=== PATIENT | female | born 1945 | race Caucasian/White ===

== ENCOUNTER → 2017-11-30 09:26 | Outpatient (CLI) | payer MEDICARE, SELFPAY ==
[2017-11-30 11:40] LABS: Absolute Neutrophil Count 4.3 X10^3/uL (2.0-7.7); Basophil# 0.07 X10^3/uL; Basophil% 1.1 % (0-1); Hematocrit 44.9 % (37-47); Hemoglobin 14.6 g/dl (12.0-15.0); Lymphocyte % 25.5 % (19-41); Mean Corp Hgb Conc 32.5 g/gl (32-36); Mean Corpuscular Hgb 30.4 pg (27.0-32.0); Mean Corpuscular Volume 93.5 fL (81-99); Mean Platelet Vol. 10.7 fl (6.2-12.0); Monocyte# 0.39 X10^3/uL; Monocyte% 5.9 % (0-10); Neutrophil # 4.29 X10^3/uL (2.7-7.7); Neutrophil % 64.3 % (47-70); Platelet Count 250 K/mm3 (150-450); RBC Distribution Width CV 12.8 % (11.6-14.6); RBC Distribution Width SD 43.7 fl (35.1-43.9); White Blood Count 6.7 K/mm3 (4.4-11.0)
[2017-11-30 11:44] LABS: POSITIVE COUNT NO; POSITIVE DIFFERENTIAL NO; POSITIVE MORPHOLOGY NO
[2017-11-30 12:00] LABS: Vitamin D,25 Hydroxy 34.7 ng/mL (19.95-100.01)
[2017-11-30 12:09] LABS: AST(SGOT) 20 U/L (15-37); Alanine Aminotransfer ALT/SGPT 30 U/L (13-56); Albumin, Serum 3.7 g/dL (3.2-5.0); Alkaline Phosphatase 78 U/L (45-117); Anion Gap 9 (5-15); BUN 22 mg/dL (7-18); BUN/Creat Ratio 27.2 RATIO (10-20); Calcium,Total 8.4 mg/dL (8.5-10.1); Chloride 105 mmol/L (98-107); Creatinine, Serum 0.81 mg/dL (0.55-1.02); EST Glomerular Filtration Rate 74 mL/min (>60); Est Glom Filt Rate - Afr Amer 90 mL/min (>60); Globulin 3.6 g/dL (2.2-4.2); Glucose 92 mg/dL (70-110); Potassium 3.7 mmol/L (3.5-5.1); Protein, Total 7.3 g/dL (6.4-8.2); Sodium Level 139 mmol/L (136-145); Thyroid Stim Hormone (TSH) 1.11 uIU/mL (0.358-3.74)
== END ==
PROVIDERS: Family Provider Family Medicine Geriatric Medicine; PCP Family Medicine Geriatric Medicine; Visit Provider Family Medicine Geriatric Medicine
DX: I10 Essential (primary) hypertension (principal); E55.9 Vitamin D deficiency, unspecified
CPT/HCPCS: 36415; 80053; 82306; 84443; 85025

== ENCOUNTER 2017-12-19 09:28 | Day surgery (SDC) | payer MEDICARE, SELFPAY ==
[2017-12-19 09:44] VITALS: BP 138/73; PULSE 87; RESP 16; TEMP 36.6; O2SAT 97; BMI 40.9
[2017-12-19] MEDS: MethylPREDNISolone Acetate 80 MG/ML Vial (10:28)
--- NOTE | 2017-12-19 10:38 | RAD_ITS ---
PROCEDURE: Caudal block. DATE OF EXAMINATION: December 19, 2017. INDICATION: Female, 72 years old. Chronic back pain. FLUOROSCOPY TIME (if supplied): (0:05) minutes/seconds Intraoperative fluoroscopic imaging provided for caudal block. RAD/Fluor Guidance for Spine Inj IMPRESSION: Fluoroscopic services provided for caudal block. Electronically Signed: Oscar Bellamy MD at 12:41 EST Tel [phone], Service support ,
[2017-12-19] MEDS: Bupivacaine 0.25% 30 ML Vial (10:48)
[2017-12-19 10:57] VITALS: BP 118/59; BP 138/73; PULSE 89; RESP 16; TEMP 36.4; O2SAT 95
[2017-12-19 11:01] VITALS: BP 114/75; BP 138/73; PULSE 92; RESP 16; O2SAT 98
[2017-12-19 11:05] VITALS: BP 126/65; BP 138/73; PULSE 81; RESP 16; O2SAT 94
[2017-12-19 11:10] VITALS: BP 121/71; BP 138/73; PULSE 76; RESP 16; TEMP 36.2; O2SAT 100
[2017-12-19 11:31] VITALS: BP 138/73
--- NOTE | 2017-12-19 15:52 | OP.PCM_ITS ---
Problem List (1) Degeneration of lumbar or lumbosacral intervertebral disc Status: Chronic (2) Radiculopathy of lumbosacral region Status: Chronic Report of Operation Date of Procedure: 12/19/17 Pre-Operative Diagnosis: Lumbosacral radiculopathy, lumbosacral degenerative disc disease, lumbosacral spinal stenosis Post-Operative Diagnosis: Lumbosacral radiculopathy, lumbosacral degenerative disc disease, lumbosacral spinal stenosis Surgery/Procedure Performed:: Caudal epidural steroid injection Description of Surgical Findings:: PROCEDURE: Caudal epidural steroid injection PREOPERATIVE DIAGNOSIS: Lumbosacral radiculopathy, lumbosacral degenerative disc disease, lumbosacral spinal stenosis POSTOPERATIVE DIAGNOSIS: Lumbosacral radiculopathy, lumbosacral degenerative disc disease, lumbosacral spinal stenosis ANESTHESIA: MAC COMPLICATIONS: None BLOOD LOSS: Minimal PROCEDURE IN DETAIL: History and physical today was reviewed. Risks and benefits of the procedure were explained. The patient understood, agreed to our procedure, and informed consent was obtained. IV inserted per routine protocol. The patient was taken to the operating room, placed in a prone position with a pillow positioned underneath the abdomen. Under direct physician fluoroscopy on the lateral view the caudal space was identified the skin and subcutaneous tissue were anesthetized approximately 3 cc of 1% lidocaine using a 25-gauge regular needle under direct visualization with fluoroscopy on the lateral view using a 22- gauge 3-1/2 inch spinal needle the needle was advanced via the skin through the sacral hiatus tip of the needle passed through the sacrococcygeal ligament advanced approximately S4 area after negative aspiration for blood or CSF a total of 3 cc of contrast were injected to confirm correct placement of the needle as well as cephalad spread the spread was followed to approximately L5 area after confirmation AP as well as lateral view and repeated negative aspiration a total of 15 cc of preservative-free 0.125% Marcaine with 80 mg of Depo-Medrol were injected easily. The needles were then removed intact.The patient experienced no signs or symptoms intrathecal, intravascular injection. The patient experienced no paraesthesia. The procedure was completed without any apparent difficult, any complication. The patient appeared to tolerate well. ASSESSMENT AND PLAN: This is a 72-year-old female with lumbosacral radiculopathy, lumbosacral degenerative disc disease, lumbosacral spinal stenosis status post caudal epidural steroid injection. The patient will continue his current medications. The patient will follow in approximately 2 weeks for possible repeat of the procedure if indicated.
== END 2017-12-19 11:32 | disposition home or self-care (01) ==
LOC: SDC 09:29 → AC 09:31
PROVIDERS: Family Provider Family Medicine Geriatric Medicine; PCP Family Medicine Geriatric Medicine; Visit Provider Anesthesiology Pain Medicine
PROC: 3E0S3BZ Introduction of Anesthetic Agent into Epidural Space, Percutaneous Approach (ICD-10-PCS; CPT 62282; principal; 2017-12-19 10:45)
DX: M51.16 Intervertebral disc disorders with radiculopathy, lumbar region (principal); M51.17 Intervertebral disc disorders with radiculopathy, lumbosacral region; M47.26 Other spondylosis with radiculopathy, lumbar region; M51.36 Other intervertebral disc degeneration, lumbar region; M48.07 Spinal stenosis, lumbosacral region; M79.7 Fibromyalgia; M16.9 Osteoarthritis of hip, unspecified; I10 Essential (primary) hypertension; Z79.82 Long term (current) use of aspirin; Z79.891 Long term (current) use of opiate analgesic; Z79.899 Other long term (current) drug therapy; Z85.3 Personal history of malignant neoplasm of breast; Z85.42 Personal history of malignant neoplasm of other parts of uterus; Z87.19 Personal history of other diseases of the digestive system; Z90.10 Acquired absence of unspecified breast and nipple; Z90.710 Acquired absence of both cervix and uterus
CPT/HCPCS: 62323; 64483; 77003; J7120; J3490

== ENCOUNTER → 2018-02-14 11:47 | Outpatient (CLI) | payer MEDICARE, SELFPAY ==
--- NOTE | 2018-02-14 11:50 | RAD_ITS ---
STUDY: X-RAY - UNILATERAL RIBS ( LEFT ) WITH CHEST REASON FOR EXAM: Female, 73 years old. Left mid rib pain TECHNIQUE - RIBS: 4 view(s) of the ribs. TECHNIQUE - CHEST: Single frontal view of the chest. COMPARISON: None. FINDINGS - RIBS: Normal visualized ribs without a demonstrated fracture. FINDINGS - CHEST: The lungs are clear and expanded. There is no demonstrated pleural abnormality. There is borderline cardiomegaly. Normal mediastinum and elva. Normal visualized pulmonary arteries. Normal visualized aortic arch and descending thoracic aorta. Normal visualized thoracic spine. Normal visualized ribs, clavicles, and shoulders. There is no demonstrated abnormality of the visualized soft tissue structures of the upper abdomen. RAD/Ribs Uni Min 3V w/PA Chest IMPRESSION: RIBS: Normal x-ray examination of the ribs. CHEST: Normal x-ray examination of the chest. Electronically Signed: Jorge Shah DO at 9:02 EDT Tel , Service support ,
== END ==
PROVIDERS: Family Provider Family Medicine Geriatric Medicine; PCP Family Medicine Geriatric Medicine; Visit Provider Family Medicine Geriatric Medicine
DX: M94.0 Chondrocostal junction syndrome [Tietze] (principal)
CPT/HCPCS: 71101

== ENCOUNTER → 2018-02-16 15:34 | Outpatient (CLI) | payer MEDICARE, SELFPAY ==
--- NOTE | 2018-02-16 15:36 | CT_ITS ---
STUDY: CT CHEST WITHOUT CONTRAST REASON FOR EXAM: Female, 73 years old. Pain under the left breast RADIATION DOSAGE (If Supplied By Facility): CTDIvol = ( 17.95 ) mGy, DLP = ( 677.25 ) mGycm TECHNIQUE: Transaxial imaging was performed without the administration of intravenous contrast material. Multiplanar coronal and sagittal images were reformatted. Individualized dose optimization techniques were used for this CT. COMPARISON: Left rib series 02/14/2018 FINDINGS: There has been a left mastectomy. The lungs are normal. There is no demonstrated pleural abnormality. Normal heart and pericardium. Faint coronary artery calcifications are present. There are multiple small lymph nodes within the mediastinum, which are normal in size and morphology most compatible with reactive lymph hyperplasia. Normal hilar regions. Normal unenhanced pulmonary arteries. Normal aorta arch and descending thoracic aorta. There is no rib fracture. No discrete rib lesion is seen. Degenerative changes are seen within the thoracic spine. There is a 5.2 x 4.2 cm left renal cyst. CT/Chest without Contrast IMPRESSION: Postoperative changes of left mastectomy. No discrete abnormality seen within the ribs. The lungs are clear. Atherosclerotic vascular changes. Electronically Signed: Rubio Gallegos DO at 10:14 EDT Tel , Service support ,
== END ==
PROVIDERS: Family Provider Family Medicine Geriatric Medicine; PCP Family Medicine Geriatric Medicine; Visit Provider Family Medicine Geriatric Medicine
DX: R07.89 Other chest pain (principal)
CPT/HCPCS: 71250

== ENCOUNTER → 2018-03-17 10:35 | Outpatient (CLI) | payer MEDICARE, SELFPAY ==
--- NOTE | 2018-03-17 11:00 | RAD_ITS ---
STUDY: X-RAY - THORACIC SPINE REASON FOR EXAM: Female, 73 years old. Pain. TECHNIQUE: 3 view(s) of the thoracic spine were obtained. COMPARISON: None. FINDINGS: Normal kyphosis of the thoracic spine. There is no substantial scoliosis. There is multilevel endplate spondylosis of the thoracic vertebrae. There is multilevel disc space narrowing of the thoracic spine. The soft tissue structures are unremarkable. RAD/Thoracic Spine 3 Views IMPRESSION: Degenerative changes with no acute abnormality. Electronically Signed: Guero Mcdonald MD at 8:22 EDT , Service support ,
--- NOTE | 2018-03-17 11:00 | RAD_ITS ---
STUDY: X-RAY - LUMBAR SPINE REASON FOR EXAM: Female, 73 years old. Pain. TECHNIQUE: 5 view(s) of the lumbar spine were obtained. COMPARISON: MRI 03/19/2015 FINDINGS: Diffuse demineralization. 1.4 cm anterolisthesis of L4 on L5 which is significantly worse than prior MRI. Otherwise normal alignment. Grossly normal lordosis. Moderate to severe multilevel degenerative disc disease most pronounced at L2-L3 and L4-L5. Multilevel spondylosis. No compression fractures. RAD/L/S Spine Min 4 Views IMPRESSION: Increasing anterolisthesis of L4 on L5. Multilevel degenerative disc disease. Electronically Signed: Guero Mcdonald MD at 8:25 EDT , Service support ,
== END ==
PROVIDERS: Family Provider Family Medicine Geriatric Medicine; PCP Family Medicine Geriatric Medicine; Visit Provider Family Medicine Geriatric Medicine
DX: M54.6 Pain in thoracic spine (principal)
CPT/HCPCS: 72072; 72110

== ENCOUNTER → 2018-03-24 16:03 | Outpatient (CLI) | payer MEDICARE, SELFPAY ==
--- NOTE | 2018-03-24 16:45 | MRI_ITS ---
STUDY: MRI LUMBAR SPINE WITHOUT CONTRAST REASON FOR EXAM: Female, 73 years old. Low back pain TECHNIQUE: Standardized fat and water weighted pulse sequences were obtained in the sagittal and axial planes. COMPARISON: None FINDINGS: T12-L1: Normal endplates. Normal disc height, desiccation and tiny central disc protrusion. Normal bilateral facet joints. Normal central canal and bilateral lateral recesses. Normal bilateral intervertebral neural foramina. Normal lumbar lordosis. There is no substantial scoliosis. Normal conus medullaris that terminates at L1 L1-2: Normal endplates. Normal disc height, desiccation and normal morphology. Normal bilateral facet joints. Normal central canal and bilateral lateral recesses. Normal bilateral intervertebral neural foramina. L2-3: Grade 1 retrolisthesis. Degenerative endplate changes. Narrowed disc space with desiccation of the disc and bulging disc osteophyte complex.. Normal bilateral facet joints. Normal central canal. Moderate to severe bilateral recess and neuroforaminal encroachment exaggerated by shortened pedicles L3-4: Normal endplates. Normal disc height, desiccation and normal morphology. Mild facet arthropathy slightly greater on the left. Normal central canal. Mild left lateral recess encroachment. Normal bilateral intervertebral neural foramina. L4-5: Grade 1/2 spondylolisthesis and spondylolysis. Narrowed disc space with desiccation of the disc and moderate bulging disc osteophyte complex.. Bilateral facet arthropathy.. Normal central canal. Severe bilateral recess and neural foraminal stenosis exaggerated by shortened pedicles L5-S1: Normal endplates. Normal disc height, desiccation and minor bulging of the disc.. Bilateral facet arthropathy.. Normal central canal . Mild bilateral recess stenosis.. Normal bilateral intervertebral neural foramina. Normal visualized sacral ala. Large left renal cyst is noted Normal visualized paraspinous soft tissue structures. MRI/Spine Lumbar (Routine) IMPRESSION: Advanced spondylosis and multilevel spinal stenosis secondary to disc disease and bony hypertrophy most severe at L4-5 exaggerated by shortened pedicles due to spondylolisthesis deformity. Other findings as above Electronically Signed: Gee Forte MD at 18:35 EDT , Service support ,
--- NOTE | 2018-03-24 17:30 | MRI_ITS ---
STUDY: MRI THORACIC SPINE WITHOUT CONTRAST REASON FOR EXAM: Female, 73 years old. tHORACIC PAIN, low back pain, left rib pain x 2 months, NKI -- History of breast and uterine CA. TECHNIQUE: Standardized fat and water weighted pulse sequences were obtained in the sagittal and axial planes. COMPARISON: None. FINDINGS: Normal kyphosis of the thoracic spine. There is no substantial scoliosis. T1-2, T2-3, T3-4, T4-5, T5-6, T6-7, T7-8, T8-9, T9-10, T10-11, T11-12: There is mild diffuse disc space narrowing and endplate spondylosis without significant central canal or foraminal stenosis. There are vertebral hemangiomas at T6 and T10 Normal visualized thoracic cord. The soft tissue structures are unremarkable. MRI/Spine Thoracic (Routine) IMPRESSION: Mild degenerative changes Electronically Signed: Sam Hawk MD at 15:41 EDT Tel , Service support ,
== END ==
PROVIDERS: Family Provider Family Medicine Geriatric Medicine; PCP Family Medicine Geriatric Medicine; Visit Provider Family Medicine Geriatric Medicine
DX: M54.6 Pain in thoracic spine (principal)
CPT/HCPCS: 72146; 72148

== ENCOUNTER 2018-07-31 09:29 | Day surgery (SDC) | payer MEDICARE, SELFPAY ==
[2018-07-31] VITALS (7 sets, daily range): BP systolic 141–165; BP diastolic 75–98; PULSE 78–90; RESP 16–18; TEMP 36.3–37; O2SAT 94–97; BMI 40.5
--- NOTE | 2018-07-31 10:00 | RAD_ITS ---
STUDY: X-RAY - LUMBAR SPINE REASON FOR EXAM: Female, 73 years old. Lumbar facet block. TECHNIQUE: Single coned-down view(s) of the lumbar spine were obtained. 19.1 seconds of fluoroscopy. COMPARISON: None FINDINGS: Intraoperative imaging provided for left L3-S1 facet joint block. RAD/L/S Spine Min 4 Views IMPRESSION: Intraoperative imaging provided for left L3 S1 facet joint block. Electronically Signed: Oscar Bellamy MD at 13:07 EDT Tel [phone], Service support ,
[2018-07-31] MEDS: MethylPREDNISolone Acetate 80 MG/ML Vial (10:44)
[2018-07-31] MEDS: Bupivacaine Mpf 0.5% 30 ML VIAL (10:45)
--- NOTE | 2018-07-31 12:16 | OP.PCM_ITS ---
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: Chronic (2) Degeneration of lumbar or lumbosacral intervertebral disc Status: Chronic Report of Operation Date of Procedure: 07/31/18 Pre-Operative Diagnosis: Lumbosacral spondylosis, lumbosacral degenerative disc disease, lumbar facet arthropathy Post-Operative Diagnosis: Lumbosacral spondylosis, lumbosacral degenerative disc disease, lumbar facet arthropathy Surgery/Procedure Performed:: Left-sided lumbar facet steroid injection L3, L4, L5, S1 Description of Surgical Findings:: PROCEDURE: Left-sided lumbar facet steroid injection L3, L4, L5, S1 PREOPERATIVE DIAGNOSIS: Lumbosacral spondylosis, lumbosacral degenerative disc disease, and lumbar facet arthropathy POSTOPERATIVE DIAGNOSIS: Lumbosacral spondylosis, lumbosacral degenerative disc disease, and lumbar facet arthropathy ANESTHESIA: MAC COMPLICATIONS: None BLOOD LOSS: Minimal PROCEDURE IN DETAIL: History and physical today was reviewed. Risks and benefits of the procedure were explained. The patient understood, agreed to our procedure, and informed consent was obtained. IV inserted per routine protocol. The patient was taken to the operating room, placed in a prone position with a pillow positioned underneath the abdomen. The left side of his lower back was prepped and draped in a sterile fashion using iodine x3. Under fluoroscopy guidance, on AP view, L3 through S1 vertebral bodies were visualized. Skin and subcutaneous tissues were anesthetized with approximately 5 mL of 1% lidocaine using a 25-gauge regular needle. Under direct visualization with fluoroscopy at approximately 25-degree angle, starting on the left L3, ending on the left S1, passing through the L4-L5 using a 22-gauge 3 1/2-inch spinal needle, the needle was advanced via the skin. The tip of the needle was maneuvered and directed towards the superior and medial gutter of the transverse process at the vicinity of the medial branch. Once the tip of the needle was in contact with the bone, the needle pulled approximately 2 mm off the bone. After negative aspiration of blood with CSF and confirmation of AP as well as oblique view, a total of 8 mL of preservative-free 0.25% Marcaine with 80 mg of Depo- Medrol was injection in divided doses between those 4 levels. The needles were then removed intact. The patient experienced no signs or symptoms intrathecal, intravascular injection. The patient experienced no paraesthesia. The procedure was completed without any apparent difficult, any complication. The patient appeared to tolerate well. ASSESSMENT AND PLAN: This is a 73-year-old female with lumbosacral spondylosis, lumbosacral degenerative disc disease, and lumbar facet arthropathy, status post left-sided lumbar facet steroid injection L3 through S1. The patient will continue her current medications. The patient will follow in approximately 2 weeks for possible repeat of the procedure if indicated.
== END 2018-07-31 11:38 | disposition home or self-care (01) ==
LOC: SDC 09:30 → AC 09:39
PROVIDERS: Family Provider Family Medicine Geriatric Medicine; PCP Family Medicine Geriatric Medicine; Referring Provider Anesthesiology Pain Medicine; Visit Provider Anesthesiology Pain Medicine
PROC: 3E0T3BZ Introduction of Anesthetic Agent into Peripheral Nerves and Plexi, Percutaneous Approach (ICD-10-PCS; CPT 64493; principal; 2018-07-31 10:35)
DX: M47.817 Spondylosis without myelopathy or radiculopathy, lumbosacral region (principal); M47.814 Spondylosis without myelopathy or radiculopathy, thoracic region; M43.10 Spondylolisthesis, site unspecified; M51.34 Other intervertebral disc degeneration, thoracic region; M54.17 Radiculopathy, lumbosacral region; M48.061 Spinal stenosis, lumbar region without neurogenic claudication; I10 Essential (primary) hypertension; K44.9 Diaphragmatic hernia without obstruction or gangrene; M19.90 Unspecified osteoarthritis, unspecified site; Z78.0 Asymptomatic menopausal state; Z85.3 Personal history of malignant neoplasm of breast; Z85.42 Personal history of malignant neoplasm of other parts of uterus; Z87.19 Personal history of other diseases of the digestive system; Z79.891 Long term (current) use of opiate analgesic; Z79.82 Long term (current) use of aspirin; Z79.899 Other long term (current) drug therapy
CPT/HCPCS: 64493; 64494; 64495; 64483; 72110; J7120; J3490

== ENCOUNTER → 2018-08-07 15:31 | Outpatient (CLI) | payer MEDICARE, SELFPAY ==
[2018-08-07 16:30] LABS: Absolute Lymphocyte Count 1.89 X10^3/ul (0.83-4.51); Absolute Neutrophil Count 7.1 X10^3/uL (2.0-7.7); Basophil# 0.09 X10^3/uL; Basophil% 0.9 % (0-1); Eosinophil# 0.11 X10^3/uL; Eosinophils% 1.1 % (0-5); Hematocrit 47.3 % (37-47); Hemoglobin 15.5 g/dl (12.0-15.0); Lymphocyte # 1.89 X10^3/ul (4.0); Lymphocyte % 19.2 % (19-41); Mean Corp Hgb Conc 32.8 g/gl (32-36); Mean Corpuscular Hgb 30.6 pg (27.0-32.0); Mean Corpuscular Volume 93.5 fL (81-99); Monocyte# 0.66 X10^3/uL; Monocyte% 6.7 % (0-10); Neutrophil # 7.07 X10^3/uL (2.7-7.7); Neutrophil % 71.7 % (47-70); Platelet Count 246 K/mm3 (150-450); RBC Distribution Width CV 13.4 % (11.6-14.6); RBC Distribution Width SD 45.2 fl (35.1-43.9); Red Blood Count 5.06 M/mm3 (4.2-5.4); White Blood Count 9.9 K/mm3 (4.4-11.0)
[2018-08-07 16:31] LABS: POSITIVE COUNT NO; POSITIVE DIFFERENTIAL NO; POSITIVE MORPHOLOGY NO
[2018-08-07 17:16] LABS: ALB/GLOB Ratio 1.1 RATIO (0.9-2.4); AST(SGOT) 23 U/L (15-37); Alanine Aminotransfer ALT/SGPT 31 U/L (13-56); Albumin, Serum 3.6 g/dL (3.2-5.0); Alkaline Phosphatase 100 U/L (45-117); Anion Gap 10 (5-15); BUN 17 mg/dL (7-18); Calcium,Total 9.1 mg/dL (8.5-10.1); Chloride 106 mmol/L (98-107); Creatinine, Serum 0.71 mg/dL (0.55-1.02); EST Glomerular Filtration Rate 86 mL/min (>60); Est Glom Filt Rate - Afr Amer 104 mL/min (>60); Globulin 3.4 g/dL (2.2-4.2); Glucose 79 mg/dL (74-106); Potassium 4.2 mmol/L (3.5-5.1); Sodium Level 141 mmol/L (136-145); Thyroid Stim Hormone (TSH) 0.75 uIU/mL (0.358-3.74); Vitamin D,25 Hydroxy 41.1 ng/mL (29.95-100.01)
[2018-08-09 07:37] LABS: Hep C Antibodies <0.1 s/co ratio (0.0-0.9)
== END ==
PROVIDERS: Family Provider Family Medicine Geriatric Medicine; PCP Family Medicine Geriatric Medicine; Visit Provider Family Medicine Geriatric Medicine
DX: I10 Essential (primary) hypertension (principal); E55.9 Vitamin D deficiency, unspecified; Z13.89 Encounter for screening for other disorder
CPT/HCPCS: 36415; 80053; 82306; 84443; 85025; 86803

== ENCOUNTER → 2018-09-08 10:09 | Outpatient (CLI) | payer MEDICARE, SELFPAY ==
--- NOTE | 2018-09-08 10:12 | BI_ITS ---
MAMMOGRAPHY - UNILATERAL DIAGNOSTIC: RIGHT BREAST REASON FOR EXAM: Female, 73 years old. Prior left mastectomy. PERTINENT HISTORY: Personal history of breast cancer. Sister with breast cancer. Mother with breast cancer. TECHNIQUE: Digital unilateral breast emiliano (3D mammographic acquisition) in the CC and MLO projections. 2-D mediolateral oblique (MLO) and craniocaudad (CC) views of both breasts were obtained. CAD: Full Field Digital Mammography with Computer Added Detection was performed. COMPARISON: Comparison is made with prior examination dated August 15, 2017. FINDINGS: Breast Composition: There are scattered areas of fibroglandular density. There are no dominant masses or suspicious calcifications. No other significant abnormalities are identified. There has been no significant change since the prior study. BI/UNILAT RT SCRN W/CAD IMPRESSION: Stable unilateral diagnostic mammogram. One year follow-up mammogram recommended. (A) ASSESSMENT CATEGORY: BIRADS Category 1: Negative. A letter regarding these results will be sent to the patient by the facility within 30 days. Approximately 10% of breast cancers are not detected by mammography. A normal mammogram should not delay biopsy of a clinically suspicious abnormality. Electronically Signed: Oscar Bellamy MD at 13:47 EST Tel [phone], Service support ,
== END ==
PROVIDERS: Family Provider Family Medicine Geriatric Medicine; PCP Family Medicine Geriatric Medicine; Referring Provider Family Medicine Geriatric Medicine; Visit Provider Family Medicine Geriatric Medicine
DX: Z12.31 Encounter for screening mammogram for malignant neoplasm of breast (principal)
CPT/HCPCS: 77061; 77063; 77067; G0279

== ENCOUNTER 2019-01-29 09:30 | Day surgery (SDC) | payer MEDICARE, SELFPAY ==
[2019-01-29 09:45] VITALS: BP 153/87; PULSE 87; RESP 16; TEMP 37; O2SAT 98; BMI 40.3
[2019-01-29] MEDS: MethylPREDNISolone Acetate 80 MG/ML Vial (10:33)
[2019-01-29] MEDS: Bupivacaine 0.25% 30 ML Vial (10:34)
--- NOTE | 2019-01-29 10:34 | PCM.OPRPT ---
Problem List (1) Degeneration of lumbar or lumbosacral intervertebral disc Status: Chronic (2) Radiculopathy of lumbosacral region Status: Chronic Report of Operation Date of Procedure: 01/29/19 Pre-Operative Diagnosis: Lumbosacral radiculopathy, lumbosacral degenerative disc disease, lumbosacral spinal stenosis Post-Operative Diagnosis: Lumbosacral radiculopathy, lumbosacral degenerative disc disease, lumbosacral spinal stenosis Surgery/Procedure Performed:: Diagnostic/therapeutic caudal epidural steroid injection Description of Surgical Findings:: PROCEDURE: Diagnostic/therapeutic caudal epidural steroid injection PREOPERATIVE DIAGNOSIS: Lumbosacral radiculopathy, lumbosacral degenerative disc disease, lumbosacral spinal stenosis POSTOPERATIVE DIAGNOSIS: Lumbosacral radiculopathy, lumbosacral degenerative disc disease, lumbosacral spinal stenosis ANESTHESIA: MAC COMPLICATIONS: None BLOOD LOSS: Minimal PROCEDURE IN DETAIL: History and physical today was reviewed. Risks and benefits of the procedure were explained. The patient understood, agreed to our procedure, and informed consent was obtained. IV inserted per routine protocol. The patient was taken to the operating room, placed in a prone position with a pillow positioned underneath the abdomen. The lower back area was prepped and draped in a sterile fashion using iodine x3 under fluoroscopy guidance on the lateral view the caudal space was identified the skin and subcutaneous tissue and size approximately 3 cc of 1% lidocaine using a 25-gauge regular needle under direct visualization fluoroscopy using a 22-gauge 3-1/2 inch spinal needle the needle was advanced via the skin through the sacral hiatus tip of the needle passed through the sacrococcygeal ligament advanced approximately S4 area after negative aspiration for blood or CSF a total of 3 cc of contrast were injected to confirm correct placement of the needle as well as cephalad spread the spread was followed to approximately L5 area after negative aspiration for blood or CSF and confirmation AP as well as lateral view a total of 15 cc of preservative-free 0.125% Marcaine with 80 mg of Depo-Medrol were injected easily. The needles were then removed intact. The patient experienced no signs or symptoms intrathecal, intravascular injection. The patient experienced no paraesthesia. The procedure was completed without any apparent difficult, any complication. The patient appeared to tolerate well. ASSESSMENT AND PLAN: This is a 74-year-old female with lumbosacral radiculopathy, lumbosacral degenerative disc disease, lumbosacral spinal stenosis status post diagnostic/therapeutic caudal epidural steroid injection. The patient will continue her current medications. The patient will follow in approximately 2 weeks for possible repeat of the procedure if indicated.
[2019-01-29 10:36] VITALS: BP 138/83; BP 153/87; PULSE 82; RESP 16; TEMP 36.5; O2SAT 93
[2019-01-29 10:40] VITALS: BP 143/80; BP 153/87; PULSE 88; RESP 16; O2SAT 96
--- NOTE | 2019-01-29 10:40 | RAD_ITS ---
PROCEDURE: Caudal block. DATE OF EXAMINATION: January 29, 2019. INDICATION: Female, 74 years old. Chronic low back pain. FLUOROSCOPY TIME (if supplied): (0:11) minutes/seconds. 2 intraoperative views were obtained. Fluoroscopic services provided for caudal block. The spinal needle is seen overlying the midportion of the sacrum. RAD/Fluor Guidance for Spine Inj IMPRESSION: Intraoperative imaging provided for caudal block. Electronically Signed: Oscar Bellamy, at 8:51 EDT , Service support ,
[2019-01-29 10:45] VITALS: BP 149/75; BP 153/87; PULSE 78; RESP 16; O2SAT 96
[2019-01-29 10:47] VITALS: BP 149/85; BP 153/87; PULSE 78; RESP 16; TEMP 36.3; O2SAT 97
[2019-01-29 11:12] VITALS: BP 153/87
== END 2019-01-29 11:12 | disposition home or self-care (01) ==
LOC: SDC 09:32 → AC 09:34
PROVIDERS: Family Provider Family Medicine Geriatric Medicine; PCP Family Medicine Geriatric Medicine; Referring Provider Anesthesiology Pain Medicine; Visit Provider Anesthesiology Pain Medicine
PROC: 3E0S3BZ Introduction of Anesthetic Agent into Epidural Space, Percutaneous Approach (ICD-10-PCS; CPT 62282; principal; 2019-01-29 10:35)
DX: M51.17 Intervertebral disc disorders with radiculopathy, lumbosacral region (principal); M48.07 Spinal stenosis, lumbosacral region; M47.27 Other spondylosis with radiculopathy, lumbosacral region; M43.17 Spondylolisthesis, lumbosacral region; M47.814 Spondylosis without myelopathy or radiculopathy, thoracic region; M51.34 Other intervertebral disc degeneration, thoracic region; I10 Essential (primary) hypertension; E78.00 Pure hypercholesterolemia, unspecified; M19.90 Unspecified osteoarthritis, unspecified site; M16.9 Osteoarthritis of hip, unspecified; M79.7 Fibromyalgia; Z78.0 Asymptomatic menopausal state; Z79.891 Long term (current) use of opiate analgesic; Z79.82 Long term (current) use of aspirin; Z79.899 Other long term (current) drug therapy; Z85.3 Personal history of malignant neoplasm of breast; Z85.42 Personal history of malignant neoplasm of other parts of uterus; Z87.19 Personal history of other diseases of the digestive system
CPT/HCPCS: 64483; 77003; J7120; J3490

== ENCOUNTER → 2019-02-07 11:25 | Outpatient (CLI) | payer MEDICARE, SELFPAY ==
[2019-01-29 09:45] VITALS: BMI 40.3
[2019-02-07 12:53] LABS: Absolute Lymphocyte Count 2.15 X10^3/ul (0.83-4.51); Absolute Neutrophil Count 6.6 X10^3/uL (2.0-7.7); Basophil# 0.08 X10^3/uL; Basophil% 0.8 % (0-1); Eosinophil# 0.15 X10^3/uL; Eosinophils% 1.5 % (0-5); Hematocrit 46.6 % (37-47); Hemoglobin 15.4 g/dl (12.0-15.0); Lymphocyte # 2.15 X10^3/ul (4.0); Lymphocyte % 21.8 % (19-41); Mean Corpuscular Hgb 30.2 pg (27.0-32.0); Mean Corpuscular Volume 91.4 fL (81-99); Mean Platelet Vol. 10.6 fl (6.2-12.0); Monocyte# 0.78 X10^3/uL; Monocyte% 7.9 % (0-10); Neutrophil # 6.64 X10^3/uL (2.7-7.7); Neutrophil % 67.5 % (47-70); Platelet Count 250 K/mm3 (150-450); RBC Distribution Width CV 13.3 % (11.6-14.6); RBC Distribution Width SD 44.2 fl (35.1-43.9); White Blood Count 9.9 K/mm3 (4.4-11.0)
[2019-02-07 12:58] LABS: POSITIVE COUNT NO; POSITIVE DIFFERENTIAL NO; POSITIVE MORPHOLOGY NO
[2019-02-07 13:13] LABS: BUN 21 mg/dL (7-18); Creatinine, Serum 0.83 mg/dL (0.55-1.02); Glucose 75 mg/dL (74-106)
[2019-02-07 13:14] LABS: ALB/GLOB Ratio 1.1 RATIO (0.9-2.4); AST(SGOT) 25 U/L (15-37); Alanine Aminotransfer ALT/SGPT 25 U/L (13-56); Albumin, Serum 3.6 g/dL (3.2-5.0); Alkaline Phosphatase 98 U/L (45-117); Anion Gap 7 (5-15); BUN/Creat Ratio 25.3 RATIO (10-20); Calcium,Total 8.8 mg/dL (8.5-10.1); Chloride 107 mmol/L (98-107); EST Glomerular Filtration Rate 72 mL/min (>60); Est Glom Filt Rate - Afr Amer 87 mL/min (>60); Globulin 3.4 g/dL (2.2-4.2); Potassium 3.8 mmol/L (3.5-5.1); Sodium Level 138 mmol/L (136-145); Thyroid Stim Hormone (TSH) 1.19 uIU/mL (0.358-3.74)
== END ==
PROVIDERS: Family Provider Family Medicine Geriatric Medicine; PCP Family Medicine Geriatric Medicine; Visit Provider Family Medicine Geriatric Medicine
DX: I10 Essential (primary) hypertension (principal); E55.9 Vitamin D deficiency, unspecified
CPT/HCPCS: 36415; 80053; 82306; 84443; 85025

== ENCOUNTER 2019-04-30 07:25 | Day surgery (SDC) | payer MEDICARE, SELFPAY ==
[2019-04-30 07:54] VITALS: BP 171/96; PULSE 77; RESP 16; TEMP 36.9; O2SAT 98; BMI 41.8
--- NOTE | 2019-04-30 08:40 | RAD_ITS ---
PROCEDURE: Left lumbar facet block. DATE OF EXAMINATION: April 30, 2019. INDICATION: Female, 74 years old. Chronic low back pain. FLUOROSCOPY TIME (if supplied): (0:23) minutes/seconds. 4 images were obtained. RAD/L/S Spine Min 4 Views IMPRESSION: Intraoperative imaging provided for left L3 S1 facet joint block. Electronically Signed: Oscar Bellamy, at 15:19 EDT , Service support ,
[2019-04-30] MEDS: MethylPREDNISolone Acetate 80 MG/ML Vial (08:42)
[2019-04-30] MEDS: Bupivacaine 0.25% 30 ML Vial (08:42)
--- NOTE | 2019-04-30 08:51 | OP.PCM_ITS ---
Problem List (1) Degeneration of lumbar or lumbosacral intervertebral disc Status: Chronic (2) Spondylosis of lumbosacral region without myelopathy or radiculopathy Status: Chronic Report of Operation Date of Procedure: 04/30/19 Pre-Operative Diagnosis: Lumbosacral spondylosis, lumbar psychogenic disc disease, lumbar facet arthropathy Post-Operative Diagnosis: Lumbosacral spondylosis, lumbosacral degenerative disc disease, lumbar facet arthropathy Surgery/Procedure Performed:: Left-sided lumbar facet steroid injection L3, L4, L5, S1 Description of Surgical Findings:: PROCEDURE: Left-sided lumbar facet steroid injection L3, L4, L5, S1 PREOPERATIVE DIAGNOSIS: Lumbosacral spondylosis, lumbar degenerative disease, and lumbar facet arthropat hy POSTOPERATIVE DIAGNOSIS: Lumbosacral spondylosis, lumbar sacral degenerative disc disease, and lumbar facet arthropathy ANESTHESIA: MAC COMPLICATIONS: None BLOOD LOSS: Minimal PROCEDURE IN DETAIL: History and physical today was reviewed. Risks and benefits of the procedure were explained. The patient understood, agreed to our procedure, and informed consent was obtained. IV inserted per routine protocol. The patient was taken to the operating room, placed in a prone position with a pillow positioned underneath the abdomen. The left side of the lower back was prepped and draped in a sterile fashion using iodine x3. Under fluoroscopy guidance, on AP view, L3 through S1 vertebral bodies were visualized. Skin and subcutaneous tissues were anesthetized with approximately 5 mL of 1% l idocaine using a 25-gauge regular needle. Under direct visualization with fluoroscopy at approximately 25-degree angle, starting on the left L3, ending on the left S1, passing through the L4-L5 using a 22-gauge 3 1/2-inch spinal needle, the needle was advanced via the skin. The tip of the needle was maneuvered and directed towards the superior and medial gutter of the transverse process at the vicinity of the medial branch. Once the tip of the needle was in contact with the bone, the needle pulled approximately 2 mm off the bone. After negative aspiration of blood with CSF and confirmation of AP as well as oblique view, a total of 8 mL of preservative-free 0.25% Marcaine with 80 mg of Depo- Medrol was injection in divided doses between those 4 levels. The needles were then removed intact. The patient experienced no signs or symptoms intrathecal, intravascular injection. The patient experienced no paraesthesia. The procedure was completed without any apparent difficult, any complication. The patient appeared to tolerate well. ASSESSMENT AND PLAN: This is a 74-year-old female with lumbosacral spondylosis, normocytic degenerative disc disease, and lumbar facet arthropathy, status post left-sided lumbar facet steroid injection L3 through S1. The patient will continue her current medications. The patient will follow in approximately 2 weeks for reevaluation.
[2019-04-30 08:55] VITALS: BP 155/85; BP 171/96; PULSE 78; RESP 16; TEMP 36.1; O2SAT 94
[2019-04-30 09:00] VITALS: BP 144/91; BP 171/96; PULSE 72; RESP 16; O2SAT 98
[2019-04-30 09:05] VITALS: BP 154/84; BP 171/96; PULSE 74; RESP 16; O2SAT 100
[2019-04-30 09:10] VITALS: BP 159/90; BP 171/96; PULSE 73; RESP 16; TEMP 36; O2SAT 95
[2019-04-30 09:45] VITALS: BP 171/96
== END 2019-04-30 09:52 | disposition home or self-care (01) ==
LOC: SDC 07:28 → AC 07:29
PROVIDERS: Family Provider Family Medicine Geriatric Medicine; PCP Family Medicine Geriatric Medicine; Referring Provider Anesthesiology Pain Medicine; Visit Provider Anesthesiology Pain Medicine
PROC: 3E0T3BZ Introduction of Anesthetic Agent into Peripheral Nerves and Plexi, Percutaneous Approach (ICD-10-PCS; CPT 64493; principal; 2019-04-30 08:45)
DX: M51.16 Intervertebral disc disorders with radiculopathy, lumbar region (principal); M48.061 Spinal stenosis, lumbar region without neurogenic claudication; M47.27 Other spondylosis with radiculopathy, lumbosacral region; G89.29 Other chronic pain; M51.14 Intervertebral disc disorders with radiculopathy, thoracic region; M51.34 Other intervertebral disc degeneration, thoracic region; M43.10 Spondylolisthesis, site unspecified; M79.7 Fibromyalgia; M47.24 Other spondylosis with radiculopathy, thoracic region; I10 Essential (primary) hypertension; E78.00 Pure hypercholesterolemia, unspecified; M19.90 Unspecified osteoarthritis, unspecified site; Z78.0 Asymptomatic menopausal state; Z79.891 Long term (current) use of opiate analgesic; Z79.82 Long term (current) use of aspirin; Z79.899 Other long term (current) drug therapy; Z85.3 Personal history of malignant neoplasm of breast; Z85.41 Personal history of malignant neoplasm of cervix uteri
CPT/HCPCS: 01992; 64493; 64494; 64495; 64483; 72110; J7120

== ENCOUNTER 2019-07-16 07:16 | Day surgery (SDC) | payer MEDICARE, SELFPAY ==
[2019-07-16 07:38] VITALS: BP 122/66; PULSE 72; RESP 16; TEMP 36.8; O2SAT 96; BMI 41.1
[2019-07-16] MEDS: Lactated Ringers 1,000 ML 100 ML IV (07:47)
--- NOTE | 2019-07-16 08:00 | RAD_ITS ---
PROCEDURE: Left L3 S1 radiofrequency ablation. DATE OF EXAMINATION: July 16, 2019. INDICATION: Female, 74 years old. Chronic low back pain. FLUOROSCOPY TIME (if supplied): (0:36) minutes/seconds. 9 images were obtained. Intraoperative fluoroscopy provided for left L3-S1 radiofrequency ablation. RAD/L/S Spine Min 4 Views IMPRESSION: Fluoroscopic services provided for left L3 S1 radiofrequency ablation. Electronically Signed: Oscar Bellamy, at 15:08 EDT , Service support ,
[2019-07-16] MEDS: Bupivacaine 0.25% 30 ML Vial (08:42)
[2019-07-16] MEDS: MethylPREDNISolone Acetate 80 MG/ML Vial (08:42)
[2019-07-16 09:00] VITALS: BP 112/83; BP 122/66; PULSE 67; RESP 16; TEMP 36.2; O2SAT 97
[2019-07-16 09:05] VITALS: BP 122/66; BP 134/94; PULSE 71; RESP 16; O2SAT 95
[2019-07-16 09:10] VITALS: BP 122/66; BP 141/76; PULSE 69; RESP 16; O2SAT 99
[2019-07-16 09:14] VITALS: BP 122/66; BP 138/86; PULSE 73; RESP 16; O2SAT 99
[2019-07-16 09:30] VITALS: BP 122/66
--- NOTE | 2019-07-16 12:21 | PCM.OPRPT ---
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 Risks and benefits of procedure explained. The patient understood, agreed to the procedure and informed consent was obtained. IV inserted per routine protocol. The patient was taken to the operating room, placed in the prone position with a pillow positioned underneath the abdomen. The left side of the lower back was prepped and draped in a sterile fashion using iodine x 3. Under fluoroscopy guidance, on an oblique view, the L3 through S1 vertebral bodies were visualized. The skin and subcutaneous tissue was anesthetized with approximately 10 mL of 1% lidocaine using a 25-gauge regular needle. Under direct visualization with fluoroscopy at approximately 25-degree angle, starting on the left L3, ending on the left S1 passing through the L4-L5 using a 20-gauge 15 cm with a 10 mm curved active tip radiofrequency ablation needle the needle passed through the skin. The tip of the needle was maneuvered and directed towards the superior and medial gutter of the transverse process at the vicinity of the medial branch. Once the tip of the needle was in contact with the bone, the needle pulled approximately 2 mm up the bone. The stylet of each needle was then removed. After negative aspiration of blood with CSF and confirmation of AP as well as oblique view, radiofrequency ablation probe was then inserted at each level. Impedance was then recorded at L3 to be 220, at L4 231, at L5 289, at S1 304 ohm. Motor-evoked potential was then initiated to 1.5 volt without any motor response at each corresponding level. The probe was then removed intact and a total of 6 mL preservative-free 1% lidocaine was injected in divided doses between those 4 levels after negative aspiration of blood with CSF. The radiofrequency ablation probe was then reinserted after confirmation of AP, oblique as well as lateral view. Radiofrequency ablation was then initiated to 80 degrees Celsius for 90 seconds at each level. Once concluded, the probe was then removed intact and a total of 6 mL of preservative-free 0.25% Marcaine with 40 mg Depo-Medrol was injected in divided doses between those 4 levels. The needles were then removed intact. The patient experienced no signs or symptoms of intrathecal, intravascular injection. The patient experienced no paraesthesia. The procedure was completed without any apparent difficulty, any complication. The patient appeared to tolerate well. Sensory as well as motor exam was unchanged from prior to procedure. ASSESSMENT AND PLAN: This is a 74-year-old female with lumbosacral spondylosis, lumbosacral degenerative disc disease, lumbar facet arthropathy, status post left-sided radiofrequency ablation of the medial branch L3 through S1. The patient will continue her current medications. The patient will follow up in approximately 2 weeks for reevaluation.
== END 2019-07-16 09:37 | disposition home or self-care (01) ==
LOC: SDC 07:16 → AC 07:17
PROVIDERS: Family Provider Family Medicine Geriatric Medicine; PCP Family Medicine Geriatric Medicine; Referring Provider Anesthesiology Pain Medicine; Visit Provider Anesthesiology Pain Medicine
PROC: (CPT 64635; principal; 2019-07-16 08:45)
DX: M51.36 Other intervertebral disc degeneration, lumbar region (principal); M51.34 Other intervertebral disc degeneration, thoracic region; M51.37 Other intervertebral disc degeneration, lumbosacral region; M47.817 Spondylosis without myelopathy or radiculopathy, lumbosacral region; M47.814 Spondylosis without myelopathy or radiculopathy, thoracic region; M48.061 Spinal stenosis, lumbar region without neurogenic claudication; M43.10 Spondylolisthesis, site unspecified; M16.9 Osteoarthritis of hip, unspecified; G89.29 Other chronic pain; M79.7 Fibromyalgia; I10 Essential (primary) hypertension; E78.00 Pure hypercholesterolemia, unspecified; Z78.0 Asymptomatic menopausal state; Z79.82 Long term (current) use of aspirin; Z79.891 Long term (current) use of opiate analgesic; Z79.899 Other long term (current) drug therapy; Z85.3 Personal history of malignant neoplasm of breast; Z85.42 Personal history of malignant neoplasm of other parts of uterus
CPT/HCPCS: 64635; 64636 ×2; 72110; 76000; J7120

== ENCOUNTER → 2019-08-22 12:02 | Outpatient (CLI) | payer MEDICARE, SELFPAY ==
[2019-08-22 12:49] LABS: Absolute Lymphocyte Count 1.45 X10^3/uL (0.83-4.51); Absolute Neutrophil Count 3.8 X10^3/uL (2.0-7.7); Basophil# 0.08 X10^3/uL; Basophil% 1.4 % (0-1); Eosinophil# 0.17 X10^3/uL; Eosinophils% 2.9 % (0-5); Hematocrit 46.1 % (37-47); Hemoglobin 15.1 g/dL (12.0-15.0); Lymphocyte # 1.45 X10^3/ul (4.0); Lymphocyte % 24.6 % (19-41); Mean Corp Hgb Conc 32.8 g/dL (32-36); Mean Corpuscular Hgb 30.3 pg (27.0-32.0); Mean Corpuscular Volume 92.6 fL (81-99); Mean Platelet Vol. 10.7 fl (6.2-12.0); Monocyte# 0.41 X10^3/uL; Monocyte% 6.9 % (0-10); NRBC Flagged by Analyzer 0 % (0-5); Neutrophil # 3.77 X10^3/uL (2.7-7.7); Neutrophil % 63.9 % (47-70); Platelet Count 250 K/mm3 (150-450); RBC Distribution Width CV 12.8 % (11.6-14.6); RBC Distribution Width SD 43.4 fl (35.1-43.9); Red Blood Count 4.98 M/mm3 (4.2-5.4); White Blood Count 5.9 K/mm3 (4.4-11.0)
[2019-08-22 13:09] LABS: ALB/GLOB Ratio 0.9 RATIO (0.9-2.4); AST(SGOT) 35 U/L (15-37); Alanine Aminotransfer ALT/SGPT 43 U/L (13-56); Albumin, Serum 3.7 g/dL (3.2-5.0); Alkaline Phosphatase 98 U/L (45-117); Anion Gap 9 (5-15); BUN 17 mg/dL (7-18); BUN/Creat Ratio 18.7 RATIO (10-20); Calcium,Total 8.8 mg/dL (8.5-10.1); Chloride 106 mmol/L (98-107); Creatinine, Serum 0.91 mg/dL (0.55-1.02); EST Glomerular Filtration Rate 65 mL/min (>60); Est Glom Filt Rate - Afr Amer 78 mL/min (>60); Globulin 3.9 g/dL (2.2-4.2); Glucose 85 mg/dL (74-106); Potassium 3.9 mmol/L (3.5-5.1); Protein, Total 7.6 g/dL (6.4-8.2); Sodium Level 139 mmol/L (136-145); Thyroid Stim Hormone (TSH) 0.89 uIU/mL (0.358-3.74)
== END ==
PROVIDERS: Family Provider Family Medicine Geriatric Medicine; PCP Family Medicine Geriatric Medicine; Visit Provider Family Medicine Geriatric Medicine
DX: I10 Essential (primary) hypertension (principal); E55.9 Vitamin D deficiency, unspecified
CPT/HCPCS: 36415; 80053; 82306; 84443; 85025

== ENCOUNTER → 2019-09-10 07:47 | Outpatient (CLI) | payer MEDICARE, SELFPAY ==
--- NOTE | 2019-09-10 07:49 | BI_ITS ---
MAMMOGRAPHY - UNILATERAL SCREENING: RIGHT BREAST REASON FOR EXAM: Female, 74 years old. Routine annual screening examination (unilateral). PERTINENT HISTORY: Personal history of breast cancer. Prior left mastectomy. Sister with breast cancer. Mother with breast cancer. TECHNIQUE: Digital unilateral breast marshall (3D mammographic acquisition) in the CC and MLO projections. 2-D mediolateral oblique (MLO) and craniocaudad (CC) views of both breasts were obtained. CAD: Full Field Digital Mammography with Computer Added Detection was performed. COMPARISON: Comparison is made with prior study dated September 08, 2018 and August 15, 2017. FINDINGS: Breast Composition: There are scattered areas of fibroglandular density. There are no dominant masses or suspicious calcifications. No other significant abnormalities are identified. There has been no significant change since the prior study. BI/SCREEN MAMM (CAD) W/MARSHALL UNI R IMPRESSION: Stable unilateral screening mammogram. Yearly follow-up mammogram recommended. (A) ASSESSMENT CATEGORY: BIRADS Category 1: Negative. A letter regarding these results will be sent to the patient by the facility within 30 days. Approximately 10% of breast cancers are not detected by mammography. A normal mammogram should not delay biopsy of a clinically suspicious abnormality. [id number] Electronically Signed: Oscar Bellamy, at 9:58 EST , Service support ,
== END ==
PROVIDERS: Family Provider Family Medicine Geriatric Medicine; PCP Family Medicine Geriatric Medicine; Referring Provider Family Medicine Geriatric Medicine; Visit Provider Family Medicine Geriatric Medicine
DX: Z12.31 Encounter for screening mammogram for malignant neoplasm of breast (principal); Z85.3 Personal history of malignant neoplasm of breast; Z90.12 Acquired absence of left breast and nipple; Z80.3 Family history of malignant neoplasm of breast
CPT/HCPCS: 77063; 77067

== ENCOUNTER → 2020-02-20 10:38 | Outpatient (CLI) | payer MEDICARE, SELFPAY ==
[2020-02-20 11:10] LABS: Absolute Lymphocyte Count 1.85 X10^3/uL (0.83-4.51); Absolute Neutrophil Count 5.4 X10^3/uL (2.0-7.7); Basophil% 1.2 % (0-1); Eosinophil# 0.21 X10^3/uL; Eosinophils% 2.6 % (0-5); Hemoglobin 15.9 g/dL (12.0-15.0); Lymphocyte # 1.85 X10^3/ul (4.0); Lymphocyte % 22.8 % (19-41); Mean Corp Hgb Conc 32.4 g/dL (32-36); Mean Corpuscular Hgb 29.9 pg (27.0-32.0); Mean Corpuscular Volume 92.1 fL (81-99); Mean Platelet Vol. 10.3 fl (6.2-12.0); Monocyte# 0.56 X10^3/uL; Monocyte% 6.9 % (0-10); NRBC Flagged by Analyzer 0 % (0-5); Neutrophil # 5.35 X10^3/uL (2.7-7.7); Neutrophil % 66.1 % (47-70); Platelet Count 249 K/mm3 (150-450); RBC Distribution Width CV 12.7 % (11.6-14.6); RBC Distribution Width SD 42.9 fl (35.1-43.9); Red Blood Count 5.32 M/mm3 (4.2-5.4); White Blood Count 8.1 K/mm3 (4.4-11.0)
[2020-02-20 11:45] LABS: Vitamin D,25 Hydroxy 60.8 ng/mL
[2020-02-20 11:46] LABS: AST(SGOT) 38 U/L (15-37); Alanine Aminotransfer ALT/SGPT 40 U/L (13-56); Albumin, Serum 3.8 g/dL (3.2-5.0); Alkaline Phosphatase 113 U/L (45-117); Anion Gap 6 (5-15); BUN 15 mg/dL (7-18); BUN/Creat Ratio 18.8 RATIO (10-20); Calcium,Total 9.1 mg/dL (8.5-10.1); Chloride 109 mmol/L (98-107); EST Glomerular Filtration Rate 75 mL/min (>60); Est Glom Filt Rate - Afr Amer 91 mL/min (>60); Globulin 3.9 g/dL (2.2-4.2); Glucose 93 mg/dL (74-106); Protein, Total 7.7 g/dL (6.4-8.2); Sodium Level 140 mmol/L (136-145); Thyroid Stim Hormone (TSH) 0.95 uIU/mL (0.358-3.74)
== END ==
PROVIDERS: PCP Family Medicine Geriatric Medicine; Referring Provider Family Medicine Geriatric Medicine; Visit Provider Family Medicine Geriatric Medicine
DX: E55.9 Vitamin D deficiency, unspecified (principal); I10 Essential (primary) hypertension
CPT/HCPCS: 36415; 80053; 82306; 84443; 85025

== ENCOUNTER 2020-04-07 05:42 | Inpatient (IN) | payer MEDICARE, SELFPAY ==
--- NOTE | 2020-03-26 13:30 | EKG12_ITS ---
Test Reason : PREOP Blood Pressure : / mmHG Vent. Rate : 066 BPM Atrial Rate : 066 BPM P-R Int : 152 ms QRS Dur : 086 ms QT Int : 420 ms P-R-T Axes : -11 013 044 degrees QTc Int : 440 ms Sinus rhythm with Premature atrial complexes Otherwise normal ECG Confirmed by MIGUEL ANGEL ADAN ([id number]), city editor LISA RIVERA ([id number]) on 03/31/2020 10:57:27 AM Referred By: MC RIVERA Confirmed By:MIGUEL ANGEL ADAN
[2020-03-26 13:39] LABS: Hematocrit 48.3 % (37-47); Mean Corp Hgb Conc 31.1 g/dL (32-36); Mean Corpuscular Hgb 29.5 pg (27.0-32.0); Mean Corpuscular Volume 95.1 fL (81-99); Mean Platelet Vol. 10.3 fl (6.2-12.0); Platelet Count 266 K/mm3 (150-450); RBC Distribution Width CV 12.7 % (11.6-14.6); RBC Distribution Width SD 44.8 fl (35.1-43.9); Red Blood Count 5.08 M/mm3 (4.2-5.4); White Blood Count 6.8 K/mm3 (4.4-11.0)
[2020-03-26 13:50] LABS: Prothrombin Time (Protime)PT. 13.1 SECONDS (11.7-14.9)
[2020-03-26 13:51] LABS: Partial Thromboplast Time 28.4 Seconds (24.1-36.2)
--- NOTE | 2020-03-26 13:53 | RAD_ITS ---
STUDY: X-RAY CHEST REASON FOR EXAM: Female, 75 years old. PRE OP -- HX LEFT MASTECTOMY 2008 TECHNIQUE: PA and lateral views of the chest. COMPARISON: Comparison is made with prior study dated February 14, 2018. FINDINGS: Minimal increased markings in the lingular segment of the left upper lobe suggestive of a mild scarring. This is unchanged. There is no demonstrated pleural abnormality. Normal size heart. Normal mediastinum and elva. Normal visualized pulmonary arteries. Normal visualized aortic arch and descending thoracic aorta. There are diffuse degenerative changes of the visualized thoracic spine. Normal visualized ribs, clavicles, and shoulders. There is no demonstrated abnormality of the visualized soft tissue structures of the upper abdomen. RAD/Chest PA and Lateral IMPRESSION: Stable mild increased markings at the left lung base suggestive of scarring. Electronically Signed: Oscar Bellamy, at 14:32 EDT , Service support ,
[2020-03-26 14:08] LABS: Anion Gap 6 (5-15); BUN 15 mg/dL (7-18); BUN/Creat Ratio 20.1 RATIO (10-20); Chloride 107 mmol/L (98-107); Creatinine, Serum 0.75 mg/dL (0.55-1.02); EST Glomerular Filtration Rate 81 mL/min (>60); Est Glom Filt Rate - Afr Amer 98 mL/min (>60); Glucose 83 mg/dL (74-106); Potassium 3.9 mmol/L (3.5-5.1); Sodium Level 140 mmol/L (136-145)
[2020-04-06 11:59] LABS: Probe Check PASS; Specimen Processing Control PASS
[2020-04-07] VITALS (12 sets, daily range): BP systolic 139–183; BP diastolic 68–96; PULSE 79–93; RESP 16–18; TEMP 36.2–37; O2SAT 95–100; BMI 41.1
[2020-04-07] MEDS: Lactated Ringers 1,000 ML 100 ML IV ×2 (06:25→15:53)
[2020-04-07] MEDS: Scopolamine 1mg/72hr Patch 1 PATCH TRANSDERM. (06:41)
[2020-04-07] MEDS: Gabapentin 600 MG Tablet PO (06:41)
[2020-04-07] MEDS: Celecoxib 200 MG Capsule 400 MG PO (06:41)
[2020-04-07] MEDS: Acetaminophen 500 MG Tablet 1000 MG PO ×3 (06:42→21:44)
[2020-04-07 07:05] LABS: Bedside Glucose 96 mg/dL (70-110)
--- NOTE | 2020-04-07 07:30 | KNEE_PTH ---
PATIENT: KATHARINE MEDRANO LOC: [facility]3 U#:[id number] AGE/SX: 75/F ROOM: MS310 RE04/07/[address]: Dr. Luigi Soriano MD : 1945 BED: 1 DIS: 04/08/2020 SPEC #: [id number] RECD: 04/07/20 10:27 STATUS: NEETU REJae #: [id number] JOAQUIN: 04/07/20 07:[address]: Luigi Soriano DEPT: SURGICAL PATHOLOGY RECD BY: Cesar Schaefer ENTERED: 04/07/20 10:53 SP TYPE: TOTAL KNEE OTHR DR: Dr. Chaz Reynoso MD Tissues: Knee, NOS Procedures: Decalcification bone/plaque Surgery Specimen Level IV HEADER OPERATION: Total knee replacement PRE-OP DIAGNOSIS: Osteoarthritis left knee TISSUE SUBMITTED: Debrided bone and tissue left knee MICROSCOPIC DIAGNOSIS Debrided bone and soft tissue left knee, total knee replacement: Pieces of bone with degenerative osteoarthritic changes. Fibroadipose tissue, fibroconnective tissue and reactive synovial tissue. SJ:roxanna 04/10/20 MICROSCOPIC DESCRIPTION Slides are reviewed. GROSS DESCRIPTION Received is one container designated bone and soft tissue left knee. The specimen consists of multiple fragments of rinaldi-yellow bone measuring in aggregate 15 x 11 x 2 cm. Also in the specimen container are multiple fragments of yellow-white soft tissue measuring in aggregate 8.5 x 7 x 1 cm. A number of bony fragments contain articular surfaces consistent with tibial plateau and femoral condyle and displaying prominent osteophyte formation, eburnation, and bone erosion. Station Chief sections are submitted in two cassettes as follows: 1 - soft tissue, 2 - bone after decalcification. / AM:roxanna 04/07/20 TC:5 [facility]: [id number], [id number]
[2020-04-07] MEDS: dexAMETHasone 10 MG/ML Vial IV (08:05)
--- NOTE | 2020-04-07 09:21 | PCM.OP.PRO ---
Procedure Report Date of Procedure: 04/07/20 Preoperative diagnosis: Left knee severe primary osteoarthritis Postoperative diagnosis: Same Title of procedure : Left total knee replacement Surgeon: Luigi Soriano MD Front End Drupal Developer: Pham Michaud PA-C Anesthesia: Spinal with abductor canal nerve block Anesthesiologist: Dr. Tilley Special medications: Vancomycin, tranexamic acid Indications for surgery: Patient is a [75]-year-old [female] with a history of knee arthritis appropriately treated and failed conservative measures and wished to proceed with total knee replacement. Patient was cleared for surgery by the medical doctor and has been evaluated by the anesthesia staff. Patient understands increased risk associated with COVID-19. Findings: Intraoperative findings showed severe arthritis of the knee. Patient underwent knee replacement using [employer] triathlon total knee components. Size [4] femur, size [4] tibia, [29 x 9] asymmetric X3 patella, size [4-11 CS] tibial polyethylene insert, knee was nicely balanced. Patella tracked well. Patient underwent standard wound closure in layers. Vicryl and strata fix sutures utilized. learning and development assistant, physician engineering assistant, was utilized throughout the entire procedure. They were vital in helping with patient positioning, holding of retractors, exposing the tissues adequately for safe completion of the procedure including cutting of the bone, helping field technical specialist appropriate alignment and sizing of the components, implantation of the components, as well as wound closure, bandage application, and safe patient transfer. Without nursing surgical services director, physician engineering assistant, surgical time would have been significantly increased, and surgical outcome could have been less optimal. Description of procedure: The patient was taken to the OR, transferred to the OR table. They were given a spinal anesthetic. Ancef was given IV preoperatively. Tranexamic acid was given IV preoperatively. Well-padded tourniquet was applied to the upper thigh of the operative leg. Nonoperative leg had a MASSIMO hose and SCD on throughout. Operative limb was prepped padded and draped in usual orthopedic sterile fashion for the procedure. We began by injecting the pain relieving solution in the anterior superior aspect of the knee region. The limb was exsanguinated, and the tourniquet was applied to 300 mmHg. Made a midline incision through skin, subcutaneous tissue, bringing down us on the extensor mechanism. Medial parapatellar arthrotomy was carried out. Straw-colored joint fluid was evacuated. We raised a sleeve of tissue off the upper medial tibia. Resected some of the infrapatellar fat pad. We remove degenerative medial and lateral meniscus. Removed bone spurs from about the joint. We removed tissue off the anterior aspect of the distal femur. Patella was translated laterally and/or everted as needed throughout the procedure. ACL was resected. PCL was preserved. Collateral ligaments were preserved. Physician placed the retractors and engineering assistant held retractors protecting above ligaments throughout the procedure. Drill was placed up the distal femur. Flex guide zachary was placed up the femoral canal. We resected 8 mm off of the distal femur. 6? valgus cut. Next cutting block was applied to the front of the femur. 3? of external rotation . We sized off that block and decided on the appropriate size femur. 4-in-1 cutting block was applied to the distal femur and held in place with 2 pins. Front End Drupal Developer again held retractors to protect the soft tissues while surgeon performed anterior, posterior, and chamfer cuts. Bony fragments were removed. PCL retractor was placed and collateral ligament protectors placed by the surgeon, held by the assistance. Tibial external alignment guide was utilized under standard technique going down the shaft of the tibia, to the base of the second metatarsal. Appropriate posterior slope was built in. Front End Drupal Developer help field technical specialist alignment. We went 2 mm off the deficient side of the tibia. Cutting block was held in place with 3 pins. Again checked the external alignment. Tibial cut carried out with a saw while the engineering assistant held retractors protecting the soft tissues about the anterior, medial, lateral, and posterior knee. Bone fragment removed. We then sized off the upper tibia with the help of the engineering assistant. We then checked flexion extension gaps finding them to be adequate and equal. Next the distal femoral trial was applied. Tibial tray was allowed to freefloat with a 9 mm insert. Knee was flexed and extended an external alignment guide is utilized. Tibial trial was pinned in place. Drill holes were placed into the distal femoral trial and it was removed. Punch was used on the upper tibial component and that was removed. The sclerotic bone was softened with a sharp pin. Bone spurs removed from the posterior medial and posterior lateral aspect of the femur while the engineering assistant lifted up on the distal femur and exposed each compartment. Patella was everted and measured and appropriate resection was carried out while the engineering assistant held the guide and patella in good position. Patellar remnant measured to be at or just greater than 14 mm. Patella was sized. Clamp was utilized. 3 drill holes were placed through the clamp held by the engineering assistant. Trial patella was placed and removed. Bleeding was controlled at the back of the knee with the bovey. Posterior knee soft tissues were carefully injected with pain relieving solution. Components were checked and open. Two full batches of bone cement were mixed. Knee was thoroughly irrigated by the engineering assistant while surgeon fashioned a bone plug that was placed in the femoral canal hole. The bony surfaces cleaned and dried. When the cement was of the appropriate texture the tibia, femur, and then patella was cemented in place. Front End Drupal Developer held retractors exposing the bony surfaces of the tibia and femur which were hammered in position. Patella clamped into position. The excess bone cement removed. A trial insert applied to the tibia. Knee was held in full extension while the cement hardened. While the cement was hardening pain relieving solution was injected throughout the knee. When cement was fully hardened tourniquet was deflated. We re-trialed with the help of the engineering assistant and then placed the appropriate sized polyethylene component. We thoroughly irrigated and debrided the knee. Bleeding controlled with the Bovie. Knee was again thoroughly irrigated. Patella noted to track nicely. We repaired the arthrotomy with a combination of #1 Vicryl and #2 strata fix. We did a mid layer of 1 Vicryl and #1 strata fix running. We then did inverted 2-0 vicryl . We then applied Steri-Strips over skin prep. Mepilex dressing applied. MASSIMO hose and SCDs applied. Patient was awoken from their anesthetic, transferred back to their own bed and recovery room in satisfactory condition. Second dose of IV Tranexamic acid was given while closing wound. Patient was admitted, appropriate IV antibiotic to be utilized as well as medication for DVT prevention. Hopeful discharge in 1 days. Physical therapy will be consulted. This note was generated with Ripl dictation software. It may contain incorrect words, spelling, and punctuation that were not noted in checking the note before signing.
--- NOTE | 2020-04-07 10:20 | RAD_ITS ---
STUDY: X-RAY - LEFT KNEE REASON FOR EXAM: Female, 75 years old. POST OP TECHNIQUE: AP and lateral view(s) of the knee. COMPARISON: None. FINDINGS: Normal visualized distal femur. Normal visualized proximal tibia and fibula. Normal proximal tibiofibular articulation. The patient is status post left total knee replacement. There is good alignment. Postoperative soft tissue changes. RAD/Knee 1 or 2 Views IMPRESSION: Status post total knee replacement. There is good alignment. Postoperative soft tissue changes. Electronically Signed: Oscar Bellamy, at 11:36 EDT , Service support ,
[2020-04-07] MEDS: oxyCODONE 5 MG Tablet PO (19:51)
[2020-04-07] MEDS: Pravastatin 40 MG Tablet PO (21:44)
[2020-04-07] MEDS: Senna/Docusate Sodium 1 Tablet 2 TABLET PO (21:44)
[2020-04-07] MEDS: Fluticasone 0.05% 1 SPRAY NASAL.SRY NASAL (21:48)
[2020-04-08 01:45] VITALS: BP 152/92; PULSE 76; RESP 16; TEMP 36.4; O2SAT 94
[2020-04-08] MEDS: oxyCODONE 5 MG Tablet PO ×3 (01:59→13:49)
[2020-04-08] MEDS: Rivaroxaban 10 MG Tablet PO (06:06)
[2020-04-08] MEDS: Acetaminophen 500 MG Tablet 1000 MG PO ×2 (06:06→13:52)
[2020-04-08 06:18] VITALS: BP 151/89; PULSE 76; RESP 16; TEMP 36.8; O2SAT 98
--- NOTE | 2020-04-08 06:46 | PN.ORTHO_ITS ---
Subjective: Patient is doing well this morning. Left knee pain has been well controlled. She got up and ambulated in the hallways yesterday. She has been urinating on her own. Denies chest pain shortness of breath dizziness or calf pain. She did have her dressing changed this morning as it was bloodsoaked. She is anticipating a discharge to home later today. Objective: Patient is alert and oriented x3. No acute distress at rest. Breathing easily without respiratory distress. Inspection of left lower extremity over the left knee is with a clean dry dressing without active drainage erythema warmth or signs of infection. Negative Veronica bilaterally without signs of DVT. Sensation intact to light touch. Capillary refill less than 3 seconds. Patient is able to actively plantar and dorsiflex bilateral feet against gravity. Legs are neurovascularly intact. - Physical Exam Vitals/I&O's: Vital Signs Temp Pulse Resp BP Pulse Ox 98.2 F 76 16 151/89 H 98 04/08/20 06:18 04/08/20 06:18 04/08/20 06:18 04/08/20 06:18 04/08/20 06:18 Oxygen Flow Rate (L/min) 6 Oxygen Delivery Method Room Air Weight: 101.9 kg Body Mass Index (BMI) 41.1 Intake and Output for Last 24 Hours 04/06/20 04/07/20 04/08/20 23:59 23:59 23:59 Intake Total 3151.66 / 3151.66 806.67 / 806.67 Output Total 700 / 700 Balance 3151.66 / 3151.66 106.67 / 106.67 Laboratory Results 04/07/20 06:58: POC Glucose 96 Current Medications Acetaminophen (Tylenol) 1,000 mg PO Q8 [facility] Last Admin: 04/08/20 06:06 Dose: 1,000 mg Documented by: Fluticasone Propionate (Flonase Nasal [place]) 1 spray NASAL QHS [facility] Last Admin: 04/07/20 21:48 Dose: 1 spray Documented by: Insulin Human Lispro (Humalog Alejandra (Bkc)) 1 - 6 unit SC Q4H PRN PRN; Protocol PRN Reason: BG>/= 180, SEE PROTOCOL Morphine Sulfate () 2 - 4 mg IV Q2H PRN PRN PRN Reason: Pain Score 6-10/10 Morphine Sulfate () 2 - 4 mg IV Q2H PRN PRN PRN Reason: Pain Score 6-10/10 Ondansetron HCl (Zofran) 4 mg IV Q8H PRN PRN PRN Reason: NAUSEA Oxycodone HCl (Oxyir) 5 - 10 mg PO Q4H PRN PRN PRN Reason: Pain Score 4-10/10 Last Admin: 04/08/20 01:59 Dose: 5 mg Documented by: Pravastatin Sodium (Pravachol) 40 mg PO QHS [facility] Last Admin: 04/07/20 21:44 Dose: 40 mg Documented by: Rivaroxaban (Xarelto) 10 mg PO DAILY@0600 [facility] Last Admin: 04/08/20 06:06 Dose: 10 mg Documented by: Senna/Docusate Sodium (Senokot-S, Stacy-Colace) 2 tablet PO BID [facility] Last Admin: 04/07/20 21:44 Dose: 2 tablet Documented by: Sodium Chloride () 5 - 15 ml IV UD PRN PRN Reason: SALINE FLUSH Sodium Chloride () 10 - 40 ml IV UD PRN PRN Reason: SALINE FLUSH Medical Necessity - Tobacco Use Smoking Status: Never smoker Assessment/Plan 1. Status post left total knee replacement postoperative day #1 2. Continue OxyIR and Tylenol as needed for pain control 3. DVT prophylaxis bilateral teds SCDs and Xarelto 10 mg daily for 1 week transitioning to aspirin 81 mg 1 p.o. twice daily for an additional 3 weeks 4. Begin PT/OT. Weightbearing as tolerated left lower extremity with a walker 5. I contacted inpatient laboratory they have not yet received her blood this morning to run the CBC and basic metabolic profile. I will will review results upon posting 6. Encourage incentive spirometry 7. Patient is orthopedically stable and okay for discharge to home today if laboratory results are acceptable, having adequate pain control and doing well with physical therapy she will follow-up in the office in 1 week for reassessment. Contact us sooner if having any problems.
--- NOTE | 2020-04-08 06:54 | DCINST_ITS ---
Discharge Diet: No Restrictions Discharge Activity: May Not Drive May shower in (days): 1 - Okay to shower over Mepilex dressing Ice area for (Minutes): 20 - every hour while awake. Weight Bearing Status: Weight bearing as tolerated Elevate: Operative Extremity Additional Activity Instructions:: Wear elastic stockings for 2 weeks after your surgery. See postoperative pink sheet Call your doctor if your incision/area has: Continuous Slow Oozing, Sudden Increased Bleeding, Increased Pain/ Swelling, Increased Redness, Foul Smelling Discharge Call your doctor if you observe: Fever of 101 or Higher, Coldness, Increased Pain, Numbness or Tingling, Change in Color, Shortness of breath, Chest pain, Calf discomfort, Uncontrolled pain Cleanse incision/area with: Soap & Water Additional Dressing/Incision Instructions:: See postoperative pink sheet Allergies/Adverse Reactions: Allergies amoxicillin Allergy (Verified 04/07/20 05:56) Anaphylaxis anastrozole [From Arimidex] Allergy (Verified 04/07/20 05:56) Swelling Penicillins Allergy (Verified 04/07/20 05:56) Hives tamoxifen Adverse Reaction (Verified 04/07/20 05:56) PT UNSURE OF REACTION severe leg cramps Medications to take at Discharge Multivit-Min/FA/Lycopene/Lut [Centrum Silver Tablet] 1 each PO DAILY 04/28/15 Biotin 5,000 mcg PO DAILY 08/30/16 Pravastatin Sodium 40 mg PO QHS 01/24/19 Fluticasone Propionate [Flonase Allergy Relief] 1 spray NS QHS 03/21/20 Glucosam/Wisam-Msm1/C/Angel/Bosw [Osteo Bi-Flex Caplet] 1 ea PO BID 03/21/20 Acetaminophen [Tylenol] 1,000 mg PO Q8 #60 tab 04/08/20 Oxycodone [Oxyir] 5 - 10 mg PO Q4H PRN PRN 7 Days #56 tab 04/08/20 Rivaroxaban [Xarelto] 10 mg PO DAILY@0600 #6 tab 04/08/20 Senna/Docusate Sodium [Senokot-S] 2 tab PO BID #30 tab 04/08/20 The following prescriptions were given: Oxycodone [Oxyir] 5 - 10 mg PO Q4H PRN PRN 7 Days #56 tab PRN Reason: Pain Score 4-10/10 Prescription Printed Senna/Docusate Sodium [Senokot-S] 2 tab PO BID #30 tab Transmission Status: Pending to [facility] Acetaminophen [Tylenol] 1,000 mg PO Q8 #60 tab Transmission Status: Pending to [facility] Rivaroxaban [Xarelto] 10 mg PO DAILY@0600 #6 tab Transmission Status: Pending to [facility] Primary Care Physician: Chaz Reynoso Chi, MD [Primary Care Provider] - Test Results: Test results from this visit will be discussed in further detail at your follow- up appointment, if applicable. Proposed Discharge Date: 04/08/20
[2020-04-08 07:38] LABS: Hematocrit 40.5 % (37-47); Mean Corp Hgb Conc 32.1 g/dL (32-36); Mean Corpuscular Hgb 30.4 pg (27.0-32.0); Mean Corpuscular Volume 94.6 fL (81-99); Mean Platelet Vol. 10.3 fl (6.2-12.0); Platelet Count 212 K/mm3 (150-450); RBC Distribution Width SD 44.4 fl (35.1-43.9); Red Blood Count 4.28 M/mm3 (4.2-5.4); White Blood Count 14.9 K/mm3 (4.4-11.0)
[2020-04-08 08:21] VITALS: BP 143/75; PULSE 74; RESP 18; TEMP 36.7; O2SAT 99
[2020-04-08 08:31] LABS: Anion Gap 8 (5-15); BUN 13 mg/dL (7-18); BUN/Creat Ratio 18.1 RATIO (10-20); Calcium,Total 8.4 mg/dL (8.5-10.1); Chloride 110 mmol/L (98-107); Creatinine, Serum 0.72 mg/dL (0.55-1.02); EST Glomerular Filtration Rate 85 mL/min (>60); Est Glom Filt Rate - Afr Amer 102 mL/min (>60); Estimated Creatinine Clearance 39.63 ml/min; Glucose 130 mg/dL (74-106); Sodium Level 138 mmol/L (136-145)
[2020-04-08 13:41] VITALS: BP 157/97; PULSE 88; RESP 18; TEMP 36.7; O2SAT 96
== END 2020-04-08 14:05 | disposition home or self-care (01) | DRG 470 ==
LOC: ACINP 05:46 → MS3 09:52
PROVIDERS: Anesthesiology; Admitting Provider Orthopaedic Surgery; PCP Family Medicine Geriatric Medicine; Visit Provider Orthopaedic Surgery
PROC: 0SRD069 Replacement of Left Knee Joint with Oxidized Zirconium on Polyethylene Synthetic Substitute, Cemented, Open Approach (ICD-10-PCS; CPT 27447; principal; 2020-04-07 07:05)
DX: M17.12 Unilateral primary osteoarthritis, left knee (principal); I10 Essential (primary) hypertension; Z79.899 Other long term (current) drug therapy; Z96.651 Presence of right artificial knee joint
CPT/HCPCS: 36415; 71046; 73560; 80048; 82962; 85027; 85610; 85730; 87081; 87635; 88305; 88311; 93005; 97110; 97161; 97166; 97530; 97535; 99251; C1776; G2023; J7040; J7050; J7120; G0463; U0003

== ENCOUNTER → 2020-04-22 15:31 | Outpatient (CLI) | payer MEDICARE, SELFPAY ==
[2020-04-07 11:40] VITALS: BMI 41.1
--- NOTE | 2020-04-22 15:34 | VDLE_ITS ---
Reason For Study: LLE pain RIGHT LEFT CFV is compressible, spontaneous, phasic, GSV is normal. competent and demonstrates normal CFV is compressible, spontaneous, phasic, augmentation. competent, and demonstrates normal Procedure augmentation. Exam performed in department. FV is compressible, spontaneous, phasic, A preliminary report was called and/or faxed competent and demonstrates normal to Dr. Luigi Soriano @ [phone] @ 4 pm. augmentation. POP V is compressible, spontaneous, phasic, competent and demonstrates normal augmentation. T/P Trunk is compressible. PTV is compressible. LT PerV is compressible. Interpretation Summary Deep veins of the left lower extremity are patent and compressible segmentally. There is no evidence of left lower extremity deep vein thrombosis. Valvular competence appears intact within the proximal deep venous system on the left . The left great saphenous vein appears patent and compressible segmentally. Ordering Physician: Luigi Soriano Referring Physician: Trixie Reynoso Chi Performed By: Gloria Duval, PHYLLISCS, RVT
== END ==
PROVIDERS: PCP Family Medicine Geriatric Medicine; Referring Provider Orthopaedic Surgery; Visit Provider Orthopaedic Surgery
DX: M79.605 Pain in left leg (principal)
CPT/HCPCS: 93971

== ENCOUNTER → 2020-05-26 | Outpatient (CLI) | payer MEDICARE, SELFPAY ==
[2020-05-25 11:07] VITALS: BMI 41.1
[2020-05-26 09:56] LABS: Mucous, Urine 0 SEEN /hpf (<or=2+)
[2020-05-26 10:06] LABS: Color, Urine Amber (Yellow); Glucose, Dipstick Normal (Normal); Ketone-Dipstick 5 mg/dl (Negative); Leukocyte Esterase-Dipstick 500 /ul (Negative); Nitrite-Dipstick Negative (Negative); Occult Blood-Urine 250 /ul (Negative); Protein-Dipstick 100 mg/dl (Negative); Specific Gravity, Urine 1.015 (1.002-1.030); Urine Bilirubin Dipstick Negative (Negative); Urine Clarity Sl. Cloudy (Clear); Urine Urobilinogen Normal (Normal)
[2020-05-26 10:16] LABS: Bacteria 1+ /hpf (None Seen); Calcium Oxalate Crystals Ur 1+ /hpf (<or=2+); Red Blood Cells-Urine 25-50 SEEN /hpf (0-5); Squamous Epithelial Cells - UA 0-5 SEEN /hpf (5-10); White Blood Cells 50-100 SEEN /hpf (0-5)
== END | disposition home or self-care (01) ==
LOC: LABSPEC 09:43
PROVIDERS: PCP Family Medicine Geriatric Medicine; Referring Provider Physician Assistant Medical; Visit Provider Physician Assistant Medical
DX: N39.0 Urinary tract infection, site not specified (principal)
CPT/HCPCS: 81001; 87086; 87088

== ENCOUNTER → 2020-06-03 16:13 | Outpatient (CLI) | payer MEDICARE, SELFPAY ==
[2020-05-25 11:07] VITALS: BMI 41.1
--- NOTE | 2020-06-03 16:15 | US_ITS ---
STUDY: RENAL ULTRASOUND - COMPLETE REASON FOR EXAM: Female, 75 years old. HEMATURIA RT FLANK PAIN TECHNIQUE: Ultrasound evaluation of the kidneys was performed with real-time and static kellogg-scale imaging. COMPARISON: CT scan 03/07/2015. FINDINGS: RIGHT KIDNEY: Normal location of the right kidney, which is normal in size. The right kidney measures 11.2 x 4.6 x 5.2 cm. There is a normal cortex of the right kidney. The renal cortex measures 1.4 cm. There is a 1.6 cm cyst. There is a 1.1 cm nonobstructing renal stone. There is no right hydronephrosis. DISTAL RIGHT URETER: There is non-visualization of the distal right ureter. There is no demonstrated right ureterovesical junction calculus. There is no demonstrated right ureteral jet. LEFT KIDNEY: Normal location of the left kidney, which is normal in size. The left kidney measures 10.5 x 5.0 x 5.2 cm. There is a normal cortex of the left kidney. The renal cortex measures 1.5 cm. 2 renal cysts are seen measuring as much as 5.5 cm several small nonobstructing renal stones are suggested as much as 6 mm. There is no left hydronephrosis. DISTAL LEFT URETER: There is non-visualization of the distal left ureter. There is no demonstrated left ureterovesical junction calculus. There is no demonstrated left ureteral jet. BLADDER: There is a normal wall thickness of the distended urinary bladder. There is no demonstrated mass within the urinary bladder. There are no demonstrated bladder calculi. US/Kidney and Bladder IMPRESSION: No acute abnormalities. Bilateral nonobstructing renal stones. Electronically Signed: Guero Mcdonald MD at 23:38 EDT , Service support ,
== END ==
PROVIDERS: PCP Family Medicine Geriatric Medicine; Referring Provider Family Medicine Geriatric Medicine; Visit Provider Family Medicine Geriatric Medicine
DX: R31.9 Hematuria, unspecified (principal)
CPT/HCPCS: 76770

== ENCOUNTER → 2020-07-14 13:18 | Outpatient (CLI) | payer MEDICARE, SELFPAY ==
[2020-05-25 11:07] VITALS: BMI 41.1
--- NOTE | 2020-07-14 13:22 | CT_ITS ---
STUDY: CT ABDOMEN AND PELVIS WITHOUT CONTRAST REASON FOR EXAM: Female, 75 years old. RT FLANK PAIN X 1 1/2 MONTHS RADIATION DOSAGE (If Supplied By Facility): CTDIvol = ( 14.33 ) mGy, DLP = ( 616.96 ) mGycm TECHNIQUE: Transaxial images were obtained from the dome of the diaphragm to the symphysis pubis without oral contrast, and without intravenous contrast. Sagittal and coronal images were reconstructed. Individualized dose optimization techniques were used for this CT. COMPARISON: Comparison is made with prior study dated 03/07/2015. FINDINGS: Stable minimal linear scarring at the left lung base. Coronary artery calcification. Normal liver. Normal gallbladder and extrahepatic biliary system. Normal spleen. Normal pancreas. Left adrenal enlargement with possible 1.1 cm adenoma in the left adrenal gland. Stable 1.2 cm cyst in the upper pole of the right kidney. Mild degree of right hydronephrosis and right hydroureter. Questionable 3 mm calculus at the right ureterovesical junction. There is a artifact that limitation due to the right total hip replacement. Stable 3.8 cm cyst in the anterior aspect of the left kidney. There is a 7.9 mm nonobstructive calculus in the lower pole calyx of the left kidney. There is a small hiatal hernia. Normal small intestine. There are multiple colonic diverticula consistent with diverticulosis. The appendix is visualized and appears normal. Normal abdominal aorta. Normal inferior vena cava. There is borderline retroperitoneal lymphadenopathy with enlarged nodes no greater than 10mm in the short axis diameter. Normal urinary bladder. Normal abdominal wall. There are diffuse degenerative changes of the visualized lumbar spine. CT/Abdomen/Pelvis without Cont IMPRESSION: Findings suggestive of a 3 mm calculus at the right ureterovesical junction causing mild right hydronephrosis and right hydroureter. 3.7 cyst in the anterior aspect of the left kidney. 7.9 mm nonobstructive catheter is in the lower pole calyx of the left kidney. Electronically Signed: Oscar Bellamy, at 14:33 EDT , Service support ,
== END ==
PROVIDERS: PCP Family Medicine Geriatric Medicine; Referring Provider Urology; Visit Provider Urology
DX: N20.0 Calculus of kidney (principal)
CPT/HCPCS: 74176

== ENCOUNTER 2020-08-08 06:55 | Day surgery (SDC) | payer MEDICARE, SELFPAY ==
[2020-05-25 11:07] VITALS: BMI 41.1
[2020-08-08] VITALS (7 sets, daily range): BP systolic 158–177; BP diastolic 76–99; PULSE 72–79; RESP 16; TEMP 36.3–36.9; O2SAT 96–100; BMI 38.9
--- NOTE | 2020-08-08 07:39 | HP.PCM_ITS ---
Problem List (1) Kidney stones Status: Acute History of Present Illness Date of Admission: 08/08/20 Chief Complaint: Kidney stones The patient is a 75 year old female who has a distal right ureteral calculus, also has a left renal stone. Today we plan to take her to surgery for ureteroscopy and intervention and laser of both of the stones she will probably require stents on both sides. 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) Medical History: Medical History (Last Updated 05/25/20 @ 10:52 by Jorge Krishnan) Back pain M54.9 Difficulty balancing R29.818 History of arthritis Z87.39 History of breast cancer Z85.3 History of cancer Z85.9 History of endometrial cancer Z85.42 History of hemorrhoids Z87.19 Knee pain M25.569 Hypertension I10 Allergies amoxicillin Allergy (Verified 07/29/20 13:13) Anaphylaxis anastrozole [From Arimidex] Allergy (Verified 07/29/20 13:13) Swelling Penicillins Allergy (Verified 07/29/20 13:13) Hives tamoxifen Adverse Reaction (Verified 07/29/20 13:13) PT UNSURE OF REACTION severe leg cramps Home Medications: Ambulatory Orders Medication Instructions Recorded Multivit-Min/FA/Lycopene/Lut 1 ea PO DAILY 04/28/15 [Centrum Silver Tablet] Biotin 5,000 mcg PO DAILY 08/30/16 Pravastatin Sodium 40 mg PO QHS 01/24/19 Glucosam/Wisam-Msm1/C/Angel/Bosw 1 ea PO BID 03/21/20 [Osteo Bi-Flex Caplet] Acetaminophen [Tylenol] 1,000 mg PO Q8 PRN 07/29/20 Fluticasone Propionate [Allergy 1 spray NS QHS 07/29/20 Relief] Surgical History: Surgical History (Last Updated 05/25/20 @ 10:52 by Jorge Krishnan) History of hip replacement Z96.649 History of knee replacement Z96.659 Surgical History: no surgical history Smoking Status: Never smoker Review of Systems Constitutional: Denies: Chills, Fever, Weight Change HEENT: Denies: Head Aches, Sinus Congestion, Sinus Drainage Cardiovascular: Denies: Chest Pain, Palpitations Respiratory: Denies: Cough, Shortness of breath at rest, Sputum production Gastrointestinal: Denies: Abdominal Pain, Nausea, Vomiting Genitourinary: Denies: Dysuria Musculoskeletal: Denies: Joint Pain, Joint Tenderness Skin: Denies: Rash, Wounds Neurological: Denies: Numbness, Tingling, Focal weakness Psychiatric: Denies: Anxiety, Depression, Homicidal Ideations, Suicidal Id eations Hematologic/ Lymphatic: Denies: Easy Bruising, Easy Bleeding VTE Information - Inpt Only VTE Present on Admission: No Patient Problems: Active and Suspected Problems (Last Updated 05/25/20 @ 10:52 by Jorge Krishnan) Kidney stones (Acute) - Physical Exam Vitals/I&O's: Body Mass Index (BMI) 41.1 General: Alert, Oriented x3, Cooperative HEENT: Atraumatic, PERRLA, EOMI, Normocephalic Neck: Supple, No JVD, Negative Carotid Bruits Lungs: Clear to auscultation, Normal air movement Cardiovascular: Regular rate, No murmurs Abdomen: Bowel Sounds Present, Soft, Non Tender Extremities: No edema, Capillary Refill Less than 3 Seconds Skin: No rashes, No breakdown Musculoskeletal: No Tenderness to Palpation of Joints or Extremities Neurological: Cranial nerves II-XII grossly intact Psych/Mental Status: Normal Affect, Appropriate Current Medications Ciprofloxacin (Cipro) 400 mg in 200 mls @ 200 mls/hr IV PREOP ONE Stop: 08/08/20 09:24 Assessment/Plan All Active Problems (Last Updated 05/25/20 @ 10:52 by Jorge Krishnan) Kidney stones (Acute) 75-year-old female with bilateral calculi she has a stone in the left kidney and the stone of the distal right ureter plan for intervention ureteroscopy and laser of both the stones prior require stents on both sides or we could only do stent on one side depending on the finding of surgery show a hip be given pain medicine antibiotics for the procedure.
--- NOTE | 2020-08-08 07:41 | DCINST_ITS ---
Discharge Diet: Light diet - advance as tolerated Discharge Activity: Return to Normal Activity Instructions: Treating Kidney Stones: Ureteroscopic Stone Removal Allergies/Adverse Reactions: Allergies amoxicillin Allergy (Verified 07/29/20 13:13) Anaphylaxis anastrozole [From Arimidex] Allergy (Verified 07/29/20 13:13) Swelling Penicillins Allergy (Verified 07/29/20 13:13) Hives tamoxifen Adverse Reaction (Verified 07/29/20 13:13) PT UNSURE OF REACTION severe leg cramps Medications to take at Discharge Multivit-Min/FA/Lycopene/Lut [Centrum Silver Tablet] 1 ea PO DAILY 04/28/15 Biotin 5,000 mcg PO DAILY 08/30/16 Pravastatin Sodium 40 mg PO QHS 01/24/19 Glucosam/Wisam-Msm1/C/Angel/Bosw [Osteo Bi-Flex Caplet] 1 ea PO BID 03/21/20 Acetaminophen [Tylenol] 1,000 mg PO Q8 PRN 07/29/20 Fluticasone Propionate [Allergy Relief] 1 spray NS QHS 07/29/20 Primary Care Physician: Chaz Reynoso Chi, MD [Primary Care Provider] - Test Results: Test results from this visit will be discussed in further detail at your follow- up appointment, if applicable. Please Follow Up With: Dk Hyman MD When: please call to make an appointment.
[2020-08-08] MEDS: Lubricating Jelly 60 GM Tube 30 GM TOPICAL (08:00)
[2020-08-08] MEDS: Lactated Ringers 1,000 ML 75 ML IV (08:20)
[2020-08-08] MEDS: Ciprofloxacin 400 MG/200 ML BAG 200 MG IV (08:21)
--- NOTE | 2020-08-08 09:10 | PCM.OPRPT ---
Problem List (1) Kidney stones Status: Acute Report of Operation Date of Procedure: 08/08/20 Pre-Operative Diagnosis: Distal right ureteral calculus, left renal calculus Post-Operative Diagnosis: The same no stones found Surgery/Procedure Performed:: Right ureteroscopy no stent. Cystoscopy left ureteroscopy, balloon dilation of the ureter left stent Description of Surgical Findings:: 75-year-old female with severe renal colic on the right side should she had the passing the stone she not sure if she is passed it CAT scan was done very difficult to see the stone because of her artificial hip but because of the pain we can proceed with surgery at the same time or also can see if we can reach a stone in the left kidney that is seen on CAT scan. Patient was taken back to the operating room after smooth induction of general anesthesia we went into the bladder with the cystoscope once inside again the bladder I cannulated the right ureteral orifice put a wire up on the right side over the wire I went in with a Campbell 7 Anguillan semirigid ureteroscope and was able to get into the ureter a lot of inflammation in the distal right ureter but once I got passes there was no stone fragment looks like the stone had passed my way all the way up to the UPJ with the ureteroscope and no visible stone was seen so work my way down the ureter and came out the ureter pulled the wire we did have the balloon dilator and no obstructing stones and no stent was placed on the right side. I then went to the left side and put a wire up on the left side and attempt to go up with the ureteroscope but did not get past the ureterovesical junction so then we advanced a 12 Anguillan balloon dilator and balloon dilated the distal left ureter once this was balloon dilated then I went over the wire with a ureteroscope got up into the kidney this ureteroscope was foggy could not get focused so switched over to new ureteroscope put a wire into the old ureteroscope and switched out to a new flexible ureteroscope and I could see clearly I inspected the upper pole midpole and then spent a long time trying to find a stone in the lower pole the pelvis on CAT scan see calcification but a must be a vascular calcification because there was no free-floating stone that appeared to be on CAT scan the calcification on CAT scan was not a stone. So I worked my way down the ureter because of the balloon dilation of some bleeding from the left ureteral orifice cytology safe to place a stent to advance a wire up to the left kidney over the wire place a stent 6 Anguillan by 26 cm stent left the string on it for easy extraction and patient can follow-up next week with to have the stent removed. Type of Anesthesia:: General Drains: stent left side - Admit VTE Documentation VTE Present on Admission: No
[2020-08-08] MEDS: Ketorolac 15 MG/ML Vial IV (09:32)
[2020-08-08] MEDS: oxyCODONE 5 MG Tablet PO (10:39)
== END 2020-08-08 11:11 | disposition home or self-care (01) ==
LOC: SDC 06:55 → AC 06:56
PROVIDERS: Anesthesiology; PCP Family Medicine Geriatric Medicine; Referring Provider Urology; Visit Provider Urology
PROC: 0TJ98ZZ Inspection of Ureter, Via Natural or Artificial Opening Endoscopic (ICD-10-PCS; CPT 52352; principal; 2020-08-08 08:25)
DX: N20.2 Calculus of kidney with calculus of ureter (principal); E78.00 Pure hypercholesterolemia, unspecified; G47.30 Sleep apnea, unspecified; Z87.442 Personal history of urinary calculi; Z96.641 Presence of right artificial hip joint; Z88.0 Allergy status to penicillin; Z11.59 Encounter for screening for other viral diseases
CPT/HCPCS: 00910; 52332; 52351; 76000; 87635; C9803; J7120; C2617; J0744; J2405; U0003

== ENCOUNTER 2020-08-18 06:07 | Day surgery (SDC) | payer MEDICARE, SELFPAY ==
[2020-05-25 11:07] VITALS: BMI 41.1
[2020-08-08 07:30] VITALS: BMI 38.9
[2020-08-18] VITALS (7 sets, daily range): BP systolic 118–173; BP diastolic 63–95; PULSE 73–76; RESP 16–18; TEMP 36.3–36.8; O2SAT 95–100; BMI 38.8
[2020-08-18] MEDS: Lactated Ringers 1,000 ML 100 ML IV (06:59)
--- NOTE | 2020-08-18 07:30 | RAD_ITS ---
PROCEDURE: Left L3-S1 radiofrequency ablation. DATE OF EXAMINATION: 08/18/2020. INDICATION: Female, 75 years old. Chronic back pain. FLUOROSCOPY TIME (if supplied): (24 seconds) minutes/seconds Intraoperative imaging provided for left L3-S1 radiofrequency ablation. RAD/L/S Spine Min 4 Views IMPRESSION: Intraoperative imaging provided for left L3-S1 radiofrequency ablation. Electronically Signed: Oscar Bellamy, at 10:43 EDT , Service support ,
[2020-08-18] MEDS: MethylPREDNISolone Acetate 80 MG/ML Vial (07:42)
[2020-08-18] MEDS: Bupivacaine 0.25% 30 ML Vial (07:42)
--- NOTE | 2020-08-18 16:12 | PCM.OPRPT ---
Report of Operation Date of Procedure: 08/18/20 Description of Surgical Findings:: PREOPERATIVE DIAGNOSIS: Lumbosacral spondylosis, lumbosacral degenerative disc disease, lumbar facet arthropathy POSTOPERATIVE DIAGNOSIS: Lumbosacral spondylosis, lumbosacral degenerative disc disease, lumbar facet arthropathy PROCEDURE PERFORMED: Left-sided lumbar radiofrequency ablation of the medial branch at L3, L4, L5, and S1. ANESTHESIA: MAC. BLOOD LOSS: Minimal. COMPLICATIONS: None. DESCRIPTION OF PROCEDURE: History and physical of today was reviewed. Risks and benefits of the procedure were explained. The patient understood and agreed to proceed. Informed consent was obtained. IV inserted per routine protocol. The patient was taken to the operating room and placed in the prone position with a pillow positioned underneath the abdomen. The left side of her lower back was prepped and draped in a sterile fashion using iodine x3. Under fluoroscopy guidance in an oblique view, the L3 through S1 vertebral bodies were visualized. The skin and subcutaneous tissue was anesthetized with approximately 10 mL of 1% lidocaine using a 25-gauge regular needle. Under direct visualization on fluoroscopy at approximately 25-degree angle, starting on the left L3, ending on the left S1, passing through the L4 and L5, using a 20-gauge 15-cm with a 10-mm curved active-tip radiofrequency ablation needle, the needle was passed through the skin. The tip of the needle was maneuvered and directed towards the superior medial gutter of the transverse process at the vicinity of the medial branch. Once the tip of the needle was in contact with the bone, the needle was pulled approximately 2 mm off the bone. The stylette of each needle was then removed. After negative aspiration of blood or CSF and confirmation on AP, oblique as well as lateral view, the radiofrequency ablation probe was then inserted at each level. Impedance was then recorded at L3 to be 270 ohm, at L4 to be 234 ohm, at L5 to be 332 ohm, and at S1 to be 275 ohm. Motor evoked potential was then initiated to 1.5 volt without any motor response at each corresponding level. The probe was then removed intact and a total of 6 mL of preservative-free 1% lidocaine was injected in divided doses between those four levels after negative aspiration of blood or CSF. The radiofrequency ablation probe was then reinserted. After confirmation on AP, oblique as well as lateral view, radiofrequency ablation was then initiated to 80 degree Celsius for 90 second at each level. Once concluded, the probe was then removed intact. A total of 6 mL of preservative-free 0.25% Marcaine with 40 mg of Depo-Medrol was injected in divided doses between those four levels. The needles were then removed intact. The patient experienced no sign or symptoms of intrathecal or intravascular injection. The patient experienced no paresthesia. The procedure was completed without any apparent difficulty or any complications. The patient appeared to tolerate it well. Sensory as well as motor exam was unchanged from prior to the procedure. ASSESSMENT AND PLAN: This is a 75-year-old female with lumbosacral spondylosis, lumbar secondary of disc disease, lumbar facet arthropathy status post left-sided lumbar radiofrequency ablation of the medial branch L3-S1, patient will continue her current medications, patient will phone approximately 2 weeks for reevaluation.
== END 2020-08-18 08:40 | disposition home or self-care (01) ==
LOC: SDC 06:08 → AC 06:09
PROVIDERS: PCP Family Medicine Geriatric Medicine; Referring Provider Anesthesiology Pain Medicine; Visit Provider Anesthesiology Pain Medicine
PROC: (CPT 64635; principal; 2020-08-18 07:15)
DX: M47.27 Other spondylosis with radiculopathy, lumbosacral region (principal); M51.37 Other intervertebral disc degeneration, lumbosacral region; M46.96 Unspecified inflammatory spondylopathy, lumbar region; Z79.891 Long term (current) use of opiate analgesic
CPT/HCPCS: 01991; 64635; 64636 ×2; 72110; 76000; J7120

== ENCOUNTER → 2020-08-27 09:16 | Outpatient (CLI) | payer MEDICARE, SELFPAY ==
[2020-08-18 06:41] VITALS: BMI 38.8
[2020-08-27 12:33] LABS: Absolute Lymphocyte Count 1.61 X10^3/uL (0.83-4.51); Absolute Neutrophil Count 4.5 X10^3/uL (2.0-7.7); Basophil# 0.09 X10^3/uL; Basophil% 1.3 % (0-1); Eosinophil# 0.16 X10^3/uL; Eosinophils% 2.3 % (0-5); Hematocrit 46.3 % (37-47); Hemoglobin 14.7 g/dL (12.0-15.0); Lymphocyte # 1.61 X10^3/ul (4.0); Lymphocyte % 23.4 % (19-41); Mean Corp Hgb Conc 31.7 g/dL (32-36); Mean Corpuscular Hgb 29.4 pg (27.0-32.0); Mean Corpuscular Volume 92.6 fL (81-99); Mean Platelet Vol. 10.7 fl (6.2-12.0); Monocyte% 7.3 % (0-10); NRBC Flagged by Analyzer 0 % (0-5); Neutrophil % 65.3 % (47-70); Platelet Count 291 K/mm3 (150-450); RBC Distribution Width CV 13.3 % (11.6-14.6); RBC Distribution Width SD 45.4 fl (35.1-43.9); White Blood Count 6.9 K/mm3 (4.4-11.0)
[2020-08-27 12:47] LABS: Vitamin D,25 Hydroxy 55.6 ng/mL
[2020-08-27 13:06] LABS: ALB/GLOB Ratio 1.1 RATIO (0.9-2.4); AST(SGOT) 29 U/L (15-37); Alanine Aminotransfer ALT/SGPT 29 U/L (13-56); Albumin, Serum 3.7 g/dL (3.2-5.0); Alkaline Phosphatase 93 U/L (45-117); Anion Gap 6 (5-15); BUN 18 mg/dL (7-18); BUN/Creat Ratio 24.4 RATIO (10-20); Calcium,Total 8.6 mg/dL (8.5-10.1); Chloride 109 mmol/L (98-107); Creatinine, Serum 0.74 mg/dL (0.55-1.02); EST Glomerular Filtration Rate 82 mL/min (>60); Est Glom Filt Rate - Afr Amer 99 mL/min (>60); Globulin 3.5 g/dL (2.2-4.2); Glucose 79 mg/dL (74-106); Potassium 3.6 mmol/L (3.5-5.1); Protein, Total 7.2 g/dL (6.4-8.2); Sodium Level 142 mmol/L (136-145)
== END ==
PROVIDERS: PCP Family Medicine Geriatric Medicine; Visit Provider Family Medicine Geriatric Medicine
DX: E55.9 Vitamin D deficiency, unspecified (principal); I10 Essential (primary) hypertension
CPT/HCPCS: 36415; 80053; 82306; 84443; 85025

== ENCOUNTER → 2020-10-02 13:10 | Outpatient (CLI) | payer MEDICARE, SELFPAY ==
[2020-08-18 06:41] VITALS: BMI 38.8
--- NOTE | 2020-10-02 13:12 | BI_ITS ---
MAMMOGRAPHY - UNILATERAL SCREENING: RIGHT BREAST REASON FOR EXAM: Female, 75 years old. Routine annual screening examination (unilateral). PERTINENT HISTORY: Personal history of breast cancer. Prior left mastectomy. Sister with breast cancer. Mother with breast cancer. TECHNIQUE: Digital unilateral breast marshall (3D mammographic acquisition) in the CC and MLO projections. 2-D mediolateral oblique (MLO) and craniocaudad (CC) views of both breasts were obtained. CAD: Full Field Digital Mammography with Computer Added Detection was performed. COMPARISON: Comparison is made with prior study dated 09/10/2019 and 09/08/2018. FINDINGS: Breast Composition: There are scattered areas of fibroglandular density. There are no dominant masses or suspicious calcifications. No other significant abnormalities are identified. There has been no significant change since the prior study. BI/SCREEN MAMM (CAD) W/MARSHALL UNI R IMPRESSION: Stable unilateral screening mammogram. Yearly follow-up mammogram recommended. (A) ASSESSMENT CATEGORY: BIRADS Category 1: Negative. A letter regarding these results will be sent to the patient by the facility within 30 days. Approximately 10% of breast cancers are not detected by mammography. A normal mammogram should not delay biopsy of a clinically suspicious abnormality. [id number] Electronically Signed: Oscar Bellamy, at 14:38 EST , Service support ,
--- NOTE | 2020-10-02 13:21 | BD_ITS ---
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 COMPARISON: Comparison is made with prior study dated 01/05/2017. FINDINGS: Lumbar Spine (L1-L4): g/cm2 (1.163) / T-score (0.0) / Z-score (1.7) Findings are suggestive of normal bone density with a low fracture risk. Left Femur Total: g/cm2 (0.988) / T-score (-0.2) / Z-score (1.5) Left Femoral Neck: g/cm2 (0.915) / T-score (-0.9) / Z-score (1.0) The T-Scores on the most recent prior examination were: Lumbar Spine (L1-L4): There has been improvement of bone density since the previous examination. Left Femur Total: which represents a worsening of 7%. BD/Dexa Bone Density Study IMPRESSION: The patient is considered normal as outlined below according to World Vaibhav Organization (WHO) criteria with a low fracture risk. There has been worsening of bone density since the previous examination. Reference Information: The T-score is the number of standard deviations above or below the standard which is normal for young adults at their peak bone mineral density. The World Health Organization (WHO) interprets the T-scores as follows: Above -1 Normal bone density Between -1 and -2.5 Osteopenia Equal to / or below -2.5 Osteoporosis As a practical clinical guideline, osteopenia may be graded as follows: Mild -1 through -1.5 Moderate -1.6 through -2.0 Severe -2.1 through -2.4 The Z-score is the number of standard deviations above or below age-matched controls. A Z-score of less than -1.5 would be considered abnormal. References: 1. NIH Osteoporosis and Related Bone Diseases www osteo.org 2. International Society for Clinical Densitometry www iscd.org 3. National Osteoporosis Foundation www nof.org Electronically Signed: Oscar Bellamy, at 15:25 EST , Service support ,
== END ==
PROVIDERS: PCP Family Medicine Geriatric Medicine; Referring Provider Family Medicine Geriatric Medicine; Visit Provider Student in an Organized Health Care Education/Training Program
DX: Z78.0 Asymptomatic menopausal state (principal); Z12.31 Encounter for screening mammogram for malignant neoplasm of breast; Z90.12 Acquired absence of left breast and nipple; Z85.3 Personal history of malignant neoplasm of breast; Z80.3 Family history of malignant neoplasm of breast
CPT/HCPCS: 77063; 77067; 77080

== ENCOUNTER 2020-10-06 11:22 | Day surgery (SDC) | payer MEDICARE, SELFPAY ==
[2020-08-18 06:41] VITALS: BMI 38.8
[2020-10-06 12:00] VITALS: BP 159/92; PULSE 67; RESP 16; TEMP 37.1; O2SAT 99; BMI 39.6
[2020-10-06] MEDS: Lactated Ringers 1,000 ML 100 ML IV (13:02)
--- NOTE | 2020-10-06 13:56 | PCM.OPRPT ---
Report of Operation Date of Procedure: 10/06/20 Description of Surgical Findings:: PREOPERATIVE DIAGNOSIS: Lumbosacral radiculopathy, lumbosacral degenerative disc disease, lumbosacral spinal stenosis POSTOPERATIVE DIAGNOSIS: Lumbosacral radiculopathy, lumbosacral degenerative disc disease, lumbosacral spinal stenosis PROCEDURE PERFORMED: Caudal epidural steroid injection. ANESTHESIA: MAC. BLOOD LOSS: Minimal. COMPLICATIONS: None. DESCRIPTION OF PROCEDURE: History and physical of today was reviewed. Risks and benefits of the procedure were explained. The patient understood and agreed to proceed. Informed consent was obtained. IV inserted per routine protocol. The patient was taken to the operating room and placed in the prone position with a pillow positioned underneath the abdomen. The lower back and tailbone area was prepped and draped in a sterile fashion using iodine x3. Under fluoroscopy guidance on a lateral view, the caudal space was identified. The skin and subcutaneous tissue was anesthetized with approximately 3 mL of 1% lidocaine using a 25-gauge regular needle. Under direct visualization with fluoroscopy, using a 22-gauge 3-1/2-inch spinal needle, the needle was advanced via the skin through the sacral hiatus. The tip of the needle was passed through the sacrococcygeal ligament and advanced to approximately S4 area. After negative aspiration of blood or CSF, a total of 3 mL of contrast was injected to confirm correct placement of the needle as well as cephalad spread. The spread was followed to approximately L5 area. After confirmation on AP as well as lateral view and repeated negative aspiration, a total of 15 mL of preservative-free 0.125% Marcaine with 80 mg of Depo-Medrol was injected easily. The needle was then removed intact. The patient experienced no sign or symptoms of intrathecal or intravascular injection. The patient experienced no paresthesia. The procedure was completed without any apparent difficulty or any complications. The patient appeared to tolerate it well. ASSESSMENT AND PLAN: This is a 75-year-old female with lumbosacral radiculopathy, lumbosacral degenerative disc disease, lumbosacral spinal stenosis status post caudal epidural steroid injection patient will continue her current medications, patient will follow in approximately 2 weeks for reevaluation.
--- NOTE | 2020-10-06 13:58 | RAD_ITS ---
PROCEDURE: Caudal block. DATE OF EXAMINATION: 10/06/2020 INDICATION: Female, 75 years old. Chronic low back pain. FLUOROSCOPY TIME (if supplied): (13 seconds) minutes/seconds. One fluoroscopic image was submitted. Intraoperative imaging provided for sacral block. RAD/Fluor Guidance for Spine Inj IMPRESSION: Intraoperative imaging provided for sacral block. Electronically Signed: Oscar Bellamy, at 15:42 EST , Service support ,
[2020-10-06] MEDS: Lidocaine 1% (5 ml sdv) 5 ML Vial (14:04)
[2020-10-06] MEDS: Bupivacaine 0.25% 30 ML Vial (14:04)
[2020-10-06] MEDS: 0.9% Normal Saline (Pres. free 10 ML Vial (14:05)
[2020-10-06 14:11] VITALS: BP 154/87; BP 159/92; PULSE 69; RESP 16; TEMP 36.8; O2SAT 97
[2020-10-06 14:16] VITALS: BP 159/92; BP 167/86; PULSE 72; RESP 16; O2SAT 98
[2020-10-06 14:21] VITALS: BP 159/92; BP 173/100; PULSE 69; RESP 16; O2SAT 100
[2020-10-06 14:26] VITALS: BP 159/92; BP 171/89; PULSE 69; RESP 16; TEMP 36.8; O2SAT 99
[2020-10-06 14:47] VITALS: BP 159/92
== END 2020-10-06 14:55 | disposition home or self-care (01) ==
LOC: SDC 11:24 → AC 11:28
PROVIDERS: PCP Family Medicine Geriatric Medicine; Referring Provider Anesthesiology Pain Medicine; Visit Provider Anesthesiology Pain Medicine
PROC: 3E0S3BZ Introduction of Anesthetic Agent into Epidural Space, Percutaneous Approach (ICD-10-PCS; CPT 62282; principal; 2020-10-06 12:45)
DX: M51.17 Intervertebral disc disorders with radiculopathy, lumbosacral region (principal); M48.07 Spinal stenosis, lumbosacral region; M51.37 Other intervertebral disc degeneration, lumbosacral region; G89.29 Other chronic pain; G47.30 Sleep apnea, unspecified; Z79.891 Long term (current) use of opiate analgesic
CPT/HCPCS: 01992; 62323; 64483; 77003; J7120; J3490

== ENCOUNTER 2020-12-17 13:41 | Outpatient (RCR) | payer MEDICARE, SELFPAY | END 2020-12-17 23:59 | LOC: IMMUN 13:41 | PROVIDERS: PCP Family Medicine Geriatric Medicine; Referring Provider Family Medicine; Visit Provider Family Medicine | DX: Z23 Encounter for immunization (principal) | CPT/HCPCS: 0011A; 0012A; 91301 ==

== ENCOUNTER → 2021-02-24 10:58 | Outpatient (CLI) | payer MEDICARE, SELFPAY ==
[2021-02-24 12:30] LABS: Absolute Lymphocyte Count 1.63 X10^3/uL (0.83-4.51); Basophil# 0.07 X10^3/uL; Basophil% 0.9 % (0-1); Eosinophil# 0.21 X10^3/uL; Eosinophils% 2.8 % (0-5); Hemoglobin 14.1 g/dL (12.0-15.0); Lymphocyte # 1.63 X10^3/ul (0.83-4.51); Lymphocyte % 21.7 % (19-41); Mean Corpuscular Hgb 29.6 pg (27.0-32.0); Mean Corpuscular Volume 92.2 fL (81-99); Mean Platelet Vol. 11.1 fl (6.2-12.0); Monocyte# 0.58 X10^3/uL; Monocyte% 7.7 % (0-10); NRBC Flagged by Analyzer 0 % (0-5); Neutrophil # 5.01 X10^3/uL (2.7-7.7); Neutrophil % 66.6 % (47-70); Platelet Count 279 K/mm3 (150-450); RBC Distribution Width CV 12.6 % (11.6-14.6); RBC Distribution Width SD 42.6 fl (35.1-43.9); Red Blood Count 4.77 M/mm3 (4.2-5.4); White Blood Count 7.5 K/mm3 (4.4-11.0)
[2021-02-24 12:45] LABS: Vitamin D,25 Hydroxy 70.4 ng/mL
[2021-02-24 12:51] LABS: AST(SGOT) 31 U/L (15-37); Alanine Aminotransfer ALT/SGPT 36 U/L (13-56); Albumin, Serum 3.3 g/dL (3.2-5.0); Alkaline Phosphatase 88 U/L (45-117); Anion Gap 6 (5-15); BUN 19 mg/dL (7-18); BUN/Creat Ratio 30.4 RATIO (10-20); Calcium,Total 8.6 mg/dL (8.5-10.1); Chloride 108 mmol/L (98-107); Creatinine, Serum 0.62 mg/dL (0.55-1.02); EST Glomerular Filtration Rate 99 mL/min (>60); Est Glom Filt Rate - Afr Amer 120 mL/min (>60); Globulin 3.2 g/dL (2.2-4.2); Glucose 82 mg/dL (74-106); Potassium 3.8 mmol/L (3.5-5.1); Protein, Total 6.5 g/dL (6.4-8.2); Sodium Level 140 mmol/L (136-145); Thyroid Stim Hormone (TSH) 0.95 uIU/mL (0.358-3.74)
== END ==
PROVIDERS: PCP Family Medicine Geriatric Medicine; Visit Provider Family Medicine Geriatric Medicine
DX: I10 Essential (primary) hypertension (principal); E55.9 Vitamin D deficiency, unspecified
CPT/HCPCS: 36415; 80053; 82306; 84443; 85025

== ENCOUNTER 2021-06-01 05:55 | Day surgery (SDC) | payer MEDICARE, SELFPAY ==
[2021-06-01] VITALS (7 sets, daily range): BP systolic 126–149; BP diastolic 60–79; PULSE 62–69; RESP 16; TEMP 36.1–36.6; O2SAT 94–99; BMI 40.7
[2021-06-01] MEDS: Lactated Ringers 1,000 ML 100 ML IV (06:35)
--- NOTE | 2021-06-01 07:30 | RAD_ITS ---
PROCEDURE: Radiofrequency ablation L3-S1 on the left DATE OF EXAMINATION: 06/01/2021 INDICATION: Female, 76 years old. PHYSICIAN: Dr. Gee Alanis FLUOROSCOPY TIME (if supplied): (0.22) minutes , 9 images were obtained RADIATION DOSAGE (If Supplied By Facility): CONSENT: The risks, benefits and alternatives to the procedure were explained to the patient, and the patient agreed to the procedure and signed the consent. SEDATION: Performed per Dr. CASAS. STERILE BARRIER TECHNIQUE: The following sterile barrier precautions were used during the procedure: hand hygiene; use of 2% chlorhexidine aseptic; use of a cap, mask, sterile gown, sterile gloves, sterile full body drape, and a large sterile sheet. PROCEDURE/TECHNIQUE: (All elements of maximal sterile barrier technique followed, including US elements as applicable) The risks, benefits, and alternatives to the procedure were explained to patient, and the patient agreed to the procedure and signed a consent form for the procedure. A timeout was performed to confirm the patient''s identity, the type of procedure, to be performed and the site of entry. RAD/Lumbar Spine 2 or 3 Views IMPRESSION: Fluoroscopy in the fluoroscopic procedure and imaging was completed to Dr. Casas''s satisfaction. Electronically Signed: Aquilino Negron DO at 12:51 EDT Tel , Service support ,
[2021-06-01] MEDS: Lidocaine 1% (30 ml sdv) 30 ML Vial (07:39)
[2021-06-01] MEDS: MethylPREDNISolone Acetate 40 MG/ML Vial IM (07:39)
[2021-06-01] MEDS: Bupivacaine 0.25% 30 ML Vial (07:40)
--- NOTE | 2021-06-01 13:37 | PCM.OPRPT ---
Report of Operation Date of Procedure: 06/01/21 Pre-Operative Diagnosis: Lumbosacral spondylosis, lumbosacral degenerative disc disease, lumbar facet arthropathy Post-Operative Diagnosis: Lumbosacral spondylosis, lumbosacral degenerative disc disease, lumbar facet arthropathy Surgery/Procedure Performed:: Right-sided lumbar radiofrequency ablation of the medial branch L3, L4, L5, S1 Type of Anesthesia: MAC Estimated Blood Loss (mL): Minimal Description of Procedure: History and physical today was reviewed. Risks and benefits of procedure explained. The patient understood, agreed to the procedure and informed consent was obtained. IV inserted per routine protocol. The patient was taken to the operating room, placed in the prone position with a pillow positioned underneath the abdomen. The right side of the lower back was prepped and draped in a sterile fashion using iodine x 3. Under fluoroscopy guidance, on an oblique view, the L3 through S1 vertebral bodies were visualized. The skin and subcutaneous tissue was anesthetized with approximately 10 mL of 1% lidocaine using a 25-gauge regular needle. Under direct visualization with fluoroscopy at approximately 25-degree angle, starting on the right L3, ending on the right S1 passing through the L4-L5 using a 20-gauge 15 cm with a 10 mm curved active tip radiofrequency ablation needle the needle passed through the skin. The tip of the needle was maneuvered and directed towards the superior and medial gutter of the transverse process at the vicinity of the medial branch. Once the tip of the needle was in contact with the bone, the needle pulled approximately 2 mm up the bone. The stylet of each needle was then removed. After negative aspiration of blood with CSF and confirmation of AP as well as oblique view, radiofrequency ablation probe was then inserted at each level. Impedance was then recorded at L3 to be 287, at L4 205, at L5 243, at S1 301 ohm. Motor-evoked potential was then initiated to 1.5 volt without any motor response at each corresponding level. The probe was then removed intact and a total of 6 mL preservative-free 1% lidocaine was injected in divided doses between those 4 levels after negative aspiration of blood with CSF. The radiofrequency ablation probe was then reinserted after confirmation of AP, oblique as well as lateral view. Radiofrequency ablation was then initiated to 80 degrees Celsius for 90 seconds at each level. Once concluded, the probe was then removed intact and a total of 6 mL of preservative-free 0.25% Marcaine with 40 mg Depo-Medrol was injected in divided doses between those 4 levels. The needles were then removed intact. The patient experienced no signs or symptoms of intrathecal, intravascular injection. The patient experienced no paraesthesia. The procedure was completed without any apparent difficulty, any complication. The patient appeared to tolerate well. Sensory as well as motor exam was unchanged from prior to procedure. ASSESSMENT AND PLAN: This is a 76-year-old female with lumbosacral spondylosis, lumbosacral degenerative disc disease, lumbar facet arthropathy, status post right-sided radiofrequency ablation of the medial branch L3 through S1. The patient will continue her current medications. The patient will follow up in approximately 2 weeks for reevaluation. Complications None
== END 2021-06-01 08:35 | disposition home or self-care (01) ==
LOC: SDC 05:57 → AC 06:03
PROVIDERS: PCP Family Medicine Geriatric Medicine; Referring Provider Anesthesiology Pain Medicine; Visit Provider Anesthesiology Pain Medicine
PROC: (CPT 64635; principal; 2021-06-01 07:15)
DX: M47.817 Spondylosis without myelopathy or radiculopathy, lumbosacral region (principal); M51.37 Other intervertebral disc degeneration, lumbosacral region; M46.96 Unspecified inflammatory spondylopathy, lumbar region; I10 Essential (primary) hypertension; G47.30 Sleep apnea, unspecified; Z79.891 Long term (current) use of opiate analgesic; Z79.899 Other long term (current) drug therapy
CPT/HCPCS: 64635; 64636 ×3; 72100; 76000; J7120

== ENCOUNTER → 2021-09-01 11:22 | Outpatient (CLI) | payer MEDICARE, SELFPAY ==
[2021-09-01 12:18] LABS: Absolute Lymphocyte Count 1.46 X10^3/uL (0.83-4.51); Absolute Neutrophil Count 4.8 X10^3/uL (2.0-7.7); Basophil# 0.08 X10^3/uL; Basophil% 1.1 % (0-1); Eosinophil# 0.17 X10^3/uL; Eosinophils% 2.4 % (0-5); Hematocrit 45.2 % (37-47); Hemoglobin 14.5 g/dL (12.0-15.0); Lymphocyte # 1.46 X10^3/ul (0.83-4.51); Lymphocyte % 20.7 % (19-41); Mean Corp Hgb Conc 32.1 g/dL (32-36); Mean Corpuscular Volume 93.4 fL (81-99); Mean Platelet Vol. 10.9 fl (6.2-12.0); Monocyte# 0.52 X10^3/uL; Monocyte% 7.4 % (0-10); NRBC Flagged by Analyzer 0 % (0-5); Neutrophil # 4.81 X10^3/uL (2.7-7.7); Platelet Count 276 K/mm3 (150-450); RBC Distribution Width CV 12.7 % (11.6-14.6); RBC Distribution Width SD 43.7 fl (35.1-43.9); Red Blood Count 4.84 M/mm3 (4.2-5.4); White Blood Count 7.1 K/mm3 (4.4-11.0)
[2021-09-01 12:30] LABS: Vitamin D,25 Hydroxy 67.2 ng/mL
[2021-09-01 12:38] LABS: ALB/GLOB Ratio 0.8 RATIO (0.9-2.4); AST(SGOT) 30 U/L (15-37); Alanine Aminotransfer ALT/SGPT 33 U/L (13-56); Albumin, Serum 3.3 g/dL (3.2-5.0); Alkaline Phosphatase 89 U/L (45-117); Anion Gap 8 (5-15); BUN 19 mg/dL (7-18); BUN/Creat Ratio 24.7 RATIO (10-20); Calcium,Total 8.8 mg/dL (8.5-10.1); Chloride 107 mmol/L (98-107); Creatinine, Serum 0.77 mg/dL (0.55-1.02); EST Glomerular Filtration Rate 78 mL/min (>60); Est Glom Filt Rate - Afr Amer 94 mL/min (>60); Glucose 96 mg/dL (74-106); Potassium 3.9 mmol/L (3.5-5.1); Protein, Total 7.3 g/dL (6.4-8.2); Sodium Level 139 mmol/L (136-145); Thyroid Stim Hormone (TSH) 0.89 uIU/mL (0.358-3.74)
== END ==
PROVIDERS: PCP Family Medicine Geriatric Medicine; Visit Provider Family Medicine Geriatric Medicine
DX: I10 Essential (primary) hypertension (principal); E55.9 Vitamin D deficiency, unspecified
CPT/HCPCS: 36415; 80053; 82306; 84443; 85025

== ENCOUNTER 2021-10-05 09:29 | Day surgery (SDC) | payer MEDICARE, SELFPAY ==
--- NOTE | 2021-10-02 15:23 | HP.PCM_ITS ---
History and Physical Date of Admission: 10/05/21 Chief Complaint: follow up, low back pain. History of Present Illness: This is a 76 Y/O Female who was seen and evaluated at our office today as a follow up. Pain: lower back,left hip,bilateral legs down to bilateral feet (left is worse) Quality: constant,varies in intensity Region: Lower back pain radiates across the lower back into the left hip and down nacho legs to nacho feet (left is worse) Severity: dull-intense aching, tingling, occasional sharp Timing: Since January 2015 Aggravated by: sitting and laying down Relieved by: otc pain medication takes the edge off Pain score (out of 10): 06/09 Other info: Patient is here for a follow up.Reports pain in the left lower back that radiates into hip and down bilateral legs and feet ..Pain varies in intensity with activity, she continues to do ok with her medications without side effects, she denies any bowel or bladder problems, she stated she can not sit due to pain on her left buttock area, she continues to have pain down the left leg and down to the left calf. Review of Systems: Notes headache on occasion. Patient denies any fever, chills or change in weight without trying, vision or hearing problems. No cp, sob, blanco, pnd, orthopnea, or peripheral edema.They note no lumps or swollen glands, no new rashes, changing moles, or change in bowel or bladder function. Mood has been good overall. Past Medical History: h/o HTN h/o breast cancer h/o endometrial cancer h/o hiatal hernia h/o Arthritis h/o kidney stones s/p TKRx2 RT s/p laparoscopy s/p breast mastectomy s/p total hysterectomy s/p Right THR 01/2016 s/p left TKR 03/2020 Family History: Mother: Breast cancer Father: heart attack, diabetes Siblings: breast cancer ======== Structured Family History ======== Mother: Breast cancer Sister: Breast cancer Father: Myocardial infarction, Diabetes mellitus Social History: [Tobacco: Never smoker Pipe Smoker: No Cigar Smoker: No Chewing Tobacco User: No] Patient denies any tobacco use or recreational drug use. Occasional alcohol consumption. Living situation: Occupation: retired Tobacco: denies EtOH: denies Rec. drugs: denies Allergies: penicillin, tamoxifen, Arimidex, amoxicillin Medications: 1) biotin 5000 mcg oral tablet, disintegrating, One tablet daily 2) Centrum Silver oral tablet, One tablet daily 3) ibuprofen 200 mg oral tablet, PRN 4) Osteo Bi-Flex 250 mg-200 mg oral tablet, Take 1 tablet by mouth 2 times a Day 5) Tylenol Extra Strength 500 mg oral tablet, PRN Physical Examination: Wt: 228 lb Ht/Ln: 62 in BMI: 41.7 BP: 156/81 Pulse: 59 RR: 16 Temp: 97.1F Pain: 7 Well nourished and well developed in no acute distress. Affect is normal and appropriate. Mucosa pink and moist. Chest is unlabored breathing, pt is alert and oriented to place, person and time. Neck is supple without significant lymphadenopathy or thyromegaly. Abdomen soft & non-tender. No HSM or masses appreciated. Extremities show no cyanosis, clubbing, or edema. Gait is Antalgic. Upper and lower Lumbar paraspinal muscle tenderness. Bilateral lumbar facet loading is positive. Lumbar ROM is limited due to pain worse on the left. SLR is positive on the left. ROM of the left knee is limited due to pain but much improved. Motor and sensory exam is unchanged. 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 (Transmitted by Armida Alanis MD) Continue current medication regime. UDS was reviewed and was compliant. PEG was reviewed today. SOAPP score is 0 OARRS was reviewed today and compliant. Weight loss was recommended today through diet and exercise. MRI of the lumbar spine was reviewed with the pt today and they appear to understand. Life style modifications were also discussed today and the pt appears to understand. There are no signs of diversion or addiction with the pt, there is also no signs of abuse or misuse, continues to do well with their medications without any side effects, we will continue monitoring the pt closely. Risks and benefits of the above meds were discussed with the pt and they appear to understand. The common side effects of the medications were discussed and all of their questions and concerns were answered and they appear to understand Pt is to continue with her HEP. Pt has tried multiple modalities with no success, we will schedule the pt for a diagnostic/ therapeutic caudal epidural steroid injection under fluoro. We have discussed the risks, benefits as well as alternatives of the procedure and the patient appears to understand and would like to proceed with the above plan. The above plan was discussed today with the pt in details and they appear to understand and agrees to continue with the plan.
[2021-10-05] VITALS (8 sets, daily range): BP systolic 131–163; BP diastolic 73–85; PULSE 62–76; RESP 16; TEMP 36.3–36.9; O2SAT 94–98; BMI 41.1
[2021-10-05] MEDS: Lactated Ringers 1,000 ML 15 ML IV (10:00)
--- NOTE | 2021-10-05 10:40 | RAD_ITS ---
PROCEDURE: Caudal block. DATE OF EXAMINATION: 10/05/2021. INDICATION: Female, 76 years old. Chronic low back pain. FLUOROSCOPY TIME (if supplied): (5.7 seconds) minutes/seconds. 2 images were obtained. Intraoperative imaging provided for caudal block. RAD/Fluor Guidance for Spine Inj IMPRESSION: Intraoperative imaging provided for caudal block. Electronically Signed: Oscar Bellamy MD at 9:19 EST , Service support ,
--- NOTE | 2021-10-05 10:49 | OP.PCM_ITS ---
Report of Operation Date of Procedure: 10/05/21 Pre-Operative Diagnosis: Lumbosacral radiculopathy, lumbosacral degenerative di sc disease, lumbosacral spinal stenosis Post-Operative Diagnosis: Lumbosacral radiculopathy, lumbosacral degenerative disc disease, lumbosacral spinal stenosis Surgery/Procedure Performed:: Caudal epidural steroid injection under fluoroscopic guidance Type of Anesthesia: MAC Estimated Blood Loss (mL): Minimal Description of Procedure: DESCRIPTION OF PROCEDURE: History and physical of today was reviewed. Risks and benefits of the procedure were explained. The patient understood and agreed to proceed. Informed consent was obtained. IV inserted per routine protocol. The patient was taken to the operating room and placed in the prone position with a pillow positioned underneath the abdomen. The lower back and tailbone area was prepped and draped in a sterile fashion using iodine x3. Under fluoroscopy guidance on a lateral view, the caudal space was identified. The skin and subcutaneous tissue was anesthetized with approximately 3 mL of 1% lidocaine using a 25-gauge regular needle. Under direct visualization with fluoroscopy, using a 22-gauge 3-1/2-inch spinal needle, the needle was advanced via the skin through the sacral hiatus. The tip of the needle was passed through the sacrococcygeal ligament and advanced to approximately S4 area. After negative aspiration of blood or CSF, a total of 3 mL of contrast was injected to confirm correct placement of the needle as well as cephalad spread. The spread was followed to approximately L5 area. After confirmation on AP as well as lateral view and repeated negative aspiration, a total of 15 mL of preservative-free 0.125% Marcaine with 80 mg of Depo-Medrol was injected easily. The needle was then removed intact. The patient experienced no sign or symptoms of intrathecal or intravascular injection. The patient experienced no paresthesia. The procedure was completed without any apparent difficulty or any complications. The patient appeared to tolerate it well. ASSESSMENT AND PLAN: This is a 76-year-old female with lumbosacral radiculopathy, lumbosacral degenerative disc disease, lumbosacral spinal stenosis status post caudal epidural steroid injection, patient will continue her current medications, patient will follow in approximately 2 weeks for reevaluation. Complications None
== END 2021-10-05 11:41 | disposition home or self-care (01) ==
LOC: SDC 09:33 → AC 09:38
PROVIDERS: PCP Family Medicine Geriatric Medicine; Referring Provider Anesthesiology Pain Medicine; Visit Provider Anesthesiology Pain Medicine
PROC: 3E0S3BZ Introduction of Anesthetic Agent into Epidural Space, Percutaneous Approach (ICD-10-PCS; CPT 62282; principal; 2021-10-05 11:15)
DX: M47.27 Other spondylosis with radiculopathy, lumbosacral region (principal); M51.17 Intervertebral disc disorders with radiculopathy, lumbosacral region; M48.07 Spinal stenosis, lumbosacral region; M47.814 Spondylosis without myelopathy or radiculopathy, thoracic region; M47.816 Spondylosis without myelopathy or radiculopathy, lumbar region; M48.061 Spinal stenosis, lumbar region without neurogenic claudication; M51.34 Other intervertebral disc degeneration, thoracic region; M16.10 Unilateral primary osteoarthritis, unspecified hip; M79.7 Fibromyalgia; G89.29 Other chronic pain; Z85.3 Personal history of malignant neoplasm of breast; Z85.42 Personal history of malignant neoplasm of other parts of uterus; Z87.442 Personal history of urinary calculi; Z79.891 Long term (current) use of opiate analgesic
CPT/HCPCS: 62323; 64483; 77003; J7120; J3490

== ENCOUNTER → 2021-10-19 08:09 | Outpatient (CLI) | payer MEDICARE, SELFPAY ==
--- NOTE | 2021-10-19 08:12 | BI_ITS ---
MAMMOGRAPHY - UNILATERAL SCREENING: RIGHT BREAST REASON FOR EXAM: Female, 76 years old. Routine annual screening examination (unilateral). PERTINENT HISTORY: Personal history of breast cancer. Prior left mastectomy. Sister with breast cancer. Mother with breast cancer. TECHNIQUE: Digital unilateral breast marshall (3D mammographic acquisition) in the CC and MLO projections. 2-D mediolateral oblique (MLO) and craniocaudad (CC) views of both breasts were obtained. CAD: Full Field Digital Mammography with Computer Added Detection was performed. COMPARISON: Comparison is made with prior study dated 10/02/2020 and 09/10/2019. FINDINGS: Breast Composition: There are scattered areas of fibroglandular density. There are no dominant masses or suspicious calcifications. No other significant abnormalities are identified. There has been no significant change since the prior study. BI/SCREEN MAMM (CAD) W/MARSHALL UNI R IMPRESSION: Stable unilateral screening mammogram. Yearly follow-up mammogram recommended. (A) ASSESSMENT CATEGORY: BIRADS Category 1: Negative. A letter regarding these results will be sent to the patient by the facility within 30 days. Approximately 10% of breast cancers are not detected by mammography. A normal mammogram should not delay biopsy of a clinically suspicious abnormality. [id number] Electronically Signed: Oscar Bellamy MD at 10:08 EST , Service support ,
== END ==
PROVIDERS: PCP Family Medicine Geriatric Medicine; Visit Provider Family Medicine Geriatric Medicine
DX: Z12.31 Encounter for screening mammogram for malignant neoplasm of breast (principal); Z90.12 Acquired absence of left breast and nipple; Z85.3 Personal history of malignant neoplasm of breast; Z80.3 Family history of malignant neoplasm of breast
CPT/HCPCS: 77063; 77067

== ENCOUNTER → 2022-03-02 | Outpatient (CLI) | payer MEDICARE, SELFPAY ==
[2022-03-02 12:22] LABS: Absolute Lymphocyte Count 1.68 X10^3/uL (0.83-4.51); Absolute Neutrophil Count 4.9 X10^3/uL (2.0-7.7); Basophil# 0.11 X10^3/uL; Basophil% 1.5 % (0-1); Eosinophil# 0.15 X10^3/uL; Hematocrit 45.8 % (37-47); Hemoglobin 15.2 g/dL (12.0-15.0); Lymphocyte # 1.68 X10^3/ul (0.83-4.51); Lymphocyte % 22.6 % (19-41); Mean Corp Hgb Conc 33.2 g/dL (32-36); Mean Corpuscular Volume 90.3 fL (81-99); Mean Platelet Vol. 11.3 fl (6.2-12.0); Monocyte# 0.57 X10^3/uL; Monocyte% 7.7 % (0-10); NRBC Flagged by Analyzer 0 % (0-5); Neutrophil # 4.87 X10^3/uL (2.7-7.7); Neutrophil % 65.7 % (47-70); Platelet Count 288 K/mm3 (150-450); RBC Distribution Width CV 12.5 % (11.6-14.6); RBC Distribution Width SD 41.2 fl (35.1-43.9); Red Blood Count 5.07 M/mm3 (4.2-5.4); White Blood Count 7.4 K/mm3 (4.4-11.0)
[2022-03-02 12:46] LABS: Vitamin D,25 Hydroxy 67.2 ng/mL
[2022-03-02 13:02] LABS: ALB/GLOB Ratio 0.9 RATIO (0.9-2.4); AST(SGOT) 24 U/L (15-37); Alanine Aminotransfer ALT/SGPT 31 U/L (13-56); Albumin, Serum 3.4 g/dL (3.2-5.0); Alkaline Phosphatase 96 U/L (45-117); Anion Gap 8 (5-15); BUN 17 mg/dL (7-18); BUN/Creat Ratio 20.5 RATIO (10-20); Calcium,Total 8.8 mg/dL (8.5-10.1); Chloride 108 mmol/L (98-107); Creatinine, Serum 0.83 mg/dL (0.55-1.02); EST Glomerular Filtration Rate 71 mL/min (>60); Est Glom Filt Rate - Afr Amer 86 mL/min (>60); Globulin 3.9 g/dL (2.2-4.2); Glucose 97 mg/dL (74-106); Potassium 3.9 mmol/L (3.5-5.1); Protein, Total 7.3 g/dL (6.4-8.2); Sodium Level 139 mmol/L (136-145); Thyroid Stim Hormone (TSH) 0.94 uIU/mL (0.358-3.74)
== END | disposition home or self-care (01) ==
LOC: POLAB3 11:34
PROVIDERS: PCP Family Medicine Geriatric Medicine; Visit Provider Family Medicine Geriatric Medicine
DX: E55.9 Vitamin D deficiency, unspecified (principal); I10 Essential (primary) hypertension
CPT/HCPCS: 36415; 80053; 82306; 84443; 85025

== ENCOUNTER 2022-05-17 06:42 | Day surgery (SDC) | payer MEDICARE, SELFPAY ==
[2022-05-17 07:09] VITALS: BP 144/90; PULSE 60; RESP 16; TEMP 36.8; O2SAT 95; BMI 42.2
[2022-05-17] MEDS: Lactated Ringers 1,000 ML 15 ML IV (07:13)
--- NOTE | 2022-05-17 07:37 | RAD_ITS ---
PROCEDURE: Right L4-L5 and L5-S1 radiofrequency ablation. DATE OF EXAMINATION: 05/17/2022. INDICATION: Female, 77 years old. Chronic low back pain. FLUOROSCOPY TIME (if supplied): (20 seconds.) minutes/seconds. 11 images were obtained. RAD/L/S Spine Min 4 Views IMPRESSION: Intraoperative imaging provided for right L4-L5 and L5-S1 radiofrequency ablation. Electronically Signed: Oscar Bellamy MD at 12:16 EDT ,
[2022-05-17] MEDS: Lidocaine 1% (20 ml mdv) 20 ML Vial (07:50)
[2022-05-17] MEDS: MethylPREDNISolone Acetate 40 MG/ML Vial IM (07:50)
[2022-05-17] MEDS: Bupivacaine 0.25% 30 ML Vial (07:50)
[2022-05-17 08:06] VITALS: BP 143/67; BP 144/90; PULSE 67; RESP 16; TEMP 36.9; O2SAT 95
[2022-05-17 08:10] VITALS: BP 144/90; BP 154/77; PULSE 67; RESP 16; O2SAT 95
[2022-05-17 08:16] VITALS: BP 144/90; BP 169/83; PULSE 64; RESP 16; O2SAT 95
[2022-05-17 08:23] VITALS: BP 144/90; BP 172/92; PULSE 72; RESP 16; TEMP 36.8; O2SAT 97
[2022-05-17 08:36] VITALS: BP 144/90
--- NOTE | 2022-05-17 09:40 | PCM.OPRPT ---
Report of Operation Date of Procedure: 05/17/22 Pre-Operative Diagnosis: Lumbosacral spondylosis, lumbosacral degenerative disc disease, lumbar facet arthropathy Post-Operative Diagnosis: Lumbosacral spondylosis, lumbosacral degenerative disc disease, lumbar facet arthropathy Surgery/Procedure Performed:: Right-sided lumbar radiofrequency ablation of the medial branch L4, L5, S1 Type of Anesthesia: MAC Estimated Blood Loss (mL): Minimal Description of Procedure: History and physical today was reviewed. Risks and benefits of procedure explained. The patient understood, agreed to the procedure and informed consent was obtained. IV inserted per routine protocol. The patient was taken to the operating room, placed in the prone position with a pillow positioned underneath the abdomen. The right side of the lower back was prepped and draped in a sterile fashion using iodine x 3. Under fluoroscopy guidance, on an oblique view, the L3 through S1 vertebral bodies were visualized. The skin and subcutaneous tissue was anesthetized with approximately 10 mL of 1% lidocaine using a 25-gauge regular needle. Under direct visualization with fluoroscopy at approximately 25-degree angle, starting on the right L3, ending on the right S1 passing through the L4-L5 using a 20-gauge 15 cm with a 10 mm curved active tip radiofrequency ablation needle the needle passed through the skin. The tip of the needle was maneuvered and directed towards the superior and medial gutter of the transverse process at the vicinity of the medial branch. Once the tip of the needle was in contact with the bone, the needle pulled approximately 2 mm up the bone. The stylet of each needle was then removed. After negative aspiration of blood with CSF and confirmation of AP as well as oblique view, radiofrequency ablation probe was then inserted at each level. Impedance was then recorded at L3 to be 289, at L4 304, at L5 263, at S1 296 ohm. Motor-evoked potential was then initiated to 1.5 volt without any motor response at each corresponding level. The probe was then removed intact and a total of 6 mL preservative-free 1% lidocaine was injected in divided doses between those 4 levels after negative aspiration of blood with CSF. The radiofrequency ablation probe was then reinserted after confirmation of AP, oblique as well as lateral view. Radiofrequency ablation was then initiated to 80 degrees Celsius for 90 seconds at each level. Once concluded, the probe was then removed intact and a total of 6 mL of preservative-free 0.25% Marcaine with 40 mg Depo-Medrol was injected in divided doses between those 4 levels. The needles were then removed intact. The patient experienced no signs or symptoms of intrathecal, intravascular injection. The patient experienced no paraesthesia. The procedure was completed without any apparent difficulty, any complication. The patient appeared to tolerate well. Sensory as well as motor exam was unchanged from prior to procedure. ASSESSMENT AND PLAN: This is a 77-year-old female with lumbosacral spondylosis, lumbosacral degenerative disc disease, lumbar facet arthropathy, status post right-sided radiofrequency ablation of the medial branch L4 through S1. The patient will continue her current medications. The patient will follow up in approximately 2 weeks for reevaluation. Complications None
== END 2022-05-17 08:49 | disposition home or self-care (01) ==
LOC: SDC 06:47 → AC 06:49
PROVIDERS: PCP Family Medicine Geriatric Medicine; Referring Provider Anesthesiology Pain Medicine; Visit Provider Anesthesiology Pain Medicine
PROC: (CPT 64635; principal; 2022-05-17 08:05)
DX: M47.817 Spondylosis without myelopathy or radiculopathy, lumbosacral region (principal); M46.96 Unspecified inflammatory spondylopathy, lumbar region; M51.37 Other intervertebral disc degeneration, lumbosacral region
CPT/HCPCS: 64635; 64636; 01992; 72110; 76000; J7120

== ENCOUNTER → 2022-07-28 | Outpatient (CLI) | payer MEDICARE, SELFPAY ==
--- NOTE | 2022-07-28 13:50 | VDLE_ITS ---
Reason For Study: LLE edema Procedure LEFT This is a venous duplex using B-mode, color GSV is normal. flow and spectral Doppler. CFV is compressible, spontaneous, phasic, Exam performed in department. competent, and demonstrates normal A preliminary report was called and/or faxed augmentation. to [facility]. FV is compressible, spontaneous, phasic, competent and demonstrates normal augmentation. POP V is compressible, spontaneous, phasic, competent and demonstrates normal augmentation. T/P Trunk is compressible. PTV is compressible. LT PerV is compressible. VL/Venous Duplex US, Unilateral Interpretation Summary Deep veins of the left lower extremity are patent and compressible segmentally. There is no evidence of left lower extremity deep vein thrombosis. Valvular competence appears intac t within the proximal deep venous system on the left . The left great saphenous vein appears patent a nd compressible segmentally. Ordering Physician: Chaz Reynoso Chi Referring Physician: Chaz Reynoso Chi Performed By: Anuradha Rodriguez RVT
--- NOTE | 2022-07-28 15:57 | RAD_ITS ---
STUDY: X-RAY - LUMBAR SPINE REASON FOR EXAM: Female, 77 years old. LOW BACK PAIN TECHNIQUE: XR Spine Lumbar 2 or 3 Views COMPARISON: None FINDINGS: Normal lumbar lordosis. There is no substantial scoliosis. There is multilevel endplate spondylosis of the lumbar vertebrae. There is multi-level degenerative disc disease with multi-level disc space narrowing. There are atherosclerotic vascular calcifications. There is a Grade 1 anterolisthesis of L4 on L5. The soft tissue structures are unremarkable. RAD/Lumbar Spine 2 or 3 Views IMPRESSION: Degenerative changes of the spine, as detailed above. Electronically Signed: Bart Faust MD at 16:27 EDT ,
== END | disposition home or self-care (01) ==
PROVIDERS: PCP Family Medicine Geriatric Medicine; Referring Provider Family Medicine Geriatric Medicine; Visit Provider Family Medicine Geriatric Medicine
DX: R60.0 Localized edema (principal); M54.50 Low back pain, unspecified
CPT/HCPCS: 72100; 93971

== ENCOUNTER → 2022-09-06 | Outpatient (CLI) | payer MEDICARE, SELFPAY ==
[2022-09-06 12:28] LABS: Absolute Lymphocyte Count 1.79 X10^3/uL (0.83-4.51); Basophil# 0.12 X10^3/uL; Basophil% 1.2 % (0-1); Eosinophil# 0.13 X10^3/uL; Eosinophils% 1.3 % (0-5); Hematocrit 46.2 % (37-47); Hemoglobin 15.5 g/dL (12.0-15.0); Lymphocyte # 1.79 X10^3/ul (0.83-4.51); Lymphocyte % 18.1 % (19-41); Mean Corp Hgb Conc 33.5 g/dL (32-36); Mean Corpuscular Hgb 31.4 pg (27.0-32.0); Mean Corpuscular Volume 93.7 fL (81-99); Mean Platelet Vol. 10.8 fl (6.2-12.0); Monocyte# 0.75 X10^3/uL; Monocyte% 7.6 % (0-10); NRBC Flagged by Analyzer 0 % (0-5); Neutrophil # 7.02 X10^3/uL (2.7-7.7); Neutrophil % 71.1 % (47-70); Platelet Count 266 K/mm3 (150-450); RBC Distribution Width CV 12.9 % (11.6-14.6); RBC Distribution Width SD 44.1 fl (35.1-43.9); Red Blood Count 4.93 M/mm3 (4.2-5.4); White Blood Count 9.9 K/mm3 (4.4-11.0)
[2022-09-06 13:15] LABS: ALB/GLOB Ratio 0.8 RATIO (0.9-2.4); AST(SGOT) 35 U/L (15-37); Alanine Aminotransfer ALT/SGPT 40 U/L (13-56); Albumin, Serum 3.3 g/dL (3.2-5.0); Alkaline Phosphatase 91 U/L (45-117); Anion Gap 4 (5-15); BUN 15 mg/dL (7-18); Calcium,Total 9.1 mg/dL (8.5-10.1); Chloride 110 mmol/L (98-107); Creatinine, Serum 0.88 mg/dL (0.55-1.02); EST Glomerular Filtration Rate 66 mL/min (>60); Est Glom Filt Rate - Afr Amer 80 mL/min (>60); Globulin 4.2 g/dL (2.2-4.2); Glucose 99 mg/dL (74-106); Potassium 4.1 mmol/L (3.5-5.1); Protein, Total 7.5 g/dL (6.4-8.2); Sodium Level 137 mmol/L (136-145)
[2022-09-06 13:27] LABS: Vitamin D,25 Hydroxy 73.7 ng/mL
== END | disposition home or self-care (01) ==
LOC: POLAB3 10:11
PROVIDERS: PCP Family Medicine Geriatric Medicine; Visit Provider Family Medicine Geriatric Medicine
DX: I10 Essential (primary) hypertension (principal)
CPT/HCPCS: 36415; 80053; 82306; 84443; 85025

== ENCOUNTER 2022-09-20 07:13 | Day surgery (SDC) | payer MEDICARE, SELFPAY ==
[2022-09-20 07:49] VITALS: BP 182/94; PULSE 78; RESP 17; TEMP 36.6; O2SAT 96; BMI 41.3
[2022-09-20] MEDS: Lactated Ringers 1,000 ML 15 ML IV (08:00)
--- NOTE | 2022-09-20 08:48 | RAD_ITS ---
INDICATION: CAUDAL INJECTION EXAMINATION/TECHNIQUE: 4 spot intraoperative films were provided for interpretation. Total Fluoroscopic Time: 17 seconds AND number of Fluoroscopic Images: 4 COMPARISON: None. FINDINGS: Limited lateral intraoperative fluoroscopic images from caudal injection were obtained. RAD/Fluor Guidance for Spine Inj IMPRESSION: Limited intraoperative fluoroscopic images of caudal injection. Please see intraoperative report for detailed findings. Electronically Signed: Cheo Martinez, at 15:19 EST ,
[2022-09-20] MEDS: Bupivacaine 0.25% 30 ML Vial (08:56)
[2022-09-20] MEDS: MethylPREDNISolone Acetate 80 MG/ML Vial (08:56)
[2022-09-20] MEDS: 0.9% Normal Saline (Pres. free 10 ML Vial (08:57)
[2022-09-20] MEDS: Lidocaine 1% (5 ml sdv) 5 ML Vial (08:57)
[2022-09-20 09:07] VITALS: BP 124/106; BP 182/94; PULSE 93; RESP 16; TEMP 36.6; O2SAT 99
--- NOTE | 2022-09-20 09:07 | OP.PCM_ITS ---
Report of Operation Date of Procedure: 09/20/22 Pre-Operative Diagnosis: Lumbosacral radiculopathy, lumbosacral degenerative di sc disease, lumbosacral spinal stenosis Post-Operative Diagnosis: Lumbosacral radiculopathy, lumbosacral degenerative disc disease, lumbosacral spinal stenosis Surgery/Procedure Performed:: Caudal epidural steroid injection under fluoroscopic guidance Type of Anesthesia: MAC Estimated Blood Loss (mL): Minimal Description of Procedure: DESCRIPTION OF PROCEDURE: History and physical of today was reviewed. Risks and benefits of the procedure were explained. The patient understood and agreed to proceed. Informed consent was obtained. IV inserted per routine protocol. The patient was taken to the operating room and placed in the prone position with a pillow positioned underneath the abdomen. The lower back and tailbone area was prepped and draped in a sterile fashion using iodine x3. Under fluoroscopy guidance on a lateral view, the caudal space was identified. The skin and subcutaneous tissue was anesthetized with approximately 3 mL of 1% lidocaine using a 25-gauge regular needle. Under direct visualization with fluoroscopy, using a 22-gauge 3-1/2-inch spinal needle, the needle was advanced via the skin through the sacral hiatus. The tip of the needle was passed through the sacrococcygeal ligament and advanced to approximately S4 area. After negative aspiration of blood or CSF, a total of 3 mL of contrast was injected to confirm correct placement of the needle as well as cephalad spread. The spread was followed to approximately L5 area. After confirmation on AP as well as lateral view and repeated negative aspiration, a total of 15 mL of preservative-free 0.125% Marcaine with 80 mg of Depo-Medrol was injected easily. The needle was then removed intact. The patient experienced no sign or symptoms of intrathecal or intravascular injection. The patient experienced no paresthesia. The procedure was completed without any apparent difficulty or any complications. The patient appeared to tolerate it well. ASSESSMENT AND PLAN: This is a 77-year-old female with lumbosacral radiculopathy, lumbosacral degenerative disc disease, lumbosacral spinal stenosis status post caudal epidural steroid injection, patient will continue her current medications, patient will follow in approximately 2 weeks for reevaluation. Complications None
[2022-09-20 09:10] VITALS: BP 142/110; BP 182/94; PULSE 84; RESP 18; O2SAT 99
[2022-09-20 09:21] VITALS: BP 182/94; BP 187/99; PULSE 85; RESP 16; O2SAT 100
[2022-09-20 09:25] VITALS: BP 182/94; BP 187/91; PULSE 73; RESP 12; TEMP 36.2; O2SAT 98
[2022-09-20 09:44] VITALS: BP 182/94
== END 2022-09-20 09:53 | disposition home or self-care (01) ==
LOC: SDC 07:13 → AC 07:15
PROVIDERS: PCP Family Medicine Geriatric Medicine; Referring Provider Family Medicine Geriatric Medicine; Visit Provider Anesthesiology Pain Medicine
PROC: 3E0S3BZ Introduction of Anesthetic Agent into Epidural Space, Percutaneous Approach (ICD-10-PCS; CPT 62282; principal; 2022-09-20 08:45)
DX: M48.07 Spinal stenosis, lumbosacral region (principal); M51.17 Intervertebral disc disorders with radiculopathy, lumbosacral region; I10 Essential (primary) hypertension
CPT/HCPCS: 62323; 64483; 77003; J7120; J3490

== ENCOUNTER → 2022-11-26 | Outpatient (CLI) | payer MEDICARE, SELFPAY ==
--- NOTE | 2022-11-26 12:46 | BI_ITS ---
MAMMOGRAPHY - UNILATERAL SCREENING: RIGHT BREAST REASON FOR EXAM: Female, 77 years old. Routine annual screening examination (unilateral). PERTINENT HISTORY: Personal history of breast cancer. Prior left mastectomy. Sister with breast cancer. Mother with breast cancer. TECHNIQUE: Digital unilateral breast marshall (3D mammographic acquisition) in the CC and MLO projections. 2-D mediolateral oblique (MLO) and craniocaudad (CC) views of both breasts were obtained. CAD: Full Field Digital Mammography with Computer Added Detection was performed. COMPARISON: Comparison is made with prior study dated 10/19/2021 and 10/02/2020. FINDINGS: Breast Composition: There are scattered areas of fibroglandular density. There are no dominant masses or suspicious calcifications. No other significant abnormalities are identified. There has been no significant change since the prior study. BI/SCREEN MAMM (CAD) W/MARSHALL UNI R IMPRESSION: Stable unilateral screening mammogram. Yearly follow-up mammogram recommended. (A) ASSESSMENT CATEGORY: BIRADS Category 1: Negative. A letter regarding these results will be sent to the patient by the facility within 30 days. Approximately 10% of breast cancers are not detected by mammography. A normal mammogram should not delay biopsy of a clinically suspicious abnormality. [id number] Electronically Signed: Oscar Bellamy MD at 14:01 EST ,
== END | disposition home or self-care (01) ==
LOC: OPBI 12:44
PROVIDERS: PCP Family Medicine Geriatric Medicine; Visit Provider Student in an Organized Health Care Education/Training Program
DX: Z12.31 Encounter for screening mammogram for malignant neoplasm of breast (principal); Z90.12 Acquired absence of left breast and nipple; Z85.3 Personal history of malignant neoplasm of breast; Z80.3 Family history of malignant neoplasm of breast
CPT/HCPCS: 77063; 77067

== ENCOUNTER → 2022-12-27 | Outpatient (CLI) | payer MEDICARE, SELFPAY ==
--- NOTE | 2022-12-27 11:00 | VUL_PTH ---
PATIENT: KATHARINE MEDRANO LOC: [facility] U#:[id number] AGE/SX: 77/F ROOM: RE12/27/[address]: Dr. Mellisa Soriano DO : 1945 BED: DIS: 12/27/2022 SPEC #: [id number] RECD: 12/27/22 12:54 STATUS: NEETU REJae #: [id number] JOAQUIN: 12/27/22 11:[address]: Mellisa Soriano DEPT: SURGICAL PATHOLOGY RECD BY: Vickie Long ENTERED: 12/27/22 13:02 SP TYPE: VULVA BX OT DR: Dr. Chaz Reynoso MD Tissues: Vulva, NOS Procedures: Surgery Specimen Level IV HEADER OPERATION: Vulvar biopsy PRE-OP DIAGNOSIS: Vulvar lesion TISSUE SUBMITTED: Vulvar biopsy MICROSCOPIC DIAGNOSIS Vulvar lesion, biopsy: Consistent with lichen sclerosus. Focal hyperkeratosis. SJ:roxanna 12/28/2022 MICROSCOPIC DESCRIPTION Slides are reviewed. GROSS DESCRIPTION Received is one container labeled with the patient's name and not further designated. The specimen consists of one irregular fragment of rinaldi tissue measuring 0.2 x 0.1 x <0.1 cm. The specimen is totally submitted in one cassette. / AM:roxanna 12/27/2022 TC:5 CPT: 29629
== END | disposition home or self-care (01) ==
LOC: LABSPEC 12:06
PROVIDERS: PCP Family Medicine Geriatric Medicine; Visit Provider Student in an Organized Health Care Education/Training Program
DX: N90.89 Other specified noninflammatory disorders of vulva and perineum (principal)
CPT/HCPCS: 88305

== ENCOUNTER → 2023-02-18 | Outpatient (CLI) | payer MEDICARE, SELFPAY ==
[2023-02-18 13:25] LABS: Specimen Processing Control PASS
[2023-02-18 13:26] LABS: Probe Check PASS
== END | disposition home or self-care (01) ==
LOC: PSN 09:17
PROVIDERS: PCP Family Medicine Geriatric Medicine; Referring Provider Family Medicine Geriatric Medicine; Visit Provider Family Medicine Geriatric Medicine
DX: R68.83 Chills (without fever) (principal)
CPT/HCPCS: 87635; 87804; 87807; C9803; U0003; U0005

== ENCOUNTER 2023-02-28 05:52 | Day surgery (SDC) | payer MEDICARE, SELFPAY ==
[2023-02-28] VITALS (7 sets, daily range): BP systolic 138–181; BP diastolic 82–92; PULSE 71–82; RESP 18; TEMP 35.9–36.2; O2SAT 94–100; BMI 41.8
[2023-02-28] MEDS: Lactated Ringers 1,000 ML 15 ML IV (06:28)
--- NOTE | 2023-02-28 07:30 | RAD_ITS ---
STUDY: X-RAY - LUMBAR SPINE REASON FOR EXAM: Female, 78 years old. RADIO FREQ ABLATION L4-S1,LEFT TECHNIQUE: 8 intraoperative view(s) of the lumbar spine were obtained. COMPARISON: None FINDINGS: Intraoperative imaging provided for left L4-S1 radiofrequency ablation. RAD/Lumbar Spine 2 or 3 Views IMPRESSION: Intraoperative imaging provided for left L4-S1 radiofrequency ablation. Electronically Signed: Oscar Bellamy MD at 9:28 EDT ,
[2023-02-28] MEDS: MethylPREDNISolone Acetate 40 MG/ML Vial IM (07:41)
[2023-02-28] MEDS: Lidocaine 1% (30 ml sdv) 30 ML Vial (07:41)
--- NOTE | 2023-02-28 07:55 | PCM.OPRPT ---
Report of Operation Date of Procedure: 02/28/23 Pre-Operative Diagnosis: Lumbosacral spondylosis, lumbosacral degenerative disc disease, lumbar facet arthropathy Post-Operative Diagnosis: Lumbosacral spondylosis, lumbosacral degenerative disc disease, lumbar facet arthropathy Surgery/Procedure Performed:: Left-sided lumbar radiofrequency ablation of the medial branch L4, L5, S1 Type of Anesthesia: MAC Estimated Blood Loss (mL): Minimal Description of Procedure: History and physical today was reviewed. Risks and benefits of procedure explained. The patient understood, agreed to the procedure and informed consent was obtained. IV inserted per routine protocol. The patient was taken to the operating room, placed in the prone position with a pillow positioned underneath the abdomen. The left side of the lower back was prepped and draped in a sterile fashion using iodine x 3. Under fluoroscopy guidance, on an oblique view, the L3 through S1 vertebral bodies were visualized. The skin and subcutaneous tissue was anesthetized with approximately 10 mL of 1% lidocaine using a 25-gauge regular needle. Under direct visualization with fluoroscopy at approximately 25-degree angle, starting on the left L3, ending on the left S1 passing through the L4-L5 using a 20-gauge 15 cm with a 10 mm curved active tip radiofrequency ablation needle the needle passed through the skin. The tip of the needle was maneuvered and directed towards the superior and medial gutter of the transverse process at the vicinity of the medial branch. Once the tip of the needle was in contact with the bone, the needle pulled approximately 2 mm up the bone. The stylet of each needle was then removed. After negative aspiration of blood with CSF and confirmation of AP as well as oblique view, radiofrequency ablation probe was then inserted at each level. Impedance was then recorded at L3 to be 265, at L4 294, at L5 270, at S1 247 ohm. Motor-evoked potential was then initiated to 1.5 volt without any motor response at each corresponding level. The probe was then removed intact and a total of 6 mL preservative-free 1% lidocaine was injected in divided doses between those 4 levels after negative aspiration of blood with CSF. The radiofrequency ablation probe was then reinserted after confirmation of AP, oblique as well as lateral view. Radiofrequency ablation was then initiated to 80 degrees Celsius for 90 seconds at each level. Once concluded, the probe was then removed intact and a total of 6 mL of preservative-free 0.25% Marcaine with 40 mg Depo-Medrol was injected in divided doses between those 4 levels. The needles were then removed intact. The patient experienced no signs or symptoms of intrathecal, intravascular injection. The patient experienced no paraesthesia. The procedure was completed without any apparent difficulty, any complication. The patient appeared to tolerate well. Sensory as well as motor exam was unchanged from prior to procedure. ASSESSMENT AND PLAN: This is a 78-year-old female with lumbosacral spondylosis, lumbosacral degenerative disc disease, lumbar facet arthropathy, status post left-sided lumbar radiofrequency ablation of the medial branch L3 through S1. The patient will continue her current medications. The patient will follow up in approximately 2 weeks for reevaluation. Complications None
== END 2023-02-28 09:02 | disposition home or self-care (01) ==
LOC: SDC 05:53 → AC 05:57
PROVIDERS: PCP Family Medicine Geriatric Medicine; Referring Provider Anesthesiology Pain Medicine; Visit Provider Anesthesiology Pain Medicine
PROC: (CPT 64635; principal; 2023-02-28 07:25)
DX: M47.817 Spondylosis without myelopathy or radiculopathy, lumbosacral region (principal); M46.96 Unspecified inflammatory spondylopathy, lumbar region; M51.37 Other intervertebral disc degeneration, lumbosacral region; G47.30 Sleep apnea, unspecified; M43.10 Spondylolisthesis, site unspecified; M47.814 Spondylosis without myelopathy or radiculopathy, thoracic region; M51.34 Other intervertebral disc degeneration, thoracic region; M54.17 Radiculopathy, lumbosacral region; M79.7 Fibromyalgia; M19.011 Primary osteoarthritis, right shoulder; M50.30 Other cervical disc degeneration, unspecified cervical region; Z79.891 Long term (current) use of opiate analgesic
CPT/HCPCS: 64635; 64636; 01992; 72100; 76000; J7120

== ENCOUNTER → 2023-03-02 | Outpatient (CLI) | payer MEDICARE, SELFPAY ==
[2023-03-02 11:20] LABS: Absolute Lymphocyte Count 2.54 X10^3/uL (0.83-4.51); Absolute Neutrophil Count 9.1 X10^3/uL (2.0-7.7); Basophil# 0.11 X10^3/uL; Basophil% 0.9 % (0-1); Eosinophil# 0.12 X10^3/uL; Eosinophils% 0.9 % (0-5); Hematocrit 46.5 % (37-47); Hemoglobin 14.9 g/dL (12.0-15.0); Lymphocyte # 2.54 X10^3/ul (0.83-4.51); Lymphocyte % 19.8 % (19-41); Mean Corpuscular Hgb 29.6 pg (27.0-32.0); Mean Corpuscular Volume 92.3 fL (81-99); Mean Platelet Vol. 11.6 fl (6.2-12.0); Monocyte# 0.87 X10^3/uL; Monocyte% 6.8 % (0-10); NRBC Flagged by Analyzer 0 % (0-5); Neutrophil # 9.14 X10^3/uL (2.7-7.7); Platelet Count 268 K/mm3 (150-450); RBC Distribution Width CV 13.7 % (11.6-14.6); RBC Distribution Width SD 46.4 fl (35.1-43.9); Red Blood Count 5.04 M/mm3 (4.2-5.4); White Blood Count 12.9 K/mm3 (4.4-11.0)
[2023-03-02 11:54] LABS: Vitamin D,25 Hydroxy 85.7 ng/mL
[2023-03-02 12:18] LABS: AST(SGOT) 24 U/L (15-37); Alanine Aminotransfer ALT/SGPT 27 U/L (13-56); Albumin, Serum 3.4 g/dL (3.2-5.0); Alkaline Phosphatase 90 U/L (45-117); Anion Gap 9 (5-15); BUN 17 mg/dL (7-18); BUN/Creat Ratio 21.9 RATIO (10-20); Calcium,Total 8.7 mg/dL (8.5-10.1); Chloride 109 mmol/L (98-107); Creatinine, Serum 0.78 mg/dL (0.55-1.02); EST Glomerular Filtration Rate 77 mL/min (>60); Est Glom Filt Rate - Afr Amer 93 mL/min (>60); Globulin 3.4 g/dL (2.2-4.2); Glucose 83 mg/dL (74-106); Potassium 3.6 mmol/L (3.5-5.1); Protein, Total 6.8 g/dL (6.4-8.2); Sodium Level 143 mmol/L (136-145); Thyroid Stim Hormone (TSH) 0.96 uIU/mL (0.358-3.74)
== END | disposition home or self-care (01) ==
LOC: LAB 10:19
PROVIDERS: PCP Family Medicine Geriatric Medicine; Referring Provider Family Medicine Geriatric Medicine; Visit Provider Family Medicine Geriatric Medicine
DX: I10 Essential (primary) hypertension (principal); E55.9 Vitamin D deficiency, unspecified
CPT/HCPCS: 36415; 80053; 82306; 84443; 85025

== ENCOUNTER 2023-06-20 06:12 | Day surgery (SDC) | payer MEDICARE, SELFPAY ==
[2023-06-20] VITALS (8 sets, daily range): BP systolic 135–186; BP diastolic 65–90; PULSE 66–80; RESP 16; TEMP 36.2–36.6; O2SAT 94–97; BMI 43.1
[2023-06-20] MEDS: Lactated Ringers 1,000 ML 15 ML IV (07:00)
--- NOTE | 2023-06-20 07:55 | RAD_ITS ---
EXAMINATION: Fluoroscopic guided lumbar block. INDICATION: PAIN Total Fluoroscopic Time: 24 seconds AND number of Fluoroscopic Images: 8 OR Radiation dosage index: 17.24 mGy COMPARISON: Lumbar spine radiograph from 07/28/2022. FINDINGS: Limited intraoperative fluoroscopic images from lumbar spine submitted for review. There is intraoperative placement of needles at the L3-S1 levels. RAD/L/S Spine Min 4 Views IMPRESSION: Fluoroscopic guided lumbar block procedure. Please see intraoperative report for further details. Electronically Signed: Cheo Martinez DO at 11:04 EDT ,
[2023-06-20] MEDS: Lidocaine 1% (30 ml sdv) 30 ML Vial (08:13)
[2023-06-20] MEDS: MethylPREDNISolone Acetate 40 MG/ML Vial IM (08:13)
--- NOTE | 2023-06-20 08:25 | PCM.OPRPT ---
Report of Operation Date of Procedure: 06/20/23 Pre-Operative Diagnosis: Lumbosacral spondylosis, lumbosacral degenerative disc disease, lumbar facet arthropathy Post-Operative Diagnosis: Lumbosacral spondylosis, lumbosacral degenerative disc disease, lumbar facet arthropathy Surgery/Procedure Performed:: Right-sided lumbar radiofrequency ablation of the medial branch L4, L5, S1 Type of Anesthesia: MAC Estimated Blood Loss (mL): Minimal Description of Procedure: History and physical today was reviewed. Risks and benefits of procedure explained. The patient understood, agreed to the procedure and informed consent was obtained. IV inserted per routine protocol. The patient was taken to the operating room, placed in the prone position with a pillow positioned underneath the abdomen. The right side of the lower back was prepped and draped in a sterile fashion using iodine x 3. Under fluoroscopy guidance, on an oblique view, the L3 through S1 vertebral bodies were visualized. The skin and subcutaneous tissue was anesthetized with approximately 10 mL of 1% lidocaine using a 25-gauge regular needle. Under direct visualization with fluoroscopy at approximately 25-degree angle, starting on the right L3, ending on the right S1 passing through the L4-L5 using a 20-gauge 15 cm with a 10 mm curved active tip radiofrequency ablation needle the needle passed through the skin. The tip of the needle was maneuvered and directed towards the superior and medial gutter of the transverse process at the vicinity of the medial branch. Once the tip of the needle was in contact with the bone, the needle pulled approximately 2 mm up the bone. The stylet of each needle was then removed. After negative aspiration of blood with CSF and confirmation of AP as well as oblique view, radiofrequency ablation probe was then inserted at each level. Impedance was then recorded at L3 to be 289, at L4 299, at L5 238, at S1 243 ohm. Motor-evoked potential was then initiated to 1.5 volt without any motor response at each corresponding level. The probe was then removed intact and a total of 6 mL preservative-free 1% lidocaine was injected in divided doses between those 4 levels after negative aspiration of blood with CSF. The radiofrequency ablation probe was then reinserted after confirmation of AP, oblique as well as lateral view. Radiofrequency ablation was then initiated to 80 degrees Celsius for 90 seconds at each level. Once concluded, the probe was then removed intact and a total of 6 mL of preservative-free 0.25% Marcaine with 40 mg Depo-Medrol was injected in divided doses between those 4 levels. The needles were then removed intact. The patient experienced no signs or symptoms of intrathecal, intravascular injection. The patient experienced no paraesthesia. The procedure was completed without any apparent difficulty, any complication. The patient appeared to tolerate well. Sensory as well as motor exam was unchanged from prior to procedure. ASSESSMENT AND PLAN: This is a 78-year-old female with lumbosacral spondylosis, lumbosacral degenerative disc disease, lumbar facet arthropathy, status post right-sided radiofrequency ablation of the medial branch L4 through S1. The patient will continue her current medications. The patient will follow up in approximately 2 weeks for reevaluation. Complications None
== END 2023-06-20 09:09 | disposition home or self-care (01) ==
LOC: SDC 06:16 → AC 06:17
PROVIDERS: PCP Family Medicine Geriatric Medicine; Referring Provider Anesthesiology Pain Medicine; Visit Provider Anesthesiology Pain Medicine
PROC: (CPT 64635; principal; 2023-06-20 07:40)
DX: M47.816 Spondylosis without myelopathy or radiculopathy, lumbar region (principal); M46.96 Unspecified inflammatory spondylopathy, lumbar region; M47.817 Spondylosis without myelopathy or radiculopathy, lumbosacral region; M51.37 Other intervertebral disc degeneration, lumbosacral region
CPT/HCPCS: 64635; 64636; 01992; 72110; 76000; J7120

== ENCOUNTER → 2023-09-28 | Outpatient (CLI) | payer MEDICARE, SELFPAY ==
[2023-09-28 11:38] LABS: Absolute Lymphocyte Count 1.59 X10^3/uL (0.83-4.51); Absolute Neutrophil Count 4.8 X10^3/uL (2.0-7.7); Basophil# 0.11 X10^3/uL; Basophil% 1.5 % (0-1); Eosinophil# 0.19 X10^3/uL; Eosinophils% 2.6 % (0-5); Hemoglobin 14.9 g/dL (12.0-15.0); Lymphocyte # 1.59 X10^3/ul (0.83-4.51); Lymphocyte % 21.9 % (19-41); Mean Corp Hgb Conc 31.7 g/dL (32-36); Mean Corpuscular Hgb 29.5 pg (27.0-32.0); Mean Corpuscular Volume 93.1 fL (81-99); Mean Platelet Vol. 10.9 fl (6.2-12.0); Monocyte# 0.55 X10^3/uL; Monocyte% 7.6 % (0-10); NRBC Flagged by Analyzer 0 % (0-5); Neutrophil # 4.79 X10^3/uL (2.7-7.7); Neutrophil % 66.1 % (47-70); Platelet Count 237 K/mm3 (150-450); RBC Distribution Width CV 12.8 % (11.6-14.6); RBC Distribution Width SD 43.4 fl (35.1-43.9); Red Blood Count 5.05 M/mm3 (4.2-5.4); White Blood Count 7.3 K/mm3 (4.4-11.0)
[2023-09-28 13:08] LABS: Vitamin D,25 Hydroxy 78.7 ng/mL
[2023-09-28 13:25] LABS: ALB/GLOB Ratio 0.9 RATIO (0.9-2.4); AST(SGOT) 24 U/L (15-37); Alanine Aminotransfer ALT/SGPT 30 U/L (13-56); Albumin, Serum 3.6 g/dL (3.2-5.0); Alkaline Phosphatase 105 U/L (45-117); Anion Gap 8 (5-15); BUN 17 mg/dL (7-18); BUN/Creat Ratio 21.3 RATIO (10-20); Calcium,Total 8.6 mg/dL (8.5-10.1); Chloride 107 mmol/L (98-107); EST Glomerular Filtration Rate 74 mL/min (>60); Est Glom Filt Rate - Afr Amer 90 mL/min (>60); Globulin 3.9 g/dL (2.2-4.2); Glucose 91 mg/dL (74-106); Potassium 3.8 mmol/L (3.5-5.1); Protein, Total 7.5 g/dL (6.4-8.2); Sodium Level 142 mmol/L (136-145); Thyroid Stim Hormone (TSH) 1.63 uIU/mL (0.358-3.74)
== END | disposition home or self-care (01) ==
LOC: POLAB3 10:54
PROVIDERS: PCP Family Medicine Geriatric Medicine; Visit Provider Family Medicine Geriatric Medicine
DX: I10 Essential (primary) hypertension (principal); E55.9 Vitamin D deficiency, unspecified
CPT/HCPCS: 36415; 80053; 82306; 84443; 85025

== ENCOUNTER → 2023-11-29 | Outpatient (CLI) | payer MEDICARE, SELFPAY ==
--- NOTE | 2023-11-29 08:11 | BI_ITS ---
MAMMOGRAPHY - UNILATERAL SCREENING: RIGHT BREAST REASON FOR EXAM: Female, 78 years old. Routine annual screening examination (unilateral). PERTINENT HISTORY: Personal history of breast cancer. History of prior left mastectomy. Sister with breast cancer. Mother with breast cancer. TECHNIQUE: Digital unilateral breast marshall (3D mammographic acquisition) in the CC and MLO projections. 2-D mediolateral oblique (MLO) and craniocaudad (CC) views of both breasts were obtained. CAD: Full Field Digital Mammography with Computer Added Detection was performed. COMPARISON: Comparison is made with prior study dated 07/27/2023 and October 19, 2021. FINDINGS: Breast Composition: There are scattered areas of fibroglandular density. There are no dominant masses or suspicious calcifications. No other significant abnormalities are identified. There has been no significant change since the prior study. BI/SCREEN MAMM (CAD) W/MARSHALL UNI R IMPRESSION: Stable unilateral screening mammogram. Yearly follow-up mammogram recommended. (A) ASSESSMENT CATEGORY: BIRADS Category 1: Negative. A letter regarding these results will be sent to the patient by the facility within 30 days. Approximately 10% of breast cancers are not detected by mammography. A normal mammogram should not delay biopsy of a clinically suspicious abnormality. [id number] Electronically Signed: Oscar Bellamy MD at 9:28 EST ,
== END | disposition home or self-care (01) ==
LOC: OPBI 08:09
PROVIDERS: PCP Family Medicine Geriatric Medicine; Referring Provider Family Medicine Geriatric Medicine; Visit Provider Family Medicine Geriatric Medicine
DX: Z12.31 Encounter for screening mammogram for malignant neoplasm of breast (principal); Z90.12 Acquired absence of left breast and nipple; Z85.3 Personal history of malignant neoplasm of breast; Z80.3 Family history of malignant neoplasm of breast
CPT/HCPCS: 77063; 77067

== ENCOUNTER → 2024-03-28 | Outpatient (CLI) | payer MEDICARE, SELFPAY ==
[2024-03-28 13:30] LABS: Absolute Lymphocyte Count 1.78 X10^3/uL (0.83-4.51); Absolute Neutrophil Count 4.1 X10^3/uL (2.0-7.7); Basophil# 0.08 X10^3/uL; Basophil% 1.2 % (0-1); Eosinophil# 0.19 X10^3/uL; Eosinophils% 2.9 % (0-5); Hematocrit 47.1 % (37-47); Lymphocyte # 1.78 X10^3/ul (0.83-4.51); Lymphocyte % 26.8 % (19-41); Mean Corp Hgb Conc 31.8 g/dL (32-36); Mean Corpuscular Hgb 29.6 pg (27.0-32.0); Mean Corpuscular Volume 92.9 fL (81-99); Mean Platelet Vol. 10.7 fl (6.2-12.0); Monocyte# 0.45 X10^3/uL; Monocyte% 6.8 % (0-10); NRBC Flagged by Analyzer 0 % (0-5); Neutrophil # 4.13 X10^3/uL (2.7-7.7); Platelet Count 247 K/mm3 (150-450); RBC Distribution Width CV 13.1 % (11.6-14.6); Red Blood Count 5.07 M/mm3 (4.2-5.4); White Blood Count 6.7 K/mm3 (4.4-11.0)
[2024-03-28 14:03] LABS: AST(SGOT) 31 U/L (15-37); Alanine Aminotransfer ALT/SGPT 30 U/L (13-56); Albumin, Serum 3.6 g/dL (3.2-5.0); Alkaline Phosphatase 112 U/L (45-117); Anion Gap 8 (5-15); BUN 13 mg/dL (7-18); BUN/Creat Ratio 16.3 RATIO (10-20); Calcium,Total 9.1 mg/dL (8.5-10.1); Chloride 106 mmol/L (98-107); Cholesterol 197 mg/dL (200); EST Glomerular Filtration Rate 74 mL/min (>60); Est Glom Filt Rate - Afr Amer 90 mL/min (>60); Globulin 3.7 g/dL (2.2-4.2); Glucose 88 mg/dL (74-106); High Density Lipoprotein 56 mg/dL; Potassium 3.7 mmol/L (3.5-5.1); Protein, Total 7.3 g/dL (6.4-8.2); Sodium Level 139 mmol/L (136-145); Thyroid Stim Hormone (TSH) 0.96 uIU/mL (0.358-3.74); Triglycerides 152 mg/dL; Very Low Density Lipoprotein 30 mg/dL (5-40)
[2024-03-28 15:39] LABS: Vitamin D,25 Hydroxy 69.6 ng/mL
== END | disposition home or self-care (01) ==
LOC: LAB 12:33
PROVIDERS: PCP Family Medicine Geriatric Medicine; Referring Provider Family Medicine Geriatric Medicine; Visit Provider Family Medicine Geriatric Medicine
DX: I10 Essential (primary) hypertension (principal); E55.9 Vitamin D deficiency, unspecified; E78.5 Hyperlipidemia, unspecified
CPT/HCPCS: 36415; 80053; 80061; 82306; 84443; 85025

== ENCOUNTER 2024-05-14 07:37 | Day surgery (SDC) | payer MEDICARE, SELFPAY ==
[2024-05-14] VITALS (9 sets, daily range): BP systolic 113–150; BP diastolic 64–93; PULSE 68–84; RESP 16; TEMP 36.2–36.6; O2SAT 95–100; BMI 40.9
--- NOTE | 2024-05-14 07:50 | PCM.PRE.AN2 ---
ASA Classification* ASA Classification ASA Classification: 3 Assessment & Plan Anesthesia* Anesthesia Assessment Anesthesia Assessment: Discussed sedation and/or anesthesia options, risks, benefits, and alternatives with patient/parents/legal guardian/POA. Questions invited. The patient/parents/legal guardian/POA seems to understand and agrees to proceed with anesthesia plan. Reviewed the physical assessment, medical history, allergy history and patient home medications list prior to surgery/procedure/anesthetic and documented any changes. Performed airway and anesthesia risk assessments. Anesthesia Type Anesthesia Type: MAC (see written pre anesthesia record for full assessment) Anesthesia Focused Assessment* Airway Assessment Mouth opens: >3 cm Mallampati Score: II Focused Labs Anesthesia Preop lab: CBC WBC 6.7 K/mm3 (4.4-11.0) 03/28/24 12:38 RBC 5.07 M/mm3 (4.2-5.4) 03/28/24 12:38 Hgb 15.0 g/dL (12.0-15.0) 03/28/24 12:38 Hct 47.1 % (37-47) H 03/28/24 12:38 Plt Count 247 K/mm3 (150-450) 03/28/24 12:38 CHEMISTRY Potassium 3.7 mmol/L (3.5-5.1) 03/28/24 12:38 Sodium 139 mmol/L (136-145) 03/28/24 12:38 BUN 13 mg/dL (7-18) 03/28/24 12:38 Creatinine 0.80 mg/dL (0.55-1.02) 03/28/24 12:38 Glucose 88 mg/dL (74-106) 03/28/24 12:38 POC Glucose 96 mg/dL (70-110) 04/07/20 06:58 TSH 0.96 uIU/mL (0.358-3.74) 03/28/24 12:38 COAG PT 13.1 SECONDS (11.7-14.9) 03/26/20 13:15 Pre-Assessment Diagnosis/Proposed Procedure Planned Operative Procedure(s): CAUDAL EPIDURAL STEROID INJECTION UNDER FLOUROSCOPY Anesthesia History 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 When Was Last Pacemaker Check QUESTION #4 FULL TEXT: You/Your Family Experience fever (hyperthermia) with Anesthesia Last Oral Intake Last Oral intake: Last Oral Intake NPO since Meds taken in AM with sips of water? Meds patient instructed to take am of surgery PONV PONV - boilermaker assembly and erection: PONV - boilermaker assembly and erection Female Yes 05/08/24 09:02 HX of Motion Sickness No 05/08/24 09:02 HX of N/V After Surgery No 05/08/24 09:02 Non-Smoker Yes 05/08/24 09:02 Duration of Surgery greater No 05/08/24 09:02 than 60 minutes Number of Risk Factors 2 05/08/24 09:02 PONV Score Moderate Risk 05/08/24 09:02 Height & Weight Height & Weight: Anesthesia: Height & Weight Height 5 ft 2 in 06/20/23 06:39 Respiratory Assessment Respiratory Assessment - boilermaker assembly and erection: Respiratory Tract Infection Hx - boilermaker assembly and erection Hx Respiratory Tract Infection No 05/08/24 09:02 STOP Sleep Apnea STOP Sleep Apnea - boilermaker assembly and erection: STOP Sleep Apnea - boilermaker assembly and erection Hx Hypertension Yes 05/08/24 09:02 Hx Sleep Apnea Yes 05/08/24 09:02 CPAP Yes 05/08/24 09:02 BIPAP No 05/08/24 09:02 Do you snore loudly (louder than talking or can be heard Do you often feel tired/ fatigued/ sleepy during daytime? Has anyone observed you stop breathing during sleep? STOP Results Positive 05/08/24 09:02 QUESTION #5 FULL TEXT : Do you snore loudly (louder than talking or can be heard through closed doors)? 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 Specify any problems Hx of Preganancy in last 3 N/A 05/08/24 09:02 Months Nurse Filling Out Transfusion SFRANTZ 05/08/24 09:02 & Questions: Date: 05/08/24 05/08/24 09:02 Time: 09:05/08/24 09:02 Patient unable to answer at this time (ie. confused, unrespo /Reproduction History /Reproductive History - boilermaker assembly and erection: /Reproductive Hx- boilermaker assembly and erection Hx Now No 05/08/24 09:02 Gestational Age (in weeks): EDC: Hx Hx Para Hx Section SAB No 05/08/24 09:02 Active Medications Active Medications: Current Medications Generic Name Dose Route Start Last Admin Trade Name Freq PRN Reason Stop Dose Admin Lactated Ringer's 1,000 mls @ 15 mls/hr 05/14/24 07:45 IV .Q48H ALEXA PFSH Medical History Bladder disease History of diverticulitis History of pain when walking Non-smoker Wears glasses Post-menopausal Arthritis Easy bruising History of hiatal hernia Heartburn CPAP (continuous positive airway pressure) dependence Sleep apnea Shortness of breath on exertion Neuropathic arthritis History of edema History of echocardiogram History of stress test History of endometrial cancer History of breast cancer Back pain Difficulty balancing Knee pain History of hemorrhoids History of cancer Hypertension Home Medications ?Medication ?Instructions ?Recorded ?Last Taken ?Type biotin 1,000 mcg chewable tablet 5,000 mcg PO DAILY supplement 08/30/16 08/10/17 History acetaminophen 500 mg tablet 1,000 mg PO Q8 PRN Pain Or Fever 07/29/20 Unknown History glucosamine-chondroitin 250 mg-200 1 tab PO BID 06/09/23 Unknown History mg tablet (Osteo Bi-Flex) multivitamin 1 tab PO DAILY 06/09/23 Unknown History amlodipine 5 mg tablet 5 mg PO DAILY 05/08/24 Unknown History losartan 100 mg tablet (Cozaar) 100 mg PO QPM 05/08/24 Unknown History Allergy/AdvReac Type Severity Reaction Status Date / Time amoxicillin Allergy Anaphylaxis Verified 05/08/24 08:48 anastrozole (From Arimidex) Allergy Swelling Verified 05/08/24 08:48 Penicillins Allergy Hives Verified 05/08/24 08:48 tamoxifen AdvReac PT UNSURE Verified 05/08/24 08:48 OF REACTION Family History Other COPD (chronic obstructive pulmonary disease) Cancer Heart failure Myocardial infarction Surgical History History of cataract surgery Hx of surgical procedure History of lumbar surgery History of hip replacement History of knee replacement Social History Smoking Status: Never smoker Review of Systems (Anesthesia) ROS Narrative System reviewed and no additional complaints, except as documented.
[2024-05-14] MEDS: Lactated Ringers 1,000 ML 15 ML IV (08:15)
--- NOTE | 2024-05-14 09:11 | RAD_ITS ---
PROCEDURE: Caudal block. DATE OF EXAMINATION: May 14, 2024. INDICATION: Female, 79 years old. Low back pain. FLUOROSCOPY TIME (if supplied): (2 seconds) minutes/seconds. 2.4 mGy. 2 images were submitted. RAD/Fluor Guidance for Spine Inj IMPRESSION: Intraoperative imaging provided for caudal block. Electronically Signed: Oscar Bellamy MD at 15:25 EDT ,
[2024-05-14] MEDS: MethylPREDNISolone Acetate 80 MG/ML Vial (09:16)
[2024-05-14] MEDS: 0.9% Normal Saline (Pres. free 10 ML Vial (09:17)
[2024-05-14] MEDS: Lidocaine 1% (5 ml sdv) 5 ML Vial (09:17)
--- NOTE | 2024-05-14 09:17 | OP.PCM_ITS ---
Report of Operation Date of Procedure: 05/14/24 Pre-Operative Diagnosis: Lumbosacral radiculopathy, lumbosacral degenerative di sc disease, lumbosacral spinal stenosis Post-Operative Diagnosis: Lumbosacral radiculopathy, lumbosacral degenerative disc disease, lumbosacral spinal stenosis Surgery/Procedure Performed:: Diagnostic/therapeutic caudal epidural steroid injection under fluoroscopic guidance Type of Anesthesia: MAC Estimated Blood Loss (mL): Minimal Description of Procedure: DESCRIPTION OF PROCEDURE: History and physical of today was reviewed. Risks and benefits of the procedure were explained. The patient understood and agreed to proceed. Informed consent was obtained. IV inserted per routine protocol. The patient was taken to the operating room and placed in the prone position with a pillow positioned underneath the abdomen. The lower back and tailbone area was prepped and draped in a sterile fashion using iodine x3. Under fluoroscopy guidance on a lateral view, the caudal space was identified. The skin and subcutaneous tissue was anesthetized with approximately 3 mL of 1% lidocaine using a 25-gauge regular needle. Under direct visualization with fluoroscopy, using a 22-gauge 3-1/2-inch spinal needle, the needle was advanced via the skin through the sacral hiatus. The tip of the needle was passed through the sacrococcygeal ligament and advanced to approximately S4 area. After negative aspiration of blood or CSF, a total of 3 mL of contrast was injected to confirm correct placement of the needle as well as cephalad spread. The spread was followed to approximately L5 area. After confirmation on AP as well as lateral view and repeated negative aspiration, a total of 15 mL of preservative-free 0.125% Marcaine with 80 mg of Depo-Medrol was injected easily. The needle was then removed intact. The patient experienced no sign or symptoms of intrathecal or intravascular injection. The patient experienced no paresthesia. The procedure was completed without any apparent difficulty or any complications. The patient appeared to tolerate it well. ASSESSMENT AND PLAN: This is a 79-year-old female with lumbosacral radiculopathy, lumbosacral degenerative disc disease, lumbosacral spinal stenosis status post diagnostic/therapeutic caudal epidural steroid injection, patient will continue her current medications, patient will follow in approximately 2 weeks for reevaluation. Complications None
--- NOTE | 2024-05-14 09:28 | PCM.POST.ANE ---
Anesthesia: Postop Eval I Current Vital Signs Temperature: 97.1 F Pulse Rate: 76 Blood Pressure: 113/64 Respiratory Rate: 16 Pulse Ox: 99 Oxygen Delivery Method: Room Air Assessment Airway patent: Yes Spontaneous unlabored respirations: Yes Mental status: Awake and Calm nausea: No Vomiting: No Anesthesia Complication: No Fluid Hydration Crystalloid volume administer (ml): 400 Total IV fluid infused: 400 Progress Note Anesthesia document: Postop Eval 1 completed: Yes
--- NOTE | 2024-05-14 09:47 | PCM.POSTANE2 ---
Anesthesia Postop Eval I Sum Postop Eval Completion status Anesthesia document: Postop Eval 1 completed: Yes Anesthesia Postop Eval I Summary Anesthesia Postop Eval I Summary: Anesthesia Postop Eval I: Assessment Summary Airway patent Yes 05/14/24 09:29 [email or web address] Spontaneous unlabored Yes 05/14/24 09:29 [email or web address] respirations Mental status Awake,Calm 05/14/24 09:29 [email or web address] nausea No 05/14/24 09:29 [email or web address] Vomiting No 05/14/24 09:29 [email or web address] Anesthesia Postop Eval I: Fluid Summary Crystalloid volume administer 400 05/14/24 09:29 [email or web address] (ml) Colloids volume administered ( ml) Blood Product volume administered (ml) Total IV fluid infused 400 05/14/24 09:29 [email or web address] Anesthesia Postop Eval I: Summary Notes Anesthesia Complication No 05/14/24 09:29 [email or web address] Anesthesia Complication Comment: Post-operative progress note Anesthesia: Postop Eval II Evaluation Mental status: Awake Pain Level: 0 nausea: No Vomiting: No
== END 2024-05-14 10:30 | disposition home or self-care (01) ==
LOC: SDC 07:42 → AC 07:45
PROVIDERS: PCP Family Medicine Geriatric Medicine; Referring Provider Anesthesiology Pain Medicine; Visit Provider Anesthesiology Pain Medicine
PROC: 3E0S3BZ Introduction of Anesthetic Agent into Epidural Space, Percutaneous Approach (ICD-10-PCS; CPT 62282; principal; 2024-05-14 09:15)
DX: M51.17 Intervertebral disc disorders with radiculopathy, lumbosacral region (principal); M48.07 Spinal stenosis, lumbosacral region; I10 Essential (primary) hypertension; Z79.899 Other long term (current) drug therapy
CPT/HCPCS: 62323; 01992; 64483; 77003; J7120; J3490

== ENCOUNTER → 2024-06-13 | Outpatient (CLI) | payer MEDICARE, SELFPAY | END | disposition home or self-care (01) | LOC: POLAB3 16:08 | PROVIDERS: PCP Family Medicine Geriatric Medicine; Visit Provider Family Medicine Geriatric Medicine | DX: R30.0 Dysuria (principal) | CPT/HCPCS: 87077; 87086; 87088; 87186 ==

== ENCOUNTER → 2024-11-30 | Outpatient (CLI) | payer MEDICARE, SELFPAY ==
--- NOTE | 2024-11-30 10:36 | BI_ITS ---
PROCEDURE: SCREEN MAMM (CAD) W/MARSHALL UNI R REASON FOR EXAM: F, Age 79 y/o, personal history of breast cancer. Prior left mastectomy. Sister with breast cancer. Mother with breast cancer. TECHNIQUE: Unilateral right screening digital breast tomosynthesis with 2D and 3D images. Computer aided detection. COMPARISON: Prior exam(s) dating back to November 29, 2023.. FINDINGS: There are scattered areas of fibroglandular density. Stable examination. No suspicious masses, areas of developing architectural distortion, or suspicious calcifications. BI/SCREEN MAMM (CAD) W/MARSHALL UNI R IMPRESSION: BI-RADS 1: NEGATIVE. RECOMMEND ANNUAL MAMMOGRAPHIC SCREENING. Follow-up code: Routine Follow-up The patient will be notified of the results by letter. Reading Location: [place] [id number]
== END | disposition home or self-care (01) ==
LOC: OPBI 10:36
PROVIDERS: PCP Family Medicine Geriatric Medicine; Referring Provider Obstetrics & Gynecology; Visit Provider Obstetrics & Gynecology
DX: Z12.31 Encounter for screening mammogram for malignant neoplasm of breast (principal); Z90.12 Acquired absence of left breast and nipple
CPT/HCPCS: 77063; 77067

== ENCOUNTER → 2025-04-30 | Outpatient (CLI) | payer MEDICARE, SELFPAY ==
[2025-04-30 12:44] LABS: Hematocrit 43.7 % (37-47); Hemoglobin 14.2 g/dL (12.0-15.0); Immature Granulocytes Count 0.040 X10^3/uL (0.0-0.0); Mean Corp Hgb Conc 32.5 g/dL (32-36); Mean Corpuscular Volume 91.2 fL (81-99); Mean Platelet Vol. 10.6 fl (6.2-12.0); NRBC Flagged by Analyzer 0 % (0-5); Platelet Count 323 K/mm3 (150-450); RBC Distribution Width CV 13.4 % (11.6-14.6); RBC Distribution Width SD 45.0 fl (35.1-43.9); Red Blood Count 4.79 M/mm3 (4.2-5.4); White Blood Count 9.7 K/mm3 (4.4-11.0)
[2025-04-30 13:15] LABS: Creatinine, Urine (random) 77.70 mg/dL (28.00-217.00); Microalbumin,Random Urine 107.0 mg/L (NO RANGE EST.)
[2025-04-30 13:43] LABS: AST(SGOT) 27 U/L (<=31); Alanine Aminotransfer ALT/SGPT 22 U/L (<=34); Albumin, Serum 4.0 g/dL (3.4-4.8); Alkaline Phosphatase 114 U/L (35-104); Anion Gap 14 (5-15); BUN 15 mg/dL (4-19); BUN/Creat Ratio 17.6 RATIO (10-20); Calcium,Total 10.0 mg/dL (7.6-11.0); Carbon Dioxide 23.0 mmol/L (21.0-32.0); Chloride 103 mmol/L (98-108); Cholesterol 173 mg/dL (<=200); Globulin 3.5 g/dL (2.2-4.2); Glucose 98 mg/dL (70-99); Low Density Lipoprotein Calc. 94 mg/dL; Potassium 4.0 mmol/L (3.3-5.1); Triglycerides 156 mg/dL; Very Low Density Lipoprotein 31 mg/dL (5-40); cholesterol:hdl ratio screen 3.59
== END | disposition home or self-care (01) ==
LOC: MTLAB 10:53
PROVIDERS: PCP Family Medicine; Referring Provider Family Medicine; Visit Provider Family Medicine
DX: I10 Essential (primary) hypertension (principal); E78.5 Hyperlipidemia, unspecified; G62.0 Drug-induced polyneuropathy
CPT/HCPCS: 80053; 80061; 82043; 82570; 85025

== ENCOUNTER 2025-06-03 06:34 | Day surgery (SDC) | payer MEDICARE, SELFPAY ==
--- NOTE | 2025-06-03 06:44 | PCM.PRE.AN2 ---
ASA Classification* ASA Classification ASA Classification: 2 Assessment & Plan Anesthesia* Anesthesia Assessment Anesthesia Assessment: Discussed sedation and/or anesthesia options, risks, benefits, and alternatives with patient/parents/legal guardian/POA. Questions invited. The patient/parents/legal guardian/POA seems to understand and agrees to proceed with anesthesia plan. Reviewed the physical assessment, medical history, allergy history and patient home medications list prior to surgery/procedure/anesthetic and documented any changes. Performed airway and anesthesia risk assessments. Anesthesia Type Anesthesia Type: MAC Anesthesia Focused Assessment* Airway Assessment Mouth opens: >3 cm Mallampati Score: II Labs Anesthesia Preop lab: CBC WBC 9.7 K/mm3 (4.4-11.0) 04/30/25 10:58 04/30/25 RBC 4.79 M/mm3 (4.2-5.4) 04/30/25 10:58 04/30/25 Hgb 14.2 g/dL (12.0-15.0) 04/30/25 10:58 04/30/25 Hct 43.7 % (37-47) 04/30/25 10:58 04/30/25 Plt Count 323 K/mm3 (150-450) 04/30/25 10:58 04/30/25 CHEMISTRY Potassium 4.0 mmol/L (3.3-5.1) 04/30/25 10:58 04/30/25 Sodium 140 mmol/L (133-145) 04/30/25 10:58 04/30/25 BUN 15 mg/dL (4-19) 04/30/25 10:58 04/30/25 Creatinine 0.86 mg/dL (0.70-1.20) 04/30/25 10:58 04/30/25 Glucose 98 mg/dL (70-99) 04/30/25 10:58 04/30/25 POC Glucose 96 mg/dL (70-110) 04/07/20 06:58 04/07/20 TSH 0.96 uIU/mL (0.358-3.74) 03/28/24 12:38 03/28/24 COAG PT 13.1 SECONDS (11.7-14.9) 03/26/20 13:15 03/26/20 Pre-Assessment Diagnosis/Proposed Procedure Planned Operative Procedure(s): (R) RIGHT LUMBAR RADIOFREQUENCY ABALTION AT MEDIAL BRANCH OF L4 L5 S1 UNDER FLUOROSCOPY Anesthesia History Anesthesia History - cardiac monitor: Anesthesia History - cardiac monitor Hx Hospitalization No 05/24/25 11:43 Any Problems With Anesthesia No 05/24/25 11:43 Cholinesterase deficiency No 05/24/25 11:43 You/Your Family Experience No 05/24/25 11:43 fever (hyperthermia) with Relationship Recent Exposure to Contagious No 05/14/24 07:58 Disease Does patient have nerve No 05/24/25 11:43 stimulator Patient instructed to have device shut off --Does patient have Pacemaker or ICD? When Was Last Pacemaker Check QUESTION #4 FULL TEXT: You/Your Family Experience fever (hyperthermia) with Anesthesia Last Oral Intake Last Oral intake: Last Oral Intake NPO since Meds taken in AM with sips of water? Meds patient instructed to take am of surgery PONV PONV - cardiac monitor: PONV - cardiac monitor Female Yes 05/24/25 11:43 HX of Motion Sickness No 05/24/25 11:43 HX of N/V After Surgery No 05/24/25 11:43 Non-Smoker Yes 05/24/25 11:43 Duration of Surgery greater No 05/24/25 11:43 than 60 minutes Number of Risk Factors 2 05/24/25 11:43 PONV Score Moderate Risk 05/24/25 11:43 Height & Weight Height & Weight: Anesthesia: Height & Weight Height 5 ft 2 in 05/27/25 11:08 Respiratory Assessment Respiratory Assessment - cardiac monitor: Respiratory Tract Infection Hx - cardiac monitor Hx Respiratory Tract Infection No 05/24/25 11:43 STOP Sleep Apnea STOP Sleep Apnea - cardiac monitor: STOP Sleep Apnea - cardiac monitor Hx Hypertension Yes 05/24/25 11:43 Hx Sleep Apnea Yes 05/24/25 11:43 CPAP Yes 05/24/25 11:43 BIPAP No 05/24/25 11:43 Do you snore loudly (louder than talking or can be heard Do you often feel tired/ fatigued/ sleepy during daytime? Has anyone observed you stop breathing during sleep? STOP Results Positive 05/24/25 11:43 QUESTION #5 FULL TEXT : Do you snore loudly (louder than talking or can be heard through closed doors)? 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 Specify any problems Hx of Preganancy in last 3 No 05/24/25 11:43 Months Nurse Filling Out Transfusion JZOLLMONIQUE 05/24/25 11:43 & Questions: Date: 05/24/25 05/24/25 11:43 Time: 11:44 05/24/25 11:43 Patient unable to answer at this time (ie. confused, unrespo /Reproduction History /Reproductive History - cardiac monitor: /Reproductive Hx- cardiac monitor Hx Now No 05/24/25 11:43 Gestational Age (in weeks): EDC: Hx Hx Para Hx Section SAB No 05/27/25 11:08 Active Medications Active Medications: Current Medications Generic Name Dose Route Start Last Admin Trade Name Freq PRN Reason Stop Dose Admin Lactated Ringer's 1,000 mls @ 15 mls/hr 06/03/25 06:45 IV .Q48H ALEXA PFSH Medical History Bladder disease History of diverticulitis History of pain when walking Non-smoker Wears glasses Post-menopausal Arthritis Easy bruising History of hiatal hernia Heartburn CPAP (continuous positive airway pressure) dependence Sleep apnea Shortness of breath on exertion Neuropathic arthritis History of edema History of echocardiogram History of stress test History of endometrial cancer History of breast cancer Back pain Difficulty balancing Knee pain History of hemorrhoids History of cancer Hypertension Home Medications ?Medication ?Instructions ?Recorded ?Last Taken ?Type acetaminophen 500 mg tablet 1,000 mg PO Q8 PRN Pain Or Fever 07/29/20 Unknown History glucosamine-chondroitin 250 mg-200 1 tab PO BID 06/09/23 Unknown History mg tablet (Osteo Bi-Flex) multivitamin 1 tab PO DAILY 06/09/23 Unknown History amlodipine 5 mg tablet 5 mg PO DAILY 05/08/24 05/14/24 07:00 History losartan 100 mg tablet (Cozaar) 100 mg PO QPM 05/08/24 Unknown History biotin 1 mg capsule 1 mg PO DAILY 05/25/24 Unknown History cholecalciferol (vitamin D3) 50 50 mcg PO DAILY 05/25/24 Unknown History mcg (2,000 unit) capsule naproxen 500 mg tablet 500 mg PO BID PRN pain 05/25/24 Unknown History alpha lipoic acid 200 mg capsule 200 mg PO BID 05/24/25 Unknown History clobetasol 0.05 % topical ointment 1 applic topical 2XW 90 days #45 05/27/25 Unknown Rx grams Allergy/AdvReac Type Severity Reaction Status Date / Time amoxicillin Allergy Anaphylaxis Verified 05/24/25 11:37 anastrozole (From Arimidex) Allergy Swelling Verified 05/24/25 11:37 Penicillins Allergy Hives Verified 05/24/25 11:37 tamoxifen AdvReac PT UNSURE Verified 05/24/25 11:37 OF REACTION Family History Other COPD (chronic obstructive pulmonary disease) Cancer Heart failure Myocardial infarction Surgical History S/P hysterectomy S/P left mastectomy History of cataract surgery Hx of surgical procedure History of lumbar surgery History of hip replacement History of knee replacement Social History Smoking Status: Never smoker alcohol intake: current alcohol intake frequency: holidays/special occasions only substance use type: does not use caffeine: Yes seatbelt use: always do you feel safe at home: Yes additional social history: Marlyn Mccall Review of Systems (Anesthesia) ROS Narrative System reviewed and no additional complaints, except as documented.
--- OUTSIDE RECORDS SUMMARY | 2025-06-03 06:49 | XMS RPT_ITS | CCD ---
Author Organization [facility] Care Team Providers Care Community Organization Director Name Role Phone Cesar MIGUEL, Dr. Miranda Primary Care Provider Cesar MIGUEL, Dr. Miranda Attending Provider [phone] Cesar MIGUEL, Dr. Miranda Referring Provider Edgardo MIGUEL, Dr. Chaz Jay Referring Provider [phone] Shani Savage DO, Dr. Moe Attending Provider Payal Savage Referring Unavailabl Payal Perez Attending Unavailabl e Edgardo, Chaz Chi Primary Care Unavailable Edgardo, Chaz Chi Attending Unavailable Edgardo, Chaz Chi Primary Care Unavailable Gee Alanis Attending Unavailable Cesar, Ruben Primary Care Unavailable Cesar Ruben Primary Care Unavailable Payal Savage Attending Unavailabl e Edgardo, Chaz Chi Referring Unavailable Cesar Ruben Referring Unavailable Ruben Guerrero Attending Unavailable Cesar, Ruben Primary Care Unavailable Allergies Allergy Classification Reported Allergen(s) Allergy Type Date of Onset Reaction(s) Facility (15 sources) Amoxicillin Drug Allergy 1 Anaphylaxis [facility] (15 sources) anastrozole Drug Allergy 1 Swelling [facility] (16 sources) Penicillins; Translations: [Penicillins] Allergy to substance 1 Hives [facility] (15 sources) Tamoxifen Drug Allergy 1 PT UNSURE OF REACTION [facility] Comment on above: severe leg cramps (1 source) Amoxicillin Drug Allergy 5 [facility] Repository (1 source) anastrozole Drug Allergy 5 [facility] Repository (1 source) Tamoxifen Drug Allergy 5 [facility] Repository Medications Current Medications Medication Drug Class(es) Dates Sig (Normalized) Sig (Original) acetaminophen 500 mg oral tablet (20 sources) Start: 04-08-2020 End: 07-29-2020 take 2 tablets by mouth every eight hours as needed for pain Acetaminophen 500 MG tablet Active 1000 mg PO EVERY 8 HOURS as needed for Pain Or Fever July 29, 2020 1:14pm Start: 04-08-2020 End: 07-29-2020 take 1000 mg by mouth every eight hours Acetaminophen Active 1000 MG PO EVERY 8 HOURS July 29, 2020 12:14pm Start: 02-26-2016 End: 04-08-2020 take 2 tablets by mouth every six hours as needed for pain Acetaminophen (Tylenol) 325 MG tablet Discontinued 650 mg PO EVERY 6 HOURS NEEDED as needed for Pain 28 0 February 26, 2016 12:00am April 08, 2020 6:52am Start: 04-28-2015 End: 02-26-2016 take 1 capsule by mouth every six hours as needed for pain Acetaminophen (Pain Reliever) 500 MG capsule Discontinued 500 mg PO EVERY 6 HOURS NEEDED as needed for Pain April 28, 2015 12:00am February 26, 2016 11:46am amLODIPine 5 mg oral tablet (2 sources) Dihydropyridine Calcium Channel Isabel Start: 05-08-2024 take 1 tablet by mouth once daily Amlodipine 5 mg tablet Active 5 mg PO DAILY May 08, 2024 12:00am biotin 1 mg oral capsule (17 sources) Start: 05-25-2024 take 1 capsule by mouth once daily Biotin 1 mg capsule Active 1 mg PO DAILY May 25, 2024 12:00am Start: 08-30-2016 End: 05-25-2024 take 5 tablets by mouth once daily Biotin 1,000 MCG tablet,chewable Discontinued 5000 ug PO DAILY August 30, 2016 12:00am May 25, 2024 2:58pm supplement Start: 08-30-2016 take 5000 ug by mout h once daily Biotin Active 5000 MCG PO DAILY August 29, 2016 11:00pm cholecalciferol 0.05 mg oral capsule (2 sources) Vitamin D Start: 05-25-2024 take 1 capsule by mouth once daily Cholecalciferol (Vitamin D3) 50 mcg (2,000 unit) capsule Active 50 ug PO DAILY May 25, 2024 12:00am Chondroitin Sulfates / Glucosamine (5 sources) Start: 06-09-2023 Glucosamine-Ch ondroiti n (Osteo Bi-Flex) 250-200 mg tablet Active 1 {tbl} PO TWICE A DAY June 09, 2023 12:00am give after food/meal Start: 06-09-2023 Glucosamine-Ch ondroitin (Osteo Bi-Flex) 250-200 mg tablet Active 1 {tbl} PO TWICE A DAY June 09, 2023 12:00am give after food/meal clobetasol propionate 0.0005 mg/mg topical ointment (1 source) Corticosteroid Start: 05-27-2025 Clobetasol 0.0 5 % ointment Active 1 NMA TOPICAL TWICE A WEEK 45 90 4 May 27, 2025 12:00am Erdokhdz-Mhmw-Xwv7-C-Angel -Bosw (10 sources) Start: 03-21-2020 Glucosam-Wisam- Msm1-C-Angel -Bosw Active 1 EACH PO TWICE A DAY March 21, 2020 9:07am Start: 03-21-2020 Glucosam-Wisam- Old7-W-Puwe-Bosw Active 1 EACH PO TWICE A DAY March 20, 2020 11:00pm Start: 03-21-2020 Glucosam-Wisam- Det1-J-Zozs-Bosw Active 1 EACH PO TWICE A DAY March 21, 2020 12:00am losartan potassium 100 mg oral tablet (2 sources) Angiotensin 2 Receptor Isabel Start: 05-08-2024 take 1 tablet by mouth once daily in the evening Losartan (Cozaar) 100 mg tablet Active 100 mg PO EVERY EVENING May 08, 2024 12:00am Dpupuahv-Vaf-Sn-L ycopen-Lutein (10 sources) Start: 04-28-2015 Ocuuwapn-Xxf-A a- Lycopen-Lutein Active 1 EACH PO DAILY April 28, 2015 1:35pm Start: 04-28-2015 Fursomsy-Kxp-M f-Gzvkgyr-Npubxf Active 1 EACH PO DAILY April 27, 2015 11:00pm Start: 04-28-2015 Zpugdstk-Fhx-X p-Sxwuhoc-Scpjzl Active 1 EACH PO DAILY April 28, 2015 12:00am Multivitamin preparation (3 sources) Start: 06-09-2023 take 1 tablet by mouth once daily Multivitamin Active 1 TABLET PO DAILY June 08, 2023 11:00pm Start: 06-09-2023 take 1 tablet by waldo th once daily Multivitamin Active 1 TABLET PO DAILY June 09, 2023 12:00am Multivitamin tablet (2 sources) Start: 06-09-2023 Multivitamin tablet Active 1 {tbl} PO DAILY June 09, 2023 12:00am naproxen 500 mg oral tablet (19 sources) Nonsteroidal Anti-inflammatory Drug Start: 05-25-2024 End: 05-25-2024 take 1 tablet by mouth twice daily as needed for pain Naproxen 500 mg tablet Active 500 mg PO TWICE A DAY as needed for pain May 25, 2024 2:59pm Start: 03-21-2020 End: 04-08-2020 take 1 tablet by mouth every twelve hours as needed for pain Naproxen 250 MG tablet Discontinued 250 mg PO EVERY 12 HOURS NEEDED as needed for Pain Or Fever March 21, 2020 12:00am April 08, 2020 6:53am thioctic acid 200 mg oral capsule (1 source) Start: 05-24-2025 take 1 capsule by mouth twice daily Alpha Lipoic Acid 200 mg capsule Active 200 mg PO TWICE A DAY May 24, 2025 12:00am Turmeric extract (9 sources) Start: 05-10-2022 take 400 mg by mouth once daily Turmeric Active 400 MG PO DAILY May 09, 2022 11:00pm Start: 05-10-2022 take 400 mg by mouth once mick y Turmeric Active 400 MG PO DAILY May 10, 2022 12:00am Completed/Discontinued Medications Medication Drug Class(es) Dates Sig (Normalized) Sig (Original) acetaminophen 325 mg / HYDROcodone bitartrate 5 mg oral tablet (15 sources) Opioid Agonist Start: 08-08-2020 End: 08-15-2020 Hydrocodone-Acetami nophen 1 EACH tablet Discontinued 1 NMA PO EVERY 4 HOURS NEEDED as needed for pain 14 7 0 August 08, 2020 August 14, 2020 12:00am August 15, 2020 12:03am Personal history of urinary calculi Start: 08-08-2020 End: 08-15-2020 Hydrocodone-Acetaminophen Di scontinued 1 EACH PO EVERY 4 HOURS NEEDED 14 7 August 08, 2020 August 14, 2020 11:03pm aspirin 81 mg chewable tablet (15 sources) Platelet Aggregation Inhibitor, Nonsteroidal Anti-inflammatory Drug Start: 04-28-2015 End: 02-26-2016 take 1 tablet by mouth once daily Aspirin 81 MG Tab.Chew Discontinued 81 mg PO DAILY@0800 April 28, 2015 12:00am February 26, 2016 11:46am docusate sodium 50 mg / sennosides, residential 8.6 mg oral tablet (15 sources) Start: 04-08-2020 End: 05-25-2020 Sennosides-Docusat e Sodium 1 TABLET tablet Discontinued 2 {tbl} PO TWICE A DAY 30 April 08, 2020 12:00am May 25, 2020 10:49am Start: 04-08-2020 End: 05-25-2020 take 2 tablets by mouth twice daily Sennosides-Docusate Sodium Discontinued 2 TABLET PO TWICE A DAY April 07, 2020 11:00pm May 25, 2020 9:49am fluticasone propionate 0.05 mg/actuat metered dose nasal spray (15 sources) Corticosteroid Start: 03-21-2020 End: 05-25-2020 Fluticasone Propionate 9.9 ML spray,suspension Discontinued 1 NMA NS AT BEDTIME March 21, 2020 12:00am May 25, 2020 10:48am sinus drainage/cough Start: 03-21-2020 End: 05-25-2020 Fluticasone Propionate Disco ntinued 1 SPRAY NS AT BEDTIME March 20, 2020 11:00pm May 25, 2020 9:48am ibuprofen 200 mg oral tablet (15 sources) Nonsteroidal Anti-inflammatory Drug Start: 04-28-2015 End: 02-26-2016 take 1 tablet by mouth every six hours as needed for pain Ibuprofen 200 MG tablet Discontinued 200 mg PO EVERY 6 HOURS NEEDED as needed for Pain April 28, 2015 12:00am February 26, 2016 11:46am oxyCODONE hydrochloride 5 mg oral tablet (15 sources) Opioid Agonist Start: 04-08-2020 End: 04-15-2020 take 5-10 mg by mouth every four hours as needed for pain Oxycodone 5 MG tablet Discontinued 5 - 10 mg PO EVERY 4 HOURS NEEDED as needed for Pain Score 4-10/10 56 7 0 April 08, 2020 April 14, 2020 12:00am April 15, 2020 12:02am Other acute postprocedural pain rivaroxaban 10 mg oral tablet (15 sources) Factor Xa Inhibitor Start: 04-08-2020 End: 05-25-2020 take 1 tablet by mouth once daily Rivaroxaban 10 MG tablet Discontinued 10 mg PO DAILY@0600 6 0 April 08, 2020 12:00am May 25, 2020 10:48am sulfamethoxazole 800 mg / trimethoprim 160 mg oral tablet (15 sources) Dihydrofolate Reductase Inhibitor Antibacterial, Sulfonamide Antimicrobial Start: 05-25-2020 End: 06-01-2020 Sulfamethoxazole-T rimethoprim (Bactrim Ds) 800-160 mg tablet Discontinued 1 {tbl} PO TWICE A DAY 14 7 0 May 25, 2020 12:00am May 31, 2020 12:00am June 01, 2020 12:03am Acute cystitis with hematuria traMADol hydrochloride 50 mg oral tablet (15 sources) Opioid Agonist Start: 04-28-2015 End: 02-26-2016 take 1 tablet by mouth every four hours as needed for pain Tramadol 50 MG tablet Discontinued 50 mg PO EVERY 4 HOURS NEEDED as needed for Pain April 28, 2015 12:00am February 26, 2016 11:46am Problems Active Problems Problem Classification Problem Date Documented Da te Episodic/Chronic Calculus of urinary tract (15 sources) Kidney stone; Translations: [Calculus of kidney] 08-18-2020 Episodic Cancer of breast (1 source) Malignant neoplasm of unspecified site of unspecified female breast; Translations: [Malignant neoplasm of unspecified site of unspecified female breast] Onset: 05-27-2025 Chronic Essential hypertension (3 sources) Hypertensive disorder; Translations: [Essential (primary) hypertension] Onset: 05-06-2025 05-25-2024 Chronic Comment on above: CONTROLLED WITH MEDS Residual codes; unclassified (2 sources) Sleep apnea; Translations: [Sleep apnea, unspecified] 05-25-2024 Chronic Residual codes; unclassified (2 sources) Dependence on continuous positive airway pressure ventilation; Translations: [Dependence on other enabling machines and devices] 05-25-2024 Chronic Residual codes; unclassified (1 source) Asymptomatic menopausal state; Translations: [Asymptomatic menopausal state] Onset: 05-27-2025 Episodic Spondylosis; intervertebral disc disorders; other back problems (20 sources) Lumbosacral spondylosis without myelopathy; Translations: [Spondylosis without myelopathy or radiculopathy, lumbosacral region] 01-29-2019 Chronic Spondylosis; intervertebral disc disorders; other back problems (15 sources) Lumbosacral radiculopathy; Translations: [Radiculopathy, lumbosacral region] 01-29-2019 Episodic Past or Other Problems Problem Classification Problem Date Documented Da te Episodic/Chronic Genitourinary symptoms and ill-defined conditions (1 source) Dysuria; Translations: [Dysuria] Onset: 07-10-2024 Episodic Other screening for suspected conditions (not mental disorders or infectious disease) (1 source) Encounter for screening mammogram for malignant neoplasm of breast; Translations: [Encounter for screening mammogram for malignant neoplasm of breast] Onset: 12-16-2024 Episodic Results Test Name Value Interpretation Reference Range Facility Jewel [employer] Office Visit Reporton 05-27-2025 Jewel [employer] Machine [employer] Office Visit Report [facility] [address], [address] [place] [address] OFFICE VISIT Date of Service: 05/27/25 MR#: [id number] Acct: [id number] Name: KATHARINE MEDRANO Rep #: [id number] : 1945 Provider: Dr. 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 Is patient in pain?: No Allergies amoxicillin Allergy (Verified 05/24/25 11:37) Anaphylaxis anastrozole (From Arimidex) Allergy (Verified 05/24/25 11:37) Swelling Penicillins Allergy (Verified 05/24/25 11:37) Hives tamoxifen Adverse Reaction (Verified 05/24/25 11:37) PT UNSURE OF REACTION Medications ???Medication ???Instructions ???Recorded ???Confirmed ???Type acetaminophen 500 mg tablet 1,000 mg PO Q8 PRN Pain Or Fever 0 07/29/20 05/27/25 History glucosamine-chondro itin 250 mg-200 1 tab PO BID 06/09/23 05/27/25 H istory mg tablet (Osteo Bi-Flex) multivitamin 1 tab PO DAILY 06/09/23 05/27/25 H istory amlodipine 5 mg tablet 5 mg PO DAILY 05/08/24 05/27/25 Hi story losartan 100 mg tablet (Cozaar) 100 mg PO QPM 05/08/24 05/27/25 Hi story biotin 1 mg capsule 1 mg PO DAILY 05/25/24 05/27/25 Hi story cholecalciferol (vitamin D3) 50 50 mcg PO DAILY 05/25/24 05/27/25 History mcg (2,000 unit) capsule naproxen 500 mg tablet 500 mg PO BID PRN pain 05/25/24 History alpha lipoic acid 200 mg capsule 200 mg PO BID 05/24/25 05/27/25 Hi story clobetasol 0.05 % topical ointment 1 applic topical 2XW 90 days #45 05/27/25 05/27/25 Rx grams Is last menstrual period known: No Post menopausal: Yes Patient : No : No PFSH Medical History Bladder disease History of diverticulitis History of pain when walking Non-smoker Wears glasses Post-menopausal Arthritis Easy bruising History of hiatal hernia Heartburn CPAP (continuous positive airway pressure) dependence Sleep apnea Shortness of breath on exertion Neuropathic arthritis History of edema History of echocardiogram History of stress test History of endometrial cancer History of breast cancer Back pain Difficulty balancing Knee pain History of hemorrhoids History of cancer Hypertension Surgical History S/P hysterectomy S/P left mastectomy History of cataract surgery Hx of surgical procedure History of lumbar surgery History of hip replacement History of knee replacement Family History Other COPD (chronic obstructive pulmonary disease) Cancer Heart failure Myocardial infarction Social History Smoking Status: Never smoker alcohol intake: current alcohol intake frequency: holidays/special occasions only substance use type: does not use caffeine: Yes seatbelt use: always do you feel safe at home: Yes additional [facility] history: [facility] 4 Elective abortions Hx Para 3 Spontaneous abortions Hx # Term Pregnancies Ectopic pregnancies Hx # Pregnancies Multiple births # of living children Past Pregnancies Del. Date Name GA/Weeks Outcome Route Bth Weight Infant Gen Labor Lgth Anesthesia Del Locatn Provider FOB Unknown Wade Unknown Dunia Unknown Liz HPI Encounter for routine gynecological examination Details: KATHARINE MEDRANO is a 80 year old who presents for annual exam. She has had some spotting when she wipes. Has Lichen sclerosus Last PAP: prior to hysterectomy History of abnormal PAP: no, but history endometrial cancer Last mammogram: 11/30/24 History of abnormal mammogram: yes, h/o breast cancer due for dexa. Colon cancer screening: followed by pcp Other preventative health care screenings: followed by pcp Female Reproductive History Questions: metorrhagia: No, sexually active: Yes, dyspareunia: No and PCB: No Menopausal Symptoms: No hot flashes, No night sweats, No weight change, No mood changes, No difficulty concentrating, No sleep problems and No change in libido ROS Const Constitutional: Reports as per HPI; Denies fatigue, increased appetite, poor appetite, night sweats, weight gain or weight loss Cardio Card: Denies chest pain Resp Resp: Denies cough or dyspnea GI GI: Reports as per HPI; Denies abdominal pain, bloating, constipation, nausea or vomiting : Reports as per HPI and other; Denies difficulty voiding, dysuria, hematuria, hot flashes, ni (more content not included)... Normal [facility] Absolute lymphocyte countOrd ered By: Ruben Guerrero on 04-30-2025 Lymphocytes Auto (Unsp spec) [#/Vol] 1.73 10*3/uL 0.83-4.51 [facility] Absolute neutrophil countOrd ered By: Ruben Guerrero on 04-30-2025 Neutrophils (Bld) [#/Vol] 7.0 10*3/uL 2.0-7.7 [facility] Anion gap in Serum or Plasma Ordered By: Ruben Guerrero on 04-30-2025 Anion gap [Moles/Vol] 14 mmol/L 5-15 [facility] Automated lymphocyte count a s percentage of total leukocytesOrdered By: Ruben Guerrero on 04-30-2025 Lymphocytes/100 WBC Auto (Unsp spec) 17.8 % Low 19-41 [facility] BUN/creatinine ratioOrdered By: Ruben Guerrero on 04-30-2025 Urea nitrogen/Creatinine [Mass ratio] 17.6 mg/mg 10-20 [facility] Basophil percentageOrdered B y: Ruben Guerrero on 04-30-2025 Basophils/100 WBC (Bld) 1.0 % 0-1 [facility] Bilirubin, totalOrdered By: Ruben Guerrero on 04-30-2025 Bilirubin [Mass/Vol] 0.58 mg/dL 0.00-1.30 [facility] CBC W/Diff, Automatedon 07 Absolute Lymph 1.73 X10 3/uL Normal 0.83-4.51 [facility] Comment on above: Order Comment: Order Date: 04/30/25 Order Info: 0184-1 - CBCD Performed By: #### L 100.0100, L500.4050, L500.4100 #### [facility] [address] [place], [address] Absolute Neut 7.0 X10 3/uL Normal 2.0-7.7 [facility] Comment on above: Order Comment: Order Date: 04/30/25 Order Info: 0184-1 - CBCD Performed By: #### L 100.0100, L500.4050, L500.4100 #### [facility] [address] [place], [address] Basophils/100 WBC (Bld) 1.0 % Normal 0-1 [facility] Comment on above: Order Comment: Order Date: 04/30/25 Order Info: 0184-1 - CBCD Performed By: #### L 100.0100, L500.4050, L500.4100 #### [facility] [address] [place], [address] Eosinophils/100 WBC (Bld) 1.5 % Normal 0-5 [facility] Comment on above: Order Comment: Order Date: 04/30/25 Order Info: 0184-1 - CBCD Performed By: #### L 100.0100, L500.4050, L500.4100 #### [facility] [address] [place], [address] Erythrocyte distribution width (RBC) [Ratio] 13.4 % Normal 11.6-14.6 [facility] Comment on above: Order Comment: Order Date: 04/30/25 Order Info: 0184-1 - CBCD Performed By: #### L 100.0100, L500.4050, L500.4100 #### [facility] [address] [place], [address] Hematocrit (Bld) [Volume fraction] 43.7 % Normal 37-47 [facility] Comment on above: Order Comment: Order Date: 04/30/25 Order Info: 0184-1 - CBCD Performed By: #### L 100.0100, L500.4050, L500.4100 #### [facility] [address] [place], [address] Hemoglobin (Bld) [Mass/Vol] 14.2 g/dL Normal 12.0-15.0 [facility] Comment on above: Order Comment: Order Date: 04/30/25 Order Info: 0184-1 - CBCD Performed By: #### L 100.0100, L500.4050, L500.4100 #### [facility] [address] [place], [address] IG% 0.400 Normal 0.0-0.9 [facility] Comment on above: Order Comment: Order Date: 04/30/25 Order Info: 0184-1 - CBCD Result Comment: IG% - Immature Granulocytes (promyelocytes, myelocytes and metamyelocytes) > 1% indicates that a LEFT SHIFT is Present. Performed By: #### L 100.0100, L500.4050, L500.4100 #### [facility] [address] [place], [address] Lymphocytes/100 WBC (Bld) 17.8 % Low 19-41 [facility] Comment on above: Order Comment: Order Date: 04/30/25 Order Info: 0184-1 - CBCD Performed By: #### L 100.0100, L500.4050, L500.4100 #### [facility] [address] [place], [address] MCH (RBC) [Entitic mass] 29.6 pg Normal 27.0-32.0 [facility] Comment on above: Order Comment: Order Date: 04/30/25 Order Info: 0184-1 - CBCD Performed By: #### L 100.0100, L500.4050, L500.4100 #### [facility] [address] [place], [address] MCHC (RBC) [Mass/Vol] 32.5 g/dL Normal 32-36 [facility] Comment on above: Order Comment: Order Date: 04/30/25 Order Info: 0184-1 - CBCD Performed By: #### L 100.0100, L500.4050, L500.4100 #### [facility] [address] [place], [address] MCV (RBC) [Entitic vol] 91.2 fL Normal 81-99 [facility] Comment on above: Order Comment: Order Date: 04/30/25 Order Info: 0184-1 - CBCD Performed By: #### L 100.0100, L500.4050, L500.4100 #### [facility] [address] [place], [address] Monocytes/100 WBC (Bld) 7.5 % Normal 0-10 [facility] Comment on above: Order Comment: Order Date: 04/30/25 Order Info: 0184-1 - CBCD Performed By: #### L 100.0100, L500.4050, L500.4100 #### [facility] [address] [place], [address] Neutrophils/100 WBC (Bld) 71.8 % High 47-70 [facility] Comment on above: Order Comment: Order Date: 04/30/25 Order Info: 0184-1 - CBCD Performed By: #### L 100.0100, L500.4050, L500.4100 #### [facility] [address] [place], [address] Nucleated RBC (Bld) [#/Vol] 0 10*3/uL Normal 0-5 [facility] Comment on above: Order Comment: Order Date: 04/30/25 Order Info: 0184-1 - CBCD Performed By: #### L 100.0100, L500.4050, L500.4100 #### [facility] [address] [place], [address] Platelet mean volume (Bld) [Entitic vol] 10.6 fL Normal 6.2-12.0 [facility] Comment on above: Order Comment: Order Date: 04/30/25 Order Info: 0184-1 - CBCD Performed By: #### L 100.0100, L500.4050, L500.4100 #### [facility] [address] [place], [address] Platelets (Bld) [#/Vol] 323 10*3/uL Normal 150-450 [facility] Comment on above: Order Comment: Order Date: 04/30/25 Order Info: 0184-1 - CBCD Performed By: #### L 100.0100, L500.4050, L500.4100 #### [facility] [address] [place], [address] RBC (Bld) [#/Vol] 4.79 10*6/uL Normal 4.2-5.4 [facility] Comment on above: Order Comment: Order Date: 04/30/25 Order Info: 0184-1 - CBCD Performed By: #### L 100.0100, L500.4050, L500.4100 #### [facility] [address] [place], [address] RDW SD 45.0 fl High 35.1-43.9 [facility] Comment on above: Order Comment: Order Date: 04/30/25 Order Info: 0184-1 - CBCD Performed By: #### L 100.0100, L500.4050, L500.4100 #### [facility] [address] [place], [address] WBC (Bld) [#/Vol] 9.7 10*3/uL Normal 4.4-11.0 [facility] Comment on above: Order Comment: Order Date: 04/30/25 Order Info: 0184-1 - CBCD Performed By: #### L 100.0100, L500.4050, L500.4100 #### [facility] [address] [place], [address] Calculated very low density lipoprotein (VLDL) cholesterol measurementOrdered By: Ruben Guerrero on 04-30-2025 Calculated very low density lipoprotein (VLDL) cholesterol measurement 31 mg/dL 5-40 [facility] Carbon dioxide, total [Moles /volume] in Central venous bloodOrdered By: Ruben Guerrero on 04-30-2025 CO2 [Moles/Vol] 23.0 mmol/L 21.0-32.0 [facility] Chloride assayOrdered By: Carlos Guerrero on 04-30-2025 Chloride [Moles/Vol] 103 mmol/L 98-108 [facility] Comprehensive Metabolic Prof ilon 04-30-2025 Albumin [Mass/Vol] 4.0 g/dL Normal 3.4-4.8 [facility] Comment on above: Order Comment: Order Date: 04/30/25 Order Info: [id number] - CMP Order Info: [id number] - LIPID Performed By: #### L 100.0100, L500.4050, L500.4100 #### [facility] [address] [place], [address] Albumin/Globulin [Mass ratio] 1.1 {ratio} Normal 0.9-2.4 [facility] Comment on above: Order Comment: Order Date: 04/30/25 Order Info: [id number] - CMP Order Info: [id number] - LIPID Performed By: #### L 100.0100, L500.4050, L500.4100 #### [facility] [address] [place], [address] ALK PHOS 114 U/L High 35-104 [facility] Comment on above: Order Comment: Order Date: 04/30/25 Order Info: [id number] - CMP Order Info: [id number] - LIPID Performed By: #### L 100.0100, L500.4050, L500.4100 #### [facility] [address] [place], [address] ALT [Catalytic activity/Vol] 22 U/L Normal <=34 [facility] Comment on above: Order Comment: Order Date: 04/30/25 Order Info: [id number] - CMP Order Info: [id number] - LIPID Performed By: #### L 100.0100, L500.4050, L500.4100 #### [facility] [address] [place], [address] AST [Catalytic activity/Vol] 27 U/L Normal <=31 [facility] Comment on above: Order Comment: Order Date: 04/30/25 Order Info: [id number] - CMP Order Info: [id number] - LIPID Performed By: #### L 100.0100, L500.4050, L500.4100 #### [facility] [address] [place], [address] Bilirubin [Mass/Vol] 0.58 mg/dL Normal 0.00-1.30 [facility] Comment on above: Order Comment: Order Date: 04/30/25 Order Info: [id number] - CMP Order Info: [id number] - LIPID Performed By: #### L 100.0100, L500.4050, L500.4100 #### [facility] [address] [place], [address] BUN/CRE 17.6 RATIO Normal 10-20 [facility] Comment on above: Order Comment: Order Date: 04/30/25 Order Info: [id number] - CMP Order Info: [id number] - LIPID Performed By: #### L 100.0100, L500.4050, L500.4100 #### [facility] [address] [place], [address] Calcium [Mass/Vol] 10.0 mg/dL Normal 7.6-11.0 [facility] Comment on above: Order Comment: Order Date: 04/30/25 Order Info: [id number]- - CMP Order Info: [id number] - LIPID Performed By: #### L 100.0100, L500.4050, L500.4100 #### [facility] [address] [place], [address] Chloride [Moles/Vol] 103 mmol/L Normal 98-108 [facility] Comment on above: Order Comment: Order Date: 04/30/25 Order Info: [id number] - CMP Order Info: [id number] - LIPID Performed By: #### L 100.0100, L500.4050, L500.4100 #### [facility] [address] [place], [address] CO2 [Moles/Vol] 23.0 mmol/L Normal 21.0-32.0 [facility] Comment on above: Order Comment: Order Date: 04/30/25 Order Info: [id number] - CMP Order Info: [id number] - LIPID Performed By: #### L 100.0100, L500.4050, L500.4100 #### [facility] [address] [place], [address] Creatinine [Mass/Vol] 0.86 mg/dL Normal 0.70-1.20 [facility] Comment on above: Order Comment: Order Date: 04/30/25 Order Info: [id number] - CMP Order Info: [id number] - LIPID Performed By: #### L 100.0100, L500.4050, L500.4100 #### [facility] [address] [place], [address] GAP 14 Normal 5-15 [facility] Comment on above: Order Comment: Order Date: 04/30/25 Order Info: [id number] - CMP Order Info: [id number] - LIPID Performed By: #### L 100.0100, L500.4050, L500.4100 #### [facility] [address] [place], [address] GFR/1.73 sq M.predicted among non-blacks MDRD (S/P/Bld) [Vol rate/Area] 69 mL/min/{1.73_m2} Normal >[address] [facility] Comment on above: Order Comment: Order Date: 04/30/25 Order Info: [id number]- - CMP Order Info: [id number] - LIPID Result Comment: mL/m in/1.73m2 CKD-EPI Creatinine Equation (2020) Performed By: #### L 100.0100, L500.4050, L500.4100 #### [facility] [address] [place], [address] Globulin (S) [Mass/Vol] 3.5 g/dL Normal 2.2-4.2 [facility] Comment on above: Order Comment: Order Date: 04/30/25 Order Info: [id number] - CMP Order Info: [id number] - LIPID Performed By: #### L 100.0100, L500.4050, L500.4100 #### [facility] [address] [place], [address] Glucose [Mass/Vol] 98 mg/dL Normal 70-99 [facility] Comment on above: Order Comment: Order Date: 04/30/25 Order Info: [id number] - CMP Order Info: [id number] - LIPID Performed By: #### L 100.0100, L500.4050, L500.4100 #### [facility] [address] [place], [address] Potassium [Moles/Vol] 4.0 mmol/L Normal 3.3-5.1 [facility] Comment on above: Order Comment: Order Date: 04/30/25 Order Info: [id number] - CMP Order Info: [id number] - LIPID Performed By: #### L 100.0100, L500.4050, L500.4100 #### [facility] [address] [place], [address] Sodium [Moles/Vol] 140 mmol/L Normal 133-145 [facility] Comment on above: Order Comment: Order Date: 04/30/25 Order Info: [id number] - CMP Order Info: [id number] - LIPID Performed By: #### L 100.0100, L500.4050, L500.4100 #### [facility] [address] [place], [address] T PROT 7.5 g/dL Normal 5.9-8.4 [facility] Comment on above: Order Comment: Order Date: 04/30/25 Order Info: [id number] - CMP Order Info: [id number] - LIPID Performed By: #### L 100.0100, L500.4050, L500.4100 #### [facility] [address] [place], [address] Urea nitrogen [Mass/Vol] 15 mg/dL Normal 4-19 [facility] Comment on above: Order Comment: Order Date: 04/30/25 Order Info: [id number] - CMP Order Info: [id number] - LIPID Performed By: #### L 100.0100, L500.4050, L500.4100 #### [facility] [address] [place], [address] Eosinophil percentageOrdered By: Ruben Guerrero on 04-30-2025 Eosinophils/100 WBC (Bld) 1.5 % 0-5 [facility] Erythrocyte distribution wid th ratioOrdered By: Ruben Guerrero on 04-30-2025 Erythrocyte distribution width (RBC) [Ratio] 13.4 % 11.6-14.6 [facility] Erythrocyte distribution wid th standard deviationOrdered By: Ruben Guerrero on 04-30-2025 Erythrocyte distribution width (RBC) [Ratio] 45.0 fl High 35.1-43.9 [facility] Glomerular filtration rate ( GFR) estimation/1.73 sq m using serum, plasma, or whole bOrdered By: Ruben Guerrero on 04-30-2025 GFR/1.73 sq M.predicted among non-blacks MDRD (S/P/Bld) [Vol rate/Area] 69 mL/min/{1.73_m2} >[address] [facility] Comment on above: mL/min/1.73m2 CKD-EP I Creatinine Equation (2020) Hematocrit Auto (Bld) [Volum e fraction]Ordered By: Ruben Guerrero on 04-30-2025 Hematocrit (Bld) [Volume fraction] 43.7 % 37-47 [facility] Hemoglobin measurementOrdere d By: Ruben Guerrero on 04-30-2025 Hemoglobin (Bld) [Mass/Vol] 14.2 g/dL 12.0-15.0 [facility] Immature granulocytes/100 WB C Auto (Bld)Ordered By: Ruben Guerrero on 04-30-2025 Immature granulocytes/100 WBC (Bld) 0.400 % 0.0-0.9 [facility] Comment on above: IG% - Immature Granu locytes (promyelocytes, myelocytes and metamyelocytes) > 1% indicates that a LEFT SHIFT is Present. LDL calc ser/plasOrdered By: Ruben Guerrero on 04-30-2025 Cholesterol in LDL [Mass/Vol] 94 mg/dL [facility] Comment on above: Mkirzwbtuv=090-247 m g/dL & Higher Cbfh=109 mg/dL or greater Laboratory - Chemistry and C hemistry - challengeOrdered By: Ruben Guerrero on 04-30-2025 AST [Catalytic activity/Vol] 27 U/L <32 [facility] Lipid Profileon 04-30-2025 CHOL:HDL 3.59 Normal [facility] Comment on above: Order Comment: Order Date: 04/30/25 Order Info: [id number] - CMP Order Info: [id number] - LIPID Performed By: #### L 100.0100, L500.4050, L500.4100 #### [facility] [address] [place], [address] Cholesterol [Mass/Vol] 173 mg/dL Normal <=[address] [facility] Comment on above: Order Comment: Order Date: 04/30/25 Order Info: [id number]- - CMP Order Info: [id number] - LIPID Result Comment: Chol esterol level, Desirable <200 mg/dL Borderline high cholesterol 200-239 mg/dL High cholesterol >=240 mg/dL Recommendations of the NCEP Adult Treatment Panel for the following risk-cutoff thresholds for the [place] population. Performed By: #### L 100.0100, L500.4050, L500.4100 #### [facility] [address] [place], [address] Cholesterol in HDL [Mass/Vol] 48 mg/dL Normal [facility] Comment on above: Order Comment: Order Date: 04/30/25 Order Info: [id number]- - CMP Order Info: [id number] - LIPID Result Comment: Cristiana onal Cholesterol Education Program (NCEP) guidelines: <40 mg/dL: Low HDL-cholesterol (major risk factor for CHD) >= 60 mg/dL: High HDL-cholesterol (negative risk factor for CHD) HDL-cholesterol is affected by a number of factors, e.g. smoking, exercise, hormones, sex and age. Performed By: #### L 100.0100, L500.4050, L500.4100 #### [facility] [address] [place], [address] Cholesterol in LDL [Mass/Vol] 94 mg/dL Normal [facility] Comment on above: Order Comment: Order Date: 04/30/25 Order Info: [id number]- - CMP Order Info: [id number] - LIPID Result Comment: Bord duerru=055-085 mg/dL Higher Kqsm=272 mg/dL or greater Performed By: #### L 100.0100, L500.4050, L500.4100 #### [facility] [address] [place], [address] Cholesterol in VLDL [Mass/Vol] 31 mg/dL Normal 5-40 [facility] Comment on above: Order Comment: Order Date: 04/30/25 Order Info: [id number] - CMP Order Info: [id number] - LIPID Performed By: #### L 100.0100, L500.4050, L500.4100 #### [facility] [address] [place], [address] Triglyceride [Mass/Vol] 156 mg/dL Normal [facility] Comment on above: Order Comment: Order Date: 04/30/25 Order Info: [id number] - CMP Order Info: [id number] - LIPID Result Comment: The drugs N-Acetylcysteine and Metamizole may falsely depress this assay. Normal range: <150 mg/dL Borderline High: 150-199 mg/dL High: 200-499 mg/dL Very High: >500 mg/dL Performed By: #### L 100.0100, L500.4050, L500.4100 #### [facility] [address] [place], [address] MCV (mean corpuscular volume ) determinationOrdered By: Ruben Guerrero on 04-30-2025 MCV (RBC) [Entitic vol] 91.2 fL 81-99 [facility] Mean corpuscular hemoglobin (MCH) determinationOrdered By: Ruben Guerrero on 04-30-2025 MCH (RBC) [Entitic mass] 29.6 pg 27.0-32.0 [facility] Mean corpuscular hemoglobin concentration (MCHC) determinationOrdered By: Ruben Guerrero on 04-30-2025 MCHC (RBC) [Mass/Vol] 32.5 g/dL 32-36 [facility] Mean platelet volume determi nationOrdered By: Ruben Guerrero on 04-30-2025 Platelet mean volume (Bld) [Entitic vol] 10.6 fL 6.2-12.0 [facility] Microalb:Creat Ratio,Random URon 04-30-2025 Creatinine [Mass/Vol] 77.70 mg/dL Normal 28.00-217.00 [facility] Comment on above: Performed By: #### L 502.0250 #### [facility] [address] [place], [place], [id number] MALB:CREAT 137.7 mg/g CRE Normal [facility] Comment on above: Performed By: #### L 502.0250 #### [facility] [address] [place], [place], [id number] MICROALBUMIN,UR 107.0 mg/L Normal NO RANGE EST. [facility] Comment on above: Performed By: #### L 502.0250 #### [facility] [address] [place], [place], [id number] Monocyte percentageOrdered B y: Ruben Guerrero on 04-30-2025 Monocytes/100 WBC (Bld) 7.5 % 0-10 [facility] Neutrophil percentageOrdered By: Ruben Guerrero on 04-30-2025 Neutrophils/100 WBC (Bld) 71.8 % High 47-70 [facility] Nucleated red blood cell per centageOrdered By: Ruben Guerrero on 04-30-2025 Nucleated RBC/100 WBC (Bld) [Ratio] 0 % 0-5 [facility] Platelet countOrdered By: Carlos Guerrero on 04-30-2025 Platelets (Bld) [#/Vol] 323 10*3/uL 150-450 [facility] Potassium measurement (mass/ volume)Ordered By: Ruben Guerrero on 04-30-2025 Potassium (Unsp spec) [Mass/Vol] 4.0 mmol/L 3.3-5.1 [facility] RBC Auto (Bld) [#/Vol]Ordere d By: Ruben Guerrero on 04-30-2025 RBC (Bld) [#/Vol] 4.79 10*6/uL 4.2-5.4 [facility] Random urine creatinine rebeca urement (mass/volume)Ordered By: Ruben Guerrero on 04-30-2025 Creatinine Unsp time (U) [Mass/Vol] 77.70 mg/dL 28.00-217.00 [facility] Screening total cholesterol/ high density lipoprotein (HDL) cholesterol ratioOrdered By: Ruben Guerrero on 04-30-2025 Cholesterol.total/Cholest destinee in HDL [Mass ratio] 3.59 {ratio} [facility] Serum creatinine measurement (mass/volume)Ordered By: Ruben Guerrero on 04-30-2025 Creatinine [Mass/Vol] 0.86 mg/dL 0.70-1.20 [facility] Serum globulin measurementOr dered By: Ruben Guerrero on 04-30-2025 Globulin (S) [Mass/Vol] 3.5 g/dL 2.2-4.2 [facility] Serum glucose measurement (m ass/volume)Ordered By: Ruben Guerrero on 04-30-2025 Glucose [Mass/Vol] 98 mg/dL 70-99 [facility] Serum or plasma alanine donohue otransferase (ALT) measurementOrdered By: Ruben Guerrero on 04-30-2025 ALT [Catalytic activity/Vol] 22 U/L <35 [facility] Serum or plasma albumin rebeca urement (mass/volume)Ordered By: Ruben Guerrero on 04-30-2025 Albumin [Mass/Vol] 4.0 g/dL 3.4-4.8 [facility] Serum or plasma albumin/glob ulin mass ratioOrdered By: Ruben Guerrero on 04-30-2025 Albumin/Globulin [Mass ratio] 1.1 {ratio} 0.9-2.4 [facility] Serum or plasma alkaline karlene sphatase measurementOrdered By: Ruben Guerrero on 04-30-2025 ALP [Catalytic activity/Vol] 114 U/L High 35-104 [facility] Serum or plasma calcium rebeca urement (mass/volume)Ordered By: Ruben Guerrero on 04-30-2025 Calcium [Mass/Vol] 10.0 mg/dL 7.6-11.0 [facility] Serum or plasma cholesterol in HDL measurement (mass/volume)Ordered By: Ruben Guerrero on 04-30-2025 Cholesterol in HDL [Mass/Vol] 48 mg/dL >40 [facility] Comment on above: National Cholesterol Education Program (NCEP) guidelines:<40 mg/dL: Low HDL-cholesterol (major risk factor for CHD)>= 60 mg/dL: High HDL-cholesterol (negative risk factor for CHD)HDL-cholesterol is affected by a number of factors, e.g. smoking, exercise, hormones, sex and age. Serum or plasma cholesterol measurement (mass/volume)Ordered By: Ruben Guerrero on 04-30-2025 Cholesterol [Mass/Vol] 173 mg/dL <201 [facility] Comment on above: Cholesterol level, D esirable <200 mg/dLBorderline high cholesterol 200-239 mg/dLHigh cholesterol >=240 mg/dLRecommendations of the NCEP Adult Treatment Panel for the following risk-cutoff thresholds for the [place] population. Serum or plasma urea nitroge n measurement (mass/volume)Ordered By: Ruben Guerrero on 04-30-2025 Urea nitrogen [Mass/Vol] 15 mg/dL 4-19 [facility] Sodium levelOrdered By: Ruben Guerrero on 04-30-2025 Sodium [Moles/Vol] 140 mmol/L 133-145 [facility] Total proteinOrdered By: Delia Guerrero on 04-30-2025 Protein [Mass/Vol] 7.5 g/dL 5.9-8.4 [facility] Triglycerides measurementOrd ered By: Ruben Guerrero on 04-30-2025 Triglyceride [Mass/Vol] 156 mg/dL <199 [facility] Comment on above: The drugs N-Acetylcy steine and Metamizole may falsely depress this assay. Normal range: <150 mg/dLBorderline High: 150-199 mg/dLHigh: 200-499 mg/dLVery High: >500 mg/dL Urine albumin measurement wi detection limit of 20 mg/L or less (mass/volume)Ordered By: Ruben Guerrero on 04-30-2025 Albumin DL <= 20 mg/L (U) [Mass/Vol] 107.0 mg/L NO RANGE EST. [facility] White blood cell (WBC) count Ordered By: Ruben Guerrero on 04-30-2025 WBC (Bld) [#/Vol] 9.7 10*3/uL 4.4-11.0 [facility] SCREEN MAMM (CAD) W/MARSHALL UNI Miguel 11-30-2024 SCREEN MAMM (CAD) W/MARSHALL UNI R [facility] [address] [place] [address] SCREEN MAMM (CAD) W/MARSHALL UNI R MR#: [id number] Acct: [id number] Name: KATHARINE MEDRANO Rep #: [id number] : 1945 F 79 From: Oscar arreaga MD PCP: Dr. Chaz Reynoso MD Status: [facility] Study: SCREEN MAMM (CAD) W/MARSHALL UNI R Date of Exam: 0 11/30/24 Exam# [id number] Ordering Dr: Payal Cote DO PROCEDURE: SCREEN MAMM (CAD) W/MARSHALL UNI R REASON FOR EXAM: F, Age 79 y/o, personal history of breast cancer. Prior left mastectomy. Sister with breast cancer. Mother with breast cancer. TECHNIQUE: Unilateral right screening digital breast tomosynthesis with 2D and 3D images. Computer aided detection. COMPARISON: Prior exam(s) dating back to November 29, 2023.. FINDINGS: There are scattered areas of fibroglandular density. Stable examination. No suspicious masses, areas of developing architectural distortion, or suspicious calcifications. BI/SCREEN MAMM (CAD) W/MARSHALL UNI R IMPRESSION: BI-RADS 1: NEGATIVE. RECOMMEND ANNUAL MAMMOGRAPHIC SCREENING. Follow-up code: Routine Follow-up The patient will be notified of the results by letter. [facility]: Dr. Payal Cote DO; Dr. hCaz Reynoso MD Psych Rn: Signed Normal [facility] Urine Cultureon 06-15-2024 [facility] Proteus mirabilis Posen Count 50,000-80,000 Proteus mirabilis: REACTION Ampicillin Islt LUCIA <=2 S Ampicillin+Sulbac Islt LUCIA <=2 S ceFAZolin Islt LUCIA <=4 S Cefepime Islt LUCIA <=0.12 S cefTRIAXone Islt LUCIA <=0.25 S Ciprofloxacin Islt LUCIA <=0.25 S Ertapenem Islt LUCIA <=0.12 S Gentamicin Islt LUCIA 4 S levoFLOXacin Islt LUCIA <=0.12 S Nitrofurantoin Islt LUCIA 128 R Pip+Tazo Islt LUCIA <=4 S Tobramycin Islt LUCIA 2 S TMP SMX Islt LUCIA <=20 S Normal [facility] Comment on above: Performed By: #### M 100.2200 #### [facility] [address] [place], [place], [id number] Absolute lymphocyte countOrd ered By: Chaz Reynoso on 09-28-2023 Lymphocytes Auto (Unsp spec) [#/Vol] 1.59 10*3/uL 0.83-4.51 [facility] Basophil percentageOrdered B y: Chaz Reynoso on 09-28-2023 Basophils/100 WBC (Bld) 1.5 % 0-1 [facility] Bilirubin [Mass/Vol] 0.50 mg/dL 0.20-1.00 [facility] Comment on above: For patients on eltr ombopag therapy, use of Dimension [place] TBIL is not recommended. Chloride [Moles/Vol] 107 mmol/L 98-107 [facility] Eosinophils/100 WBC (Bld) 2.6 % 0-5 [facility] Glucose [Mass/Vol] 91 mg/dL 74-106 [facility] Neutrophils (Bld) [#/Vol] 4.8 10*3/uL 2.0-7.7 [facility] Neutrophils/100 WBC (Bld) 66.1 % 47-70 [facility] Potassium [Moles/Vol] 3.8 mmol/L 3.5-5.1 [facility] Protein [Mass/Vol] 7.5 g/dL 6.4-8.2 [facility] Sodium [Moles/Vol] 142 mmol/L 136-145 [facility] WBC (Bld) [#/Vol] 7.3 10*3/uL 4.4-11.0 [facility] Blood erythrocytes count (nu mber/volume)Ordered By: Chaz Reynoso on 09-28-2023 RBC (Bld) [#/Vol] 5.05 10*6/uL 4.2-5.4 [facility] Blood hemoglobin measurement (mass/volume)Ordered By: Chaz Reynoso on 09-28-2023 Hemoglobin (Bld) [Mass/Vol] 14.9 g/dL 12.0-15.0 [facility] Blood lymphocytes/100 leukoc ytesOrdered By: [facility] on 09-28-2023 Lymphocytes/100 WBC (Bld) 21.9 % 19-41 [facility] Blood monocytes/100 leukocyt esOrdered By: Chaz Edgardo on 09-28-2023 Monocytes/100 WBC (Bld) 7.6 % 0-10 [facility] Blood platelet mean volumeOr dered By: [facility] on 09-28-2023 Platelet mean volume (Bld) [Entitic vol] 10.9 fL 6.2-12.0 [facility] Determination of erythrocyte mean corpuscular volume (MCV)Ordered By: Chaz Edgardo on 09-28-2023 MCV (RBC) [Entitic vol] 93.1 fL 81-99 [facility] Hematocrit Auto (Bld) [Volum e fraction]Ordered By: [facility] on 09-28-2023 Hematocrit (Bld) [Volume fraction] 47.0 % 37-47 [facility] Laboratory - Chemistry and C hemistry - challengeOrdered By: [facility] on 09-28-2023 ALP [Catalytic activity/Vol] 105 U/L 45-117 [facility] ALT [Catalytic activity/Vol] 30 U/L 13-56 [facility] CO2 [Moles/Vol] 27.0 mmol/L 21.0-32.0 [facility] Globulin (S) [Mass/Vol] 3.9 g/dL 2.2-4.2 [facility] Urea nitrogen/Creatinine [Mass ratio] 21.3 mg/mg 10-20 [facility] - Hematology and Cell countsOrdered By: Chaz Edgardo on 09-28-2023 Erythrocyte distribution width (RBC) [Entitic vol] 43.4 fL 35.1-43.9 [facility] Erythrocyte distribution width (RBC) [Ratio] 12.8 % 11.6-14.6 [facility] Immature granulocytes/100 WBC (Bld) 0.300 % 0.0-0.9 [facility] Comment on above: IG% - Immature Granu locytes (promyelocytes, myelocytes and metamyelocytes) > 1% indicates that a LEFT SHIFT is Present. MCH (RBC) [Entitic mass] 29.5 pg 27.0-32.0 [facility] Nucleated RBC/100 WBC (Bld) [Ratio] 0 % 0-5 [facility] MCHC Auto (RBC) [Mass/Vol]Or dered By: Chaz Reynoso on 09-28-2023 MCHC (RBC) [Mass/Vol] 31.7 g/dL 32-36 [facility] No Panel InformationOrdered By: Chaz Reynoso on 09-28-2023 Estimated GFR (MDRD) Amer 90 mL/min >60 [facility] Comment on above: GFR Calc Estimated GFR (MDRD) Non-Af Amer 74 mL/min >60 [facility] Comment on above: Non- GFR Calc Thyroid Stimulating Hormone (TSH) 1.63 uIU/mL 0.358-3.74 [facility] Vitamin D 25-Hydroxy 78.7 ng/mL [facility] Comment on above: Vitamin D 25(OH) Sta tus Range Deficiency <20 ng/mL (50nmol/L) Insufficiency 20 - 30 ng/mL (50 - 75 nmol/L) Sufficiency 30 - 100 ng/mL (75 - 250 nmol/L) Toxicity >100 ng/mL (>250 nmol/L) Platelets bldOrdered By: Chaz Reynoso on 09-28-2023 Platelets (Bld) [#/Vol] 237 10*3/uL 150-450 [facility] Serum or plasma albumin rebeca urement (mass/volume)Ordered By: Chaz Reynoso on 09-28-2023 Albumin [Mass/Vol] 3.6 g/dL 3.2-5.0 [facility] Serum or plasma albumin/glob ulin mass ratioOrdered By: Chaz Reynoso on 09-28-2023 Albumin/Globulin [Mass ratio] 0.9 {ratio} 0.9-2.4 [facility] Serum or plasma calcium rebeca urement (mass/volume)Ordered By: Chaz Reynoso on 09-28-2023 Calcium [Mass/Vol] 8.6 mg/dL 8.5-10.1 [facility] Serum or plasma creatinine m easurement (mass/volume)Ordered By: Chaz Reynoso on 09-28-2023 Creatinine [Mass/Vol] 0.80 mg/dL 0.55-1.02 [facility] Comment on above: The validity of the calculated GFR & GFRAA in patients over 70 years has not been determined. Clinical correlation is essential. Serum or plasma urea nitroge n measurement (mass/volume)Ordered By: Chaz Reynoso on 09-28-2023 Urea nitrogen [Mass/Vol] 17 mg/dL 7-18 [facility] Thin prep Papanicolaou smear with manual screeningOrdered By: Chaz Reynoso on 09-28-2023 Thin prep Papanicolaou smear with manual screening 24 U/L 15-37 [facility] Thin prep Papanicolaou smear with manual screening 8 5-15 [facility] Absolute lymphocyte countOrd ered By: Dr. Reynoso on 03-02-2023 Lymphocytes Auto (Unsp spec) [#/Vol] 2.54 10*3/uL 0.83-4.51 [facility] Basophil percentageOrdered B y: Dr. Reynoso on 03-02-2023 Basophils/100 WBC (Bld) 0.9 % 0-1 [facility] Bilirubin [Mass/Vol] 0.50 mg/dL 0.20-1.00 [facility] Comment on above: For patients on eltr ombopag therapy, use of Dimension [place] TBIL is not recommended. Chloride [Moles/Vol] 109 mmol/L 98-107 [facility] Eosinophils/100 WBC (Bld) 0.9 % 0-5 [facility] Glucose [Mass/Vol] 83 mg/dL 74-106 [facility] Neutrophils (Bld) [#/Vol] 9.1 10*3/uL 2.0-7.7 [facility] Neutrophils/100 WBC (Bld) 71.0 % 47-70 [facility] Potassium [Moles/Vol] 3.6 mmol/L 3.5-5.1 [facility] Protein [Mass/Vol] 6.8 g/dL 6.4-8.2 [facility] Sodium [Moles/Vol] 143 mmol/L 136-145 [facility] WBC (Bld) [#/Vol] 12.9 10*3/uL 4.4-11.0 [facility] [place] Blood erythrocytes count (nu mber/volume)Ordered By: Dr. Reynoso on 03-02-2023 RBC (Bld) [#/Vol] 5.04 10*6/uL 4.2-5.4 [facility] [place] Blood hemoglobin measurement (mass/volume)Ordered By: Dr. Reynoso on 03-02-2023 Hemoglobin (Bld) [Mass/Vol] 14.9 g/dL 12.0-15.0 [facility] Blood lymphocytes/100 leukoc ytesOrdered By: Dr. Reynoso on 03-02-2023 Lymphocytes/100 WBC (Bld) 19.8 % 19-41 [facility] Blood monocytes/100 leukocyt esOrdered By: Dr. Reynoso on 03-02-2023 Monocytes/100 WBC (Bld) 6.8 % 0-10 [facility] Blood platelet mean volumeOr dered By: Dr. Reynoso on 03-02-2023 Platelet mean volume (Bld) [Entitic vol] 11.6 fL 6.2-12.0 [facility] Determination of erythrocyte mean corpuscular volume (MCV)Ordered By: Dr. Reynoso on 03-02-2023 MCV (RBC) [Entitic vol] 92.3 fL 81-99 [facility] Hematocrit Auto (Bld) [Volum e fraction]Ordered By: Dr. Reynoso on 03-02-2023 Hematocrit (Bld) [Volume fraction] 46.5 % 37-47 [facility] Laboratory - Chemistry and C hemistry - challengeOrdered By: Dr. Reynoso on 03-02-2023 ALP [Catalytic activity/Vol] 90 U/L 45-117 [facility] ALT [Catalytic activity/Vol] 27 U/L 13-56 [facility] CO2 [Moles/Vol] 25.0 mmol/L 21.0-32.0 [facility] Globulin (S) [Mass/Vol] 3.4 g/dL 2.2-4.2 [facility] Urea nitrogen/Creatinine [Mass ratio] 21.9 mg/mg 10-20 [facility] Laboratory - Hematology and Cell countsOrdered By: Dr. Reynoso on 03-02-2023 Erythrocyte distribution width (RBC) [Entitic vol] 46.4 fL 35.1-43.9 [facility] Erythrocyte distribution width (RBC) [Ratio] 13.7 % 11.6-14.6 [facility] Immature granulocytes/100 WBC (Bld) 0.600 % 0.0-0.9 [facility] Comment on above: IG% - Immature Granu locytes (promyelocytes, myelocytes and metamyelocytes) > 1% indicates that a LEFT SHIFT is Present. MCH (RBC) [Entitic mass] 29.6 pg 27.0-32.0 [facility] Nucleated RBC/100 WBC (Bld) [Ratio] 0 % 0-5 [facility] MCHC Auto (RBC) [Mass/Vol]Or dered By: Dr. Reynoso on 03-02-2023 MCHC (RBC) [Mass/Vol] 32.0 g/dL 32-36 [facility] No Panel InformationOrdered By: Dr. Reynoso on 03-02-2023 Estimated GFR (MDRD) Amer 93 mL/min >60 [facility] Comment on above: GFR Calc Estimated GFR (MDRD) Non-Af Amer 77 mL/min >60 [facility] Comment on above: Non- GFR Calc Thyroid Stimulating Hormone (TSH) 0.96 uIU/mL 0.358-3.74 [facility] Vitamin D 25-Hydroxy 85.7 ng/mL [facility] Comment on above: Vitamin D 25(OH) Sta tus Range Deficiency <20 ng/mL (50nmol/L) Insufficiency 20 - 30 ng/mL (50 - 75 nmol/L) Sufficiency 30 - 100 ng/mL (75 - 250 nmol/L) Toxicity >100 ng/mL (>250 nmol/L) Platelets bldOrdered By: Dr. Reynoso on 03-02-2023 Platelets (Bld) [#/Vol] 268 10*3/uL 150-450 [facility] Serum or plasma albumin rebeca urement (mass/volume)Ordered By: Dr. Reynoso on 03-02-2023 Albumin [Mass/Vol] 3.4 g/dL 3.2-5.0 [facility] Serum or plasma albumin/glob ulin mass ratioOrdered By: Dr. Reynoso on 03-02-2023 Albumin/Globulin [Mass ratio] 1.0 {ratio} 0.9-2.4 [facility] Serum or plasma calcium rebeca urement (mass/volume)Ordered By: Dr. Reynoso on 03-02-2023 Calcium [Mass/Vol] 8.7 mg/dL 8.5-10.1 [facility] Serum or plasma creatinine m easurement (mass/volume)Ordered By: Dr. Reynoso on 03-02-2023 Creatinine [Mass/Vol] 0.78 mg/dL 0.55-1.02 [facility] Comment on above: The validity of the calculated GFR & GFRAA in patients over 70 years has not been determined. Clinical correlation is essential. Serum or plasma urea nitroge n measurement (mass/volume)Ordered By: Dr. Reynoso on 03-02-2023 Urea nitrogen [Mass/Vol] 17 mg/dL 7-18 [facility] Thin prep Papanicolaou smear with manual screeningOrdered By: Dr. Reynoso on 03-02-2023 Thin prep Papanicolaou smear with manual screening 24 U/L 15-37 [facility] Thin prep Papanicolaou smear with manual screening 9 5-15 [facility] COVID-19 virus antigen assay Ordered By: Dr. Reynoso on 02-18-2023 SARS-CoV-2 (COVID-19) Ag IA.rapid Ql (Resp) Negative Not Detect [facility] Comment on above: Normal Reference Ran ge: Not DetectedMethod:(RT-PCR) real-time reverse transcriptase PCRLuminex CLAUS Instrument*The Food and Drug Administration (FDA) has issued an Emergency Use Authorization (EAU) for the CLAUS SARS-CoV-2 Assay for the rapid detection of the virus that causes COVID-19. This test has been validated, but the FDAs independent review of this validation is pending.*Negative results do not preclude infection and should not be used as the sole basis for treatment or patient management. Optimum specimen types and timing for peak viral levels during infections caused by SARS-CoV-2 have not been determined. Collection of multiple specimens from the same patient may be necessary to detect the virus. The possibility of a false negative result should be considered if the patient has clinical presentation or has had recent exposure. No Panel InformationOrdered By: Dr. Reynoso on 02-18-2023 Influenza Types A,B Direct FA (LUCIA) [facility] RSV Ag EIAOrdered By: Dr. Sierra love on 02-18-2023 RSV Ag Immune stain Ql (Tiss) [facility] Absolute lymphocyte countOrd ered By: Dr. Reynoso on 09-06-2022 Lymphocytes Auto (Unsp spec) [#/Vol] 1.79 10*3/uL 0.83-4.51 [facility] Basophil percentageOrdered B y: Dr. Reynoso on 09-06-2022 Basophils/100 WBC (Bld) 1.2 % 0-1 [facility] Bilirubin [Mass/Vol] 0.50 mg/dL 0.20-1.00 [facility] Comment on above: For patients on eltr ombopag therapy, use of Dimension [place] TBIL is not recommended. Chloride [Moles/Vol] 110 mmol/L 98-107 [facility] Eosinophils/100 WBC (Bld) 1.3 % 0-5 [facility] Glucose [Mass/Vol] 99 mg/dL 74-106 [facility] Neutrophils (Bld) [#/Vol] 7.0 10*3/uL 2.0-7.7 [facility] Neutrophils/100 WBC (Bld) 71.1 % 47-70 [facility] Potassium [Moles/Vol] 4.1 mmol/L 3.5-5.1 [facility] Comment on above: Moderate Hemolysis, Result may be falsely increased. Protein [Mass/Vol] 7.5 g/dL 6.4-8.2 [facility] Sodium [Moles/Vol] 137 mmol/L 136-145 [facility] WBC (Bld) [#/Vol] 9.9 10*3/uL 4.4-11.0 [facility] Blood erythrocytes count (nu mber/volume)Ordered By: Dr. Reynoso on 09-06-2022 RBC (Bld) [#/Vol] 4.93 10*6/uL 4.2-5.4 [facility] [place] Blood hemoglobin measurement (mass/volume)Ordered By: Dr. Reynoso on 09-06-2022 Hemoglobin (Bld) [Mass/Vol] 15.5 g/dL 12.0-15.0 [facility] Blood lymphocytes/100 leukoc ytesOrdered By: Dr. Reynoso on 09-06-2022 Lymphocytes/100 WBC (Bld) 18.1 % 19-41 [facility] Blood monocytes/100 leukocyt esOrdered By: Dr. Reynoso on 09-06-2022 Monocytes/100 WBC (Bld) 7.6 % 0-10 [facility] Blood platelet mean volumeOr dered By: Dr. Reynoso on 09-06-2022 Platelet mean volume (Bld) [Entitic vol] 10.8 fL 6.2-12.0 [facility] Determination of erythrocyte mean corpuscular volume (MCV)Ordered By: Dr. Reynoso on 09-06-2022 MCV (RBC) [Entitic vol] 93.7 fL 81-99 [facility] Hematocrit Auto (Bld) [Volum e fraction]Ordered By: Dr. Reynoso on 09-06-2022 Hematocrit (Bld) [Volume fraction] 46.2 % 37-47 [facility] Laboratory - Chemistry and C hemistry - challengeOrdered By: Dr. Reynoso on 09-06-2022 ALP [Catalytic activity/Vol] 91 U/L 45-117 [facility] ALT [Catalytic activity/Vol] 40 U/L 13-56 [facility] CO2 [Moles/Vol] 23.0 mmol/L 21.0-32.0 [facility] Globulin (S) [Mass/Vol] 4.2 g/dL 2.2-4.2 [facility] Urea nitrogen/Creatinine [Mass ratio] 17.0 mg/mg 10-20 [facility] Laboratory - Hematology and Cell countsOrdered By: Dr. Reynoso on 09-06-2022 Erythrocyte distribution width (RBC) [Entitic vol] 44.1 fL 35.1-43.9 [facility] Erythrocyte distribution width (RBC) [Ratio] 12.9 % 11.6-14.6 [facility] Immature granulocytes/100 WBC (Bld) 0.700 % 0.0-0.9 [facility] Comment on above: IG% - Immature Granu locytes (promyelocytes, myelocytes and metamyelocytes) > 1% indicates that a LEFT SHIFT is Present. MCH (RBC) [Entitic mass] 31.4 pg 27.0-32.0 [facility] Nucleated RBC/100 WBC (Bld) [Ratio] 0 % 0-5 [facility] MCHC Auto (RBC) [Mass/Vol]Or dered By: Dr. Reynoso on 09-06-2022 MCHC (RBC) [Mass/Vol] 33.5 g/dL 32-36 [facility] No Panel InformationOrdered By: Dr. Reynoso on 09-06-2022 Estimated GFR (MDRD) Amer 80 mL/min >60 [facility] Comment on above: GFR Calc Estimated GFR (MDRD) Non-Af Amer 66 mL/min >60 [facility] Comment on above: Non- GFR Calc Thyroid Stimulating Hormone (TSH) 0.90 uIU/mL 0.358-3.74 [facility] Vitamin D 25-Hydroxy 73.7 ng/mL [facility] Comment on above: Vitamin D 25(OH) Sta tus Range Deficiency <20 ng/mL (50nmol/L) Insufficiency 20 - 30 ng/mL (50 - 75 nmol/L) Sufficiency 30 - 100 ng/mL (75 - 250 nmol/L) Toxicity >100 ng/mL (>250 nmol/L) Platelets bldOrdered By: Dr. Reynoso on 09-06-2022 Platelets (Bld) [#/Vol] 266 10*3/uL 150-450 [facility] Serum or plasma albumin rebeca urement (mass/volume)Ordered By: Dr. Reynoso on 09-06-2022 Albumin [Mass/Vol] 3.3 g/dL 3.2-5.0 [facility] Serum or plasma albumin/glob ulin mass ratioOrdered By: Dr. Reynoso on 09-06-2022 Albumin/Globulin [Mass ratio] 0.8 {ratio} 0.9-2.4 [facility] Serum or plasma calcium rebeca urement (mass/volume)Ordered By: Dr. Reynoso on 09-06-2022 Calcium [Mass/Vol] 9.1 mg/dL 8.5-10.1 [facility] Serum or plasma creatinine m easurement (mass/volume)Ordered By: Dr. Reynoso on 09-06-2022 Creatinine [Mass/Vol] 0.88 mg/dL 0.55-1.02 [facility] Comment on above: The validity of the calculated GFR & GFRAA in patients over 70 years has not been determined. Clinical correlation is essential. Serum or plasma urea nitroge n measurement (mass/volume)Ordered By: Dr. Reynoso on 09-06-2022 Urea nitrogen [Mass/Vol] 15 mg/dL 7-18 [facility] Thin prep Papanicolaou smear with manual screeningOrdered By: Dr. Reynoso on 09-06-2022 Thin prep Papanicolaou smear with manual screening 35 U/L 15-37 [facility] Comment on above: Moderate Hemolysis, Result may be falsely increased. Thin prep Papanicolaou smear with manual screening 4 5-15 [facility] Absolute lymphocyte counton 03-02-2022 Lymphocytes Auto (Unsp spec) [#/Vol] 1.68 10*3/uL 0.83-4.51 [facility] Work Phone: Basophil percentageon 2021 Basophils/100 WBC (Bld) 1.5 % 0-1 [facility] Work Phone: Bilirubin [Mass/Vol] 0.50 mg/dL 0.20-1.00 [facility] Work Phone: [phone] Comment on above: For patients on eltr ombopag therapy, use of Dimension [place] TBIL is not recommended. Chloride [Moles/Vol] 108 mmol/L 98-107 [facility] Work Phone: [phone] Eosinophils/100 WBC (Bld) 2.0 % 0-5 [facility] Work Phone: [phone] Glucose [Mass/Vol] 97 mg/dL 74-106 [facility] Work Phone: [phone] Neutrophils (Bld) [#/Vol] 4.9 10*3/uL 2.0-7.7 [facility] Work Phone: Neutrophils/100 WBC (Bld) 65.7 % 47-70 [facility] Work Phone: Potassium [Moles/Vol] 3.9 mmol/L 3.5-5.1 [facility] Work Phone: Comment on above: Slight Hemolysis, Re sult may be falsely increased. Protein [Mass/Vol] 7.3 g/dL 6.4-8.2 [facility] Work Phone: Sodium [Moles/Vol] 139 mmol/L 136-145 [facility] Work Phone: WBC (Bld) [#/Vol] 7.4 10*3/uL 4.4-11.0 [facility] Work Phone: Blood erythrocytes count (nu mber/volume)on 03-02-2022 RBC (Bld) [#/Vol] 5.07 10*6/uL 4.2-5.4 [facility]: Blood hemoglobin measurement (mass/volume)on 03-02-2022 Hemoglobin (Bld) [Mass/Vol] 15.2 g/dL 12.0-15.0 [facility] Work Phone: Blood lymphocytes/100 leukoc yteson 03-02-2022 Lymphocytes/100 WBC (Bld) 22.6 % 19-41 [facility] Work Phone: Blood monocytes/100 leukocyt eson 03-02-2022 Monocytes/100 WBC (Bld) 7.7 % 0-10 [facility] Work Phone: Blood platelet mean volumeon 03-02-2022 Platelet mean volume (Bld) [Entitic vol] 11.3 fL 6.2-12.0 [facility] Work Phone: Determination of erythrocyte mean corpuscular volume (MCV)on 03-02-2022 MCV (RBC) [Entitic vol] 90.3 fL 81-99 [facility] Work Phone: Hematocrit Auto (Bld) [Volum e fraction]on 03-02-2022 Hematocrit (Bld) [Volume fraction] 45.8 % 37-47 [facility] Work Phone: Laboratory - Chemistry and C hemistry - challengeon 03-02-2022 ALP [Catalytic activity/Vol] 96 U/L 45-117 [facility] Work Phone: ALT [Catalytic activity/Vol] 31 U/L 13-56 [facility] Work Phone: CO2 [Moles/Vol] 23.0 mmol/L 21.0-32.0 [facility] Work Phone: Globulin (S) [Mass/Vol] 3.9 g/dL 2.2-4.2 [facility] Work Phone: Urea nitrogen/Creatinine [Mass ratio] 20.5 mg/mg 10-20 [facility] Work Phone: Laboratory - Hematology and Cell countson 03-02-2022 Erythrocyte distribution width (RBC) [Entitic vol] 41.2 fL 35.1-43.9 [facility] Work Phone: Erythrocyte distribution width (RBC) [Ratio] 12.5 % 11.6-14.6 [facility] Work Phone: Immature granulocytes/100 WBC (Bld) 0.500 % 0.0-0.9 [facility] Work Phone: Comment on above: IG% - Immature Granu locytes (promyelocytes, myelocytes and metamyelocytes) > 1% indicates that a LEFT SHIFT is Present. MCH (RBC) [Entitic mass] 30.0 pg 27.0-32.0 [facility] Work Phone: Nucleated RBC/100 WBC (Bld) [Ratio] 0 % 0-5 [facility] Work Phone: MCHC Auto (RBC) [Mass/Vol]on 03-02-2022 MCHC (RBC) [Mass/Vol] 33.2 g/dL 32-36 [facility] Work Phone: No Panel Informationon 03-02 Estimated GFR (MDRD) Amer 86 mL/min >60 [facility] Work Phone: Comment on above: GFR Calc Estimated GFR (MDRD) Non-Af Amer 71 mL/min >60 [facility] Work Phone: Comment on above: Non- GFR Calc Thyroid Stimulating Hormone (TSH) 0.94 uIU/mL 0.358-3.74 [facility] Work Phone: Vitamin D 25-Hydroxy 67.2 ng/mL [facility] Work Phone: Comment on above: Vitamin D 25(OH) Sta tus Range Deficiency <20 ng/mL (50nmol/L) Insufficiency 20 - 30 ng/mL (50 - 75 nmol/L) Sufficiency 30 - 100 ng/mL (75 - 250 nmol/L) Toxicity >100 ng/mL (>250 nmol/L) Platelets bldon 03-02-2022 Platelets (Bld) [#/Vol] 288 10*3/uL 150-450 [facility] Work Phone: Serum or plasma albumin rebeca urement (mass/volume)on 03-02-2022 Albumin [Mass/Vol] 3.4 g/dL 3.2-5.0 [facility] Work Phone: Serum or plasma albumin/glob ulin mass ratioon 03-02-2022 Albumin/Globulin [Mass ratio] 0.9 {ratio} 0.9-2.4 [facility] Work Phone: Serum or plasma calcium rebeca urement (mass/volume)on 03-02-2022 Calcium [Mass/Vol] 8.8 mg/dL 8.5-10.1 [facility] Work Phone: Serum or plasma creatinine m easurement (mass/volume)on 03-02-2022 Creatinine [Mass/Vol] 0.83 mg/dL 0.55-1.02 [facility] Work Phone: Comment on above: The validity of the calculated GFR & GFRAA in patients over 70 years has not been determined. Clinical correlation is essential. Serum or plasma urea nitroge n measurement (mass/volume)on 03-02-2022 Urea nitrogen [Mass/Vol] 17 mg/dL 7-18 [facility] Work Phone: Thin prep Papanicolaou smear with manual screeningon 03-02-2022 Thin prep Papanicolaou smear with manual screening 24 U/L 15-37 [facility] Work Phone: Comment on above: Slight Hemolysis, Re sult may be falsely increased. Thin prep Papanicolaou smear with manual screening 8 5-15 [facility] Work Phone: Vital Signs Date Time Vital Sign Value Performing Clinician Faci lity 05-27-2025 11:08-0400 Body height 157.[address] Ruben Guerrero MD Work Phone: [facility] 05-27-2025 11:06-0400 Body mass index (BMI) [Ratio] 42.1 kg/m2 Dr. Ruben Guerrero MD Work Phone: [facility] 05-27-2025 11:06-0400 Body weight 104.[address] Ruben Guerrero MD Work Phone: [facility] 05-27-2025 11:06-0400 Diastolic blood pressure 84 mm[Hg] Dr. Ruben Guerrero MD Work Phone: [facility] 05-27-2025 11:06-0400 Systolic blood pressure 140 mm[Hg] Dr. Ruben Guerrero MD Work Phone: [facility] 06-20-2023 08:45-0400 Diastolic blood pressure 65 mm[Hg] [facility] 06-20-2023 08:45-0400 Heart rate 66 /min [facility] 06-20-2023 08:45-0400 Respiratory rate 16 /min [facility] 06-20-2023 08:45-0400 SaO2% (BldA) [Mass fraction] 97 % [facility] 06-20-2023 08:45-0400 Systolic blood pressure 141 mm[Hg] [facility] 06-20-2023 08:43-0400 Body temperature 97.1 [degF] [facility] 06-20-2023 07:07-0400 Body mass index (BMI) [Ratio] 43.1 kg/m2 [facility] 06-20-2023 06:39-0400 Body height 157.48 cm [facility] 06-20-2023 06:39-0400 Body weight 107 kg [facility] 02-28-2023 08:20-0400 Body temperature 97.2 [degF] [facility] 02-28-2023 08:20-0400 Diastolic blood pressure 85 mm[Hg] [facility] 02-28-2023 08:20-0400 Heart rate 71 /min [facility] 02-28-2023 08:20-0400 Respiratory rate 18 /min [facility] 02-28-2023 08:20-0400 SaO2% (BldA) [Mass fraction] 100 % [facility] 02-28-2023 08:20-0400 Systolic blood pressure 181 mm[Hg] [facility] 02-28-2023 06:18-0400 Body height 157.48 cm [facility] 02-28-2023 06:18-0400 Body mass index (BMI) [Ratio] 41.8 kg/m2 [facility] 02-28-2023 06:18-0400 Body weight 103.8 kg [facility] 09-20-2022 09:25-0500 Body temperature 97.1 [degF] [facility] 09-20-2022 09:25-0500 Diastolic blood pressure 91 mm[Hg] [facility] 09-20-2022 09:25-0500 Heart rate 73 /min [facility] 09-20-2022 09:25-0500 Respiratory rate 12 /min [facility] 09-20-2022 09:25-0500 SaO2% (BldA) [Mass fraction] 98 % [facility] 09-20-2022 09:25-0500 Systolic blood pressure 187 mm[Hg] [facility] 09-20-2022 09:10-0500 Inhaled oxygen flow rate 4 L/min [facility] 09-20-2022 07:49-0500 Body height 157.48 cm [facility] 09-20-2022 07:49-0500 Body mass index (BMI) [Ratio] 41.3 kg/m2 [facility] 09-20-2022 07:49-0500 Body weight 102.4 kg [facility] 05-17-2022 08:23-0400 Body temperature 98.2 [degF] [facility] Work Phone: 05-17-2022 08:23-0400 Diastolic blood pressure 92 mm[Hg] [facility] Work Phone: 05-17-2022 08:23-0400 Heart rate 72 /min [facility] Work Phone: 05-17-2022 08:23-0400 Respiratory rate 16 /min [facility] Work Phone: 05-17-2022 08:23-0400 SaO2% (BldA) [Mass fraction] 97 % [facility] Work Phone: 05-17-2022 08:23-0400 Systolic blood pressure 172 mm[Hg] [facility] Work Phone: 05-17-2022 07:09-0400 Body height 157.48 cm [facility] Work Phone: 05-17-2022 07:09-0400 Body mass index (BMI) [Ratio] 42.2 kg/m2 [facility] Work Phone: 05-17-2022 07:09-0400 Body weight 104.77 kg [facility] Work Phone: Encounters Encounter Date Encounter Type Care Provider Facility Start: 06-03-2025 ambulatory Gee Sanchez y:[facility] Start: 05-27-2025 Encounter for gynecological examination (general) (routine) without abnormal findings Payal Cote [facility] Start: 05-27-2025 End: 05-27-[address] Payal Cote DO -[facility] Work Phone: Start: 05-27-2025 End: 05-27-[address] Payal Cote DO [facility] Start: 05-27-2025 End: 05-27-[address] Ruben Guerrero MD Work Phone: -[facility] Start: 04-30-2025 End: 04-30-[address] Ruben Guerrero MD Work Phone: -[facility] Start: 04-30-2025 End: 04-30-[address] Ruben Guerrero MD -[facility] Work Phone: Start: 04-30-2025 End: 04-30-2025 ambulatory Ruben Guerrero Facility:[facility] Start: 11-30-2024 End: 11-30-2024 ambulatory Payal Cote Facility:[facility] Start: 06-13-2024 End: [facility] Start: 11-29-2023 End: 11-29-2023 ambulatory [facility] Work Phone: Start: 11-29-2023 End: 11-29-2023 Patient encounter procedure [facility] Work Phone: Start: 09-28-2023 End: 09-28-2023 ambulatory [facility] Work Phone: Start: 09-28-2023 End: 09-28-2023 Patient encounter procedure [facility]Laboratory, Phy Office 3rd Flr Start: 06-20-2023 End: 06-20-2023 Admission to same day surgery center [facility] Start: 06-20-2023 End: 06-20-2023 ambulatory [facility] Work Phone: Start: 03-02-2023 End: 03-02-2023 ambulatory [facility] Work Phone: Start: 03-02-2023 End: 03-02-2023 Patient encounter procedure [facility]Laboratory Start: 02-28-2023 End: 02-28-2023 Admission to same day surgery center [facility] Start: 02-28-2023 End: 02-28-2023 ambulatory [facility] Work Phone: Start: 02-18-2023 End: 02-18-2023 ambulatory [facility] Work Phone: Start: 02-18-2023 End: 02-18-2023 Patient encounter procedure [facility] Services/Neurology Start: 12-27-2022 End: 12-27-2022 ambulatory [facility] Work Phone: Start: 12-27-2022 End: 12-27-2022 [facility] Start: 11-26-2022 End: 11-26-2022 ambulatory [facility] Work Phone: Start: 11-26-2022 End: 11-26-2022 Patient encounter procedure [facility]Outpatient Breast [facility] Start: 09-20-2022 End: 09-20-2022 Admission to same day surgery [facility] Start: 09-20-2022 End: 09-20-2022 ambulatory [facility] Work Phone: Start: 09-06-2022 End: 09-06-2022 ambulatory [facility] Work Phone: Start: 09-06-2022 End: 09-06-2022 Patient encounter procedure [facility], Phy Office 3rd Flr Start: 07-28-2022 End: 07-28-2022 ambulatory [facility] Work Phone: Start: 07-28-2022 End: 07-28-2022 Patient encounter procedure [facility] Start: 05-17-2022 End: 05-17-2022 Admission to same day surgery [facility] Start: 03-02-2022 End: 03-02-2022 Patient encounter procedure [facility]Laboratory, Phy Office 3rd Flr Procedures Date Procedure Procedure Detail Performing Clinician Start: 04-30-2025 Urine microalbumin/creatinine ratio measurement Dr. Ruben Guerrero MD Work Phone: Start: 11-29-2023 Screening mammograph y of right breast Start: 06-20-2023 Fluoroscopic guidance Start: 06-20-2023 X-ray of lumbosacral spine Start: 06-20-2023 Radio Frequency Abla tion (Right) Start: 02-28-2023 Fluoroscopic guidance Start: 02-28-2023 Radio Frequency Abla tion (Left) Start: 02-28-2023 X-ray of lumbar spin e, two or three views Start: 11-26-2022 Screening mammograph y of right breast Start: 09-20-2022 Local anesthetic sac ral epidural block Start: 09-20-2022 Injection of spinal epidural space Start: 09-20-2022 Injection using fluoroscopic guidance Start: 07-28-2022 X-ray of lumbar spin e, two or three views Start: 05-17-2022 Radio Frequency Abla tion (Right) Start: 05-17-2022 Fluoroscopic guidance Start: 05-17-2022 X-ray of lumbosacral spine Influenza Types A,B Direct FA (LUCIA) Respiratory syncytia l virus antigen assay Plan of Treatment Date Care Activity Detail Author Start: 06-20-2023 Anes dx/ther nerve block/injection prone pos ANESTH N BLOCK/INJ PRONE [facility] Start: 06-20-2023 Dstr nrolytc agnt parverteb fct addl lmbr/sacral DESTROY L/S FACET JNT [facility] Start: 06-20-2023 Dstr nrolytc agnt parverteb fct sngl lmbr/sacral DESTROY LUMB/SAC FACET T [facility] Start: 06-20-2023 Fluoroscopic guidance O.R. Fluoro for C-Arm [facility] Start: 06-20-2023 X-ray of lumbar spine, two or three views Lumbar Spine 2 or 3 Views [facility] Start: 06-20-2023 Patient discharge [facility] Start: 02-28-2023 Anes dx/ther nerve block/injection prone pos ANESTH N BLOCK/INJ PRONE [facility] Start: 02-28-2023 Dstr nrolytc agnt parverteb fct addl lmbr/sacral DESTROY L/S FACET JNT [facility] Start: 02-28-2023 Dstr nrolytc agnt parverteb fct sngl lmbr/sacral DESTROY LUMB/SAC FACET [facility] Start: 02-28-2023 Fluoroscopic guidance O.R. Fluoro for C-Arm [facility] Start: 02-28-2023 X-ray of lumbar spine, two or three views Lumbar Spine 2 or 3 Views [facility] Start: 02-28-2023 Patient discharge [facility] Start: 09-20-2022 Anes dx/ther nerve block/injection prone pos ANESTH N BLOCK/INJ PRONE [facility] Start: 09-20-2022 Njx dx/ther sbst intrlmnr lmbr/sac w/img gdn NJX INTERLAMINAR LMBR/SAC [facility] Start: 09-20-2022 Injection of spinal epidural space [facility] Work Phone: Start: 09-20-2022 Injection using fluoroscopic guidance [facility] Work Phone: Start: 09-20-2022 Patient discharge [facility] Start: 05-17-2022 Anes dx/ther nerve block/injection prone pos ANESTH N BLOCK/INJ PRONE [facility] Work Phone: Start: 05-17-2022 Dstr nrolytc agnt parverteb fct addl lmbr/sacral DESTROY L/S FACET JNT [facility] Work Phone: Start: 05-17-2022 Dstr nrolytc agnt parverteb fct sngl lmbr/sacral DESTROY LUMB/SAC FACET [facility] Work Phone: Start: 05-17-2022 X-ray of lumbosacral spine L/S Spine Min 4 Views [facility] Work Phone: Start: 05-17-2022 XR Spine Lumbar and Sacrum GE 4 Views [facility] Work Phone: Start: 05-17-2022 Patient discharge [facility] Work Phone: DXA Bone [Mass/Area] Bone density [facility] MG Breast Diagnostic [facility] Patient referral [facility] Work Phone: Immunizations Immunization Date Immunization Notes Care Provider Fa cility 01-14-2021 Covks (Moderna) [facility] 12-17-2020 Covid (Moderna) [facility] 08-13-2019 Influenza virus vaccine [facility] 08-20-2015 influenza, injectabl e, quadrivalent, preservative free [facility] 08-20-2015 influenza, seasonal, injectable [facility] Payers Date Payer Category Payer Self-pay [id number] 2011 Medicare [id number] [facility] [id number] Medicare [id number] Unknown [id number] Unknown [id number] Unknown [id number] Unknown [id number] Unknown [id number] Social History Date Type Detail Facility Start: 07-29-2020 End: 06-09-2023 Tobacco smoking status SCIS Unknown if ever smoked [facility] Start: 01-24-2019 Non-smoker [facility] Start: 1945 Sex Assigned At Female [facility] Start: 05-25-2024 End: 05-24-2025 Tobacco smoking status NHIS Never smoked tobacco (finding) [facility] NEGATED: Highlighted row [facility] Medical Equipment Procedure Code Equipment Code Equipment Origin al Text Equipment Identifier Dates Total knee replacement CRUCIATE RETAINING FEMORAL FDA Start: 04-07-2020 Total knee replacement DOUGH,CEMENT 6191-1-010 FDA Start: 04-07-2020 Total knee replacement DOUGH,CEMENT 6191-1-010 FDA Start: 04-07-2020 Total knee replacement PATELLA FDA Start: 04-07-2020 Total knee replacement TIBIAL BASEPLATE FDA Start: 04-07-2020 Total knee replacement TIBIAL BEARING INSERT-CS FDA Start: 04-07-2020 Total knee replacement CRUCIATE RETAINING FEMORAL FDA Start: 04-07-2020 Total knee replacement DOUGH,CEMENT 6191-1-010 FDA Start: 04-07-2020 Total knee replacement DOUGH,CEMENT 6191-1-010 FDA Start: 04-07-2020 Total knee replacement PATELLA FDA Start: 04-07-2020 Total knee replacement TIBIAL BASEPLATE FDA Start: 04-07-2020 Total knee replacement TIBIAL BEARING INSERT-CS FDA Start: 04-07-2020 Total knee replacement CRUCIATE RETAINING FEMORAL FDA Start: 04-07-2020 Total knee replacement DOUGH,CEMENT 6191-1-010 FDA Start: 04-07-2020 Total knee replacement DOUGH,CEMENT 6191-1-010 FDA Start: 04-07-2020 Total knee replacement PATELLA FDA Start: 04-07-2020 Total knee replacement TIBIAL BASEPLATE FDA Start: 04-07-2020 Total knee replacement TIBIAL BEARING INSERT-CS FDA Start: 04-07-2020 Total knee replacement CRUCIATE RETAINING FEMORAL FDA Start: 04-07-2020 Total knee replacement DOUGH,CEMENT 6191-1-010 FDA Start: 04-07-2020 Total knee replacement DOUGH,CEMENT 6191-1-010 FDA Start: 04-07-2020 Total knee replacement PATELLA FDA Start: 04-07-2020 Total knee replacement TIBIAL BASEPLATE FDA Start: 04-07-2020 Total knee replacement TIBIAL BEARING INSERT-CS FDA Start: 04-07-2020 Total knee replacement CRUCIATE RETAINING FEMORAL FDA Start: 04-07-2020 Total knee replacement DOUGH,CEMENT 6191-1-010 FDA Start: 04-07-2020 Total knee replacement DOUGH,CEMENT 6191-1-010 FDA Start: 04-07-2020 Total knee replacement PATELLA FDA Start: 04-07-2020 Total knee replacement TIBIAL BASEPLATE FDA Start: 04-07-2020 Total knee replacement TIBIAL BEARING INSERT-CS FDA Start: 04-07-2020 Total knee replacement CRUCIATE RETAINING FEMORAL FDA Start: 04-07-2020 Total knee replacement DOUGH,CEMENT 6191-1-010 FDA Start: 04-07-2020 Total knee replacement DOUGH,CEMENT 6191-1-010 FDA Start: 04-07-2020 Total knee replacement PATELLA FDA Start: 04-07-2020 Total knee replacement TIBIAL BASEPLATE FDA Start: 04-07-2020 Total knee replacement TIBIAL BEARING INSERT-CS FDA Start: 04-07-2020 Total knee replacement CRUCIATE RETAINING FEMORAL FDA Start: 04-07-2020 Total knee replacement DOUGH,CEMENT 6191-1-010 FDA Start: 04-07-2020 Total knee replacement DOUGH,CEMENT 6191-1-010 FDA Start: 04-07-2020 Total knee replacement PATELLA FDA Start: 04-07-2020 Total knee replacement TIBIAL BASEPLATE FDA Start: 04-07-2020 Total knee replacement TIBIAL BEARING INSERT-CS FDA Start: 04-07-2020 Total knee replacement CRUCIATE RETAINING FEMORAL FDA Start: 04-07-2020 Total knee replacement DOUGH,CEMENT 6191-1-010 FDA Start: 04-07-2020 Total knee replacement DOUGH,CEMENT 6191-1-010 FDA Start: 04-07-2020 Total knee replacement PATELLA FDA Start: 04-07-2020 Total knee replacement TIBIAL BASEPLATE FDA Start: 04-07-2020 Total knee replacement TIBIAL BEARING INSERT-CS FDA Start: 04-07-2020 Total knee replacement CRUCIATE RETAINING FEMORAL FDA Start: 04-07-2020 Total knee replacement DOUGH,CEMENT 6191-1-010 FDA Start: 04-07-2020 Total knee replacement DOUGH,CEMENT 6191-1-010 FDA Start: 04-07-2020 Total knee replacement PATELLA FDA Start: 04-07-2020 Total knee replacement TIBIAL BASEPLATE FDA Start: 04-07-2020 Total knee replacement TIBIAL BEARING INSERT-CS FDA Start: 04-07-2020 Total knee replacement CRUCIATE RETAINING FEMORAL FDA Start: 04-07-2020 Total knee replacement DOUGH,CEMENT 6191-1-010 FDA Start: 04-07-2020 Total knee replacement DOUGH,CEMENT 6191-1-010 FDA Start: 04-07-2020 Total knee replacement PATELLA FDA Start: 04-07-2020 Total knee replacement TIBIAL BASEPLATE FDA Start: 04-07-2020 Total knee replacement TIBIAL BEARING INSERT-CS FDA Start: 04-07-2020 Total knee replacement CRUCIATE RETAINING FEMORAL FDA Start: 04-07-2020 Total knee replacement DOUGH,CEMENT 6191-1-010 FDA Start: 04-07-2020 Total knee replacement DOUGH,CEMENT 6191-1-010 FDA Start: 04-07-2020 Total knee replacement PATELLA FDA Start: 04-07-2020 Total knee replacement TIBIAL BASEPLATE FDA Start: 04-07-2020 Total knee replacement TIBIAL BEARING INSERT-CS FDA Start: 04-07-2020 Total knee replacement CRUCIATE RETAINING FEMORAL FDA Start: 04-07-2020 Total knee replacement DOUGH,CEMENT 6191-1-010 FDA Start: 04-07-2020 Total knee replacement DOUGH,CEMENT 6191-1-010 FDA Start: 04-07-2020 Total knee replacement PATELLA FDA Start: 04-07-2020 Total knee replacement TIBIAL BASEPLATE FDA Start: 04-07-2020 Total knee replacement TIBIAL BEARING INSERT-CS FDA Start: 04-07-2020 Total knee replacement CRUCIATE RETAINING FEMORAL FDA Start: 04-07-2020 Total knee replacement DOUGH,CEMENT 6191-1-010 FDA Start: 04-07-2020 Total knee replacement DOUGH,CEMENT 6191-1-010 FDA Start: 04-07-2020 Total knee replacement PATELLA FDA Start: 04-07-2020 Total knee replacement TIBIAL BASEPLATE FDA Start: 04-07-2020 Total knee replacement TIBIAL BEARING INSERT-CS FDA Start: 04-07-2020 Total knee replacement CRUCIATE RETAINING FEMORAL FDA Start: 04-07-2020 Total knee replacement DOUGH,CEMENT 6191-1-010 FDA Start: 04-07-2020 Total knee replacement DOUGH,CEMENT 6191-1-010 FDA Start: 04-07-2020 Total knee replacement PATELLA FDA Start: 04-07-2020 Total knee replacement TIBIAL BASEPLATE FDA Start: 04-07-2020 Total knee replacement TIBIAL BEARING INSERT-CS FDA Start: 04-07-2020 Total knee replacement CRUCIATE RETAINING FEMORAL FDA Start: 04-07-2020 Total knee replacement DOUGH,CEMENT 6191-1-010 FDA Start: 04-07-2020 Total knee replacement DOUGH,CEMENT 6191-1-010 FDA Start: 04-07-2020 Total knee replacement PATELLA FDA Start: 04-07-2020 Total knee replacement TIBIAL BASEPLATE FDA Start: 04-07-2020 Total knee replacement TIBIAL BEARING INSERT-CS FDA Start: 04-07-2020 STENT,URETERAL PIGTAIL 6FRx26 FDA Start: 08-08-2020 STENT,URETERAL PIGTAIL 6FRx26 FDA Start: 08-08-2020 STENT,URETERAL PIGTAIL 6FRx26 FDA Start: 08-08-2020 STENT,URETERAL PIGTAIL 6FRx26 FDA Start: 08-08-2020 STENT,URETERAL PIGTAIL 6FRx26 FDA Start: 08-08-2020 STENT,URETERAL PIGTAIL 6FRx26 FDA Start: 08-08-2020 STENT,URETERAL PIGTAIL 6FRx26 FDA Start: 08-08-2020 STENT,URETERAL PIGTAIL 6FRx26 FDA Start: 08-08-2020 STENT,URETERAL PIGTAIL 6FRx26 FDA Start: 08-08-2020 STENT,URETERAL PIGTAIL 6FRx26 FDA Start: 08-08-2020 STENT,URETERAL PIGTAIL 6FRx26 FDA Start: 08-08-2020 STENT,URETERAL PIGTAIL 6FRx26 FDA Start: 08-08-2020 STENT,URETERAL PIGTAIL 6FRx26 FDA Start: 08-08-2020 STENT,URETERAL PIGTAIL 6FRx26 FDA Start: 08-08-2020 STENT,URETERAL PIGTAIL 6FRx26 FDA Start: 08-08-2020 Goals Date Patient Goal Desired Activity /State Mental Status Date Assessment Result Facility 06-20-2023 Cognitive function Level Of Cons ciousness Follows Commands;Drowsy [facility] Work Phone: 06-20-2023 Cognitive function Patient Orien tation Person;Place;Time [facility] Work Phone: 02-28-2023 Cognitive function Voice/Name;Touch/Mananki ng [facility] Work Phone: 09-20-2022 Cognitive function Voice/Name [facility] Work Phone: 05-17-2022 Cognitive function Voice/Name [facility] Work Phone: Progress note 05-27-2025 Note Date & Type Note Facility 05-27-2025 Progress note [facility] Procedure note 06-20-2023 Note Date & Type Note Facility 06-20-2023 Procedure note [facility] Procedure note 02-28-2023 Note Date & Type Note Facility 02-28-2023 Procedure note [facility] Evaluation note Note Date & Type Note Facility Evaluation note No assessment information availa ble [facility] Work Phone: Evaluation note Note Date & Type Note Facility Evaluation note Diagnosis Onset Date Resolution Encounter for routine gynecological examination noneactive May 27, 2025 11:02am [facility] Work Phone: Progress note Note Date & Type Note Facility Progress note Note Date/Time May 27, 2025 11:39am [facility] [address], [address] [place] [address] OFFICE VISIT Date of Service: 05/27/25 MR#: [id number] Acct: [id number] Name: KATHARINE MEDRANO Rep #: [id number] : 1945 Provider: Dr. 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 Is patient in pain?: No Allergies amoxicillin Allergy (Verified 05/24/25 11:37) Anaphylaxis anastrozole (From Arimidex) Allergy (Verified 05/24/25 11:37) Swelling Penicillins Allergy (Verified 05/24/25 11:37) Hives tamoxifen Adverse Reaction (Verified 05/24/25 11:37) PT UNSURE OF REACTION Medications ?Medication ?Instructions ?Recorded ?Confirmed ?Type acetaminophen 500 mg tablet 1,000 mg PO Q8 PRN Pain Or Fever 07/29/20 05/27/25 History glucosamine-chondroitin 250 mg-200 1 tab PO BID 05/27/25 History mg tablet (Osteo Bi-Flex) multivitamin 1 tab PO DAILY 06/09/23 07/06/24 History amlodipine 5 mg tablet 5 mg PO DAILY 05/08/2405/27 History losartan 100 mg tablet (Cozaar) 100 mg PO QPM 05/08/24 05/27/25 History biotin 1 mg capsule 1 mg PO DAILY 05/25/2405/27 History cholecalciferol (vitamin D3) 50 50 mcg PO DAILY 05/27/25 History mcg (2,000 unit) capsule naproxen 500 mg tablet 500 mg PO BID PRN pain 05/2505/27/25 History alpha lipoic acid 200 mg capsule 200 mg PO BID 05/24/ 5 05/27/25 History clobetasol 0.05 % topical ointment 1 applic topical 2X W 90 days #45 05/27/25 05/27/25 Rx grams Is last menstrual period known: No Post menopausal: Yes Patient : No : No [facility] Medical History Bladder disease History of diverticulitis History of pain when walking Non-smoker Wears glasses Post-menopausal Arthritis Easy bruising History of hiatal hernia Heartburn CPAP (continuous positive airway pressure) dependence Sleep apnea Shortness of breath on exertion Neuropathic arthritis History of edema History of echocardiogram History of stress test History of endometrial cancer History of breast cancer Back pain Difficulty balancing Knee pain History of hemorrhoids History of cancer Hypertension Surgical History S/P hysterectomy S/P left mastectomy History of cataract surgery Hx of surgical procedure History of lumbar surgery History of hip replacement History of knee replacement Family History Other COPD (chronic obstructive pulmonary disease) Cancer Heart failure Myocardial infarction Social History Smoking Status: Never smoker alcohol intake: current alcohol intake frequency: holidays/special occasions only substance use type: does not use caffeine: Yes seatbelt use: always do you feel safe at home: Yes additional social history: - Cal History 4 Elective abortions Hx Para 3 Spontaneous abortions Hx # Term Pregnancies Ectopic pregnancies Hx # Pregnancies Multiple births # of living children Past Pregnancies Del. Date Name GA/Weeks Outcome Route Bth Weight Gen Labor Lgth Anesthesia Del Locatn Provider FOB Unknown Wade Unknown Dunia Unknown Liz [facility] Encounter for routine gynecological examination Details: KATHARINE MEDRANO is a 80 year old who presents for annual exam. She has had some spotting when she wipes. Has Lichen sclerosus Last PAP: prior to hysterectomy History of abnormal PAP: no, but history endometrial cancer Last mammogram: 11/30/24 History of abnormal mammogram: yes, h/o breast cancer due for dexa. Colon cancer screening: followed by pcp Other preventative health care screenings: followed by pcp Female Reproductive History Questions: metorrhagia: No, sexually active: Yes, dyspareunia: No and PCB: No Menopausal Symptoms: No hot flashes, No night sweats, No weight change, No mood changes, No difficulty concentrating, No sleep problems and No change in libido ROS Const Constitutional: Reports as per HPI; Denies fatigue, increased appetite, poor appetite, night sweats, weight gain or weight loss Cardio Card: Denies chest pain Resp Resp: Denies cough or dyspnea GI GI: Reports as per HPI; Denies abdominal pain, bloating, constipation, nausea or vomiting : Reports as per HPI and other; Denies difficulty voiding, dysuria, hematuria, hot flashes, nipple discharge, pelvic pain, prolapse symptoms, urinary frequency, urinary incontinence, urinaryurgency, vaginal discharge, vaginal dryness, vaginal odor or vaginal pruritus Skin Skin/Breast: Denies changing lesions, breast mass, breast pain, breast skin changes or nipple discharge Psych Psych: Denies anxiety, change in libido, depression or difficulty concentrating Exam Const General: cooperative, healthy appearing, comfortable, no acute distress, well developed and well groomed [facility] Head: normal to inspection and normocephalic Ears: hearing grossly normal bilaterally and external ears normal Nose: external nose normal Face and sinus: normal facial exam Neck Neck: normal visual inspection, full ROM and no lymphadenopathy Thyroid: thyroid normal Chest Chest palpation & inspection: normal inspection of the chest Breast inspection: normal inspection of the breasts and normal inspection of theaxillae Breast palpation: normal palpation of the breasts, normal palpation of the axillae and no axillary lymphadenopathy Other: surgically absent left breast Resp Effort & Inspection: normal respiratory effort GI Inspection: normal to inspection and non-distended Palpation: soft, no hepatosplenomegaly and no guarding General: bladder normal to palpation External Female Exam: normal external appearance, normal appearance of the urethra and lesion (small excoriation at the introitus that is healed. ) Urethra: normal appearance of the urethra and normal palpation Speculum Exam - Vagina: normal appearance of the vagina and normal vaginal discharge Bimanual Exam- Vagina & Uterus: bladder normal to palpation Bimanual Exam- Adnexa, other: normal adnexae, no masses and non-tender Skin General: no rashes or lesions noted Neuro General: patient alert, moves all extremities and no focal motor deficits Extrem General: normal to inspection and no pedal edema Psych Appearance: grossly normal Mental Status: mental status grossly normal Affect: normal affect Speech and Movement: speech and movement normal Attitude: cooperative Coding Level of Care Code Pelvic/Breast Diagnoses Encounter for routine gynecological examination Z01.419 Assessment and Plan Assessment and Plan (1) Encounter for routine gynecological examination: Plan: Cervical cancer screening: no longer needed Breast cancer screening: mammogram other health maintenance examination reviewed and orders placed if needed. Encouraged maintenance of a healthy weight and active lifestyle and handout given. Annual exam handout including recommendations for good health guidelines, Calcium/vitamin D recommendations, and basic screening information given. Problem list up to date, see problem list details for any additional plan information. Follow up in one year for annual health maintenance exam or sooner if needed. Orders: Orders Dexa Bone Density Study Today Z78.0 - Asymptomatic menopausal state DIAG MAMM W/CAD, UNILAT Today C50.919 - Malignant neoplasm of unspecified site of unspecified female breast Medications: New clobetasol 0.05% 1 applic topical 2XW 90 days 45 grams 4RF 05/27/25 1139 <Electronically signed by Payal Nolasco DO> Date _ Payal Cote DO Cosigner Signature: Date (if applicable) CC: ~ [facility] Work Phone: Reason for referral (narrative) Note Date & Type Note Facility Reason for referral (narrative) No reason for referral information available [facility] Work Phone: Family History No Family History Records Found Relationship Condition Age at Onset Recorded Date/T [place] Not Specified Heart failure Unknown Myocardial infarction Unknown Chronic obstructive pulmonary disease Unk nown Malignant neoplasm Unknown Advance Directives No Advanced Directives Records Found Advance Directive Response Recorded Date/ Time Advance Directives Yes July 31, 2018 9:57am Living Will Yes July 29, 2020 1:15pm Power of Surveyor Geophysical Prospecting Yes July 1:15pm Advance Directive Response Recorded Date/ Time Name of Medical Power of Surveyor Geophysical Prospecting Liz Mckeon on May 10, 2022 11:30am Advance Directives Yes July 31, 2018 9:57am Living Will Yes May 10, 2022 11:30am Power of Surveyor [employer]ophysical Prospecting Yes May 10 11:30am Advance Directive Response Recorded Date/ Time Advance Directives Yes July 31, 2018 9:57am Living Will Yes May 10, 2022 11:30am Power of Surveyor Geophysical Prospecting Yes May 10 11:30am Name of Medical Power of Surveyor [employer]ophysical Prospecting Liz Mckeon on May 10, 2022 11:30am Advance Directive Response Recorded Date/ Time Advance Directives Yes July 31, 2018 8:57am Living Will Yes May 10, 2022 10:30am Power of Surveyor [employer]ophysical Prospecting Yes May 10 10:30am Name of Medical Power of Surveyor [employer]ophysical Prospecting Liz Mckeon on May 10, 2022 10:30am Advance Directive Response Recorded Date/ Time Advance Directives Yes July 31, 2018 8:57am Living Will Yes May 10, 2022 10:30am Power of Surveyor [employer]ophysical Prospecting Yes May 10 10:30am Advance Directive Response Recorded Date/ Time Advance Directives Yes July 31, 2018 9:57am Living Will Yes May 10, 2022 11:30am Power of Surveyor [employer]ophysical Prospecting Yes May 10 11:30am Advance Directive Response Recorded Date/ Time Name of Medical Power of Surveyor [employer]ing LIZ MCKEON ON June 09, 2023 2:34pm Advance Directives Yes July 31, 2018 9:57am Living Will Yes June 09 2:34pm Power of Surveyor [employer]ing Yes June 09, 2 023 2:34pm Advance Directive Response Recorded Date/ Time Advance Directives Yes July 31, 2018 8:57am Living Will Yes June 09 1:34pm Power of Surveyor [employer] Prospecting Yes June 09, 2 023 1:34pm Name of Medical Power of Surveyor Geophysical Prospecting LIZ MCKEON ON June 09, 2023 1:34pm Advance Directive Response Recorded Date/ Time Advance Directives Yes July 31, 2018 8:57am Living Will Yes June 09 1:34pm Power of Surveyor Geophysical Prospecting Yes June 09, 2 023 1:34pm Advance Directive Response Recorded Date/ Time Advance Directives Yes July 31, 2018 9:57am Chief Complaint and Reason for Visit Chief Complaint LLE EDEMA Chief Complaint SCREENING Chief Complaint SCREENING SCREENING Chief Complaint Admit Date EORDERS April 30, 2025 10:51 am Chief Complaint Admit Date EORDERS April 30, 2025 10:51 am 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 Chaz Reynoso MD Family Provider Active Dr. Chaz Reynoso MD Primary Care Provider Active Team Status: Inactive Member Role Status Dates Dr. Chaz Reynoso MD Primary Care Provider, Attending Provider Active Team Status: Inactive Member Role Status Dates Dr. Chaz Reynoso MD Primary Care Provider, Referring Provider Active Dr. Gee Alanis MD Attending Provider Active Team Status: Inactive Member Role Status Dates Dr. Chaz Reynoso MD Primary Care Provider Active Dr. Mellisa Soriano DO Attending Provider Active Team Status: Inactive Member Role Status Dates Dr. Chaz Reynoso MD Primary Care Provi natalia, Attending Provider, Referring Provider Active Team Status: Inactive Member Role Status Dates Dr. Chaz Reynoso MD Primary Care Provider Active Dr. Gee Alanis MD Attending Provider, Referring Provider Active Team Status: Active Member Role/Relationship Status Dates Dr. Ruben Guerrero MD Primary Care Provider Active Team Status: Inactive Member Role/Relationship Status Dates Dr. Ruben Guerrero MD Primary Care Provider Active Start: April 30, 2025 End: April 30, 2025 Dr. Ruben Guerrero MD Attending Provider Active St art: April 30, 2025 End: April 30, 2025 Dr. Ruben Guerrero MD Referring Provider Active St art: April 30, 2025 End: April 30, 2025 Team Status: Inactive Member Role/Relationship Status Dates Dr. Chaz Reynoso MD Referring Provider Active Start: May 27, 2025 End: May 27, 2025 Dr. Payal Cote DO Attending Provider Activ e Start: May 27, 2025 End: May 27, 2025 Dr. Ruben Guerrero MD Primary Care Provider Active Start: May 27, 2025 End: May 27, 2025 INFORMATION SOURCE (unrecogn ized section and content) DATE CREATED AUTHOR 06/02/2025 [facility] FOR RECORDS PERTAINING TO PATIENTS WHO ARE OR HAVE BEEN ENROLLED IN A CHEMICAL DEPENDENCY/SUBSTANCEABUSE PROGRAM, SOME INFORMATION MAY BE OMITTED. This clinical summary was aggregated from multiple sources. Caution should be exercised in using it in the provision of clinical care. This summary normalizes information from multiple sources, and as a consequence, information in this document may materially change the coding, format and clinical context of patient data. In addition, data may be omitted in some cases. CLINICAL DECISIONS SHOULD BE BASED ON THE PRIMARY CLINICAL RECORDS. [employer] provides no warranty or guarantee of the accuracy or completeness of information in this document.
[2025-06-03 06:54] VITALS: BP 140/81; PULSE 86; RESP 16; TEMP 36.6; O2SAT 97; BMI 42.0
[2025-06-03] MEDS: Lactated Ringers 1,000 ML 15 ML IV (07:02)
--- NOTE | 2025-06-03 07:57 | RAD_ITS ---
PROCEDURE: LUMBAR SPINE 2 OR 3 VIEWS 06/03/2025 REASON FOR EXAM: RADIOFREQUENCY ABLATION RT L4 L5 S1 TECHNIQUE: LUMBAR SPINE 2 OR 3 VIEWS Fluoroscopic images. Fluoroscopy time 8.8 seconds. Radiation dose 4.62 mGy. COMPARISON: None. FINDINGS: Radiofrequency ablation on the right side at L4-L5 and L5-S1 levels. RAD/Lumbar Spine 2 or 3 Views IMPRESSION: Radiofrequency ablation on the right side at L4-L5 and L5-S1 levels. Reading Location: [facility]
[2025-06-03] MEDS: Lidocaine 1% (30 ml sdv) 30 ML Vial (08:03)
--- NOTE | 2025-06-03 08:18 | PCM.OPRPT ---
Operative Report (Standard) Operative Information Date of Procedure: 06/03/25 Pre-Operative Diagnosis: Lumbosacral spondylosis, lumbosacral degenerative disc disease, lumbar facet arthropathy Post-Operative Diagnosis: Lumbosacral spondylosis, lumbosacral degenerative disc disease, lumbar facet arthropathy Surgery/Procedure Performed: Right sided lumbar radiofrequency ablation of the medial branch at L4, L5, S1 company secretary: No Type of Anesthesia: Local MAC RN Documented Start/Stop Times: Operation Date: 06/03/25 08:00 Case Time Into Pre-Op 06/03/25 06:41 Out of Pre-Op 06/03/25 07:43 Anesthesia Start 06/03/25 07:55 Into Room 06/03/25 07:55 Procedure Start 06/03/25 08:01 Procedure End 06/03/25 08:14 Anesthesia End 06/03/25 08:17 Out of Room 06/03/25 08:17 Procedure Start Time: 08:19 Procedure Stop Time: 08:19 Select all DRAINS/GRAFTS/IMPLANTS that apply: None Estimated Blood Loss: 1 Specimen collected: No Description of surgery: PROCEDURE PERFORMED: Right-sided radiofrequency ablation of the medial branch at L4, L5, and S1. ANESTHESIA: MAC. BLOOD LOSS: Minimal. COMPLICATIONS: None. DESCRIPTION OF PROCEDURE: History and physical of today was reviewed. Risks and benefits of the procedure were explained. The patient understood and agreed to proceed. Informed consent was obtained. IV inserted per routine protocol. The patient was taken to the operating room and placed in the prone position with a pillow positioned underneath the abdomen. The right side of her lower back was prepped and draped in a sterile fashion using iodine x3. Under fluoroscopy guidance in an oblique view, the L3 through S1 vertebral bodies were visualized. The skin and subcutaneous tissue was anesthetized with approximately 10 mL of 1% lidocaine using a 25-gauge regular needle. Under direct visualization on fluoroscopy at approximately 25-degree angle, starting on the right L3, ending on the right S1, passing through the L4 and L5, using a 20-gauge 15-cm with a 10-mm curved active-tip radiofrequency ablation needle, the needle was passed through the skin. The tip of the needle was maneuvered and directed towards the superior medial gutter of the transverse process at the vicinity of the medial branch. Once the tip of the needle was in contact with the bone, the needle was pulled approximately 2 mm off the bone. The stylette of each needle was then removed. After negative aspiration of blood or CSF and confirmation on AP, oblique as well as lateral view, the radiofrequency ablation probe was then inserted at each level. Impedance was then recorded at L3 to be 212 ohm, at L4 to be 295 ohm, at L5 to be 260 ohm, and at S1 to be 316 ohm. Motor evoked potential was then initiated to 1.5 volt without any motor response at each corresponding level. The probe was then removed intact and a total of 6 mL of preservative-free 1% lidocaine was injected in divided doses between those four levels after negative aspiration of blood or CSF. The radiofrequency ablation probe was then reinserted. After confirmation on AP, oblique as well as lateral view, radiofrequency ablation was then initiated to 80 degree Celsius for 90 second at each level. Once concluded, the probe was then removed intact. A total of 6 mL of preservative-free 0.25% Marcaine with 40 mg of Depo-Medrol was injected in divided doses between those four levels. The needles were then removed intact. The patient experienced no sign or symptoms of intrathecal or intravascular injection. The patient experienced no paresthesia. The procedure was completed without any apparent difficulty or any complications. The patient appeared to tolerate it well. Sensory as well as motor exam was unchanged from prior to the procedure. ASSESSMENT AND PLAN: This is a 80-year-old female with lumbosacral spondylosis, lumbosacral degenerative disc disease, lumbar facet arthropathy, status post right sided lumbar radiofrequency ablation of the medial branch at L4-S1, patient will continue her current medications, patient will follow-up in approximately 2 weeks for reevaluation. Surgical Findings: 0 Complications Complications: No Admit VTE Documentation VTE Present on Admission: No VTE Mechan Device Prophylaxis: None VTE Pharm Prophylaxis ordered?: No
[2025-06-03 08:20] VITALS: BP 117/61; BP 140/81; PULSE 79; RESP 16; TEMP 36.1; O2SAT 97
[2025-06-03 08:23] VITALS: BP 117/61; PULSE 78; RESP 16; TEMP 36.3; O2SAT 96
--- NOTE | 2025-06-03 08:23 | PCM.POST.ANE ---
Anesthesia: Postop Eval I Current Vital Signs Temperature: 97.4 F Pulse Rate: 78 Blood Pressure: 117/61 Respiratory Rate: 16 Pulse Ox: 96 Oxygen Delivery Method: Room Air Assessment Airway patent: Yes Spontaneous unlabored respirations: Yes Mental status: Awake nausea: No Vomiting: No Anesthesia Complication: No Fluid Hydration Crystalloid volume administer (ml): 150 Total IV fluid infused: 150 Progress Note Anesthesia document: Postop Eval 1 completed: Yes
[2025-06-03 08:25] VITALS: BP 124/76; BP 140/81; PULSE 76; RESP 16; O2SAT 99
[2025-06-03 08:30] VITALS: BP 130/74; BP 140/81; PULSE 71; RESP 16; TEMP 36.1; O2SAT 100
[2025-06-03 08:44] VITALS: BP 140/81
== END 2025-06-03 08:56 | disposition home or self-care (01) ==
LOC: SDC 06:39 → AC 06:41
PROVIDERS: PCP Family Medicine; Referring Provider Anesthesiology Pain Medicine; Visit Provider Anesthesiology Pain Medicine
PROC: (CPT 64635; principal; 2025-06-03 07:55)
DX: M47.816 Spondylosis without myelopathy or radiculopathy, lumbar region (principal); M47.817 Spondylosis without myelopathy or radiculopathy, lumbosacral region; M51.379 Other intervertebral disc degeneration, lumbosacral region without mention of lumbar back pain or lower extremity pain; M46.86 Other specified inflammatory spondylopathies, lumbar region; I10 Essential (primary) hypertension; Z79.899 Other long term (current) drug therapy
CPT/HCPCS: 64635; 64636; 01992; 72100; 76000

== ENCOUNTER → 2025-06-11 | Outpatient (CLI) | payer MEDICARE, SELFPAY ==
--- NOTE | 2025-06-11 12:19 | BD_ITS ---
PROCEDURE: DEXA BONE DENSITY STUDY 06/11/2025 REASON FOR EXAM: POSTMENOPAUSAL F, age 80 y/o . Postmenopausal. TECHNIQUE: DEXA BONE DENSITY STUDY COMPARISON: Prior study dated October 02, 2020. FINDINGS: BMD and T-SCORES Lumbar spine: 1.104 g/cm2, T-score 0.5 Levels: L1-L4. Change from prior: No change. Left femoral neck: 0.704 g/cm2, T-score -1.3 Femoral neck comparison data not recommended for monitoring change. Left total hip: 1.036 g/cm2, T-score 0.8 Change from prior: Improvement of 12.3%. The World Health Organization has defined the following categories based on bone density: Normal bone density: T-score equal to or greater than -1.0 Osteopenia: T-score between -1.0 and -2.5 Osteoporosis: T-score equal to or less than -2.5 The patient does meet the pharmacological treatment recommendations for prevention of osteoporosis. BD/Dexa Bone Density Study IMPRESSION: OSTEOPENIA. Recommend follow-up as clinically warranted. Reading Location: [place] [id number]
== END | disposition home or self-care (01) ==
LOC: OPBD 12:09
PROVIDERS: PCP Family Medicine; Referring Provider Obstetrics & Gynecology; Visit Provider Obstetrics & Gynecology
DX: Z13.820 Encounter for screening for osteoporosis (principal); Z78.0 Asymptomatic menopausal state
CPT/HCPCS: 77080

== ENCOUNTER 2025-08-05 05:54 | Day surgery (SDC) | payer MEDICARE, SELFPAY ==
--- NOTE | 2025-07-29 09:18 | PAT.ANESEVAL ---
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 When Was Last Pacemaker Check QUESTION #4 FULL TEXT: You/Your Family Experience fever (hyperthermia) with Anesthesia Last Oral Intake Last Oral intake: Last Oral Intake NPO since Meds taken in AM with sips of water? Meds patient instructed to take am of surgery PONV PONV - senior rd engineer: PONV - senior rd engineer Female Yes 07/29/25 08:18 HX of Motion Sickness No 07/29/25 08:18 HX of N/V After Surgery No 07/29/25 08:18 Non-Smoker Yes 07/29/25 08:18 Duration of Surgery greater No 07/29/25 08:18 than 60 minutes Number of Risk Factors 2 07/29/25 08:18 PONV Score Moderate Risk 07/29/25 08:18 Height & Weight Height & Weight: Anesthesia: Height & Weight Height 5 ft 2 in 06/03/25 06:54 Respiratory Assessment Respiratory Assessment - senior rd engineer: Respiratory Tract Infection Hx - senior rd engineer Hx Respiratory Tract Infection No 07/29/25 08:18 STOP Sleep Apnea STOP Sleep Apnea - senior rd engineer: STOP Sleep Apnea - senior rd engineer Hx Hypertension Yes: on meds 07/29/25 08:18 Hx Sleep Apnea Yes 07/29/25 08:18 CPAP Yes 07/29/25 08:18 BIPAP No 07/29/25 08:18 Do you snore loudly (louder than talking or can be heard Do you often feel tired/ fatigued/ sleepy during daytime? Has anyone observed you stop breathing during sleep? STOP Results Positive 07/29/25 08:18 QUESTION #5 FULL TEXT : Do you snore loudly (louder than talking or can be heard through closed doors)? 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 Specify any problems Hx of Preganancy in last 3 No 07/29/25 08:18 Months Nurse Filling Out Transfusion JZOLLINGE 07/29/25 08:18 & Questions: Date: 07/29/25 07/29/25 08:18 Time: 08:19 07/29/25 08:18 Patient unable to answer at this time (ie. confused, unrespo /Reproduction History /Reproductive History - senior rd engineer: /Reproductive Hx- senior rd engineer Hx Now No 07/29/25 08:18 Gestational Age (in weeks): EDC: Hx Hx Para Hx Section SAB No 07/29/25 08:18 PFSH Medical History Bladder disease History of diverticulitis History of pain when walking Non-smoker Wears glasses Post-menopausal Arthritis Easy bruising History of hiatal hernia Heartburn CPAP (continuous positive airway pressure) dependence Sleep apnea Shortness of breath on exertion Neuropathic arthritis History of edema History of echocardiogram History of stress test History of endometrial cancer History of breast cancer Back pain Difficulty balancing Knee pain History of hemorrhoids History of cancer Hypertension Home Medications ?Medication ?Instructions ?Recorded ?Last Taken ?Type acetaminophen 500 mg tablet 1,000 mg PO Q8 PRN Pain Or Fever 07/29/20 Unknown History glucosamine-chondroitin 250 mg-200 1 tab PO BID 06/09/23 06/02/25 History mg tablet (Osteo Bi-Flex) multivitamin 1 tab PO DAILY 06/09/23 06/02/25 History amlodipine 5 mg tablet 5 mg PO DAILY 05/08/24 06/03/25 06:00 History losartan 100 mg tablet (Cozaar) 100 mg PO QPM 05/08/24 06/02/25 History biotin 1 mg capsule 1 mg PO DAILY 05/25/24 Unknown History naproxen 500 mg tablet 500 mg PO BID PRN pain 05/25/24 Unknown History alpha lipoic acid 200 mg capsule 200 mg PO BID 05/24/25 Unknown History clobetasol 0.05 % topical ointment 1 applic topical 2XW 90 days #45 05/27/25 Unknown Rx grams Allergy/AdvReac Type Severity Reaction Status Date / Time amoxicillin Allergy Anaphylaxis Verified 07/29/25 08:14 anastrozole (From Arimidex) Allergy Swelling Verified 07/29/25 08:14 Penicillins Allergy Hives Verified 07/29/25 08:14 tamoxifen AdvReac PT UNSURE Verified 07/29/25 08:14 OF REACTION Family History Other COPD (chronic obstructive pulmonary disease) Cancer Heart failure Myocardial infarction Surgical History S/P hysterectomy S/P left mastectomy History of cataract surgery Hx of surgical procedure History of lumbar surgery History of hip replacement History of knee replacement Social History Smoking Status: Never smoker alcohol intake: current alcohol intake frequency: holidays/special occasions only substance use type: does not use caffeine: Yes seatbelt use: always do you feel safe at home: Yes additional social history: - Cal Audit: Pertinent Findings Pertinent Findings EKG Perinent findings: Sinus with PACs Recommendation Anesthesia Recommendation Anesthesia recommendation: OPTIMIZED for anesthesia
[2025-08-05] VITALS (8 sets, daily range): BP systolic 138–165; BP diastolic 77–82; PULSE 77–83; RESP 16–20; TEMP 36.5–36.9; O2SAT 92–100; BMI 41.9
--- OUTSIDE RECORDS SUMMARY | 2025-08-05 05:57 | XMS RPT_ITS | CCD ---
Author Organization [facility] Care Team Providers Care Tnt Powder Worker Name Role Phone Cesar MIGUEL, Dr. Miranda Primary Care Provider Cesar MIGUEL, Dr. Miranda Attending Provider Cesar MIGUEL, Dr. Miranda Referring Provider [phone] Edgardo MIGUEL, Dr. Chaz Jay Referring Provider Dr. Payal Cote DO Attending Provider Zeke MIGUEL, Dr. Flynn Attending Provider Zeke MIGUEL, Dr. Flynn Referring Provider Dr. Payal Cote DO Referring Provider Cesar, Ruben Primary Care Unavailable Payal Cote Attending Jeffrey Reynoso, Chaz Chi Referring Unavailable Guerrero, Ruben Primary Care Unavailable Gee Alanis Referring Unavailable Gee Alanis Attending Unavailable Payal Cote Referring Unavailabl e Payal Cote Attending Jeffrey e Edgardo, Chaz Chi Primary Care Unavailable Guerrero, Ruben Primary Care Unavailable Payal Cote Referring Unavailabl e Vande Payal Savage Attending Unavailabl e Guerrero, Ruben Attending Unavailable Guerrero, Ruben Primary Care Unavailable Guerrero, Ruben Referring Unavailable Guerrero, Ruben Primary Care Unavailable Gee Alanis Referring Unavailable Gee Alanis Attending Unavailable Allergies Allergy Classification Reported Allergen(s) Allergy Type Date of Onset Reaction(s) Facility (17 sources) Amoxicillin Drug Allergy 1 Anaphylaxis [facility] (17 sources) anastrozole Drug Allergy 1 Swelling [facility] (18 sources) Penicillins; Translations: [Penicillins] Allergy to substance 1 Hives [facility] (17 sources) Tamoxifen Drug Allergy 1 PT UNSURE OF REACTION [facility] Comment on above: severe leg cramps (1 source) Amoxicillin Drug Allergy 5 [facility] Repository (1 source) anastrozole Drug Allergy 5 [facility] (1 source) Tamoxifen Drug Allergy 5 [facility] Medications Current Medications Medication Drug Class(es) [...] 2016 11:46am amLODIPine 5 mg oral tablet (4 sources) Dihydropyridine Calcium Channel Isabel Start: 05-08-2024 take 1 tablet by mouth once daily Amlodipine 5 mg tablet Active 5 mg PO DAILY May 08, 2024 12:00am biotin 1 mg oral capsule (20 sources) Start: 05-25-2024 take 1 capsule by [...] 2016 11:00pm cholecalciferol 0.05 mg oral capsule (4 sources) Vitamin D Start: 05-25-2024 take 1 capsule by mouth once daily Cholecalciferol (Vitamin D3) 50 mcg (2,000 unit) capsule Active 50 ug PO DAILY May 25, 2024 12:00am Chondroitin Sulfates / Glucosamine (7 sources) Start: 06-09-2023 Glucosamine-Ch ondroiti n (Osteo Bi-Flex) 250-200 mg tablet Active 1 {tbl} PO TWICE A DAY June 09, 2023 12:00am give after food/meal Start: 06-09-2023 Glucosamine-Ch ondroitin (Osteo Bi-Flex) 250-200 mg tablet Active 1 {tbl} PO TWICE A DAY June 09, 2023 12:00am give after food/meal clobetasol propionate 0.0005 mg/mg topical ointment (3 sources) Corticosteroid Start: 05-27-2025 Clobetasol 0.0 5 % ointment Active 1 NMA TOPICAL TWICE A WEEK 45 90 4 May 27, 2025 12:00am Rcolhppy-Yaiz-Pdj3-C-Angel -Bosw (10 sources) Start: 03-21-2020 Glucosam-Wisam- Msm1-C-Angel -Bosw Active 1 EACH PO TWICE A DAY March 21, 2020 9:07am Start: 03-21-2020 Glucosam-Wisam- Xxo7-F-Rvvz-Bosw Active 1 EACH PO TWICE A DAY March 20, 2020 11:00pm Start: 03-21-2020 Glucosam-Wisam- Xcx8-W-Zrjo-Bosw Active 1 EACH PO TWICE A DAY March 21, 2020 12:00am losartan potassium 100 mg oral tablet (4 sources) Angiotensin 2 Receptor Isabel Start: 05-08-2024 take 1 tablet by mouth once daily in the evening Losartan (Cozaar) 100 mg tablet Active 100 mg PO EVERY EVENING May 08, 2024 12:00am Kxxqmwui-Ymr-Ni-L ycopen-Lutein (10 sources) Start: 04-28-2015 Ohgedkts-Qeq-M a- Lycopen-Lutein Active 1 EACH PO DAILY April 28, 2015 1:35pm Start: 04-28-2015 Arzbkccl-Aea-U d-Bnektyt-Wccata Active 1 EACH PO DAILY April 27, 2015 11:00pm Start: 04-28-2015 Ozbaecre-Ecq-T i-Orquxra-Sbymic Active 1 EACH PO DAILY April 28, 2015 12:00am Multivitamin preparation (3 sources) Start: 06-09-2023 take 1 tablet by mouth once daily Multivitamin Active 1 TABLET PO DAILY June 08, 2023 11:00pm Start: 06-09-2023 take 1 tablet by waldo th once daily Multivitamin Active 1 TABLET PO DAILY June 09, 2023 12:00am Multivitamin tablet (4 sources) Start: 06-09-2023 Multivitamin tablet Active 1 {tbl} PO DAILY June 09, 2023 12:00am naproxen 500 mg oral tablet (20 sources) Nonsteroidal Anti-inflammatory Drug Start: 05-25-2024 End: [...] 6:53am thioctic acid 200 mg oral capsule (3 sources) Start: 05-24-2025 take 1 capsule by mouth [...] / HYDROcodone bitartrate 5 mg oral tablet (17 sources) Opioid Agonist Start: 08-08-2020 End: 08-15-2020 [...] 2020 11:03pm aspirin 81 mg chewable tablet (17 sources) Platelet Aggregation Inhibitor, Nonsteroidal Anti-inflammatory Drug Start: 04-28-2015 End: 02-26-2016 take 1 tablet by mouth once daily Aspirin 81 MG Tab.Chew Discontinued 81 mg PO DAILY@0800 April 28, 2015 12:00am February 26, 2016 11:46am docusate sodium 50 mg / sennosides, alf 8.6 mg oral tablet (17 sources) Start: 04-08-2020 End: 05-25-2020 Sennosides-Docusat e Sodium 1 TABLET tablet Discontinued 2 {tbl} PO TWICE A DAY 30 April 08, 2020 12:00am May 25, 2020 10:49am Start: 04-08-2020 End: 05-25-2020 take 2 tablets by mouth twice daily Sennosides-Docusate Sodium Discontinued 2 TABLET PO TWICE A DAY April 07, 2020 11:00pm May 25, 2020 9:49am fluticasone propionate 0.05 mg/actuat metered dose nasal spray (17 sources) Corticosteroid Start: 03-21-2020 End: 05-25-2020 Fluticasone Propionate 9.9 ML spray,suspension Discontinued 1 NMA NS AT BEDTIME March 21, 2020 12:00am May 25, 2020 10:48am sinus drainage/cough Start: 03-21-2020 End: 05-25-2020 Fluticasone Propionate Disco ntinued 1 SPRAY NS AT BEDTIME March 20, 2020 11:00pm May 25, 2020 9:48am ibuprofen 200 mg oral tablet (17 sources) Nonsteroidal Anti-inflammatory Drug Start: 04-28-2015 End: 02-26-2016 take 1 tablet by mouth every six hours as needed for pain Ibuprofen 200 MG tablet Discontinued 200 mg PO EVERY 6 HOURS NEEDED as needed for Pain April 28, 2015 12:00am February 26, 2016 11:46am oxyCODONE hydrochloride 5 mg oral tablet (17 sources) Opioid Agonist Start: 04-08-2020 End: 04-15-2020 take 5-10 mg by mouth every four hours as needed for pain Oxycodone 5 MG tablet Discontinued 5 - 10 mg PO EVERY 4 HOURS NEEDED as needed for Pain Score 4-10/10 56 7 0 April 08, 2020 April 14, 2020 12:00am April 15, 2020 12:02am Other acute postprocedural pain rivaroxaban 10 mg oral tablet (17 sources) Factor Xa Inhibitor Start: 04-08-2020 End: 05-25-2020 take 1 tablet by mouth once daily Rivaroxaban 10 MG tablet Discontinued 10 mg PO DAILY@0600 6 0 April 08, 2020 12:00am May 25, 2020 10:48am sulfamethoxazole 800 mg / trimethoprim 160 mg oral tablet (17 sources) Dihydrofolate Reductase Inhibitor Antibacterial, Sulfonamide Antimicrobial Start: 05-25-2020 End: 06-01-2020 Sulfamethoxazole-T rimethoprim (Bactrim Ds) 800-160 mg tablet Discontinued 1 {tbl} PO TWICE A DAY 14 7 0 May 25, 2020 12:00am May 31, 2020 12:00am June 01, 2020 12:03am Acute cystitis with hematuria traMADol hydrochloride 50 mg oral tablet (17 sources) Opioid Agonist Start: 04-28-2015 End: 02-26-2016 take 1 tablet by mouth every four hours as needed for pain Tramadol 50 MG tablet Discontinued 50 mg PO EVERY 4 HOURS NEEDED as needed for Pain April 28, 2015 12:00am February 26, 2016 11:46am Problems Problem Classification Problem Date Documented Da te Episodic/Chronic Calculus of urinary tract (17 sources) Kidney stone; Translations: [Calculus of kidney] 08-18-2020 Episodic Cancer of breast (1 source) Malignant neoplasm of unspecified site of unspecified female breast; Translations: [Malignant neoplasm of unspecified site of unspecified female breast] Onset: 05-27-2025 Chronic Essential hypertension (5 sources) Hypertensive disorder; Translations: [Essential (primary) hypertension] Onset: 05-06-2025 05-25-2024 Chronic Comment on above: CONTROLLED WITH MEDS Other screening for suspected conditions (not mental disorders or infectious disease) (2 sources) Encounter for screening for osteoporosis; Translations: [Encounter for screening mammogram for malignant neoplasm of breast] Onset: 12-16-2024 Episodic Residual codes; unclassified (4 sources) Sleep apnea; Translations: [Sleep apnea, unspecified] 05-25-2024 Chronic Residual codes; unclassified (4 sources) Dependence on continuous positive airway pressure ventilation; Translations: [Dependence on other enabling machines and devices] 05-25-2024 Chronic Residual codes; unclassified (1 source) Asymptomatic menopausal state; Translations: [Asymptomatic menopausal state] Onset: 05-27-2025 Episodic Spondylosis; intervertebral disc disorders; other back problems (20 sources) Lumbosacral spondylosis without myelopathy; Translations: [Spondylosis without myelopathy or radiculopathy, lumbosacral region] Onset: 06-07-2025 01-29-2019 Chronic Spondylosis; intervertebral disc disorders; other back problems (17 sources) Lumbosacral radiculopathy; Translations: [Radiculopathy, lumbosacral region] 01-29-2019 Episodic Results Test Name Value Interpretation Reference Range Facility MR/PATElieValente 07-29-2025 /PAT.[facility] Medical Records Department [address] [place] [address] PAT - Anesthesia 07/29/25917 MR#: [id number] Acct: [id number] Name: KATHARINE MEDRANO Rep #: [id number] : 1945 80 From: Anthony Yanez MD PCP: Dr. Ruben Guerrero MD Status:PRE [facility] Y Race: C Location: [facility] Pre-Assessment Diagnosis/Proposed Procedure Planned Operative Procedure(s): (L) LUMBAR RADIOFREQUENCY ABLATION AT MEDIAL BRANCH AT L4 L5 S1 UNDER FLUOROSCOPY Anesthesia History Anesthesia History - licensed practical nurse: Anesthesia History - licensed practical nurse Hx Hospitalization No 07/29/25 08:18 Any Problems With Anesthesia No 07/29/25 08:18 Cholinesterase deficiency No 07/29/25 08:18 You/Your Family Experience No 07/29/25 08:18 fever (hyperthermia) with Relationship Recent Exposure to Contagious No 06/03/25 06:54 Disease Does patient have nerve No 07/29/25 08:18 stimulator Patient instructed to have device shut off --Does patient have Pacemaker or ICD? When Was Last Pacemaker Check QUESTION #4 FULL TEXT: You/Your Family Experience fever (hyperthermia) with Anesthesia Last Oral Intake Last Oral intake: Last Oral Intake NPO since Meds taken in AM with sips of water? Meds patient instructed to take am of surgery PONV PONV - licensed practical nurse: PONV - licensed practical nurse Female Yes 07/29/25 08:18 HX of Motion Sickness No 07/29/25 08:18 HX of N/V After Surgery No 07/29/25 08:18 Non-Smoker Yes 07/29/25 08:18 Duration of Surgery greater No 07/29/25 08:18 than 60 minutes Number of Risk Factors 2 07/29/25 08:18 PONV Score Moderate Risk 07/29/25 08:18 Height Weight Height Weight: Anesthesia: Height Weight Height 5 ft 2 in 06/03/25 06:54 Respiratory Assessment Respiratory Assessment - licensed practical nurse: Respiratory Tract Infection Hx - licensed practical nurse Hx Respiratory Tract Infection No 07/29/25 08:18 STOP Sleep Apnea STOP Sleep Apnea - licensed practical nurse: STOP Sleep Apnea - licensed practical nurse Hx Hypertension Yes: on meds 07/29/25 08:18 Hx Sleep Apnea Yes 07/29/25 08:18 CPAP Yes 07/29/25 08:18 BIPAP No 07/29/25 08:18 Do you snore loudly (louder than talking or can be heard Do you often feel tired/ fatigued/ sleepy during daytime? Has anyone observed you stop breathing during sleep? STOP Results Positive 07/29/25 08:18 QUESTION #5 FULL TEXT : Do you snore loudly (louder than talking or can be heard through closed doors)? Tobacco Use History Tobacco Use History - licensed practical nurse: Tobacco Use History - licensed practical nurse Tobacco Use Smoking Status Never smoker 07/29/25 08:18 Hx Tobacco Use No 07/29/25 08:18 Years Smoking Packs Smoked per Day Smoking Cessation Date was within the last 15 years Hx Smoking Cessation Date Hx Smoking Cessation Counseling Hematologic Medial History Hematologic Hx - licensed practical nurse: Hematologic Medical Hx - hand salter Hx of Blood Transfusion No 07/29/25 08:18 Hx of Transfusion in last 3 No 07/29/25 08:18 Months Date of Last Transfusion (if within last 3 months) Ever experience any problems No 07/29/25 08:18 with transfusion(s)? Specify any problems Hx of Preganancy in last 3 No 07/29/25 08:18 Months Nurse Filling Out Transfusion JZOLLINGE 07/29/25 08:18 Questions: Date: 07/29/25 07/29/25 08:18 Time: 08:19 07/29/25 08:18 Patient unable to answer at this time (ie. confused, unrespo /Reproduct ion History /Reproduct mary History - licensed practical nurse: /Reproduct mary Hx- licensed practical nurse Hx Now No 07/29/25 08:18 Gestational Age (in weeks): EDC: Hx Hx Para Hx Section SAB No 07/29/25 08:18 [facility] Medical History Bladder disease History of diverticulitis [...] History of hemorrhoids History of cancer Hypertension Home Medications ???Medication ???Instructions ???Recorded ???Last Taken ???Type acetaminophen 500 mg tablet 1,000 mg PO Q8 PRN Pain Or Fever 0 07/29/20 Unknown History glucosamine-chondro itin 250 mg-200 1 tab PO BID 06/09/23 06/02/25 H istory mg tablet (Osteo Bi-Flex) multivitamin 1 ta (more content not included)... Normal [facility] Bone density reportOrdered B y: Oscar Bellamy on 06-11-2025 Study report Skeletal system DXA [facility] Imaging Services [address] [place] [address] Dexa Bone Density Study MR#: [id number] Acct: [id number] Name: KATHARINE MEDRANO Rep #: [id number] : 1945 F 80 From: Maximilian Bellamy MD PCP: Dr. Ruben Guerrero MD Status: REG CLI Study:Dexa Bone Density Study Date of Exam: 06/11/25 Exam# [id number] Ordering Dr: Payal Ortiz DO PROCEDURE: DEXA BONE DENSITY STUDY 06/11/2025 REASON FOR EXAM: POSTMENOPAUSAL F, age 80 y/o . Postmenopausal. TECHNIQUE: DEXA BONE DENSITY STUDY COMPARISON: Prior study dated October 02, 2020. FINDINGS: BMD and T-SCORES Lumbar spine: 1.104 g/cm2, T-score 0.5 Levels: L1-L4. Change from prior: No change. Left femoral neck: 0.704 g/cm2, T-score -1.3 Femoral neck comparison data not recommended for monitoring change. Left total hip: 1.036 g/cm2, T-score 0.8 Change from prior: Improvement of 12.3%. The World Health Organization has defined the following categories based on bonedensity: Normal bone density: T-score equal to or greater than -1.0 Osteopenia: T-score between -1.0 and -2.5 Osteoporosis: T-score equal to or less than -2.5 The patient does meet the pharmacological treatment recommendations for prevention of osteoporosis. BD/Dexa Bone Density Study IMPRESSION: OSTEOPENIA. Recommend follow-up as clinically warranted. Reading Location: [place] [address] CC: Dr. Ruben Guerrero MD; Dr. Payal Cote DO ~ Manager Field Sales: Signed [facility] Dexa Bone Density Studyon Dexa Bone Density Study [facility] Imaging Services [address] [place] [address] [id number] Dexa Bone Density Study MR#: [id number] Acct: [id number] Name: KATHARINE MEDRANO Rep #: [id number] : 1945 F 80 From: Oscar arreaga MD PCP: Dr. Ruben Guerrero MD Status: REG CLI Study: Dexa Bone Density Study Date of Exam: 06/11/25 Exam# [id number] Ordering Dr: Payal Cote DO PROCEDURE: DEXA BONE DENSITY STUDY 06/11/2025 REASON FOR EXAM: POSTMENOPAUSAL F, age 80 y/o . Postmenopausal. TECHNIQUE: DEXA BONE DENSITY STUDY COMPARISON: Prior study dated October 02, 2020. FINDINGS: BMD and T-SCORES Lumbar spine: 1.104 g/cm2, T-score 0.5 Levels: L1-L4. Change from prior: No change. Left femoral neck: 0.704 g/cm2, T-score -1.3 Femoral neck comparison data not recommended for monitoring change. Left total hip: 1.036 g/cm2, T-score 0.8 Change from prior: Improvement of 12.3%. The World Health Organization has defined the following categories based on bone density: Normal bone density: T-score equal to or greater than -1.0 Osteopenia: T-score between -1.0 and -2.5 Osteoporosis: T-score equal to or less than -2.5 The patient does meet the pharmacological treatment recommendations for prevention of osteoporosis. BD/Dexa Bone Density Study IMPRESSION: OSTEOPENIA. Recommend follow-up as clinically warranted. Reading Location: [place] [address] CC: Dr. Ruben Guerrero MD; Dr. Payal Cote DO Manager Field Sales: Signed Normal [facility] Lumbar Spine 2 or 3 Viewson 06-03-2025 Lumbar Spine 2 or 3 Views [facility] Imaging Services [address] [place] [address]21 Lumbar Spine 2 or 3 Views MR#: [id number] Acct: [id number] Name: KATHARINE MEDRANO Rep #: [id number] : 1945 F 80 From: Lida kirby MD PCP: Dr. Ruben Guerrero MD Status: [facility] Study: Lumbar Spine 2 or 3 Views Date of Exam: Exam# [id number] Ordering Dr: Gee Alanis MD PROCEDURE: LUMBAR SPINE 2 OR 3 VIEWS 06/03/2025 REASON FOR EXAM: RADIOFREQUENCY ABLATION RT L4 L5 S1 TECHNIQUE: LUMBAR SPINE 2 OR 3 VIEWS Fluoroscopic images. Fluoroscopy time 8.8 seconds. Radiation dose 4.62 mGy. COMPARISON: None. FINDINGS: Radiofrequency ablation on the right side at L4-L5 and L5-S1 levels. RAD/Lumbar Spine 2 or 3 Views IMPRESSION: Radiofrequency ablation on the right side at L4-L5 and L5-S1 levels. [facility] CC: Dr. Ruben Guerrero MD; Dr. Gee Alanis MD Manager Field Sales: Signed [facility] MR/POSTOP.ANEon 06-03-2025 MR/POSTOP.[facility] Medical Records Department [address] [place] [address] Anesthesia Postop Eval I 06/03/25822 MR#: [id number] Acct: [id number] Name: KATHARINE MEDRANO Rep #: [id number] : 1945 80 From: Marquis William CRNA PCP: Dr. Ruben Guerrero MD Status:REG [facility]C Y Race: C Location: [place] [address] Anesthesia: Postop Eval I Current Vital Signs Temperature: 97.4 F Pulse Rate: 78 Blood Pressure: 117/61 Respiratory Rate: 16 Pulse Ox: 96 Oxygen Delivery Method: Room Air Assessment Airway patent: Yes Spontaneous unlabored respirations: Yes Mental status: Awake nausea: No Vomiting: No Anesthesia Complication: No Fluid Hydration Crystalloid volume administer (ml): 150 Total IV fluid infused: 150 Progress Note Anesthesia document: Postop Eval 1 completed: Yes 06/03/25822 Date Marquis William CONSUMER AFFAIRS SPECIALIST Cosigner Signature: Date CC: Signed [facility] Operative Reporton Operative Report [facility] Medical Records Department [address] [place] [address] Operative Report 06/03/25817 MR#: [id number] Acct: [id number] Name: KATHARINE MEDRANO Rep #: [id number] : 1945 80 From: Gee Alanis MD PCP: Dr. Ruben Guerrero MD Status:REG [facility] Location: [address] Operative Report (Standard) Operative Information Date of Procedure: 06/03/25 Pre-Operative Diagnosis: Lumbosacral spondylosis, lumbosacral degenerative disc disease, lumbar facet arthropathy Post-Operative Diagnosis: Lumbosacral spondylosis, lumbosacral degenerative disc disease, lumbar facet arthropathy Surgery/Procedure Performed: Right sided lumbar radiofrequency ablation of the medial branch at L4, L5, S1 it service continuity supervisor: No Type of Anesthesia: Local MAC RN Documented Start/Stop Times: Operation Date: 06/03/25 08:00 Case Time Into Pre-Op 06/03/25 06:41 Out of Pre-Op 06/03/25 07:43 Anesthesia Start 06/03/25 07:55 Into Room 06/03/25 07:55 Procedure Start 06/03/25 08:01 Procedure End 06/03/25 08:14 Anesthesia End 06/03/25 08:17 Out of Room 06/03/25 08:17 Procedure Start Time: 08:19 Procedure Stop Time: 08:19 Select all DRAINS/GRAFTS/IMPLA NTS that apply: None Estimated Blood Loss: 1 Specimen collected: No Description of surgery: PROCEDURE PERFORMED: Right-sided radiofrequency ablation of the medial branch at L4, L5, and S1. ANESTHESIA: MAC. BLOOD LOSS: Minimal. COMPLICATIONS: None. DESCRIPTION OF PROCEDURE: History and physical of today was reviewed. Risks and benefits of the procedure were explained. The patient understood and agreed to proceed. Informed consent was obtained. IV inserted per routine protocol. The patient was taken to the operating room and placed in the prone position with a pillow positioned underneath the abdomen. The right side of her lower back was prepped and draped in a sterile fashion using iodine x3. Under fluoroscopy guidance in an oblique view, the L3 through S1 vertebral bodies were visualized. The skin and subcutaneous tissue was anesthetized with approximately 10 mL of 1% lidocaine using a 25-gauge regular needle. Under direct visualization on fluoroscopy at approximately 25-degree angle, starting on the right L3, ending on the right S1, passing through the L4 and L5, using a 20-gauge 15-cm with a 10-mm curved active-tip radiofrequency ablation needle, the needle was passed through the skin. The tip of the needle was maneuvered and directed towards the superior medial gutter of the transverse process at the vicinity of the medial branch. Once the tip of the needle was in contact with the bone, the needle was pulled approximately 2 mm off the bone. The stylette of each needle was then removed. After negative aspiration of blood or CSF and confirmation on AP, oblique as well as lateral view, the radiofrequency ablation probe was then inserted at each level. Impedance was then recorded at L3 to be 212 ohm, at L4 to be 295 ohm, at L5 to be 260 ohm, and at S1 to be 316 ohm. Motor evoked potential was then initiated to 1.5 volt without any motor response at each corresponding level. The probe was then removed intact and a total of 6 mL of preservative-free 1% lidocaine was injected in divided doses between those four levels after negative aspiration of blood or CSF. The radiofrequency ablation probe was then reinserted. After confirmation on AP, oblique as well as lateral view, radiofrequency ablation was then initiated to 80 degree Celsius for 90 second at each level. Once concluded, the probe was then removed intact. A total of 6 mL of preservative-free 0.25% Marcaine with 40 mg of Depo-Medrol was injected in divided doses between those four levels. The needles were then removed intact. The patient experienced no sign or symptoms of intrathecal or intravascular injection. The patient experienced no paresthesia. The procedure was completed without any apparent difficulty or any complications. The patient appeared to tolerate it well. Sensory as well as motor exam was unchanged from prior to the procedure. ASSESSMENT AND PLAN: This is a 80-year-old female with lumbosacral spondylosis, lumbosacral degenerative disc disease, lumbar facet arthropathy, status post right sided lumbar radiofrequency ablation of the medial branch at L4-S1, patient will continue her current medications, patient will follow-up in approximately 2 weeks for reevaluation. Surgical Findings: 0 Complications Complications: No Admit VTE Documentation VTE Present on Admission: No VTE Mechan Device Prophylaxis: None VTE Pharm Prophylaxis ordered?: No 06/03/25820 Cosigner Signature (if applicable): CC: Dr. Ruben Guerrero MD; Dr. Gee Alanis MD Signed Normal [facility] Wet Process Technician Office Visit Reporton 05-27-2025 Wet Process Technician Office Visit Report [facility] [address] [place] [address], [address] [place] [address] OFFICE VISIT Date of Service: 05/27/25 MR#: [id number] Acct: [id number] Name: KATHARINE MEDRANO Rep #: [id number] : 1945 Provider: Dr. Payal Mackenzie, Age/Sex: 80/F Location: [facility] Status: Signed Intake Vital Signs 05/25/24 14:44 05/27/25 11:06 05/27/25 11:08 Height 5 ft 2 in 5 ft 2 in 5 ft 2 in Weight: 230 lb 8 oz BMI 42.1 BP 140/84 H Intake Visit Reasons: Annual (HOME HEALTH CARE RESPIRATORY THERAPIST) Lead Teller Required: No Is patient in pain?: No [...] safe at home: Yes additional social history: [facility] History 4 Elective abortions Hx Para 3 Spontaneous abortions Hx # Term Pregnancies Ectopic pregnancies Hx # Pregnancies Multiple births # of living children Past Pregnancies Del. Date Name GA/Weeks Outcome Route Bth Weight Infant Gen Labor Lgth Anesthesia Del Locatn Provider FOB Unknown Wade Unknown Dunia Unknown [facility] Encounter for routine gynecological examination [...] (more content not included)... Normal [facility] Absolute lymphocyte countOrd ered By: Ruben Guerrero on 04-30-2025 Lymphocytes Auto (Unsp spec) [#/Vol] 1.73 10*3/uL 0.83-4.51 [facility] Absolute neutrophil countOrd ered By: Ruben Guerrero on 04-30-2025 Neutrophils (Bld) [#/Vol] 7.0 10*3/uL 2.0-7.7 [facility] Anion gap in Serum or Plasma Ordered By: Ruben Guerrero on 04-30-2025 Anion gap [Moles/Vol] 14 mmol/L 5-15 [facility] Automated lymphocyte count a s percentage of total leukocytesOrdered By: Ruben Guerrero on 04-30-2025 Lymphocytes/100 WBC Auto (Unsp spec) 17.8 % Low 19-41 [facility] BUN/creatinine ratioOrdered By: Ruben Guerrero on 04-30-2025 Urea nitrogen/Creatinine [Mass ratio] 17.6 mg/mg 10-20 [facility] Basophil percentageOrdered B y: Ruben Guerrero on 04-30-2025 Basophils/100 WBC (Bld) 1.0 % 0-1 [facility] Bilirubin, totalOrdered By: Ruben Guerrero on 04-30-2025 Bilirubin [Mass/Vol] 0.58 mg/dL 0.00-1.30 [facility] CBC W/Diff, Automatedon Absolute Lymph 1.73 X10 3/uL Normal 0.83-4.51 [facility] Comment on above: Order Comment: Order Date: 04/30/25 Order Info: 0184-1 - CBCD Performed By: #### L 100.0100, L500.4050, L500.4100 #### [facility] [address] [place], [address] Absolute Neut 7.0 X10 3/uL Normal 2.0-7.7 [facility] Comment on above: Order Comment: Order Date: 04/30/25 Order Info: 0184-1 - CBCD Performed By: #### L 100.0100, L500.4050, L500.4100 #### [facility] [address] [place], [address] Basophils/100 WBC (Bld) 1.0 % Normal 0-1 [facility] Comment on above: Order Comment: Order Date: 04/30/25 Order Info: 0184-1 - CBCD Performed By: #### L 100.0100, L500.4050, L500.4100 #### [facility] [address] [place], [address] Eosinophils/100 WBC (Bld) 1.5 % Normal 0-5 [facility] Comment on above: Order Comment: Order Date: 04/30/25 Order Info: 0184-1 - CBCD Performed By: #### L 100.0100, L500.4050, L500.4100 #### [facility] [address] [place], [address] Erythrocyte distribution width (RBC) [Ratio] 13.4 % Normal 11.6-14.6 [facility] Comment on above: Order Comment: Order Date: 04/30/25 Order Info: 0184-1 - CBCD Performed By: #### L 100.0100, L500.4050, L500.4100 #### [facility] [address] [place], [address] Hematocrit (Bld) [Volume fraction] 43.7 % Normal 37-47 [facility] Comment on above: Order Comment: Order Date: 04/30/25 Order Info: 0184-1 - CBCD Performed By: #### L 100.0100, L500.4050, L500.4100 #### [facility] [address] [place], [address] Hemoglobin (Bld) [Mass/Vol] 14.2 g/dL Normal 12.0-15.0 [facility] Comment on above: Order Comment: Order Date: 04/30/25 Order Info: 018- - CBCD Performed By: #### L 100.0100, L500.4050, L500.4100 #### [facility] [address] [place], [address] IG% 0.400 Normal 0.0-0.9 [facility] Comment on above: Order Comment: Order Date: 04/30/25 Order Info: [id number] - CBCD Result Comment: IG% - Immature Granulocytes (promyelocytes, myelocytes and metamyelocytes) > 1% indicates that a LEFT SHIFT is Present. Performed By: #### L 100.0100, L500.4050, L500.4100 #### [facility] [address] [place], [address] Lymphocytes/100 WBC (Bld) 17.8 % Low 19-41 [facility] Comment on above: Order Comment: Order Date: 04/30/25 Order Info: [id number] - CBCD Performed By: #### L 100.0100, L500.4050, L500.4100 #### [facility] [address] [place], [address] MCH (RBC) [Entitic mass] 29.6 pg Normal 27.0-32.0 [facility] Comment on above: Order Comment: Order Date: 04/30/25 Order Info: 018- - CBCD Performed By: #### L 100.0100, L500.4050, L500.4100 #### [facility] [address] [place], [address] MCHC (RBC) [Mass/Vol] 32.5 g/dL Normal 32-36 [facility] Comment on above: Order Comment: Order Date: 04/30/25 Order Info: 0184-1 - CBCD Performed By: #### L 100.0100, L500.4050, L500.4100 #### [facility] [address] [place], [address] MCV (RBC) [Entitic vol] 91.2 fL Normal 81-99 [facility] Comment on above: Order Comment: Order Date: 04/30/25 Order Info: 0184-1 - CBCD Performed By: #### L 100.0100, L500.4050, L500.4100 #### [facility] [address] [place], [address] Monocytes/100 WBC (Bld) 7.5 % Normal 0-10 [facility] Comment on above: Order Comment: Order Date: 04/30/25 Order Info: 0184-1 - CBCD Performed By: #### L 100.0100, L500.4050, L500.4100 #### [facility] [address] [place], [address] Neutrophils/100 WBC (Bld) 71.8 % High 47-70 [facility] Comment on above: Order Comment: Order Date: 04/30/25 Order Info: 0184-1 - CBCD Performed By: #### L 100.0100, L500.4050, L500.4100 #### [facility] [address] [place], [address] Nucleated RBC (Bld) [#/Vol] 0 10*3/uL Normal 0-5 [facility] Comment on above: Order Comment: Order Date: 04/30/25 Order Info: 0184-1 - CBCD Performed By: #### L 100.0100, L500.4050, L500.4100 #### [facility] [address] [place], [address] Platelet mean volume (Bld) [Entitic vol] 10.6 fL Normal 6.2-12.0 [facility] Comment on above: Order Comment: Order Date: 04/30/25 Order Info: 0184-1 - CBCD Performed By: #### L 100.0100, L500.4050, L500.4100 #### [facility] [address] [place], [address] Platelets (Bld) [#/Vol] 323 10*3/uL Normal 150-450 [facility] Comment on above: Order Comment: Order Date: 04/30/25 Order Info: 0184-1 - CBCD Performed By: #### L 100.0100, L500.4050, L500.4100 #### [facility] [address] [place], [address] RBC (Bld) [#/Vol] 4.79 10*6/uL Normal 4.2-5.4 [facility] Comment on above: Order Comment: Order Date: 04/30/25 Order Info: 0184-1 - CBCD Performed By: #### L 100.0100, L500.4050, L500.4100 #### [facility] [address] [place], [address] RDW SD 45.0 fl High 35.1-43.9 [facility] Comment on above: Order Comment: Order Date: 04/30/25 Order Info: 0184-1 - CBCD Performed By: #### L 100.0100, L500.4050, L500.4100 #### [facility] [address] [place], [address] WBC (Bld) [#/Vol] 9.7 10*3/uL Normal 4.4-11.0 [facility] Comment on above: Order Comment: Order Date: 04/30/25 Order Info: 0184-1 - CBCD Performed By: #### L 100.0100, L500.4050, L500.4100 #### [facility] [address] [place], [address] Calculated very low density lipoprotein (VLDL) cholesterol measurementOrdered By: Ruben Guerrero on 04-30-2025 Calculated very low density lipoprotein (VLDL) cholesterol measurement 31 mg/dL 5-40 [facility] Carbon dioxide, total [Moles /volume] in Central venous bloodOrdered By: Ruben Guerrero on 04-30-2025 CO2 [Moles/Vol] 23.0 mmol/L 21.0-32.0 [facility] Chloride assayOrdered By: Carlos Guerrero on 04-30-2025 Chloride [Moles/Vol] 103 mmol/L 98-108 [facility] Comprehensive Metabolic Prof ilon 04-30-2025 Albumin [Mass/Vol] 4.0 g/dL Normal 3.4-4.8 [facility] Comment on above: Order Comment: Order Date: 04/30/25 Order Info: 0786-1 - CMP Order Info: [id number] - LIPID Performed By: #### L 100.0100, L500.4050, L500.4100 #### [facility] [address] [place], [address] Albumin/Globulin [Mass ratio] 1.1 {ratio} Normal 0.9-2.4 [facility] Comment on above: Order Comment: Order Date: 04/30/25 Order Info: 0786-1 - CMP Order Info: [id number] - LIPID Performed By: #### L 100.0100, L500.4050, L500.4100 #### [facility] [address] [place], [address] ALK PHOS 114 U/L High 35-104 [facility] Comment on above: Order Comment: Order Date: 04/30/25 Order Info: 0786-1 - CMP Order Info: [id number] - LIPID Performed By: #### L 100.0100, L500.4050, L500.4100 #### [facility] [address] [place], [address] ALT [Catalytic activity/Vol] 22 U/L Normal <=34 [facility] Comment on above: Order Comment: Order Date: 04/30/25 Order Info: 0786-1 - CMP Order Info: [id number] - LIPID Performed By: #### L 100.0100, L500.4050, L500.4100 #### [facility] [address] [place], [address] AST [Catalytic activity/Vol] 27 U/L Normal <=31 [facility] Comment on above: Order Comment: Order Date: 04/30/25 Order Info: 0786-1 - CMP Order Info: [id number] - LIPID Performed By: #### L 100.0100, L500.4050, L500.4100 #### [facility] [address] [place], [address] Bilirubin [Mass/Vol] 0.58 mg/dL Normal 0.00-1.30 [facility] Comment on above: Order Comment: Order Date: 04/30/25 Order Info: 0786-1 - CMP Order Info: [id number] - LIPID Performed By: #### L 100.0100, L500.4050, L500.4100 #### [facility] [address] [place], [address] BUN/CRE 17.6 RATIO Normal 10-20 [facility] Comment on above: Order Comment: Order Date: 04/30/25 Order Info: 0786-1 - CMP Order Info: [id number] - LIPID Performed By: #### L 100.0100, L500.4050, L500.4100 #### [facility] [address] [place], [address] Calcium [Mass/Vol] 10.0 mg/dL Normal 7.6-11.0 [facility] Comment on above: Order Comment: Order Date: 04/30/25 Order Info: 0786-1 - CMP Order Info: [id number] - LIPID Performed By: #### L 100.0100, L500.4050, L500.4100 #### [facility] [address] [place], [address] Chloride [Moles/Vol] 103 mmol/L Normal 98-108 [facility] Comment on above: Order Comment: Order Date: 04/30/25 Order Info: 0786-1 - CMP Order Info: [id number] - LIPID Performed By: #### L 100.0100, L500.4050, L500.4100 #### [facility] [address] [place], [address] CO2 [Moles/Vol] 23.0 mmol/L Normal 21.0-32.0 [facility] Comment on above: Order Comment: Order Date: 04/30/25 Order Info: 0786 - CMP Order Info: [id number] - LIPID Performed By: #### L 100.0100, L500.4050, L500.4100 #### [facility] [address] [place], [address] Creatinine [Mass/Vol] 0.86 mg/dL Normal 0.70-1.20 [facility] Comment on above: Order Comment: Order Date: 04/30/25 Order Info: 0786-1 - CMP Order Info: [id number] - LIPID Performed By: #### L 100.0100, L500.4050, L500.4100 #### [facility] [address] [place], [address] GAP 14 Normal 5-15 [facility] Comment on above: Order Comment: Order Date: 04/30/25 Order Info: 0786-1 - CMP Order Info: [id number] - LIPID Performed By: #### L 100.0100, L500.4050, L500.4100 #### [facility] [address] [place], [address] GFR/1.73 sq M.predicted among non-blacks MDRD (S/P/Bld) [Vol rate/Area] 69 mL/min/{1.73_m2} Normal >60 [facility] Comment on above: Order Comment: Order Date: 04/30/25 Order Info: 0786-1 - CMP Order Info: [id number] - LIPID Result Comment: mL/m in/1.73m2 CKD-EPI Creatinine Equation (2020) Performed By: #### L 100.0100, L500.4050, L500.4100 #### [facility] [address] [place], [address] Globulin (S) [Mass/Vol] 3.5 g/dL Normal 2.2-4.2 [facility] Comment on above: Order Comment: Order Date: 04/30/25 Order Info: 0786- - CMP Order Info: [id number] - LIPID Performed By: #### L 100.0100, L500.4050, L500.4100 #### [facility] [address] [place], [address] Glucose [Mass/Vol] 98 mg/dL Normal 70-99 [facility] Comment on above: Order Comment: Order Date: 04/30/25 Order Info: 0786- - CMP Order Info: [id number] - LIPID Performed By: #### L 100.0100, L500.4050, L500.4100 #### [facility] [address] [place], [address] Potassium [Moles/Vol] 4.0 mmol/L Normal 3.3-5.1 [facility] Comment on above: Order Comment: Order Date: 04/30/25 Order Info: 0786-1 - CMP Order Info: [id number] - LIPID Performed By: #### L 100.0100, L500.4050, L500.4100 #### [facility] [address] [place], [address] Sodium [Moles/Vol] 140 mmol/L Normal 133-145 [facility] Comment on above: Order Comment: Order Date: 04/30/25 Order Info: 0786-1 - CMP Order Info: [id number] - LIPID Performed By: #### L 100.0100, L500.4050, L500.4100 #### [facility] [address] [place], [address] T PROT 7.5 g/dL Normal 5.9-8.4 [facility] Comment on above: Order Comment: Order Date: 04/30/25 Order Info: 0786-1 - CMP Order Info: [id number] - LIPID Performed By: #### L 100.0100, L500.4050, L500.4100 #### [facility] [address] [place], [address] Urea nitrogen [Mass/Vol] 15 mg/dL Normal 4-19 [facility] Comment on above: Order Comment: Order Date: 04/30/25 Order Info: 0786-1 - CMP Order Info: [id number] - LIPID Performed By: #### L 100.0100, L500.4050, L500.4100 #### [facility] [address] [place], [address] Eosinophil percentageOrdered By: Ruben Guerrero on 04-30-2025 Eosinophils/100 WBC (Bld) 1.5 % 0-5 [facility] Erythrocyte distribution wid th ratioOrdered By: Ruben Guerrero on 04-30-2025 Erythrocyte distribution width (RBC) [Ratio] 13.4 % 11.6-14.6 [facility] Erythrocyte distribution wid th standard deviationOrdered By: Ruben Guerrero on 04-30-2025 Erythrocyte distribution width (RBC) [Ratio] 45.0 fl High 35.1-43.9 [facility] Glomerular filtration rate ( GFR) estimation/1.73 sq m using serum, plasma, or whole bOrdered By: Ruben Guerrero on 04-30-2025 GFR/1.73 sq M.predicted among non-blacks MDRD (S/P/Bld) [Vol rate/Area] 69 mL/min/{1.73_m2} >60 [facility] Comment on above: mL/min/1.73m2 CKD-EP I Creatinine Equation (2020) Hematocrit Auto (Bld) [Volum e fraction]Ordered By: Ruben Guerrero on 04-30-2025 Hematocrit (Bld) [Volume fraction] 43.7 % 37-47 [facility] Hemoglobin measurementOrdere d By: Ruben Guerrero on 04-30-2025 Hemoglobin (Bld) [Mass/Vol] 14.2 g/dL 12.0-15.0 [facility] Immature granulocytes/100 WB C Auto (Bld)Ordered By: Ruben Guerrero on 04-30-2025 Immature granulocytes/100 WBC (Bld) 0.400 % 0.0-0.9 [facility] Comment on above: IG% - Immature Granu locytes (promyelocytes, myelocytes and metamyelocytes) > 1% indicates that a LEFT SHIFT is Present. LDL calc ser/plasOrdered By: Ruben Guerrero on 04-30-2025 Cholesterol in LDL [Mass/Vol] 94 mg/dL [facility] Comment on above: Wxlhkttwmr=807-378 m g/dL & Higher Ybjt=800 mg/dL or greater Laboratory - Chemistry and C hemistry - challengeOrdered By: Ruben Guerrero on 04-30-2025 AST [Catalytic activity/Vol] 27 U/L <32 [facility] Lipid Profileon 04-30-2025 CHOL:HDL 3.59 Normal [facility] Comment on above: Order Comment: Order Date: 04/30/25 Order Info: 0786-1 - CMP Order Info: [id number] - LIPID Performed By: #### L 100.0100, L500.4050, L500.4100 #### [facility] [place], [address] Cholesterol [Mass/Vol] 173 mg/dL Normal <=200 [facility] Comment on above: Order Comment: Order Date: 04/30/25 Order Info: 0786-1 - CMP Order Info: [id number] - LIPID Result Comment: Chol esterol level, Desirable <200 mg/dL Borderline high cholesterol 200-239 mg/dL High cholesterol >=240 mg/dL Recommendations of the NCEP Adult Treatment Panel for the following risk-cutoff thresholds for the [place] population. Performed By: #### L 100.0100, L500.4050, L500.4100 #### [facility] [address] [place], [address] Cholesterol in HDL [Mass/Vol] 48 mg/dL Normal [facility] Comment on above: Order Comment: Order Date: 04/30/25 Order Info: 0786-1 - CMP Order Info: [id number] - LIPID Result Comment: Cristiana onal Cholesterol Education Program (NCEP) guidelines: <40 mg/dL: Low HDL-cholesterol (major risk factor for CHD) >= 60 mg/dL: High HDL-cholesterol (negative risk factor for CHD) HDL-cholesterol is affected by a number of factors, e.g. smoking, exercise, hormones, sex and age. Performed By: #### L 100.0100, L500.4050, L500.4100 #### [facility] [address] [place], [address] Cholesterol in LDL [Mass/Vol] 94 mg/dL Normal [facility] Comment on above: Order Comment: Order Date: 04/30/25 Order Info: 0786-1 - CMP Order Info: [id number] - LIPID Result Comment: Bord osyrnf=303-449 mg/dL Higher Iadu=909 mg/dL or greater Performed By: #### L 100.0100, L500.4050, L500.4100 #### [facility] [address] [place], [address] Cholesterol in VLDL [Mass/Vol] 31 mg/dL Normal 5-40 [facility] Comment on above: Order Comment: Order Date: 04/30/25 Order Info: 0786-1 - CMP Order Info: [id number] - LIPID Performed By: #### L 100.0100, L500.4050, L500.4100 #### [facility] [address] [place], [address] Triglyceride [Mass/Vol] 156 mg/dL Normal [facility] Comment on above: Order Comment: Order Date: 04/30/25 Order Info: 0786-1 - CMP Order Info: [id number] - LIPID Result Comment: The drugs N-Acetylcysteine and Metamizole may falsely depress this assay. Normal range: <150 mg/dL Borderline High: 150-199 mg/dL High: 200-499 mg/dL Very High: >500 mg/dL Performed By: #### L 100.0100, L500.4050, L500.4100 #### [facility] [address] [place], [place], [address] MCV (mean corpuscular volume ) determinationOrdered By: Ruben Guerrero on 04-30-2025 MCV (RBC) [Entitic vol] 91.2 fL 81-99 [facility] Mean corpuscular hemoglobin (MCH) determinationOrdered By: Ruben Gurerero on 04-30-2025 MCH (RBC) [Entitic mass] 29.6 pg 27.0-32.0 [facility] Mean corpuscular hemoglobin concentration (MCHC) determinationOrdered By: Ruben Guerrero on 04-30-2025 MCHC (RBC) [Mass/Vol] 32.5 g/dL 32-36 [facility] Mean platelet volume determi nationOrdered By: Ruben Guerrero on 04-30-2025 Platelet mean volume (Bld) [Entitic vol] 10.6 fL 6.2-12.0 [facility] Microalb:Creat Ratio,Random URon 04-30-2025 Creatinine [Mass/Vol] 77.70 mg/dL Normal 28.00-217.00 [facility] Comment on above: Performed By: #### L 502.0250 #### [facility] [address] [place], [address] MALB:CREAT 137.7 mg/g CRE Normal [facility] Comment on above: Performed By: #### L 502.0250 #### [facility] [address] [place], [place], [address] MICROALBUMIN,UR 107.0 mg/L Normal NO RANGE EST. [facility] Comment on above: Performed By: #### L 502.0250 #### [facility] [address] [place], [place], [id number] Monocyte percentageOrdered B y: Ruben Guerrero on 04-30-2025 Monocytes/100 WBC (Bld) 7.5 % 0-10 [facility] Neutrophil percentageOrdered By: Ruben Guerrero on 04-30-2025 Neutrophils/100 WBC (Bld) 71.8 % High 47-70 [facility] Nucleated red blood cell per centageOrdered By: Ruben Guerrero on 04-30-2025 Nucleated RBC/100 WBC (Bld) [Ratio] 0 % 0-5 [facility] Platelet countOrdered By: Carlos Guerrero on 04-30-2025 Platelets (Bld) [#/Vol] 323 10*3/uL 150-450 [facility] Potassium measurement (mass/ volume)Ordered By: Ruben Guerrero on 04-30-2025 Potassium (Unsp spec) [Mass/Vol] 4.0 mmol/L 3.3-5.1 [facility] RBC Auto (Bld) [#/Vol]Ordere d By: Ruben Guerrero on 04-30-2025 RBC (Bld) [#/Vol] 4.79 10*6/uL 4.2-5.4 [facility] Random urine creatinine rebeca urement (mass/volume)Ordered By: Ruben Guerrero on 04-30-2025 Creatinine Unsp time (U) [Mass/Vol] 77.70 mg/dL 28.00-217.00 [facility] Screening total cholesterol/ high density lipoprotein (HDL) cholesterol ratioOrdered By: Ruben Guerrero on 04-30-2025 Cholesterol.total/Cholest destinee in HDL [Mass ratio] 3.59 {ratio} [facility] Serum creatinine measurement (mass/volume)Ordered By: Ruben Guerrero on 04-30-2025 Creatinine [Mass/Vol] 0.86 mg/dL 0.70-1.20 [facility] Serum globulin measurementOr dered By: Ruben Guerrero on 04-30-2025 Globulin (S) [Mass/Vol] 3.5 g/dL 2.2-4.2 [facility] Serum glucose measurement (m ass/volume)Ordered By: Ruben Guerrero on 04-30-2025 Glucose [Mass/Vol] 98 mg/dL 70-99 [facility] Serum or plasma alanine donohue otransferase (ALT) measurementOrdered By: Ruben Guerrero on 04-30-2025 ALT [Catalytic activity/Vol] 22 U/L <35 [facility] Serum or plasma albumin rebeca urement (mass/volume)Ordered By: Ruben Guerrero on 04-30-2025 Albumin [Mass/Vol] 4.0 g/dL 3.4-4.8 [facility] Serum or plasma albumin/glob ulin mass ratioOrdered By: Ruben Guerrero on 04-30-2025 Albumin/Globulin [Mass ratio] 1.1 {ratio} 0.9-2.4 [facility] Serum or plasma alkaline karlene sphatase measurementOrdered By: Ruben Guerrero on 04-30-2025 ALP [Catalytic activity/Vol] 114 U/L High 35-104 [facility] Serum or plasma calcium rebeca urement (mass/volume)Ordered By: Ruben Guerrero on 04-30-2025 Calcium [Mass/Vol] 10.0 mg/dL 7.6-11.0 [facility] Serum or plasma cholesterol in HDL measurement (mass/volume)Ordered By: Ruben Guerrero on 04-30-2025 Cholesterol in HDL [Mass/Vol] 48 mg/dL >40 [facility] Comment on above: National Cholesterol Education Program (NCEP) guidelines:<40 mg/dL: Low HDL-cholesterol (major risk factor for CHD)>= 60 mg/dL: High HDL-cholesterol (negative risk factor for CHD)HDL-cholesterol is affected by a number of factors, e.g. smoking, exercise, hormones, sex and age. Serum or plasma cholesterol measurement (mass/volume)Ordered By: Ruben Guerrero on 04-30-2025 Cholesterol [Mass/Vol] 173 mg/dL <201 [facility] Comment on above: Cholesterol level, D esirable <200 mg/dLBorderline high cholesterol 200-239 mg/dLHigh cholesterol >=240 mg/dLRecommendations of the NCEP Adult Treatment Panel for the following risk-cutoff thresholds for the [place] population. Serum or plasma urea nitroge n measurement (mass/volume)Ordered By: Ruben Guerrero on 04-30-2025 Urea nitrogen [Mass/Vol] 15 mg/dL 4-19 [facility] Sodium levelOrdered By: Ruben Guerrero on 04-30-2025 Sodium [Moles/Vol] 140 mmol/L 133-145 [facility] Total proteinOrdered By: Delia Guerrero on 04-30-2025 Protein [Mass/Vol] 7.5 g/dL 5.9-8.4 [facility] Triglycerides measurementOrd ered By: Ruben Guerrero on 04-30-2025 Triglyceride [Mass/Vol] 156 mg/dL <199 [facility] Comment on above: The drugs N-Acetylcy steine and Metamizole may falsely depress this assay. Normal range: <150 mg/dLBorderline High: 150-199 mg/dLHigh: 200-499 mg/dLVery High: >500 mg/dL Urine albumin measurement [facility] detection limit of 20 mg/L or less (mass/volume)Ordered By: Ruben Guerrero on 04-30-2025 Albumin DL <= 20 mg/L (U) [Mass/Vol] 107.0 mg/L NO RANGE EST. [facility] White blood cell (WBC) count Ordered By: uRben Guerrero on 04-30-2025 WBC (Bld) [#/Vol] 9.7 10*3/uL 4.4-11.0 [facility] SCREEN MAMM (CAD) W/MARSHALL UNI Miguel 11-30-2024 SCREEN MAMM (CAD) W/MARSHALL UNI R [facility] [address] [place], [place] [id number] SCREEN MAMM (CAD) W/MARSHALL UNI R MR#: [id number] Acct: [id number] Name: KATHARINE MEDRANO Rep #: [id number] : 1945 F 79 From: Oscar arreaga MD PCP: Dr. Chaz Reynoso MD Status: [facility] Study: SCREEN MAMM (CAD) W/MARSHALL UNI R Date of Exam: 0 11/30/24 Exam# [id number] Ordering Dr: Payal Cote DO PROCEDURE: SCREEN [...] of the results by letter. Reading Location: [place] [address] CC: Dr. Payal Cote DO; Dr. Chaz Reynoso MD Manager Field Sales: Signed Normal [facility] Absolute lymphocyte countOrd ered By: Chaz Reynoso on 09-28-2023 Lymphocytes Auto (Unsp spec) [#/Vol] 1.59 10*3/uL 0.83-4.51 [facility] Basophil percentageOrdered B y: Chaz Reynoso on 09-28-2023 Basophils/100 WBC (Bld) 1.5 % 0-1 [facility] Bilirubin [Mass/Vol] 0.50 mg/dL 0.20-1.00 [facility] Comment on above: For patients on eltr ombopag therapy, use of Dimension Loami TBIL is not recommended. Chloride [Moles/Vol] 107 mmol/L 98-107 [facility] Eosinophils/100 WBC (Bld) 2.6 % 0-5 [facility] Glucose [Mass/Vol] 91 mg/dL 74-106 [facility] Neutrophils (Bld) [#/Vol] 4.8 10*3/uL 2.0-7.7 [facility] Neutrophils/100 WBC (Bld) 66.1 % 47-70 [facility] Potassium [Moles/Vol] 3.8 mmol/L 3.5-5.1 [facility] Protein [Mass/Vol] 7.5 g/dL 6.4-8.2 [facility] Sodium [Moles/Vol] 142 mmol/L 136-145 [facility] WBC (Bld) [#/Vol] 7.3 10*3/uL 4.4-11.0 [facility] Blood erythrocytes count (nu mber/volume)Ordered By: Chaz Edgardo on 09-28-2023 RBC (Bld) [#/Vol] 5.05 10*6/uL 4.2-5.4 [facility] Blood hemoglobin measurement (mass/volume)Ordered By: Chaz Edgardo on 09-28-2023 Hemoglobin (Bld) [Mass/Vol] 14.9 g/dL 12.0-15.0 [facility] Blood lymphocytes/100 leukoc ytesOrdered By: [facility] Lymphocytes/100 WBC (Bld) 21.9 % 19-41 [facility] Blood monocytes/100 leukocyt esOrdered By: [facility] on 09-28-2023 Monocytes/100 WBC (Bld) 7.6 % 0-10 [facility] Blood platelet mean volumeOr dered By: [facility] on 09-28-2023 Platelet mean volume (Bld) [Entitic vol] 10.9 fL 6.2-12.0 [facility] Determination of erythrocyte mean corpuscular volume (MCV)Ordered By: [facility] on 09-28-2023 MCV (RBC) [Entitic vol] 93.1 fL 81-99 [facility] Hematocrit Auto (Bld) [Volum e fraction]Ordered By: [facility] on 09-28-2023 Hematocrit (Bld) [Volume fraction] 47.0 % 37-47 [facility] - Chemistry and C hemistry - challengeOrdered By: [facility] on 09-28-2023 ALP [Catalytic activity/Vol] 105 U/L 45-117 [facility] ALT [Catalytic activity/Vol] 30 U/L 13-56 [facility] CO2 [Moles/Vol] 27.0 mmol/L 21.0-32.0 [facility] Globulin (S) [Mass/Vol] 3.9 g/dL 2.2-4.2 [facility] Urea nitrogen/Creatinine [Mass ratio] 21.3 mg/mg 10-20 [facility] - Hematology and Cell countsOrdered By: Chaz Reynoso on 09-28-2023 Erythrocyte distribution width (RBC) [Entitic vol] 43.4 fL 35.1-43.9 [facility] Erythrocyte distribution width (RBC) [Ratio] 12.8 % 11.6-14.6 [facility] Immature granulocytes/100 WBC (Bld) 0.300 % 0.0-0.9 [facility] Comment on above: IG% - Immature Granu locytes (promyelocytes, myelocytes and metamyelocytes) > 1% indicates that a LEFT SHIFT is Present. MCH (RBC) [Entitic mass] 29.5 pg 27.0-32.0 [facility] Nucleated RBC/100 WBC (Bld) [Ratio] 0 % 0-5 [facility] MCHC Auto (RBC) [Mass/Vol]Or dered By: Chaz Reynoso on 09-28-2023 MCHC (RBC) [Mass/Vol] 31.7 g/dL 32-36 [facility] No Panel InformationOrdered By: Chaz Reynoso on 09-28-2023 Estimated GFR (MDRD) Amer 90 mL/min >60 [facility] Comment on above: GFR Calc Estimated GFR (MDRD) Non-Af Amer 74 mL/min >60 [facility] Comment on above: Non- GFR Calc Thyroid Stimulating Hormone (TSH) 1.63 uIU/mL 0.358-3.74 [facility] Vitamin D 25-Hydroxy 78.7 ng/mL [facility] Comment on above: Vitamin D 25(OH) Sta tus Range Deficiency <20 ng/mL (50nmol/L) Insufficiency 20 - 30 ng/mL (50 - 75 nmol/L) Sufficiency 30 - 100 ng/mL (75 - 250 nmol/L) Toxicity >100 ng/mL (>250 nmol/L) Platelets bldOrdered By: Chaz Reynoso on 09-28-2023 Platelets (Bld) [#/Vol] 237 10*3/uL 150-450 [facility] Serum or plasma albumin rebeca urement (mass/volume)Ordered By: Chaz Reynoso on 09-28-2023 Albumin [Mass/Vol] 3.6 g/dL 3.2-5.0 [facility] Serum or plasma albumin/glob ulin mass ratioOrdered By: Chaz Reynoso on 09-28-2023 Albumin/Globulin [Mass ratio] 0.9 {ratio} 0.9-2.4 [facility] Serum or plasma calcium rebeca urement (mass/volume)Ordered By: Chaz Reynoso on 09-28-2023 Calcium [Mass/Vol] 8.6 mg/dL 8.5-10.1 [facility] Serum or plasma creatinine m easurement (mass/volume)Ordered By: Chaz Reynoso on 09-28-2023 Creatinine [Mass/Vol] 0.80 mg/dL 0.55-1.02 [facility] Comment on above: The validity of the calculated GFR & GFRAA in patients over 70 years has not been determined. Clinical correlation is essential. Serum or plasma urea nitroge n measurement (mass/volume)Ordered By: Chaz Reynoso on 09-28-2023 Urea nitrogen [Mass/Vol] 17 mg/dL 7-18 [facility] Thin prep Papanicolaou smear with manual screeningOrdered By: Chaz Reynoso on 09-28-2023 Thin prep Papanicolaou smear with manual screening 24 U/L 15-37 [facility] Thin prep Papanicolaou smear with manual screening 8 5-15 [facility] Absolute lymphocyte countOrd ered By: Dr. Reynoso on 03-02-2023 Lymphocytes Auto (Unsp spec) [#/Vol] 2.54 10*3/uL 0.83-4.51 [facility] Basophil percentageOrdered B y: Dr. Reynoso on 03-02-2023 Basophils/100 WBC (Bld) 0.9 % 0-1 [facility] Bilirubin [Mass/Vol] 0.50 mg/dL 0.20-1.00 [facility] Comment on above: For patients on eltr ombopag therapy, use of Dimension Loami TBIL is not recommended. Chloride [Moles/Vol] 109 mmol/L 98-107 [facility] Eosinophils/100 WBC (Bld) 0.9 % 0-5 [facility] Glucose [Mass/Vol] 83 mg/dL 74-106 [facility] Neutrophils (Bld) [#/Vol] 9.1 10*3/uL 2.0-7.7 [facility] Neutrophils/100 WBC (Bld) 71.0 % 47-70 [facility] Potassium [Moles/Vol] 3.6 mmol/L 3.5-5.1 [facility] Protein [Mass/Vol] 6.8 g/dL 6.4-8.2 [facility] Sodium [Moles/Vol] 143 mmol/L 136-145 [facility] WBC (Bld) [#/Vol] 12.9 10*3/uL 4.4-11.0 [facility] Blood erythrocytes count (nu mber/volume)Ordered By: Dr. Reynoso on 03-02-2023 RBC (Bld) [#/Vol] 5.04 10*6/uL 4.2-5.4 [facility] Blood hemoglobin measurement (mass/volume)Ordered By: Dr. Reynoso on 03-02-2023 Hemoglobin (Bld) [Mass/Vol] 14.9 g/dL 12.0-15.0 [facility] Blood lymphocytes/100 leukoc ytesOrdered By: Dr. Reynoso on 03-02-2023 Lymphocytes/100 WBC (Bld) 19.8 % 19-41 [facility] Blood monocytes/100 leukocyt esOrdered By: Dr. Reynoso on 03-02-2023 Monocytes/100 WBC (Bld) 6.8 % 0-10 [facility] Blood platelet mean volumeOr dered By: Dr. Reynoso on 03-02-2023 Platelet mean volume (Bld) [Entitic vol] 11.6 fL 6.2-12.0 [facility] Determination of erythrocyte mean corpuscular volume (MCV)Ordered By: Dr. Reynoso on 03-02-2023 MCV (RBC) [Entitic vol] 92.3 fL 81-99 [facility] Hematocrit Auto (Bld) [Volum e fraction]Ordered By: Dr. Reynoso on 03-02-2023 Hematocrit (Bld) [Volume fraction] 46.5 % 37-47 [facility] - Chemistry and C hemistry - challengeOrdered By: Dr. Reynoso on 03-02-2023 ALP [Catalytic activity/Vol] 90 U/L 45-117 [facility] ALT [Catalytic activity/Vol] 27 U/L 13-56 [facility] CO2 [Moles/Vol] 25.0 mmol/L 21.0-32.0 [facility] Globulin (S) [Mass/Vol] 3.4 g/dL 2.2-4.2 [facility] Urea nitrogen/Creatinine [Mass ratio] 21.9 mg/mg 10-20 [facility] - Hematology and Cell countsOrdered By: Dr. Reynoso on 03-02-2023 Erythrocyte distribution width (RBC) [Entitic vol] 46.4 fL 35.1-43.9 [facility] Erythrocyte distribution width (RBC) [Ratio] 13.7 % 11.6-14.6 [facility] Immature granulocytes/100 WBC (Bld) 0.600 % 0.0-0.9 [facility] Comment on above: IG% - Immature Granu locytes (promyelocytes, myelocytes and metamyelocytes) > 1% indicates that a LEFT SHIFT is Present. MCH (RBC) [Entitic mass] 29.6 pg 27.0-32.0 [facility] Nucleated RBC/100 WBC (Bld) [Ratio] 0 % 0-5 [facility] MCHC Auto (RBC) [Mass/Vol]Or dered By: Dr. Reynoso on 03-02-2023 MCHC (RBC) [Mass/Vol] 32.0 g/dL 32-36 [facility] No Panel InformationOrdered By: Dr. Reynoso on 03-02-2023 Estimated GFR (MDRD) Amer 93 mL/min >60 [facility] Comment on above: GFR Calc Estimated GFR (MDRD) Non-Af Amer 77 mL/min >60 [facility] Comment on above: Non- GFR Calc Thyroid Stimulating Hormone (TSH) 0.96 uIU/mL 0.358-3.74 [facility] Vitamin D 25-Hydroxy 85.7 ng/mL [facility] Comment on above: Vitamin D 25(OH) Sta tus Range Deficiency <20 ng/mL (50nmol/L) Insufficiency 20 - 30 ng/mL (50 - 75 nmol/L) Sufficiency 30 - 100 ng/mL (75 - 250 nmol/L) Toxicity >100 ng/mL (>250 nmol/L) Platelets bldOrdered By: Dr. Reynoso on 03-02-2023 Platelets (Bld) [#/Vol] 268 10*3/uL 150-450 [facility] Serum or plasma albumin rebeca urement (mass/volume)Ordered By: Dr. Reynoso on 03-02-2023 Albumin [Mass/Vol] 3.4 g/dL 3.2-5.0 [facility] Serum or plasma albumin/glob ulin mass ratioOrdered By: Dr. Reynoso on 03-02-2023 Albumin/Globulin [Mass ratio] 1.0 {ratio} 0.9-2.4 [facility] Serum or plasma calcium rebeca urement (mass/volume)Ordered By: Dr. Reynoso on 03-02-2023 Calcium [Mass/Vol] 8.7 mg/dL 8.5-10.1 [facility] Serum or plasma creatinine m easurement (mass/volume)Ordered By: Dr. Reynoso on 03-02-2023 Creatinine [Mass/Vol] 0.78 mg/dL 0.55-1.02 [facility] Comment on above: The validity of the calculated GFR & GFRAA in patients over 70 years has not been determined. Clinical correlation is essential. Serum or plasma urea nitroge n measurement (mass/volume)Ordered By: Dr. Reynoso on 03-02-2023 Urea nitrogen [Mass/Vol] 17 mg/dL 7-18 [facility] Thin prep Papanicolaou smear with manual screeningOrdered By: Dr. Reynoso on 03-02-2023 Thin prep Papanicolaou smear with manual screening 24 U/L 15-37 [facility] Thin prep Papanicolaou smear with manual screening 9 5-15 [facility] COVID-19 virus antigen assay Ordered By: Dr. Reynoso on 02-18-2023 SARS-CoV-2 (COVID-19) Ag IA.rapid Ql (Resp) Negative Not Detect [facility] Comment on above: Normal Reference Ran ge: Not DetectedMethod:(RT-PCR) real-time reverse transcriptase PCRLuminex CLAUS Instrument*The Food and Drug Administration (FDA) has issued an Emergency Use Authorization (EAU) for the CLAUS SARS-CoV-2 Assay for the rapid detection of the virus that causes COVID-19. This test has been validated, but the [facility] independent review of this validation is pending.*Negative [...] Types A,B Direct FA (LUCIA) [facility] RSV Ag EIAOrdered By: Dr. Sierra love on 02-18-2023 RSV Ag Immune stain Ql (Tiss) [facility] Absolute lymphocyte countOrd ered By: Dr. Reynoso on 09-06-2022 Lymphocytes Auto (Unsp spec) [#/Vol] 1.79 10*3/uL 0.83-4.51 [facility] Basophil percentageOrdered B y: Dr. Reynoso on 09-06-2022 Basophils/100 WBC (Bld) 1.2 % 0-1 [facility] Bilirubin [Mass/Vol] 0.50 mg/dL 0.20-1.00 [facility] Comment on above: For patients on eltr ombopag therapy, use of Dimension Loami TBIL is not recommended. Chloride [Moles/Vol] 110 mmol/L 98-107 [facility] Eosinophils/100 WBC (Bld) 1.3 % 0-5 [facility] Glucose [Mass/Vol] 99 mg/dL 74-106 [facility] Neutrophils (Bld) [#/Vol] 7.0 10*3/uL 2.0-7.7 [facility] Neutrophils/100 WBC (Bld) 71.1 % 47-70 [facility] Potassium [Moles/Vol] 4.1 mmol/L 3.5-5.1 [facility] Comment on above: Moderate Hemolysis, Result may be falsely increased. Protein [Mass/Vol] 7.5 g/dL 6.4-8.2 [facility] Sodium [Moles/Vol] 137 mmol/L 136-145 [facility] WBC (Bld) [#/Vol] 9.9 10*3/uL 4.4-11.0 [facility] Blood erythrocytes count (nu mber/volume)Ordered By: Dr. Reynoso on 09-06-2022 RBC (Bld) [#/Vol] 4.93 10*6/uL 4.2-5.4 [facility] Blood hemoglobin measurement (mass/volume)Ordered By: Dr. Reynoso on 09-06-2022 Hemoglobin (Bld) [Mass/Vol] 15.5 g/dL 12.0-15.0 [facility] Blood lymphocytes/100 leukoc ytesOrdered By: Dr. Reynoso on 09-06-2022 Lymphocytes/100 WBC (Bld) 18.1 % 19-41 [facility] Blood monocytes/100 leukocyt esOrdered By: Dr. Reynoso on 09-06-2022 Monocytes/100 WBC (Bld) 7.6 % 0-10 [facility] Blood platelet mean volumeOr dered By: Dr. Reynoso on 09-06-2022 Platelet mean volume (Bld) [Entitic vol] 10.8 fL 6.2-12.0 [facility] Determination of erythrocyte mean corpuscular volume (MCV)Ordered By: Dr. Reynoso on 09-06-2022 MCV (RBC) [Entitic vol] 93.7 fL 81-99 [facility] Hematocrit Auto (Bld) [Volum e fraction]Ordered By: Dr. Reynoso on 09-06-2022 Hematocrit (Bld) [Volume fraction] 46.2 % 37-47 [facility] - Chemistry and C hemistry - challengeOrdered By: Dr. Reynoso on 09-06-2022 ALP [Catalytic activity/Vol] 91 U/L 45-117 [facility] ALT [Catalytic activity/Vol] 40 U/L 13-56 [facility] CO2 [Moles/Vol] 23.0 mmol/L 21.0-32.0 [facility] Globulin (S) [Mass/Vol] 4.2 g/dL 2.2-4.2 [facility] Urea nitrogen/Creatinine [Mass ratio] 17.0 mg/mg 10-20 [facility] - Hematology and Cell countsOrdered By: Dr. Reynoso on 09-06-2022 Erythrocyte distribution width (RBC) [Entitic vol] 44.1 fL 35.1-43.9 [facility] Erythrocyte distribution width (RBC) [Ratio] 12.9 % 11.6-14.6 [facility] Immature granulocytes/100 WBC (Bld) 0.700 % 0.0-0.9 [facility] Comment on above: IG% - Immature Granu locytes (promyelocytes, myelocytes and metamyelocytes) > 1% indicates that a LEFT SHIFT is Present. MCH (RBC) [Entitic mass] 31.4 pg 27.0-32.0 [facility] Nucleated RBC/100 WBC (Bld) [Ratio] 0 % 0-5 [facility] MCHC Auto (RBC) [Mass/Vol]Or dered By: Dr. Reynoso on 09-06-2022 MCHC (RBC) [Mass/Vol] 33.5 g/dL 32-36 [facility] No Panel InformationOrdered By: Dr. Reynoso on 09-06-2022 Estimated GFR (MDRD) Amer 80 mL/min >60 [facility] Comment on above: GFR Calc Estimated GFR (MDRD) Non-Af Amer 66 mL/min >60 [facility] Comment on above: Non- GFR Calc Thyroid Stimulating Hormone (TSH) 0.90 uIU/mL 0.358-3.74 [facility] Vitamin D 25-Hydroxy 73.7 ng/mL [facility] Comment on above: Vitamin D 25(OH) Sta tus Range Deficiency <20 ng/mL (50nmol/L) Insufficiency 20 - 30 ng/mL (50 - 75 nmol/L) Sufficiency 30 - 100 ng/mL (75 - 250 nmol/L) Toxicity >100 ng/mL (>250 nmol/L) Platelets bldOrdered By: Dr. Reynoso on 09-06-2022 Platelets (Bld) [#/Vol] 266 10*3/uL 150-450 [facility] Serum or plasma albumin rebeca urement (mass/volume)Ordered By: Dr. Reynoso on 09-06-2022 Albumin [Mass/Vol] 3.3 g/dL 3.2-5.0 [facility] Serum or plasma albumin/glob ulin mass ratioOrdered By: Dr. Reynoso on 09-06-2022 Albumin/Globulin [Mass ratio] 0.8 {ratio} 0.9-2.4 [facility] Serum or plasma calcium rebeca urement (mass/volume)Ordered By: Dr. Reynoso on 09-06-2022 Calcium [Mass/Vol] 9.1 mg/dL 8.5-10.1 [facility] Serum or plasma creatinine m easurement (mass/volume)Ordered By: Dr. Reynoso on 09-06-2022 Creatinine [Mass/Vol] 0.88 mg/dL 0.55-1.02 [facility] Comment on above: The validity of the calculated GFR & GFRAA in patients over 70 years has not been determined. Clinical correlation is essential. Serum or plasma urea nitroge n measurement (mass/volume)Ordered By: Dr. Reynoso on 09-06-2022 Urea nitrogen [Mass/Vol] 15 mg/dL 7-18 [facility] Thin prep Papanicolaou smear with manual screeningOrdered By: Dr. Reynoso on 09-06-2022 Thin prep Papanicolaou smear with manual screening 35 U/L 15-37 [facility] Comment on above: Moderate Hemolysis, Result may be falsely increased. Thin prep Papanicolaou smear with manual screening 4 5-15 [facility] Absolute lymphocyte counton 03-02-2022 Lymphocytes Auto (Unsp spec) [#/Vol] 1.68 10*3/uL 0.83-4.51 [facility] Work Phone: Basophil percentageon 2021 Basophils/100 WBC (Bld) 1.5 % 0-1 [facility] Work Phone: Bilirubin [Mass/Vol] 0.50 mg/dL 0.20-1.00 [facility] Work Phone: Comment on above: For patients on eltr ombopag therapy, use of Dimension [place] TBIL is not recommended. Chloride [Moles/Vol] 108 mmol/L 98-107 [facility] Work Phone: Eosinophils/100 WBC (Bld) 2.0 % 0-5 [facility] Work Phone: Glucose [Mass/Vol] 97 mg/dL 74-106 [facility] Work Phone: Neutrophils (Bld) [#/Vol] 4.9 10*3/uL 2.0-7.7 [facility] Work Phone: Neutrophils/100 WBC (Bld) 65.7 % 47-70 [facility] Work Phone: Potassium [Moles/Vol] 3.9 mmol/L 3.5-5.1 [facility] Work Phone: Comment on above: Slight Hemolysis, Re sult may be falsely increased. Protein [Mass/Vol] 7.3 g/dL 6.4-8.2 [facility] Work Phone: Sodium [Moles/Vol] 139 mmol/L 136-145 [facility] Work Phone: WBC (Bld) [#/Vol] 7.4 10*3/uL 4.4-11.0 [facility] Work Phone: Blood erythrocytes count (nu mber/volume)on 03-02-2022 RBC (Bld) [#/Vol] 5.07 10*6/uL 4.2-5.4 [facility] Work Phone: Blood hemoglobin measurement (mass/volume)on 03-02-2022 Hemoglobin (Bld) [Mass/Vol] 15.2 g/dL 12.0-15.0 [facility] Work Phone: Blood lymphocytes/100 leukoc yteson 03-02-2022 Lymphocytes/100 WBC (Bld) 22.6 % 19-41 [facility] Work Phone: Blood monocytes/100 leukocyt eson 03-02-2022 Monocytes/100 WBC (Bld) 7.7 % 0-10 [facility] Work Phone: Blood platelet mean volumeon 03-02-2022 Platelet mean volume (Bld) [Entitic vol] 11.3 fL 6.2-12.0 [facility] Work Phone: Determination of erythrocyte mean corpuscular volume (MCV)on 03-02-2022 MCV (RBC) [Entitic vol] 90.3 fL 81-99 [facility] Work Phone: Hematocrit Auto (Bld) [Volum e fraction]on 03-02-2022 Hematocrit (Bld) [Volume fraction] 45.8 % 37-47 [facility] Work Phone: Laboratory - Chemistry and C hemistry - challengeon 03-02-2022 ALP [Catalytic activity/Vol] 96 U/L 45-117 [facility] Work Phone: ALT [Catalytic activity/Vol] 31 U/L 13-56 [facility] Work Phone: CO2 [Moles/Vol] 23.0 mmol/L 21.0-32.0 [facility] Work Phone: Globulin (S) [Mass/Vol] 3.9 g/dL 2.2-4.2 [facility] Work Phone: Urea nitrogen/Creatinine [Mass ratio] 20.5 mg/mg 10-20 [facility] Work Phone: Laboratory - Hematology and Cell countson 03-02-2022 Erythrocyte distribution width (RBC) [Entitic vol] 41.2 fL 35.1-43.9 [facility]: Erythrocyte distribution width (RBC) [Ratio] 12.5 % 11.6-14.6 [facility] Work Phone: Immature granulocytes/100 WBC (Bld) 0.500 % 0.0-0.9 [facility] Work Phone: Comment on above: IG% - Immature Granu locytes (promyelocytes, myelocytes and metamyelocytes) > 1% indicates that a LEFT SHIFT is Present. MCH (RBC) [Entitic mass] 30.0 pg 27.0-32.0 [facility] Work Phone: Nucleated RBC/100 WBC (Bld) [Ratio] 0 % 0-5 [facility] Work Phone: MCHC Auto (RBC) [Mass/Vol]on 03-02-2022 MCHC (RBC) [Mass/Vol] 33.2 g/dL 32-36 [facility] Work Phone: No Panel Informationon 03-02 Estimated GFR (MDRD) Amer 86 mL/min >60 [facility] Work Phone: Comment on above: GFR Calc Estimated GFR (MDRD) Non-Af Amer 71 mL/min >60 [facility] Work Phone: Comment on above: Non- GFR Calc Thyroid Stimulating Hormone (TSH) 0.94 uIU/mL 0.358-3.74 [facility] Work Phone: Vitamin D 25-Hydroxy 67.2 ng/mL [facility] Work Phone: Comment on above: Vitamin D 25(OH) Sta tus Range Deficiency <20 ng/mL (50nmol/L) Insufficiency 20 - 30 ng/mL (50 - 75 nmol/L) Sufficiency 30 - 100 ng/mL (75 - 250 nmol/L) Toxicity >100 ng/mL (>250 nmol/L) Platelets bldon 03-02-2022 Platelets (Bld) [#/Vol] 288 10*3/uL 150-450 [facility] Work Phone: Serum or plasma albumin rebeca urement (mass/volume)on 03-02-2022 Albumin [Mass/Vol] 3.4 g/dL 3.2-5.0 [facility] Work Phone: Serum or plasma albumin/glob ulin mass ratioon 03-02-2022 Albumin/Globulin [Mass ratio] 0.9 {ratio} 0.9-2.4 [facility] Work Phone: Serum or plasma calcium rebeca urement (mass/volume)on 03-02-2022 Calcium [Mass/Vol] 8.8 mg/dL 8.5-10.1 [facility] Work Phone: Serum or plasma creatinine m easurement (mass/volume)on 03-02-2022 Creatinine [Mass/Vol] 0.83 mg/dL 0.55-1.02 [facility] Work Phone: Comment on above: The validity of the calculated GFR & GFRAA in patients over 70 years has not been determined. Clinical correlation is essential. Serum or plasma urea nitroge n measurement (mass/volume)on 03-02-2022 Urea nitrogen [Mass/Vol] 17 mg/dL 7-18 [facility] Work Phone: Thin prep Papanicolaou smear with manual screeningon 03-02-2022 Thin prep Papanicolaou smear with manual screening 24 U/L 15-37 [facility] Work Phone: Comment on above: Slight Hemolysis, Re sult may be falsely increased. Thin prep Papanicolaou smear with manual screening 8 5-15 [facility] Work Phone: Vital Signs Date Time Vital Sign Value Performing Clinician Faci lity 06-03-2025 08:30-0400 Body temperature 97 [degF] Dr. Ruben Guerrero MD Work Phone: [facility] 06-03-2025 08:30-0400 Diastolic blood pressure 74 mm[Hg] Dr. Ruben Guerrero MD Work Phone: [facility] 06-03-2025 08:30-0400 Heart rate 71 /min Dr. Ruben Guerrero MD Work Phone: [facility] 06-03-2025 08:30-0400 Respiratory rate 16 /min Dr. Ruben Guerrero MD Work Phone: [facility] 06-03-2025 08:30-0400 SaO2% (BldA) [Mass fraction] 100 % Dr. Ruben Guerrero MD Work Phone: [facility] 06-03-2025 08:30-0400 Systolic blood pressure 130 mm[Hg] Dr. Ruben Guerrero MD Work Phone: [facility] 06-03-2025 06:54-0400 Body height 157.[address] Ruben Guerrero MD Work Phone: [facility] 06-03-2025 06:54-0400 Body mass index (BMI) [Ratio] 42 kg/m2 Dr. Ruben Guerrero MD Work Phone: [phone] [place] [address] 06-03-2025 06:54-0400 Body weight 104.[address] Ruben Guerrero MD Work Phone: [phone] [place] [address] 05-27-2025 11:08-0400 Body height 157.[address] Ruben Guerrero MD Work Phone: [phone] [address] 05-27-2025 11:06-0400 Body mass index (BMI) [Ratio] 42.1 kg/m2 Dr. Ruben Guerrero MD Work Phone: [phone] [place] [address] 05-27-2025 11:06-0400 Body weight 104.[address] Ruben Guerrero MD Work Phone: [phone] [place] [address] 05-27-2025 11:06-0400 Diastolic blood pressure 84 mm[Hg] Dr. Ruben Guerrero MD Work Phone: [phone] [place] [address] 05-27-2025 11:06-0400 Systolic blood pressure 140 mm[Hg] Dr. Ruben Guerrero MD Work Phone: [facility] 06-20-2023 08:45-0400 Diastolic blood pressure 65 mm[Hg] [facility] 06-20-2023 08:45-0400 Heart rate 66 /min [facility] 06-20-2023 08:45-0400 Respiratory rate 16 /min [facility] 06-20-2023 08:45-0400 SaO2% (BldA) [Mass fraction] 97 % [facility] 06-20-2023 08:45-0400 Systolic blood pressure 141 mm[Hg] [facility] 06-20-2023 08:43-0400 Body temperature 97.1 [degF] [facility] 06-20-2023 07:07-0400 Body mass index (BMI) [Ratio] 43.1 kg/m2 [facility] 06-20-2023 06:39-0400 Body height 157.48 cm [facility] 06-20-2023 06:39-0400 Body weight 107 kg [facility] 02-28-2023 08:20-0400 Body temperature 97.2 [degF] [facility] 02-28-2023 08:20-0400 Diastolic blood pressure 85 mm[Hg] [facility] 02-28-2023 08:20-0400 Heart rate 71 /min [facility] 02-28-2023 08:20-0400 Respiratory rate 18 /min [facility] 02-28-2023 08:20-0400 SaO2% (BldA) [Mass fraction] 100 % [facility] 02-28-2023 08:20-0400 Systolic blood pressure 181 mm[Hg] [facility] 02-28-2023 06:18-0400 Body height 157.48 cm [facility] 02-28-2023 06:18-0400 Body mass index (BMI) [Ratio] 41.8 kg/m2 [facility] 02-28-2023 06:18-0400 Body weight 103.8 kg [facility] 09-20-2022 09:25-0500 Body temperature 97.1 [degF] [facility] 09-20-2022 09:25-0500 Diastolic blood pressure 91 mm[Hg] [facility] 09-20-2022 09:25-0500 Heart rate 73 /min [facility] 09-20-2022 09:25-0500 Respiratory rate 12 /min [facility] 09-20-2022 09:25-0500 SaO2% (BldA) [Mass fraction] 98 % [facility] 09-20-2022 09:25-0500 Systolic blood pressure 187 mm[Hg] [facility] 09-20-2022 09:10-0500 Inhaled oxygen flow rate 4 L/min [facility] 09-20-2022 07:49-0500 Body height 157.48 cm [facility] 09-20-2022 07:49-0500 Body mass index (BMI) [Ratio] 41.3 kg/m2 [facility] 09-20-2022 07:49-0500 Body weight 102.4 kg [facility] 05-17-2022 08:23-0400 Body temperature 98.2 [degF] [facility] Work Phone: 05-17-2022 08:23-0400 Diastolic blood pressure 92 mm[Hg] [facility] Work Phone: 05-17-2022 08:23-0400 Heart rate 72 /min [facility] Work Phone: 05-17-2022 08:23-0400 Respiratory rate 16 /min [facility] Work Phone: 05-17-2022 08:23-0400 SaO2% (BldA) [Mass fraction] 97 % [facility] Work Phone: 05-17-2022 08:23-0400 Systolic blood pressure 172 mm[Hg] [facility] Work Phone: 05-17-2022 07:09-0400 Body height 157.48 cm [facility] Work Phone: 05-17-2022 07:09-0400 Body mass index (BMI) [Ratio] 42.2 kg/m2 [facility] Work Phone: 05-17-2022 07:09-0400 Body weight 104.77 kg [facility] Work Phone: Encounters Encounter Date Encounter Type Care Provider Facility Start: 08-05-2025 ambulatory Ruben Guerrero Facility:[facility] Start: 06-11-2025 End: 06-11-[address] Ruben Guerrero MD Work Phone: -[facility] Start: 06-11-2025 End: 06-11-[address] Payal Cote DO -[facility] Work Phone: Start: 06-11-2025 End: 06-11-2025 ambulatory Ruben Guerrero Facility:[facility] Start: 06-03-2025 End: 06-03-2025 Admission to same day surgery center Dr. Gee Alanis MD -[facility] Start: 06-03-2025 End: 06-03-[address] Ruben Guerrero MD Work Phone: -[facility] Start: 05-27-2025 Encounter for gynecological examination (general) (routine) without abnormal findings Payal Cote [facility] Start: 05-27-2025 End: 05-27-[address] Payal Cote DO -[facility] Work Phone: Start: 05-27-2025 End: 05-27-[address] Payal Cote DO [facility] Start: 05-27-2025 End: 05-27-[address] Ruben Guerrero MD Work Phone: -[facility] Start: 04-30-2025 End: 04-30-[address] Ruben Guerrero MD Work Phone: -[facility] Start: 04-30-2025 End: 04-30-[address] Ruben Guerrero MD -[facility] Work Phone: Start: 04-30-2025 End: 04-30-2025 ambulatory Ruben Guerrero Facility:[facility] Start: 11-30-2024 End: 11-30-2024 ambulatory Payal Cote Facility:[facility] Start: 11-29-2023 End: 11-29-2023 ambulatory [facility] Work Phone: Start: 11-29-2023 End: 11-29-2023 Patient encounter procedure [facility]Outpatient Breast [facility] Work Phone: Start: 09-28-2023 End: 09-28-2023 ambulatory [facility] Work Phone: Start: 09-28-2023 End: 09-28-2023 Patient encounter procedure [facility]-Laboratory, Phy Office 3rd Flr Start: 06-20-2023 End: 06-20-2023 Admission to same day surgery center [facility] Start: 06-20-2023 End: 06-20-2023 ambulatory [facility] Work Phone: Start: 03-02-2023 End: 03-02-2023 ambulatory [facility] Work Phone: Start: 03-02-2023 End: 03-02-2023 Patient encounter procedure [facility]Laboratory Start: 02-28-2023 End: 02-28-2023 Admission to same day surgery center [facility] Start: 02-28-2023 End: 02-28-2023 ambulatory [facility] Work Phone: Start: 02-18-2023 End: 02-18-2023 ambulatory [facility] Work Phone: Start: 02-18-2023 End: 02-18-2023 Patient encounter procedure [facility]-Pulmonary Services/Neurology Start: 12-27-2022 End: 12-27-2022 ambulatory [facility] Work Phone: Start: 12-27-2022 End: 12-27-2022 [facility] Start: 11-26-2022 End: 11-26-2022 ambulatory [facility] Work Phone: Start: 11-26-2022 End: 11-26-2022 Patient encounter procedure [facility]-Outpatient Breast Imaging Start: 09-20-2022 End: 09-20-2022 Admission to same day surgery [facility] Start: 09-20-2022 End: 09-20-2022 ambulatory [facility] Work Phone: Start: 09-06-2022 End: 09-06-2022 ambulatory [facility] Work Phone: Start: 09-06-2022 End: 09-06-2022 Patient encounter procedure [facility]-Laboratory, Phy Office 3rd Flr Start: 07-28-2022 End: 07-28-2022 ambulatory [facility] Work Phone: Start: 07-28-2022 End: 07-28-2022 Patient encounter procedure [facility]-Cardiovascular Services Start: 05-17-2022 End: 05-17-2022 Admission to same day surgery center [facility] Start: 03-02-2022 End: 03-02-2022 Patient encounter procedure [facility]-Laboratory, Phy Office 3rd Flr Procedures Date Procedure Procedure Detail Performing Clinician Start: 06-11-2025 Dual energy X-ray absorptiometry Dr. Ruben Guerrero MD Work Phone: Start: 06-03-2025 Destructive procedur e of nerve Dr. Ruben Guerrero MD Work Phone: Start: 06-03-2025 Fluoroscopic guidance Omar Guerrero MD Work Phone: Start: 06-03-2025 X-ray of lumbar spin e, two or three views Dr. Ruben Guerrero MD Work Phone: Start: 04-30-2025 Urine microalbumin/creatinine ratio measurement Dr. [...] Treatment Date Care Activity Detail Author Start: 06-03-2025 Dstr nrolytc agnt parverteb fct addl lmbr/sacral DESTROY L/S FACET [facility] Start: 06-03-2025 Dstr nrolytc agnt parverteb fct sngl lmbr/sacral DESTROY LUMB/SAC FACET [facility] Start: 06-03-2025 X-ray of lumbar spine, two or three views Lumbar Spine 2 or 3 Views [facility] Start: 06-03-2025 XR Lumbar spine 2 or 3 Views [facility] Start: 06-03-2025 Patient discharge [facility] Start: 06-20-2023 Anes dx/ther nerve block/injection prone pos ANESTH N BLOCK/INJ PRONE [facility] Start: 06-20-2023 Dstr nrolytc agnt parverteb fct addl lmbr/sacral DESTROY L/S FACET [facility] Start: 06-20-2023 Dstr nroly agnt parverteb fct sngl lmbr/sacral DESTROY LUMB/SAC FACET [facility] Start: 06-20-2023 Fluoroscopic guidance O.R. Fluoro for C-[facility] Start: 06-20-2023 X-ray of lumbar spine, two or three views Lumbar Spine 2 or 3 Views [facility] Start: 06-20-2023 Patient discharge [facility] Start: 02-28-2023 Anes dx/ther nerve block/injection prone pos ANESTH N BLOCK/INJ PRONE [facility] Start: 02-28-2023 Dstr nrolytc agnt parverteb fct addl lmbr/sacral DESTROY L/S FACET [facility] Start: 02-28-2023 Dstr nrolytc agnt parverteb fct sngl lmbr/sacral DESTROY LUMB/SAC FACET [facility] Start: 02-28-2023 Fluoroscopic guidance O.R. Fluoro for C-[facility] Start: 02-28-2023 X-ray of lumbar spine, two or three views Lumbar Spine 2 or 3 Views [facility] Start: 02-28-2023 Patient discharge [facility] Start: 09-20-2022 Anes dx/ther nerve block/injection prone pos ANESTH N BLOCK/INJ PRONE [facility] Start: 09-20-2022 Njx dx/ther sbst intrlmnr lmbr/sac w/img gdn NJX INTERLAMINAR LMBR/SAC [facility] Start: 09-20-2022 Injection of spinal epidural space [facility] Work Phone: Start: 09-20-2022 Injection using fluoroscopic guidance [facility] Work Phone: Start: 09-20-2022 Patient discharge [facility] Start: 05-17-2022 Anes dx/ther nerve block/injection prone pos ANESTH N BLOCK/INJ PRONE [facility] Work Phone: Start: 05-17-2022 Dstr nrolytc agnt parverteb fct addl lmbr/sacral DESTROY L/S FACET [facility] Work Phone: Start: 05-17-2022 Dstr nrolytc agnt parverteb fct sngl lmbr/sacral DESTROY LUMB/SAC FACET [facility] Work Phone: Start: 05-17-2022 X-ray of lumbosacral spine L/S Spine Min 4 Views [facility] Work Phone: Start: 05-17-2022 XR Spine Lumbar and Sacrum GE 4 Views [facility] Work Phone: Start: 05-17-2022 Patient discharge [facility] Work Phone: DXA Bone [Mass/Area] Bone density [facility] MG Breast Diagnostic [facility] Patient referral [facility] Work Phone: Immunizations Immunization Date Immunization Notes Care Provider Fa cility 01-14-2021 Covid (Moderna) [facility] 12-17-2020 Covid (Moderna) [facility] 08-13-2019 Influenza virus vaccine [facility] 08-20-2015 influenza, injectabl e, quadrivalent, preservative free [facility] 08-20-2015 influenza, seasonal, injectable [facility] Payers Date Payer Category Payer Self-pay [id number] 2011 Medicare [id number] [facility] [id number] Medicare [id number] Unknown [id number] Unknown [id number] Unknown [id number] [id number] Unknown [id number] 2.16.8 [id number] Unknown [id number] [id number] Unknown [id number] [id number] Social History Date Type Detail Facility Start: 07-29-2020 End: 06-09-2023 Tobacco smoking status NHIS Unknown if ever smoked [facility] Start: 01-24-2019 Non-smoker [facility] Start: 1945 Sex Assigned At Female [facility] Start: 05-25-2024 End: 05-24-2025 Tobacco smoking status NHIS Never smoked tobacco (finding) [facility] Not [facility] NEGATED: Highlighted row [facility] Medical Equipment Procedure Code Equipment Code [...] /State Mental Status Date Assessment Result Facility 06-03-2025 Cognitive function Level Of Consciousness Drowsy [facility] Work Phone: 06-20-2023 Cognitive function Level Of Cons ciousness Follows Commands;Drowsy [facility] Work Phone: 06-20-2023 Cognitive function Patient Orien tation Person;Place;Time [facility] Work Phone: 02-28-2023 Cognitive function Voice/Name;Touch/Mananki ng [facility] Work Phone: 09-20-2022 Cognitive function Voice/Name [facility] Work Phone: 05-17-2022 Cognitive function Voice/Name [facility] Work Phone: Clinical Notes 02-28-2023 to 06-03-2025 Note Date & Type Note Facility 06-03-2025 Consult note [facility] 06-03-2025 Consult note Note Date/Time June 03, 2025 6:45am [facility] Medical Records Department [address] [place] [address] Pre-Anesthesia Evaluation 06/03/25 0644 MR#: [id number] Acct: [id number] Name: KATHARINE MEDRANO Rep #:[id number] : 1945 80 From: Singh Salcido MD PCP: Dr. Ruben Guerrero MD Status:REG SD Y Race: C Location: [place] [address] ASA Classification* ASA Classification ASA Classification: 2 Assessment & Plan Anesthesia* Anesthesia Assessment Anesthesia Assessment: Discussed sedation and/or anesthesia options, risks, benefits, and alternatives with patient/parents/legal guardian/POA. Questions invited. The patient/parents/legal guardian/POA seems to understand and agrees to proceedwith anesthesia plan. Reviewed the physical assessment, medical history, allergy history and patient home medications list prior to surgery/procedure/anesthetic and documented any changes. Performed airway and anesthesia risk assessments. Anesthesia Type Anesthesia Type: MAC Anesthesia Focused Assessment* Airway Assessment Mouth opens: >3 cm Mallampati Score: II Labs Anesthesia Preop lab: CBC WBC 9.7 K/mm3 (4.4-11.0) 04/30/25 10:58 04/30/25 RBC 4.79 M/mm3 (4.2-5.4) 04/30/25 10:58 04/30/25 Hgb 14.2 g/dL (12.0-15.0) 04/30/25 10:58 04/30/25 Hct 43.7 % (37-47) 04/30/25 10:58 04/30/25 Plt Count 323 K/mm3 (150-450) 04/30/25 10:58 04/30/25 CHEMISTRY Potassium 4.0 mmol/L (3.3-5.1) 04/30/25 10:58 04/30/25 Sodium 140 mmol/L (133-145) 04/30/25 10:58 04/30/25 BUN 15 mg/dL (4-19) 04/30/25 10:58 04/30/25 Creatinine 0.86 mg/dL (0.70-1.20) 04/30/25 10:58 04/30/25 Glucose 98 mg/dL (70-99) 04/30/25 10:58 04/30/25 POC Glucose 96 mg/dL (70-110) 04/07/20 06:58 04/07/20 TSH 0.96 uIU/mL (0.358-3.74) 03/28/24 12:38 COAG PT 13.1 SECONDS (11.7-14.9) 03/26/20 13:15 Pre-Assessment Diagnosis/Proposed Procedure Planned Operative Procedure(s): (R) RIGHT LUMBAR RADIOFREQUENCY ABALTION AT MEDIAL BRANCH OF L4 L5 S1 UNDER FLUOROSCOPY Anesthesia History Anesthesia History - licensed practical nurse: Anesthesia History - licensed practical nurse Hx Hospitalization No 05/24/25 11:43 Any Problems With Anesthesia No 05/24/25 11:43 Cholinesterase deficiency No 05/24/25 11:43 You/Your Family Experience No 05/24/25 11:43 fever (hyperthermia) with Relationship Recent Exposure to Contagious No 05/14/24 07:58 Disease Does patient have nerve No 05/24/25 11:43 stimulator Patient instructed to have device shut off --Does patient have Pacemaker or ICD? When Was Last Pacemaker Check QUESTION #4 FULL TEXT: You/Your Family Experience fever (hyperthermia) with Anesthesia Last Oral Intake Last Oral intake: Last Oral Intake NPO since Meds taken in AM with sips of water? Meds patient instructed to take am of surgery PONV PONV - licensed practical nurse: PONV - licensed practical nurse Female Yes 05/24/25 11:43 HX of Motion Sickness No 05/24/25 11:43 HX of N/V After Surgery No 05/24/25 11:43 Non-Smoker Yes 05/24/25 11:43 Duration of Surgery greater No 05/24/25 11:43 than 60 minutes Number of Risk Factors 2 05/24/25 11:43 PONV Score Moderate Risk 05/24/25 11:43 Height & Weight Height & Weight: Anesthesia: Height & Weight Height 5 ft 2 in 05/27/25 11:08 Respiratory Assessment Respiratory Assessment - licensed practical nurse: Respiratory Tract Infection Hx - licensed practical nurse Hx Respiratory Tract Infection No 05/24/25 11:43 STOP Sleep Apnea STOP Sleep Apnea - licensed practical nurse: STOP Sleep Apnea - licensed practical nurse Hx Hypertension Yes 05/24/25 11:43 Hx Sleep Apnea Yes 05/24/25 11:43 CPAP Yes 05/24/25 11:43 BIPAP No 05/24/25 11:43 Do you snore loudly (louder than talking or can be heard Do you often feel tired/ fatigued/ sleepy during daytime? Has anyone observed you stop breathing during sleep? STOP Results Positive 05/24/25 11:43 QUESTION #5 FULL TEXT : Do you snore loudly (louder than talking or can be heard through closed doors)? Tobacco Use History Tobacco Use History - licensed practical nurse: Tobacco Use History - licensed practical nurse Tobacco Use Smoking Status Never smoker 05/24/25 11:43 Hx Tobacco Use No 05/24/25 11:43 Years Smoking Packs Smoked per Day Smoking Cessation Date was within the last 15 years Hx Smoking Cessation Date Hx Smoking Cessation Counseling Hematologic Medial History Hematologic Hx - licensed practical nurse: Hematologic Medical Hx - hand salter Hx of Blood Transfusion No 05/24/25 11:43 Hx of Transfusion in last 3 No 05/24/25 11:43 Months Date of Last Transfusion (if within last 3 months) Ever experience any problems No 05/24/25 11:43 with transfusion(s)? Specify any problems Hx of Preganancy in last 3 No 05/24/25 11:43 Months Nurse Filling Out Transfusion JZOLLINGE 05/24/25 11:43 & Questions: Date: 05/24/25 05/24/25 11:43 Time: 11:44 05/24/25 11:43 Patient unable to answer at this time (ie. confused, unrespo /Reproduction History /Reproductive History - licensed practical nurse: /Reproductive Hx- licensed practical nurse Hx Now No 05/24/25 11:43 Gestational Age (in weeks): EDC: Hx Hx Para Hx Section SAB No 05/27/25 11:08 Active Medications Active Medications: Current Medications Generic Name Dose Route Start Last Admin Trade Name Freq PRN Reason Stop Dose Admin Lactated Ringer's 1,000 mls @ 15 mls/hr 06/03/25 06:45 IV .Q48H ALEXA PFSH Medical History Bladder disease History of [...] History of hemorrhoids History of cancer Hypertension Home Medications ?Medication ?Instructions ?Recorded ?Last Taken ?Type acetaminophen 500 mg tablet 1,000 mg PO Q8 PRN Pain Or Fever 07/29/20 Unknown History glucosamine-chondroitin 250 mg-200 1 tab PO BID Unknown History mg tablet (Osteo Bi-Flex) multivitamin 1 tab PO DAILY 06/09/23 Unkn own History amlodipine 5 mg tablet 5 mg PO DAILY 05/08/2405/14 07:00 History losartan 100 mg tablet (Cozaar) 100 mg PO QPM 05/08/24 Unknown History biotin 1 mg capsule 1 mg PO DAILY 05/25/24 Unkno wn History cholecalciferol (vitamin D3) 50 50 mcg PO DAILY Unknown History mcg (2,000 unit) capsule naproxen 500 mg tablet 500 mg PO BID PRN pain 05/25 Unknown History alpha lipoic acid 200 mg capsule 200 mg PO BID 5 Unknown History clobetasol 0.05 % topical ointment 1 applic topical 2X W 90 days #45 05/27/25 Unknown Rx grams Allergy/AdvReac Type Severity Reaction Status Date / Time amoxicillin Allergy Anaphylaxis Verified 05/24/25 11:37 anastrozole (From Arimidex) Allergy Swelling Verified 05/24/25 11:37 Penicillins Allergy Hives Verified 05/24/25 11:37 tamoxifen AdvReac PT UNSURE Verified 05/24/25 11:37 OF REACTION Family History Other COPD (chronic obstructive pulmonary disease) Cancer Heart failure Myocardial infarction Surgical History S/P hysterectomy S/P left mastectomy History of cataract surgery Hx of surgical procedure History of lumbar surgery History of hip replacement History of knee replacement Social History Smoking Status: Never smoker alcohol intake: current alcohol intake frequency: holidays/special occasions only substance use type: does not use caffeine: Yes seatbelt use: always do you feel safe at home: Yes additional social history: [facility] Review of Systems (Anesthesia) ROS Narrative System reviewed and no additional complaints, except as documented. 06/03/25 0645 <Electronically signed by Singh Salcido MD > Date _ Singh Salcido MD Cosigner Signature: Date CC: ~ Signed [facility] Work Phone: 1(628) 440-611608-04-2025 Procedure note [facility] Medical Records Department [address] [place] [id number] Operative Report 06/03/25817 MR#: [id number] Acct: [id number] Name: KATHARINE MEDRANO Rep #:[id number] : 1945 80 From: Gee Alanis MD PCP: Dr. Ruben Guerrero MD Status:[facility] Location: [place] [address] Operative Report (Standard) Operative Information Date of Procedure: 06/03/25 Pre-Operative Diagnosis: Lumbosacral spondylosis, lumbosacral degenerative disc disease, lumbar facet arthropathy Post-Operative Diagnosis: Lumbosacral spondylosis, lumbosacral degenerative discdisease, lumbar facet arthropathy Surgery/Procedure Performed: Right sided lumbar radiofrequency ablation of the medial branch at L4,L5, S1 it service continuity supervisor: No Type of Anesthesia: Local MAC RN Documented Start/Stop Times: Operation Date: 06/03/25 08:00 Case Time Into Pre-Op 06/03/25 06:41 Out of Pre-Op 06/03/25 07:43 Anesthesia Start 06/03/25 07:55 Into Room 06/03/25 07:55 Procedure Start 06/03/25 08:01 Procedure End 06/03/25 08:14 Anesthesia End 06/03/25 08:17 Out of Room 06/03/25 08:17 Procedure Start Time: 08:19 Procedure Stop Time: 08:19 Select all DRAINS/GRAFTS/IMPLANTS that apply: None Estimated Blood Loss: 1 Specimen collected: No Description of surgery: PROCEDURE PERFORMED: Right-sided radiofrequency ablation of the medial branch atL4, L5, and S1. ANESTHESIA: MAC. BLOOD LOSS: Minimal. COMPLICATIONS: None. DESCRIPTION OF PROCEDURE: History and physical of today was reviewed. Risks and benefits of the procedure were explained. The patient understood and agreedto proceed. Informed consent was obtained. IV inserted per routine protocol. The patient was taken to the operating room and placed in the proneposition with a pillow positioned underneath the abdomen. The right side of her lower back was prepped and draped in a sterile fashion using iodine x3. Under fluoroscopy guidance in an oblique view, the L3 through S1 vertebral bodies werevisualized. The skin and subcutaneous tissue was anesthetizedwith approximately 10 mL of 1% lidocaine using a 25-gauge regular needle. Under direct visualization on fluoroscopy at approximately 25-degree angle, starting on the right L3, ending on the right S1,passing through the L4 and L5, using a 20-gauge 15-cm with a 10- mm curved active-tip radiofrequencyablation needle, the needle was passed through the skin. The tip of the needle was maneuvered and directed towards the superior medial gutter of the transverse process at thevicinity of the medial branch. Once the tip of the needle was in contact with the bone, the needle was pulled approximately 2mm off the bone. The stylette of each needle was then removed. After negative aspiration of blood or CSF and confirmation on AP, oblique as well as lateral view, the radiofrequency ablationprobe was then inserted at each level. Impedance was then recorded at L3 to be 212 ohm, at L4 to be 295 ohm, at L5 to be 260 ohm, and at S1 to be 316 ohm. Motor evoked potential was then initiated to 1.5 volt without any motor responseat each corresponding level. The probe was then removed intact and a total of 6mL of preservative-free 1% lidocaine wasinjected in divided doses between thosefour levels after negative aspiration of blood or CSF. The ra diofrequency ablation probe was then reinserted. After confirmation on AP, oblique as well as lateral view, radiofrequency ablation was then initiated to 80 degree Celsiusfor 90 second at each level.Once concluded, the probe was then removed intact. A total of 6 mL of preservative-free 0.25% Marcaine with 40 mg of Depo-Medrol was injected in divided doses between those four levels. The needles were then removed intact. The patient experienced no sign or symptoms of intrathecal or intravascularinjection. The patient experienced no paresthesia. The procedurewas completed without any apparent difficulty or any complications. The patientappeared to tolerate it well. Sensory as well as motor exam was unchanged from prior to the procedure. ASSESSMENT AND PLAN: This is a 80-year-old female with lumbosacral spondylosis, lumbosacral degenerative disc disease, lumbar facet arthropathy, status post right sided lumbar radiofrequency ablation of the medial branchat L4-S1, patient will continue her current medications, patient will follow-up in approximately 2 w eeks for reevaluation. Surgical Findings: 0 Complications Complications: No Admit VTE Documentation VTE Present on Admission: No VTE Mechan Device Prophylaxis: None VTE Pharm Prophylaxis ordered?: No 06/03/25 0821 Cosigner Signature (if applicable): CC: Dr. Ruben Guerrero MD; Dr. Gee Alnais MD~ Signed [facility]08-04-2025 Consult note [facility] Medical Records Department [address] [place] [address] Pre-Anesthesia Evaluation 06/03/25 0644 MR#: [id number] Acct: [id number] Name: KATHARINE MEDRANO Rep #:[id number] : 1945 80 From: Singh Salcido MD PCP: Dr. Ruben Guerrero MD Status:REG SDC Y Race: C Location: [facility] ASA Classification* ASA Classification ASA Classification: 2 Assessment & Plan Anesthesia* Anesthesia Assessment Anesthesia Assessment: Discussed sedation and/or anesthesia options, risks, benefits, and alternatives with patient/parents/legal guardian/POA. Questions invited. The patient/parents/legal guardian/POA seems to understand and agrees to proceedwith anesthesia plan. Reviewed the physical assessment, medical history, allergy history and patient home medications list prior to surgery/procedure/anesthetic and documented any changes. Performed airway and anesthesia risk assessments. Anesthesia Type Anesthesia Type: MAC Anesthesia Focused Assessment* Airway Assessment Mouth opens: >3 cm Mallampati Score: II Labs Anesthesia Preop lab: CBC WBC 9.7 K/mm3 (4.4-11.0) 04/30/25 10:58 04/30/25 RBC 4.79 M/mm3 (4.2-5.4) 04/30/25 10:58 04/30/25 Hgb 14.2 g/dL (12.0-15.0) 04/30/25 10:58 04/30/25 Hct 43.7 % (37-47) 04/30/25 10:58 04/30/25 Plt Count 323 K/mm3 (150-450) 04/30/25 10:58 04/30/25 CHEMISTRY Potassium 4.0 mmol/L (3.3-5.1) 04/30/25 10:58 04/30/25 Sodium 140 mmol/L (133-145) 04/30/25 10:58 04/30/25 BUN 15 mg/dL (4-19) 04/30/25 10:58 04/30/25 Creatinine 0.86 mg/dL (0.70-1.20) 04/30/25 10:58 04/30/25 Glucose 98 mg/dL (70-99) 04/30/25 10:58 04/30/25 POC Glucose 96 mg/dL (70-110) 04/07/20 06:58 04/07/20 TSH 0.96 uIU/mL (0.358-3.74) 03/28/24 12:38 COAG PT 13.1 SECONDS (11.7-14.9) 03/26/20 13:15 Pre-Assessment Diagnosis/Proposed Procedure Planned Operative Procedure(s): (R) RIGHT LUMBAR RADIOFREQUENCY ABALTION AT MEDIAL BRANCH OF L4 L5 S1 UNDER FLUOROSCOPY Anesthesia History Anesthesia History - licensed practical nurse: Anesthesia History - licensed practical nurse Hx Hospitalization No 05/24/25 11:43 Any Problems With Anesthesia No 05/24/25 11:43 Cholinesterase deficiency No 05/24/25 11:43 You/Your Family Experience No 05/24/25 11:43 fever (hyperthermia) with Relationship Recent Exposure to Contagious No 05/14/24 07:58 Disease Does patient have nerve No 05/24/25 11:43 stimulator Patient instructed to have device shut off --Does patient have Pacemaker or ICD? When Was Last Pacemaker Check QUESTION #4 FULL TEXT: You/Your Family Experience fever (hyperthermia) with Anesthesia Last Oral Intake Last Oral intake: Last Oral Intake NPO since Meds taken in AM with sips of water? Meds patient instructed to take am of surgery PONV PONV - licensed practical nurse: PONV - licensed practical nurse Female Yes 05/24/25 11:43 HX of Motion Sickness No 05/24/25 11:43 HX of N/V After Surgery No 05/24/25 11:43 Non-Smoker Yes 05/24/25 11:43 Duration of Surgery greater No 05/24/25 11:43 than 60 minutes Number of Risk Factors 2 05/24/25 11:43 PONV Score Moderate Risk 05/24/25 11:43 Height & Weight Height & Weight: Anesthesia: Height & Weight Height 5 ft 2 in 05/27/25 11:08 Respiratory Assessment Respiratory Assessment - licensed practical nurse: Respiratory Tract Infection Hx - licensed practical nurse Hx Respiratory Tract Infection No 05/24/25 11:43 STOP Sleep Apnea STOP Sleep Apnea - licensed practical nurse: STOP Sleep Apnea - licensed practical nurse Hx Hypertension Yes 05/24/25 11:43 Hx Sleep Apnea Yes 05/24/25 11:43 CPAP Yes 05/24/25 11:43 BIPAP No 05/24/25 11:43 Do you snore loudly (louder than talking or can be heard Do you often feel tired/ fatigued/ sleepy during daytime? Has anyone observed you stop breathing during sleep? STOP Results Positive 05/24/25 11:43 QUESTION #5 FULL TEXT : Do you snore loudly (louder than talking or can be heard through closeddoors)? Tobacco Use History Tobacco Use History - licensed practical nurse: Tobacco Use History - licensed practical nurse Tobacco Use Smoking Status Never smoker 05/24/25 11:43 Hx Tobacco Use No 05/24/25 11:43 Years Smoking Packs Smoked per Day Smoking Cessation Date was within the last 15 years Hx Smoking Cessation Date Hx Smoking Cessation Counseling Hematologic Medial History Hematologic Hx - licensed practical nurse: Hematologic Medical Hx - hand salter Hx of Blood Transfusion No 05/24/25 11:43 Hx of Transfusion in last 3 No 05/24/25 11:43 Months Date of Last Transfusion (if within last 3 months) Ever experience any problems No 05/24/25 11:43 with transfusion(s)? Specify any problems Hx of Preganancy in last 3 No 05/24/25 11:43 Months Nurse Filling Out Transfusion JZOLLINGE 05/24/25 11:43 & Questions: Date: 05/24/25 05/24/25 11:43 Time: 11:44 05/24/25 11:43 Patient unable to answer at this time (ie. confused, unrespo /Reproduction History /Reproductive History - licensed practical nurse: /Reproductive Hx- licensed practical nurse Hx Now No 05/24/25 11:43 Gestational Age (in weeks): EDC: Hx Hx Para Hx Section SAB No 05/27/25 11:08 Active Medications Active Medications: Current Medications Generic Name Dose Route Start Last Admin Trade Name Freq PRN Reason Stop Dose Admin Lactated Ringer's 1,000 mls @ 15 mls/hr 06/03/25 06:45 IV .Q48H ALEXA PFSH Medical History Bladder disease History of [...] History of hemorrhoids History of cancer Hypertension Home Medications ?Medication ?Instructions ?Recorded ?Last Taken ?Type acetaminophen 500 mg tablet 1,000 mg PO Q8 PRN Pain Or Fever 07/29/20 Unknown History glucosamine-chondroitin 250 mg-200 1 tab PO BID Unknown History mg tablet (Osteo Bi-Flex) multivitamin 1 tab PO DAILY 06/09/23 Unkn own History amlodipine 5 mg tablet 5 mg PO DAILY 05/08/2405/14 07:00 History losartan 100 mg tablet (Cozaar) 100 mg PO QPM 05/08/24 Unknown History biotin 1 mg capsule 1 mg PO DAILY 05/25/24 Unkno wn History cholecalciferol (vitamin D3) 50 50 mcg PO DAILY Unknown History mcg (2,000 unit) capsule naproxen 500 mg tablet 500 mg PO BID PRN pain 05/25 Unknown History alpha lipoic acid 200 mg capsule 200 mg PO BID 5 Unknown History clobetasol 0.05 % topical ointment 1 applic topical 2X W 90 days #45 05/27/25 Unknown Rx grams Allergy/AdvReac Type Severity Reaction Status Date / Time amoxicillin Allergy Anaphylaxis Verified 05/24/25 11:37 anastrozole (From Arimidex) Allergy Swelling Verified 05/24/25 11:37 Penicillins Allergy Hives Verified 05/24/25 11:37 tamoxifen AdvReac PT UNSURE Verified 05/24/25 11:37 OF REACTION Family History Other COPD (chronic obstructive pulmonary disease) Cancer Heart failure Myocardial infarction Surgical History S/P hysterectomy S/P left mastectomy History of cataract surgery Hx of surgical procedure History of lumbar surgery History of hip replacement History of knee replacement Social History Smoking Status: Never smoker alcohol intake: current alcohol intake frequency: holidays/special occasions only substance use type: does not use caffeine: Yes seatbelt use: always do you feel safe at home: Yes additional social history: Marlyn Mccall Review of Systems (Anesthesia) ROS Narrative System reviewed and no additional complaints, except as documented. 06/03/25 0645 > Date _ Singh Andres Signature: Date CC: ~ Signed [facility]07-28-2025 Evaluation note* Diagnosis Onset Date Resolution Status Admit Date Encounter for routine gynecological examination noneactive May 012024 11:02am [facility] Work Phone: [phone]) 646-976507-28-2025 Progress [facility] [address], [address] [place] [id number] OFFICE VISIT Date of Service: 05/27/25 MR#: [id number] Acct: [id number] Name: KATHARINE MEDRANO Rep #: [id number] : 1945 Provider: Dr. 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) Lead Teller Required: No Is patient in pain?: No [...] safe at home: Yes additional social history: [facility] History 4 Elective abortions Hx Para 3 [...] hematuria, hot flashes, nipple discharge, pelvic pain, prolapsesymptoms, urinary frequency, urinary incontinence, urinaryurgency, vaginal discharge, vaginal dryness, vaginal odor or vaginal pruritus Skin Skin/Breast: Denies changing lesions, breast mass, breast pain, breast skin changes or nipple discharge Psych Psych: Denies anxiety, change in libido, depression or difficulty concentrating Exam Const General: cooperative, healthy appearing, comfortable, no acute distress, well developed and well groomed [facility] Head: normal to inspection and normocephalic [...] 90 days 45 grams 4RF 05/27/25 1139 e Hussein DO> Date _ Payal Cote DO [facility] Signature: Date (if applicable) CC: ~ [facility]08-21-2023 Procedure [facility]28[facility]2023 [facility] Marquis William [facility] Note Date/Time June 03, 2025 8:5 6am [facility] Medical Records Department [address] [place] [address] Anesthesia Postop Eval I 06/03/25822 MR#: [id number] Acct: [id number] Name: KATHARINE MEDRANO Rep #:[id number] : 1945 80 From: Marquis disla CRNA PCP: Dr. Ruben Guerrero MD Status:REG SDC Y Race: C Location: [place] [address] Anesthesia: Postop Eval I Current Vital Signs Temperature: 97.4 F Pulse Rate: 78 Blood Pressure: 117/61 Respiratory Rate: 16 Pulse Ox: 96 Oxygen Delivery Method: Room Air Assessment Airway patent: Yes Spontaneous unlabored respirations: Yes Mental status: Awake nausea: No Vomiting: No Anesthesia Complication: No Fluid Hydration Crystalloid volume administer (ml): 150 Total IV fluid infused: 150 Progress Note Anesthesia document: Postop Eval 1 completed: Yes 06/03/25822 <Electronically signed by Marquis mehta CRNA> Date _ Marquis William CRNA Cosigner Signature: Date CC: ~ Signed [facility] Work Phone: Evaluation noteNo assessment information available [facility] Work Phone: Evaluation note* Diagnosis Onset Date Resolution Status Admit Date Encounter for routine gynecological examination noneactive May 012024 11:02am [facility] [employer] [facility] Work Phone: Progress note Author Payal Savage [facility] Note Date/Time May 27, 2025 11:3 9am [facility] [address], [address] [place] [address] OFFICE VISIT Date of Service: 05/27/25 MR#: [id number] Acct: [id number] Name: KATHARINE MEDRANO Rep #: [id number] : 1945 Provider: Dr. Vanesa Cote, DO Age/Sex: 80/F Location: [facility] Status: Signed Intake Vital Signs 05/25/24 14:44 05/27/25 11:06 05/27/25 11:08 Height 5 ft 2 in 5 ft 2 in 5 ft 2 in Weight: 230 lb 8 oz BMI 42.1 BP 140/84 H Intake Visit Reasons: Annual (HOME HEALTH CARE RESPIRATORY THERAPIST) Lead Teller Required: No Is patient in pain?: No [...] (Osteo Bi-Flex) multivitamin 1 tab PO DAILY 06/09/2305/01 History amlodipine 5 mg tablet 5 mg [...] 200 mg capsule 200 mg PO BID 5 05/27/25 History clobetasol 0.05 % topical [...] safe at home: Yes additional social history: [facility] History 4 Elective abortions Hx Para 3 Spontaneous abortions Hx # Term Pregnancies Ectopic pregnancies Hx # Pregnancies Multiple births # of living children Past Pregnancies Del. Date Name GA/Weeks Outcome Route Bth Weight Gen Labor Lgth Anesthesia Del Locat Provider FOB Unknown Wade Unknown Dunia Unknown [...] acute distress, well developed and well groomed HENNC Head: normal to inspection and normocephalic Ears: [...] Cosigner Signature: Date (if applicable) CC: ~ [facility] Work Phone: Reason for referral (narrative)No reason for referral information [facility] Work Phone: Family History No Family History Records Found Relationship Condition Age at Onset Recorded Date/T [place] Not Specified Heart failure Unknown Myocardial infarction Unknown Chronic obstructive pulmonary disease Unk nown Malignant neoplasm Unknown Advance Directives No Advanced Directives Records Found Advance Directive Response Recorded Date/ Time Advance Directives Yes July 31, 2018 9:57am Living Will Yes July 29, 2020 1:15pm Power of Industrial Waste Treatment Technician Yes July 1:15pm Advance Directive Response Recorded Date/ Time Name of Medical Power of Industrial Waste Treatment Technician Liz Mckeon on May 10, 2022 11:30am Advance Directives Yes July 31, 2018 9:57am Living Will Yes May 10, 2022 11:30am Power of Industrial Waste Treatment Technician Yes May 10 11:30am Advance Directive Response Recorded Date/ Time Advance Directives Yes July 31, 2018 9:57am Living Will Yes May 10, 2022 11:30am Power of Industrial Waste Treatment Technician Yes May 10 11:30am Name of Medical Power of Industrial Waste Treatment Technician Liz Mckeon on May 10, 2022 11:30am Advance Directive Response Recorded Date/ Time Advance Directives Yes July 31, 2018 8:57am Living Will Yes May 10, 2022 10:30am Power of Industrial Waste Treatment Technician Yes May 10 10:30am Name of Medical Power of Industrial Waste Treatment Technician Liz Mckeon on May 10, 2022 10:30am Advance Directive Response Recorded Date/ Time Advance Directives Yes July 31, 2018 8:57am Living Will Yes May 10, 2022 10:30am Power of Industrial Waste Treatment Technician Yes May 10 10:30am Advance Directive Response Recorded Date/ Time Advance Directives Yes July 31, 2018 9:57am Living Will Yes May 10, 2022 11:30am Power of Industrial Waste Treatment Technician Yes May 10 11:30am Advance Directive Response Recorded Date/ Time Name of Medical Power of Industrial Waste Treatment Technician LIZ MCKEON ON June 09, 2023 2:34pm Advance Directives Yes July 31, 2018 9:57am Living Will Yes June 09 2:34pm Power of Industrial Waste Treatment Technician Yes June 09, 023 2:34pm Advance Directive Response Recorded Date/ Time Advance Directives Yes July 31, 2018 8:57am Living Will Yes June 09 3 1:34pm Power of Industrial Waste Treatment Technician Yes June 09, 2 023 1:34pm Name of Medical Power of Industrial Waste Treatment Technician LIZ MCKEON ON June 09, 2023 1:34pm Advance Directive Response Recorded Date/ Time Advance Directives Yes July 31, 2018 8:57am Living Will Yes June 09 3 1:34pm Power of Industrial Waste Treatment Technician Yes June 09, 023 1:34pm Advance Directive Response Recorded Date/ Time Advance Directives Yes July 31, 2018 9:57am Advance Directive Response Recorded Date/ Time Do you have a Healthcare Power of Industrial Waste Treatment Technician? Yes May 24, 2025 11:43am Advance Directives Yes July 31, 2018 9:57am Chief Complaint and Reason for Visit Chief Complaint LLE EDEMA Chief Complaint SCREENING Chief Complaint SCREENING SCREENING Chief Complaint Admit Date EORDERS April 30, 2025 10:51 am Chief Complaint Admit Date EORDERS April 30, 2025 10:51 am Annual (HOME HEALTH CARE RESPIRATORY THERAPIST) May 27, 2025 11:0 2am Reason for Visit Admit Date Encounter for routine gynecological exam ination May 27, 2025 11:02am Chief Complaint Admit Date EORDERS April 30, 2025 10:51 am Annual (HOME HEALTH CARE RESPIRATORY THERAPIST) May 27, 2025 11:0 2am RIGHT LUMBAR RADIOFREQUENCY ABALTION AT MEDIAL BRA June 03, 2025 6:34am Chief Complaint Admit Date EORDERS April 30, 2025 10:51 am Annual (HOME HEALTH CARE RESPIRATORY THERAPIST) May 27, 2025 11:0 2am RIGHT LUMBAR RADIOFREQUENCY ABALTION AT MEDIAL BRA June 03, 2025 6:34am postmenopausal June 11, 2025 12 :08pm Summary Purpose Additional Source Comments Goals (unrecognized [...] May 27, 2025 End: May 27, 2025 Team Status: Inactive Member Role/Relationship Status Dates Dr. Ruben Guerrero MD Primary Care Provider Active Start: June 03, 2025 End: June 03, 2025 Dr. Gee Alanis MD Attending Provider Active Start: June 03, 2025 End: June 03, 2025 Dr. Gee Alanis MD Referring Provider Active Start: June 03, 2025 End: June 03, 2025 Team Status: Inactive Member Role/Relationship Status Dates Dr. Ruben Guerrero MD Primary Care Provider Active Start: June 11, 2025 End: June 11, 2025 Dr. Payal Cote DO Attending Provider Activ e Start: June 11, 2025 End: June 11, 2025 Dr. Payal Cote DO Referring Provider Activ e Start: June 11, 2025 End: June 11, 2025 INFORMATION SOURCE (unrecogn ized section and content) DATE CREATED AUTHOR 08/03/2025 [facility] FOR RECORDS PERTAINING TO PATIENTS WHO ARE [...] BE BASED ON THE PRIMARY CLINICAL RECORDS. [email or web address] provides no warranty or guarantee of the accuracy or completeness of information in this document.
--- NOTE | 2025-08-05 06:23 | PRE.ANES_ITS ---
ASA Classification* ASA Classification ASA Classification: 3 Assessment & Plan Anesthesia* Anesthesia Assessment Anesthesia Assessment: Discussed sedation and/or anesthesia options, risks, benefits, and alternatives with patient/parents/legal guardian/POA. Questions invited. The patient/parents/legal guardian/POA seems to understand and agrees to proceed with anesthesia plan. Reviewed the physical assessment, medical history, allergy history and patient home medications list prior to surgery/procedure/anesthetic and documented any changes. Performed airway and anesthesia risk assessments. Anesthesia Type Anesthesia Type: MAC History Source History Obtained from:: Patient and Chart Anesthesia Focused Assessment* Temperature: 97.8 F Pulse Rate: 83 Blood Pressure: 165/82 Respiratory Rate: 16 Pulse Ox: 98 Oxygen Delivery Method: Room Air Airway Assessment Mouth opens: 2 cm Mallampati Score: IV Teeth Condition: Caps/Crowns (Patient has several crowns. They are all tight.) and Missing (Patient has a couple missing teeth. Rest of the teeth are tight.) Neck Range of motion (ROM): Limited ROM (Severe Restriction) Labs Anesthesia Preop lab: CBC WBC, (4.4-11.0) 9.7 K/mm3 04/30/25, 10:58 RBC, (4.2-5.4) 4.79 M/mm3 04/30/25, 10:58 Hgb, (12.0-15.0) 14.2 g/dL 04/30/25, 10:58 Hct, (37-47) 43.7 % 04/30/25, :58 Plt Count, (150-450) 323 K/mm3 04/30/25, 10:58 CHEMISTRY Potassium, (3.3-5.1) 4.0 mmol/L 04/30/25, 10:58 Sodium, (133-145) 140 mmol/L 04/30/25, 10:58 BUN, (4-19) 15 mg/dL 04/30/25, 10:58 Creatinine, (0.70-1.20) 0.86 mg/dL 04/30/25, 10:58 Glucose, (70-99) 98 mg/dL 04/30/25, :58 POC Glucose, (70-110) 96 mg/dL 04/07/20, 06:58 TSH, (0.358-3.74) 0.96 uIU/mL 03/28/24, 12:38 COAG PT, (11.7-14.9) 13.1 SECONDS 03/26/20, 13:15 Pre-Assessment Diagnosis/Proposed Procedure Planned Operative Procedure(s): (L) LUMBAR RADIOFREQUENCY ABLATION AT MEDIAL BRANCH AT L4 L5 S1 UNDER FLUOROSCOPY Anesthesia History Anesthesia History - control systems engineer: Anesthesia History - control systems engineer Hx Hospitalization No 07/29/25 08:18 Any Problems With Anesthesia No 07/29/25 08:18 Cholinesterase deficiency No 07/29/25 08:18 You/Your Family Experience No 07/29/25 08:18 fever (hyperthermia) with Relationship Recent Exposure to Contagious No 08/05/25 06:11 Disease Does patient have nerve No 07/29/25 08:18 stimulator Patient instructed to have device shut off --Does patient have Pacemaker No 08/05/25 06:11 or ICD? When Was Last Pacemaker Check QUESTION #4 FULL TEXT: You/Your Family Experience fever (hyperthermia) with Anesthesia Last Oral Intake Last Oral intake: Last Oral Intake NPO since 23:00 08/05/25 06:11 Meds taken in AM with sips of Yes 08/05/25 06:11 water? Meds patient instructed to see med list 08/05/25 06:11 take am of surgery Any additional information?: Yes Meds taken in AM with sips of water?: Yes Meds patient instructed to take am of surgery: Amlodipine PONV PONV - control systems engineer: PONV - control systems engineer Female Yes 07/29/25 08:18 HX of Motion Sickness No 07/29/25 08:18 HX of N/V After Surgery No 07/29/25 08:18 Non-Smoker Yes 07/29/25 08:18 Duration of Surgery greater No 07/29/25 08:18 than 60 minutes Number of Risk Factors 2 07/29/25 08:18 PONV Score Moderate Risk 07/29/25 08:18 Height & Weight Height & Weight: Anesthesia: Height & Weight Height 5 ft 2 in 08/05/25 06:11 Weight: 104 kg 08/05/25 06:11 Body Mass Index (BMI) 41.9 08/05/25 06:11 Respiratory Assessment Respiratory Assessment - control systems engineer: Respiratory Tract Infection Hx - control systems engineer Hx Respiratory Tract Infection No 07/29/25 08:18 STOP Sleep Apnea STOP Sleep Apnea - control systems engineer: STOP Sleep Apnea - control systems engineer Hx Hypertension Yes: on meds 07/29/25 08:18 Hx Sleep Apnea Yes 07/29/25 08:18 CPAP Yes 07/29/25 08:18 BIPAP No 07/29/25 08:18 Do you snore loudly (louder than talking or can be heard Do you often feel tired/ fatigued/ sleepy during daytime? Has anyone observed you stop breathing during sleep? STOP Results Positive 07/29/25 08:18 QUESTION #5 FULL TEXT : Do you snore loudly (louder than talking or can be heard through closed doors)? Tobacco Use History Tobacco Use History - control systems engineer: Tobacco Use History - control systems engineer Tobacco Use Smoking Status Never smoker 07/29/25 08:18 Hx Tobacco Use No 07/29/25 08:18 Years Smoking Packs Smoked per Day Smoking Cessation Date was within the last 15 years Hx Smoking Cessation Date Hx Smoking Cessation Counseling Hematologic Medial History Hematologic Hx - control systems engineer: Hematologic Medical Hx - technology specialist Hx of Blood Transfusion No 07/29/25 08:18 Hx of Transfusion in last 3 No 07/29/25 08:18 Months Date of Last Transfusion (if within last 3 months) Ever experience any problems No 07/29/25 08:18 with transfusion(s)? Specify any problems Hx of Preganancy in last 3 No 07/29/25 08:18 Months Nurse Filling Out Transfusion [email or web address] 07/29/25 08:18 & Questions: Date: 07/29/25 07/29/25 08:18 Time: 08:19 07/29/25 08:18 Patient unable to answer at this time (ie. confused, unrespo /Reproduction History /Reproductive History - control systems engineer: /Reproductive Hx- control systems engineer Hx Now No 07/29/25 08:18 Gestational Age (in weeks): EDC: Hx Hx Para Hx Section SAB No 07/29/25 08:18 Active Medications Active Medications: Current Medications Generic Name Dose Route Start Last Admin Trade Name Freq PRN Reason Stop Dose Admin Lactated Ringer's 1,000 mls @ 15 mls/hr 08/05/25 06:00 IV .Q48H ALEXA PFSH Medical History Bladder disease History of diverticulitis History of pain when walking Non-smoker Wears glasses Post-menopausal Arthritis Easy bruising History of hiatal hernia Heartburn CPAP (continuous positive airway pressure) dependence Sleep apnea Shortness of breath on exertion Neuropathic arthritis History of edema History of echocardiogram History of stress test History of endometrial cancer History of breast cancer Back pain Difficulty balancing Knee pain History of hemorrhoids History of cancer Hypertension Home Medications ?Medication ?Instructions ?Recorded ?Last Taken ?Type acetaminophen 500 mg tablet 1,000 mg PO Q8 PRN Pain Or Fever 07/29/20 Unknown History glucosamine-chondroitin 250 mg-200 1 tab PO BID 06/02/25 History mg tablet (Osteo Bi-Flex) multivitamin 1 tab PO DAILY 06/09/2301/22 History amlodipine 5 mg tablet 5 mg PO DAILY 05/08/2408/05 History losartan 100 mg tablet (Cozaar) 100 mg PO QPM 05/08/24 06/02/25 History biotin 1 mg capsule 1 mg PO DAILY 05/25/24 Unkno wn History naproxen 500 mg tablet 500 mg PO BID PRN pain 05/25 Unknown History alpha lipoic acid 200 mg capsule 200 mg PO BID 5 Unknown History clobetasol 0.05 % topical ointment 1 applic topical 2X W 90 days #45 05/27/25 Unknown Rx grams Allergy/AdvReac Type Severity Reaction Status Date / Time amoxicillin Allergy Anaphylaxis Verified 08/05/25 06:10 anastrozole (From Arimidex) Allergy Swelling Verified 08/05/25 06:10 Penicillins Allergy Hives Verified 08/05/25 06:10 tamoxifen AdvReac PT UNSURE Verified 08/05/25 06:10 OF REACTION Family History Other COPD (chronic obstructive pulmonary disease) Cancer Heart failure Myocardial infarction Surgical History S/P hysterectomy S/P left mastectomy History of cataract surgery Hx of surgical procedure History of lumbar surgery History of hip replacement History of knee replacement Social History Smoking Status: Never smoker alcohol intake: current alcohol intake frequency: holidays/special occasions only substance use type: does not use caffeine: Yes seatbelt use: always do you feel safe at home: Yes additional social history: [facility] Review of Systems (Anesthesia) ROS Narrative System reviewed and no additional complaints, except as documented.
[2025-08-05] MEDS: Lactated Ringers 1,000 ML 15 ML IV (06:24)
--- NOTE | 2025-08-05 07:20 | RAD_ITS ---
PROCEDURE: LUMBAR SPINE 2 OR 3 VIEWS 08/05/2025 REASON FOR EXAM: RADIOFREQUENCY ABLATION MEDIAL BRANCH L4 L5 S1 TECHNIQUE: Procedure Code: RADSPLL Modality: DX Procedure: LUMBAR SPINE 2 OR 3 VIEWS COMPARISON: 06/03/2025. FINDINGS: Intraoperative fluoroscopy was performed. 21.3 seconds of fluoroscopic time. 11.30 mGy. 8 images. See procedure report for full details. RAD/Lumbar Spine 2 or 3 Views IMPRESSION: As above. Reading Location: [id number]
[2025-08-05] MEDS: Lidocaine 1% (30 ml sdv) 30 ML Vial (07:28)
[2025-08-05] MEDS: fentaNYL 100 MCG/2 ML Ampul 50 MCG IV (07:31)
--- NOTE | 2025-08-05 07:47 | PCM.POST.ANE ---
Anesthesia: Postop Eval I Current Vital Signs Temperature: 98.5 F Pulse Rate: 82 Blood Pressure: 138/77 Respiratory Rate: 20 Pulse Ox: 93 Assessment Airway patent: Yes Spontaneous unlabored respirations: Yes nausea: No Vomiting: No Anesthesia Complication: No Fluid Hydration Crystalloid volume administer (ml): 600 Total IV fluid infused: 600 Progress Note Anesthesia document: Postop Eval 1 completed: Yes
--- NOTE | 2025-08-05 07:48 | OP.PCM_ITS ---
Operative Report (Standard) Operative Information Date of Procedure: 08/05/25 Pre-Operative Diagnosis: Lumbosacral spondylosis, lumbosacral degenerative disc disease, lumbar facet arthropathy Post-Operative Diagnosis: Lumbosacral spondylosis, lumbosacral degenerative disc disease, lumbar facet arthropathy Surgery/Procedure Performed: Left-sided lumbar radiofrequency ablation of the medial branch at L4, L5, S1 under fluoroscopic guidance pharmacy order entry technician: No Type of Anesthesia: Local MAC RN Documented Start/Stop Times: Operation Date: 08/05/25 07:30 Case Time Into Pre-Op 08/05/25 05:55 Anesthesia Start 08/05/25 07:19 Into Room 08/05/25 07:19 Procedure Start 08/05/25 07:28 Procedure End 08/05/25 07:40 Anesthesia End 08/05/25 07:43 Out of Room 08/05/25 07:43 Into Recovery 08/05/25 07:45 Procedure Start Time: 07:48 Procedure Stop Time: 07:48 Select all DRAINS/GRAFTS/IMPLANTS that apply: None Estimated Blood Loss: 0 Specimen collected: No Description of surgery: ANESTHESIA: MAC. BLOOD LOSS: Minimal. COMPLICATIONS: None. DESCRIPTION OF PROCEDURE: History and physical of today was reviewed. Risks and benefits of the procedure were explained. The patient understood and agreed to proceed. Informed consent was obtained. IV inserted per routine protocol. The patient was taken to the operating room and placed in the prone position with a pillow positioned underneath the abdomen. The left side of her lower back was prepped and draped in a sterile fashion using iodine x3. Under fluoroscopy guidance in an oblique view, the L3 through S1 vertebral bodies were visualized. The skin and subcutaneous tissue was anesthetized with approximately 10 mL of 1% lidocaine using a 25-gauge regular needle. Under direct visualization on fluoroscopy at approximately 25-degree angle, starting on the left L3, ending on the left S1, passing through the L4 and L5, using a 20-gauge 15-cm with a 10-mm curved active-tip radiofrequency ablation needle, the needle was passed through the skin. The tip of the needle was maneuvered and directed towards the superior medial gutter of the transverse process at the vicinity of the medial branch. Once the tip of the needle was in contact with the bone, the needle was pulled approximately 2 mm off the bone. The stylette of each needle was then removed. After negative aspiration of blood or CSF and confirmation on AP, oblique as well as lateral view, the radiofrequency ablation probe was then inserted at each level. Impedance was then recorded at L3 to be 235 ohm, at L4 to be 296 ohm, at L5 to be 252 ohm, and at S1 to be 304 ohm. Motor evoked potential was then initiated to 2 Hz and 1.5 volt without any motor response at each corresponding level. The probe was then removed intact and a total of 6 mL of preservative-free 1% lidocaine was injected in divided doses between those four levels after negative aspiration of blood or CSF. The radiofrequency ablation probe was then reinserted. After confirmation on AP, oblique as well as lateral view, radiofrequency ablation was then initiated to 80 degree Celsius for 90 second at each level. Once concluded, the probe was then removed intact. A total of 6 mL of preservative-free 0.25% Marcaine with 40 mg of Depo-Medrol was injected in divided doses between those four levels. The needles were then removed intact. The patient experienced no sign or symptoms of intrathecal or intravascular injection. The patient experienced no paresthesia. The procedure was completed without any apparent difficulty or any complications. The patient appeared to tolerate it well. Sensory as well as motor exam was unchanged from prior to the procedure. ASSESSMENT AND PLAN: This is a 80-year-old female with lumbosacral spondylosis, lumbosacral degenerative disc disease, lumbar facet arthropathy, status post left-sided lumbar radiofrequency ablation of the medial branch at L4-S1, patient will continue her current medications, patient will follow-up in approximately 2 weeks for reevaluation. Surgical Findings: 0 Complications Complications: No Admit VTE Documentation VTE Present on Admission: No VTE Mechan Device Prophylaxis: None VTE Pharm Prophylaxis ordered?: No
--- NOTE | 2025-08-05 11:54 | POSTOPAN2_ITS ---
Anesthesia Postop Eval I Sum Postop Eval Completion status Anesthesia document: Postop Eval 1 completed: Yes Anesthesia Postop Eval I Summary Anesthesia Postop Eval I Summary: Anesthesia Postop Eval I: Assessment Summary Airway patent Yes 08/05/25 07:47 SENIOR PENSIONS ADMINISTRATOR.CSIR Spontaneous unlabored Yes 08/05/25 07:47 SENIOR PENSIONS ADMINISTRATOR.CSIR respirations Mental status nausea No 08/05/25 07:47 SENIOR PENSIONS ADMINISTRATOR.CSIR Vomiting No 08/05/25 07:47 SENIOR PENSIONS ADMINISTRATOR.CSIR Anesthesia Postop Eval I: Fluid Summary Crystalloid volume administer 600 08/05/25 07:47 SENIOR PENSIONS ADMINISTRATOR.CSIR (ml) Colloids volume administered ( ml) Blood Product volume administered (ml) Total IV fluid infused 600 08/05/25 07:47 SENIOR PENSIONS ADMINISTRATOR.CSIR Anesthesia Postop Eval I: Summary Notes Anesthesia Complication No 08/05/25 07:47 SENIOR PENSIONS ADMINISTRATOR.CSIR Anesthesia Complication Comment: Post-operative progress note Anesthesia: Postop Eval II Evaluation Mental status: Awake and Calm Pain Level: 1 nausea: No Vomiting: No Complications Anesthesia Complication: No
--- NOTE | 2025-08-05 11:54 | PCM.POSTANE2 ---
Anesthesia Postop Eval I Sum Postop Eval Completion status Anesthesia document: Postop Eval 1 completed: Yes Anesthesia Postop Eval I Summary Anesthesia Postop Eval I Summary: Anesthesia Postop Eval I: Assessment Summary Airway patent Yes 08/05/25 07:47 STEP DOWN SPECIALIST.CSIR Spontaneous unlabored Yes 08/05/25 07:47 STEP DOWN SPECIALIST.CSIR respirations Mental status nausea No 08/05/25 07:47 STEP DOWN SPECIALIST.CSIR Vomiting No 08/05/25 07:47 STEP DOWN SPECIALIST.CSIR Anesthesia Postop Eval I: Fluid Summary Crystalloid volume administer 600 08/05/25 07:47 STEP DOWN SPECIALIST.CSIR (ml) Colloids volume administered ( ml) Blood Product volume administered (ml) Total IV fluid infused 600 08/05/25 07:47 STEP DOWN SPECIALIST.CSIR Anesthesia Postop Eval I: Summary Notes Anesthesia Complication No 08/05/25 07:47 STEP DOWN SPECIALIST.CSIR Anesthesia Complication Comment: Post-operative progress note Anesthesia: Postop Eval II Evaluation Mental status: Awake and Calm Pain Level: 1 nausea: No Vomiting: No Complications Anesthesia Complication: No
== END 2025-08-05 08:29 | disposition home or self-care (01) ==
LOC: SDC 05:54 → AC 05:57
PROVIDERS: PCP Family Medicine; Referring Provider Anesthesiology Pain Medicine; Visit Provider Anesthesiology Pain Medicine
PROC: (CPT 64635; principal; 2025-08-05 07:25)
DX: M47.817 Spondylosis without myelopathy or radiculopathy, lumbosacral region (principal); M46.96 Unspecified inflammatory spondylopathy, lumbar region; M51.379 Other intervertebral disc degeneration, lumbosacral region without mention of lumbar back pain or lower extremity pain; I10 Essential (primary) hypertension; G47.30 Sleep apnea, unspecified; Z79.899 Other long term (current) drug therapy
CPT/HCPCS: 64635; 64636; 72100; 76000; J2405